=== PATIENT | female | born 1940 | race Caucasian/White ===

== ENCOUNTER 2022-07-19 10:30 | Outpatient (RCR) | payer MEDICARE, BC, SELFPAY | END 2023-03-29 23:59 | disposition home or self-care (01) | PROVIDERS: PCP Student in an Organized Health Care Education/Training Program; Visit Provider Student in an Organized Health Care Education/Training Program | DX: I89.0 Lymphedema, not elsewhere classified (principal); Z51.89 Encounter for other specified aftercare | CPT/HCPCS: 97140 ==

== ENCOUNTER 2022-10-24 11:30 | Outpatient (RCR) | payer MEDICARE, BC, SELFPAY | END 2022-11-17 15:24 | disposition home or self-care (01) | PROVIDERS: PCP Student in an Organized Health Care Education/Training Program; Visit Provider Student in an Organized Health Care Education/Training Program | DX: M81.0 Age-related osteoporosis without current pathological fracture (principal); R53.1 Weakness; R26.9 Unspecified abnormalities of gait and mobility; Z51.89 Encounter for other specified aftercare | CPT/HCPCS: 97110; 97112; 97161; 97530 ==

== ENCOUNTER 2023-09-05 16:15 | Outpatient (RCR) | payer MEDICARE, BC, SELFPAY ==
--- NOTE | 2023-07-27 12:59 | PT.OPEX ---
[place] Outpatient Eval PT [facility] Outpatient Eval Start: 07/27/23 12:20 Freq: Status: Active Protocol: Document 07/27/23 12:20 AIMEE (Rec: 07/27/23 12:56 AIMEE [id number]) E-signed By Trista Guerrero PT Physical Therapy Outpatient Evaluation Insurance Information Recert Due Date 10/24/23 Insurance Name Medicare B Medical Diagnosis RIGHT SHOULDER OA Treating Diagnosis RIGHT SHOULDER PAIN WEAKNESS Referring MD GIANNA RICHARDSON Subjective Subjective PATIENT REPORTS PAIN WITH REACHING AND GROOMING HER HAIR . SHE STATES, IT'S BEEN COMING ON FOR ABOUT 6 MONTHS OR SO AND REALLY NOTICED LATELY WITH DOING MY HAIR. SHE IS REFERRED BY HER PCP DURING HER ANNUAL PHYSICAL EXAMINATION. ADDITIONALLY, SHE REPORTS HAVING AND EPISODE OF VERTIGO-LIKE SYMPTOMS FOR THE PAST ~2 WEEKS THAT HAS KEPT HER FROM MAKING HER INITIAL APPTS FOR THE EVALUATION. SHE REPORTS THAT DIAGNOSTICS OF ALL RETURNED UNREMARKABLE. LASTLY, SHE WILL HAVE HER LEFT HIP EVALUATED FOR PHYSICAL THERAPY NEXT VISIT. Pain Comments 0-10/20 Date of Last Physician Visit 06/15/23 Current Work Status Retired Preferred Name [employer] Precautions Treatment Precautions/Contraindications OSTEOPOROSIS Therapy Limitations/Systems Review Not Limited Objective Other/Pertinent Objective CERVICAL ROM: DECREASED ROM WITH MOD FWD HEAD POSTURING NOTING SIGNIFICANT THORACIC KYPHOSIS WITH MIN SCOLIOSIS SHOULDER AROM Flexion: 120 Abduction: 82 Internal Rotation: T4 External Rotation: 68 @ 0DEGREES ABD NECK/SHOULDER MMT: Shoulder shrug: WFL Shoulder flexion: R 4/5 Shoulder abduction: R 4/5 Shoulder External Rotation: R 4-/5 Shoulder Internal Rotation: R 4+ Elbow flexion: R 4/5 Elbow extension R 4/5 SPECIAL TEST Spurlings Test: (-) Cervical distraction test: NT Shoulder impingement HawkinsElsiey Test: (+) Neer Test: (+) Cherelle Test(subacromial) : (-) Painful arc 60-120 scaption: ( +) Rotator cuff tendonitis Speeds test(biceps): (-) Yergasons test(biceps-arm at side elbow flexed): (-) Empty can(Supra): (+) Lift off test (subscap): (-) JOINT MOBILITY: DECREASED TX: CERVICAL ROTATION R/L 2X10 SEC CERVICAL SIDEBEND R/L 2 X 10 CERVICAL CHIN TO CHEST 2 X 10 SHOULDER SHRUG WITH BKWD ROT X 10 SHOULDER SCAP SQUEEZE X 10 3 SEC HOLD TABLE SLIDES INTO FLEX 10 X 5 SEC Assessment Assessment/Impression PATIENT IS AN [address] 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 SHE SELF TREATS HER LYMPHEDEMA THROUGH COMPRESSION GARMENTS AND LYMPH MASSAGE. ADDITIONALLY, SHE WAS REFERRED FOR HIP WEAKNESS/ BALANCE CHALLENGES THAT WE WILL ADDRESS IN UPCOMING EVALUATION. SHE DEMONSTRATES FUNCTIONAL ROM WITH NO PAIN AT REST/WITHOUT MVMT BUT PAINFUL ARC THAT SHE RATES 3-4/10 WITH REACHING OR GROOMING HER HAIR. SHE HAS FUNCTIONAL STRENGTH AND NO POINT TENDERNESS ABOUT THE SHOULDER COMPLEX. SHE DOES, HOWEVER, DEMONSTRATES MODERATE FWD HEAD POSTURING WITH A SIGNIFICANT THORACIC KYPHOSIS WITH MIN SCOLIOTIC CURVATURE NOTED. SHE DOES NOT C/O NECK PAIN BUT DEMONSTRATES LIMITED MOTION PARTLY D/T ARTHRITIC CHANGES BUT ALSO RECENT VERTIGO EXPERIENCE WHERE SHE IS FEARFUL OF MVMT WELL USING HER WALKING STICK FOR STABILITY. SHE IS APPROPRIATE FOR SKILLED PHYSICAL THERAPY TO ADDRESS HER FUNCTIONAL STRENGTH, ROM, AND SYMPTOM MGMT WITH ADDITIONAL INTERVENTION TO ADDED FOR HER BLE STRENGTH AND BALANCE. PATIENT VERBALIZED UNDERSTANDING TO ALL SKILLED INSTRUCTION AND AGREEABLE TO POC AND FREQ. Plan of Care Rehabilitation Potential Good Physical Therapy Goals IN 6-8 WEEKS: 1. PATIENT WILL IMPROVE ROM AND STRENGTH TO ALLOW FOR RETURN TO PLOF WITH DAILY ACTIVITIES 2. PATIENT WILL BE EDUCATED ON POSTURE AND BODY MECHANICS TO STRESS TO THE SHOULDER REGION, IMPROVE SHOULDER MECHANICS AND DECREASE OVERALL SHOULDER DYSFUNCTION. 3. PATIENT WILL BE INDEPENDENT WITH HER HEP AND TO PROGRESS GOALS, ONGOING MGMT OF SYMPTOMS AND CONTINUED SELF IMPROVEMENT WITH POSTURE, STRENGTH, AND MECHANICS. Coordination/Communication With Referral Source Treatment Plan/Direct Interventions Heat,Ice/Cold/Vasopneumatic, Joint Mobilization,Manual Therapy,Neuromuscular Re-ed, Therapeutic Activities, Therapeutic Exercises Frequency/Duration 1W8-10 Patient Will Be Discharged From Therapy Completion of LTG(s),Skills Plateau,Independent w/HEP Discharge Plan Comments DC TO SELF WHEN GOALS MET OR MAX POTENTIAL ACHIEVED Evaluation Billing Untimed Code Treatment Minutes 15 PT Eval No Charge No Complexity Low Certification Information Initial Certification Date 07/27/23 Ending Certification Date 10/24/23 Provider Signature Shows Agreement With POC & Medical Necessity Physician Signature & Date Requested Please Sign/Date Here Physician Comment/Change : Physician NPI Number #
== END 2023-11-20 10:14 | disposition home or self-care (01) ==
PROVIDERS: PCP Student in an Organized Health Care Education/Training Program; Visit Provider Student in an Organized Health Care Education/Training Program
DX: M41.9 Scoliosis, unspecified (principal); R29.898 Other symptoms and signs involving the musculoskeletal system; M19.011 Primary osteoarthritis, right shoulder; M25.511 Pain in right shoulder; R53.1 Weakness; R26.81 Unsteadiness on feet; M25.552 Pain in left hip; Z51.89 Encounter for other specified aftercare
CPT/HCPCS: 97110; 97161

== ENCOUNTER 2023-09-10 08:42 | Inpatient (IN) | payer MEDICARE, BC, SELFPAY ==
[2023-09-10] VITALS (10 sets, daily range): BP systolic 87–176; BP diastolic 51–74; PULSE 66–73; RESP 16–20; TEMP 36.3–37.4; O2SAT 91–97; BMI 27.5
--- NOTE | 2023-09-10 09:09 | ED.NAVMDI ---
HPI - Nausea/Vomiting/Diarrhea General Chief complaint: Nausea/Vomiting Stated complaint: nausea vomiting Time Seen by Provider: 09/10/23 08:59 History of Present Illness HPI Narrative: Patient is a 83-year-old woman who was in usual state of health 2 days ago when she had the abrupt onset of nausea and vomiting. She appears to be vomiting bile she states that her vomitus is very dark. She has had no diarrhea no fevers no chills no night sweats. She has no significant pain other than the pain from retching. She has had no cough no shortness of breath no rashes no stiff neck. Patient lives alone was brought to the emergency room today for further evaluation and treatment. No other significant symptoms noted. Related Data Home Medications Medication Instructions Recorded Confirmed amlodipine 2.5 mg tablet 2.5 mg PO DAILY 09/10/23 09/10/23 atenolol 50 mg tablet mg PO 09/10/23 bupropion HCl 150 mg 24 hr tablet, 150 mg PO QAM 09/10/23 09/10/23 extended release famotidine 20 mg tablet mg PO 09/10/23 furosemide 20 mg tablet mg PO 09/10/23 hydrochlorothiazide 12.5 mg tablet 12.5 mg PO DAILY 09/10/23 09/10/23 pantoprazole 20 mg tablet,delayed 20 mg PO DAILY 09/10/23 09/10/23 release simvastatin 10 mg tablet mg PO 09/10/23 Allergies Allergy/AdvReac Type Severity Reaction Status Date / Time No Known Drug Allergies Allergy Verified 09/10/23 08:57 Review of Systems Status of ROS: Reports: 10 or more systems reviewed and unremarkable except as noted in History and below [facility] Medical History Colostomy in place ?Z93.3 - Colostomy status (ICD-10) Hyperlipidemia ?E78.5 - Hyperlipidemia, unspecified (ICD-10) Chronic GERD ?K21.9 - Gastro-esophageal reflux disease without esophagitis (ICD-10) Hypertension ?I10 - Essential (primary) hypertension (ICD-10) Social History Smoking Status: Former smoker How often do you have a drink containing alcohol: never How often do you have six or more drinks on one occasion: Never AUDIT-C Alcohol total score: 0 Non-prescribed substance use: denies use Exam Narrative: Exam Narrative: EXAM GENERAL: Patient appears comfortable and well. EYES: No scleral icterus. THYROID: no thyroid nodules or thyromegaly. LYMPH: No supraclavicular or cervical lymphadenopathy. SKIN: Visible skin seen during exam normal or with benign process only. EXT: No dependent lower extremity pedal edema. HEART: Regular rate and rhythm with no murmurs, rubs, or gallops. LUNGS: Clear to auscultation bilaterally with no crackles or wheezes. ABD: Soft, non tender, non distended. Colostomy noted. PSYCH: Good eye contact, speech is not pressured. Const: Vital Signs, click to edit/add: Vital Signs - 24 hr 09/10/23 08:54 09/10/23 09:49 09/10/23 10:41 Temperature 97.3 F L Pulse Rate [Pulse Oximeter] 68 66 72 Respiratory Rate 20 16 Blood Pressure [Ri ght Upper Arm] 168/61 H 142/51 H Pulse Oximetry 97 96 96 Oxygen Delivery Me thod Room Air Room Air Room Air 09/10/23 12:38 Temperature Pulse Rate [Pulse Oximeter] 72 Respiratory Rate 16 Blood Pressure [Ri ght Upper Arm] 129/54 L Pulse Oximetry 96 Oxygen Delivery Me thod Room Air Course Course ED Course: Patient seen and examined. IV placed normal saline 1 L given 4 mg IV Zofran given CBC CMP amylase UA pending. Vital Signs Vital signs: Initial Vital Signs Temperature 97.3 F L 09/10/23 08:54 Temperature Source Temporal Artery Scan 09/10/23 08:54 Pulse Rate 68 09/10/23 08:54 Respiratory Rate 20 09/10/23 08:54 Blood Pressure 168/61 H 09/10/23 08:54 Blood Pressure Mean 96 09/10/23 08:54 Blood Pressure Position Supine 09/10/23 08:54 Pulse Oximetry 97 09/10/23 08:54 Oxygen Delivery Method Room Air 09/10/23 08:54 Vital Signs Temperature 97.3 F L 09/10/23 08:54 Pulse Rate 68 09/10/23 08:54 Respiratory Rate 20 09/10/23 08:54 Blood Pressure 168/61 H 09/10/23 08:54 Pulse Oximetry 97 09/10/23 08:54 Oxygen Delivery Method Room Air 09/10/23 08:54 Temperature 97.3 F L 09/10/23 08:54 Pulse Rate 72 09/10/23 12:38 Respiratory Rate 16 09/10/23 12:38 Blood Pressure 129/54 L 09/10/23 12:38 Pulse Oximetry 96 09/10/23 12:38 Oxygen Delivery Method Room Air 09/10/23 12:38 Medications Administered Medications: Generic Name Dose Route Start Last Admin Trade Name Fregrady PRN Reason Stop Dose Admin Ondansetron HCl 4 mg 09/10/23 09:02 09/10/23 09:15 Ondansetron 2 Mg/Ml Inj IVP 4 mg ONCE PRN Administration Discontinued Medications Generic Name Dose Route Start Last Admin Trade Name Fregrady PRN Reason Stop Dose Admin Sodium Chloride 1,000 mls @ 1,000 mls/hr 09/10/23 09:03 09/10/23 10:59 0.9 % Sodium Chloride 1000 Ml IV 09/10/23 10:02 Infused .Q1H MIGUEL Infusion Potassium Chloride 10 meq in 100 mls @ 100 mls/hr 09/10/23 09:45 09/10/23 12:00 Potassium Chloride IVPB 09/10/23 12:14 Infused Q90M MIGUEL Infusion MDM - Nausea/Vomiting/Diarrhea MDM Narrative Medical decision making narrative: Patient is an 83-year-old woman who presents with nausea and vomiting. We did obtain laboratory studies she does have some evidence of mild dehydration as well as hypokalemia. I did give her a 210 mg IV bumps of potassium and her potassium to level did come up from 2.6-3.2. I also gave her 1 L of normal saline and she is feeling better. She does desaturate when she is sleeping which I do think is a chronic problem as she is 96% while awake on room air. This time she is feeling better and is willing to give a try at home after receiving IV Zofran here I did prescribe p.o. 0 DT Zofran to take at home. She will answer diet activity as tolerated continue current medications. She does have follow-up later this week with her primary doctor where she will discuss her symptoms as well as her hypoxia while sleeping. Differential Diagnosis Differential diagnosis: Likely traveler's diarrhea, food poisoning, gastroenteritis, clostridium difficile infection, drug-induced nausea and vomiting and dehydration Lab Data Labs: Lab Results 09/10/23 09/10/23 09/10/23 Range/Units 09:00 09:10 10:34 WBC 12.65 H (4.50-11.00) K/uL RBC 4.23 (4.00-5.20) m/uL Hgb 12.8 (12.0-16.0) gm/dL Hct 37.7 (33.0-51.0) % MCV 89 (80-100) fL MCH 30 (26-34) pg MCHC 34 (32-36) gm/dL RDW Coeff of Sadia 12.3 (11.5-15.5) % Plt Count 282 (140-440) K/uL Neut % (Auto) 86.2 H (42.0-72.0) % Lymph % (Auto) 5.4 L (20-44) % [place] % (Auto) 7.9 (0.0-11.0) % Eos % (Auto) 0.1 (0.0-7.0) % Baso % (Auto) 0.2 (0.0-3.0) % Neut # (Auto) 10.90 H (1.7-7.0) K/uL Lymph # (Auto) 0.70 L (0.90-2.90) K/uL [place] # (Auto) 1.00 H (0.00-0.90) K/UL Eos # (Auto) 0.00 (0.00-0.50) K/uL Baso # (Auto) 0.00 (0.00-0.30) K/uL Abs Immat Gran (auto) 0.00 (0.00-0.30) K/uL Imm/Tot Granulo (auto) 0.2 % Sodium 133 L (135-149) mmol/L Potassium 2.6 L* (3.6-5.1) mmol/L Chloride 85 L (96-114) mmol/L Carbon Dioxide 31 (20-32) mmol/L Anion Gap 17 H (7-15) mEq/L BUN 37 H (7-30) mg/dL Creatinine 1.5 (0.5-1.5) mg/dL Estimated GFR 35 ml/min Glucose 140 H (60-115) mg/dL Calcium 9.0 (8.4-10.6) mg/dL Total Bilirubin 1.0 (0.1-1.5) mg/dL AST 29 (12-35) U/L ALT 19 (4-35) U/L Alkaline Phosphatase 72 (40-150) U/L Total Protein 8.0 (6.0-8.3) g/dL Albumin 4.4 (3.3-5.0) g/dL Amylase 62 (18-89) U/L Urine Color Yellow (Yellow) Urine Appearance Clear (Clear) Urine pH 5.5 (5.0-8.5) Ur Specific [place] 1.020 (1.000-1.030) Urine Protein Negative (Negative) Urine Glucose (UA) Negative (Negative) Urine Ketones 1+ A (Negative) Urine Blood Trace-intact A (Negative) Urine Nitrite Negative (Negative) Urine Bilirubin 1+ A (Negative) Urine Urobilinogen 0.2 (0.2-1.0) Ur Leukocyte Esterase Negative (Negative) Urine RBC 0-2 (0-2) Urine WBC 0-2 (0-5) Ur Squamous Epith Cells Few (None-Few) Urine Bacteria None (None) SARS-CoV-2 (PCR) Negative SARS-CoV-2 (Negative) Influenza Type A (PCR) Negative PCR FLU A (Negative) Influenza Type B (PCR) Negative PCR FLU B (Negative) RSV (PCR) Negative PCR RSV (Negative) 09/10/23 Range/Units 12:07 WBC (4.50-11.00) K/uL RBC (4.00-5.20) m/uL Hgb (12.0-16.0) gm/dL Hct (33.0-51.0) % MCV (80-100) fL MCH (26-34) pg MCHC (32-36) gm/dL RDW Coeff of Sadia (11.5-15.5) % Plt Count (140-440) K/uL Neut % (Auto) (42.0-72.0) % Lymph % (Auto) (20-44) % [place] % (Auto) (0.0-11.0) % Eos % (Auto) (0.0-7.0) % Baso % (Auto) (0.0-3.0) % Neut # (Auto) (1.7-7.0) K/uL Lymph # (Auto) (0.90-2.90) K/uL [place] # (Auto) (0.00-0.90) K/UL Eos # (Auto) (0.00-0.50) K/uL Baso # (Auto) (0.00-0.30) K/uL Abs Immat Gran (auto) (0.00-0.30) K/uL Imm/Tot Granulo (auto) % Sodium (135-149) mmol/L Potassium 3.2 L (3.6-5.1) mmol/L Chloride (96-114) mmol/L Carbon Dioxide (20-32) mmol/L Anion Gap (7-15) mEq/L BUN (7-30) mg/dL Creatinine (0.5-1.5) mg/dL Estimated GFR ml/min Glucose (60-115) mg/dL Calcium (8.4-10.6) mg/dL Total Bilirubin (0.1-1.5) mg/dL AST (12-35) U/L ALT (4-35) U/L Alkaline Phosphatase (40-150) U/L Total Protein (6.0-8.3) g/dL Albumin (3.3-5.0) g/dL Amylase (18-89) U/L Urine Color (Yellow) Urine Appearance (Clear) Urine pH (5.0-8.5) Ur Specific [place] (1.000-1.030) Urine Protein (Negative) Urine Glucose (UA) (Negative) Urine Ketones (Negative) Urine Blood (Negative) Urine Nitrite (Negative) Urine Bilirubin (Negative) Urine Urobilinogen (0.2-1.0) Ur Leukocyte Esterase (Negative) Urine RBC (0-2) Urine WBC (0-5) Ur Squamous Epith Cells (None-Few) Urine Bacteria (None) SARS-CoV-2 (PCR) (Negative) Influenza Type A (PCR) (Negative) Influenza Type B (PCR) (Negative) RSV (PCR) (Negative) Discharge Plan Discharge Clinical Impression: Gastroenteritis Patient Disposition: Home, Self-Care Condition: Stable Instructions: Acute Nausea and Vomiting (ED) Additional Instructions: Zofran as directed Continue current medications Follow-up with your doctor later this week. Activity Level: No Restrictions Discharge Diet: Regular Prescriptions: No Action simvastatin 10 mg tablet PO amlodipine 2.5 mg tablet 2.5 mg PO DAILY pantoprazole 20 mg tablet,delayed release (DR/EC) 20 mg PO DAILY famotidine 20 mg tablet PO furosemide 20 mg tablet PO atenolol 50 mg tablet PO bupropion HCl 150 mg tablet extended release 24 hr 150 mg PO QAM hydrochlorothiazide 12.5 mg tablet 12.5 mg PO DAILY Follow Up/Referrals: GIANNA RICHARDSON DO [Primary Care Provider] - Stand Alone Forms: [facility] Info Instructions
[2023-09-10] MEDS: 0.9 % SODIUM CHLORIDE 1000 ml 1,000 ML IV (09:15)
[2023-09-10] MEDS: ONDANSETRON 2 MG/ML inj 4 MG IVP ×3 (09:15→20:57)
[2023-09-10 09:29] LABS: Basophils Percent Auto 0.2 % (0.0-3.0); Eosinophils Percent Auto 0.1 % (0.0-7.0); Hematocrit 37.7 % (33.0-51.0); Hemoglobin* 12.8 gm/dL (12.0-16.0); Immature Granulocytes Pct Auto 0.2 %; Lymphocytes Percent Auto 5.4 % (20-44); Mean Corpuscular HGB Conc 34 gm/dL (32-36); Mean Corpuscular Hemoglobin 30 pg (26-34); Mean Corpuscular Volume 89 fL (80-100); Monocytes Percent Auto 7.9 % (0.0-11.0); Neutrophils Percent Auto 86.2 % (42.0-72.0); Platelet Count* 282 K/uL (140-440); RDW Coefficient of Variation % 12.3 % (11.5-15.5); Red Blood Count 4.23 m/uL (4.00-5.20); White Blood Count* 12.65 K/uL (4.50-11.00)
[2023-09-10 09:34] LABS: Albumin* 4.4 g/dL (3.3-5.0); Chloride* 85 mmol/L (96-114)
[2023-09-10 09:35] LABS: Sodium* 133 mmol/L (135-149)
[2023-09-10 09:37] LABS: Alkaline Phosphatase* 72 U/L (40-150); Amylase* 62 U/L (18-89); Anion Gap 17 mEq/L (7-15); Aspartate Amino Transferase* 29 U/L (12-35); Blood Urea Nitrogen* 37 mg/dL (7-30); Carbon Dioxide* 31 mmol/L (20-32); Creatinine* 1.5 mg/dL (0.5-1.5); Estimated Glomerular Filt Rate 35 ml/min; Glucose* 140 mg/dL (60-115)
[2023-09-10 09:38] LABS: Alanine Aminotransferase* 19 U/L (4-35); Slide Review Reflex No
[2023-09-10 09:39] LABS: Potassium* 2.6 mmol/L (3.6-5.1)
[2023-09-10] MEDS: POTASSIUM CHLORIDE 10 MEQ/100 ML PIGGYBACK 100 MEQ IVPB ×6 (09:49→22:47)
[2023-09-10 10:02] LABS: PCR FLU A Negative PCR FLU A (Negative); PCR FLU B Negative PCR FLU B (Negative); PCR RSV Negative PCR RSV (Negative)
[2023-09-10 10:05] LABS: SARS PCR* Negative SARS-CoV-2 (Negative)
[2023-09-10 10:39] LABS: Appearance Urine Clear (Clear); Bilirubin Urine 1+ (Negative); Blood Urine Trace-intact (Negative); Color Urine Yellow (Yellow); Glucose Urine Negative (Negative); Ketones Urine 1+ (Negative); Leukocyte Esterase Urine Negative (Negative); Nitrite Urine Negative (Negative); Protein Urine Negative (Negative); Urobilinogen Urine 0.2 (0.2-1.0); pH Urine 5.5 (5.0-8.5)
[2023-09-10 10:59] LABS: RBC Urine 0-2 (0-2); Squamous Epithelial Cell Urine Few (None-Few); WBC Urine 0-2 (0-5)
--- NOTE | 2023-09-10 11:27 | CRLHL7_ITS ---
For Patients: As a result of the Century Cures Act, medical imaging exams and procedure reports are released immediately into your electronic medical record. You may view this report before your referring provider. If you have questions, please contact your health care provider. INDICATION: [id number]. TECHNIQUE: Chest 2 views. COMPARISON: None. FINDINGS: Cardiovascular and mediastinum: Heart size and vasculature are normal in caliber and appearance. Lungs and pleural spaces: Lungs are clear. No sign of infiltrate or mass. No sign of pleural effusion. No pneumothorax. Bones and soft tissues: No significant findings. IMPRESSION: No acute or significant findings. Dictated by Han Jonas MD @ 09/10/2023 12:22:06 PM (Electronically Signed)
--- NOTE | 2023-09-10 11:29 | ED.NURSE ---
Pt O2 sats noted to drop to ~80% while pt is sleeping in the room. Pt easily rousable to voice, denies SOB. Pt O2 sats recovered quickly to mid 90's% on room air once awake. MD Russell updated, chest x-ray ordered.
[2023-09-10 12:23] LABS: Potassium* 3.2 mmol/L (3.6-5.1)
--- NOTE | 2023-09-10 12:50 | ED.NURSE ---
Pt very nauseated, vomiting small amount of emesis. MD notified.
--- NOTE | 2023-09-10 13:19 | ED.NURSE ---
Pt states she feels very weak, reports nausea/vomiting has not improved. Also reports some new abd pain now. MD Russell updated.
[2023-09-10] MEDS: 0.9 % SODIUM CHLORIDE 1000 ml 1,000 ML 125 ML IV (15:41)
[2023-09-10] MEDS: droperidoL 2.5 MG/ML inj 0.625 MG IV (16:08)
[2023-09-10] MEDS: ENOXAPARIN 30 MG/0.3ML INJ SUBCUT (16:08)
[2023-09-10] MEDS: PANTOPRAZOLE SODIUM 40 MG INJ IVP (16:10)
[2023-09-10] MEDS: PROCHLORPERAZINE 5 MG/ML VIAL IV (17:44)
[2023-09-10 18:32] LABS: Albumin* 4.2 g/dL (3.3-5.0); Chloride* 91 mmol/L (96-114); Sodium* 135 mmol/L (135-149)
[2023-09-10 18:35] LABS: Anion Gap 13 mEq/L (7-15); Carbon Dioxide* 31 mmol/L (20-32); Creatinine* 1.3 mg/dL (0.5-1.5); Est. Creatinine Clearance* 32.54; Estimated Glomerular Filt Rate 41 ml/min
[2023-09-10 18:36] LABS: Blood Urea Nitrogen* 34 mg/dL (7-30); Calcium* 8.2 mg/dL (8.4-10.6); Glucose* 123 mg/dL (60-115); Magnesium* 1.4 mg/dL (1.5-2.6); Phosphorus* 3.5 mg/dL (2.5-4.5)
[2023-09-10 18:41] LABS: Potassium* 2.6 mmol/L (3.6-5.1)
--- NOTE | 2023-09-10 18:47 | PC.NURSE ---
Potassium result of 2.6 this [address] smasher updated Dr. Miranda.
[2023-09-10] MEDS: MAGNESIUM IV 2 GM/50 ML PIGGYBACK IVPB (19:01)
--- NOTE | 2023-09-10 19:19 | P.IMHP_ITS ---
Hospitalist- H&P: HPI History of Present Illness Date Seen: 09/10/23 Chief complaint: nausea vomiting Narrative: Lillie Tong is a 83 year old woman was in her usual state of health until 2 days prior to presentation when she had the sudden, abrupt onset of nausea and vomiting. Had been visiting her children. Returned home. Was doing well for few hours and then had the sudden, abrupt onset of nausea and vomiting. Denies fevers, rigors, diaphoresis. Denies diarrhea. Only discomfort she has is from the retching. Denies chest heaviness, pressure, tightness, or pain. Denies abdominal pain. Denies dysuria, urgency, frequency, hematuria. No recent trauma or injury. Has had little to eat or drink since the onset of these symptoms. Acknowledges decreased frequency of urination. Finally decided to come in for further assessment. Had epigastric discomfort in the early part of August. Was started empirically on pantoprazole and Tums in that epigastric discomfort resolved. Review of Systems Status of ROS: Reports: 10 or more systems reviewed and unremarkable except as noted in History and below Narrative: Does have an ostomy. States had cancer 20 years ago and has had the ostomy since. Does not give additional details. [facility] Medical History Peripheral artery disease ?I73.9 - Peripheral vascular disease, unspecified (ICD-10) History of endometrial cancer ?Z85.42 - Personal history of malignant neoplasm of other parts of uterus (ICD-10) Chronic hyperkalemia ?E87.5 - Hyperkalemia (ICD-10) Thyroid nodule ?E04.1 - Nontoxic single thyroid nodule (ICD-10) Stenosis of left carotid artery ?I65.22 - Occlusion and stenosis of left carotid artery (ICD-10) Primary hyperparathyroidism ?E21.0 - Primary hyperparathyroidism (ICD-10) Osteoporosis ?M81.0 - Age-related osteoporosis without current pathological fracture (ICD- 10) Diverticulosis ?K57.90 - Diverticulosis of intestine, part unspecified, without perforation or abscess without bleeding (ICD-10) Aortic valve sclerosis ?I35.8 - Other nonrheumatic aortic valve disorders (ICD-10) Colostomy in place ?Z93.3 - Colostomy status (ICD-10) Hyperlipidemia ?E78.5 - Hyperlipidemia, unspecified (ICD-10) Chronic GERD ?K21.9 - Gastro-esophageal reflux disease without esophagitis (ICD-10) Hypertension ?I10 - Essential (primary) hypertension (ICD-10) Surgical History 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 ?Z90.710 - Acquired absence of both cervix and uterus (ICD-10) ?Z90.722 - Acquired absence of ovaries, bilateral (ICD-10) ?Z90.79 - Acquired absence of other genital organ(s) (ICD-10) Status post colectomy ?Z90.49 - Acquired absence of other specified parts of digestive tract (ICD- 10) Status post cholecystectomy ?Z90.49 - Acquired absence of other specified parts of digestive tract (ICD- 10) Social History What is your current living situation?: I presently have a place to live Problems where you live: no known problems Problems where you live details: N/A In the past 12 months, utilities in danger of being shut off: no In past 12 months, lack of transportation kept you from medical appts, meetings, work, or getting things needed for daily living: no In the past 12 mos, have been you worried that your food would run out before you had money to buy more?: never true In the past 12 mos, the food you bought just didn't last and you didn't have money to buy more?: never true Highest level of school completed/degree received: Bachelor's degree Smoking Status: Former smoker Second hand tobacco smoke exposure: No How often do you have a drink containing alcohol: never How often do you have six or more drinks on one occasion: Never AUDIT-C Alcohol total score: 0 Non-prescribed substance use: denies use Caffeine: No How often does anyone, including family, friends and others, physically hurt you : never How often does anyone, including family, friends and others, insult or talk down to you: never How often does anyone, including family, friends and others, threaten you with harm: never How often does anyone, including family, friends and others, scream or curse at you: never service: No Meds Home Medications and Allergies Home Medications Medication Instructions Recorded Confirmed Type amlodipine 2.5 mg tablet 2.5 mg PO DAILY 09/10/23 09/10/23 History aspirin 81 mg chewable tablet 81 mg PO DAILY 09/10/23 09/10/23 History (Aspirin Childrens) atenolol 50 mg tablet 50 mg PO BID 09/10/23 09/10/23 History bupropion HCl 150 mg 24 hr tablet, 150 mg PO QAM 09/10/23 09/10/23 History extended release calcium carbonate 500 mg-vitamin 1 tab PO DAILY 09/10/23 09/10/23 History D3 10 mcg (400 unit) tablet (Calcium 500 + D) cholecalciferol (vitamin D3) 25 2,000 unit PO DAILY 09/10/23 09/10/23 History mcg (1,000 unit) tablet furosemide 20 mg tablet 20 mg PO DAILY 09/10/23 09/10/23 History hydrochlorothiazide 12.5 mg tablet 12.5 mg PO DAILY 09/10/23 09/10/23 History lorazepam 0.5 mg tablet 0.5 mg PO BID PRN 09/10/23 09/10/23 History pantoprazole 20 mg tablet,delayed 20 mg PO DAILY 09/10/23 09/10/23 History release simvastatin 10 mg tablet 10 mg PO HS 09/10/23 09/10/23 History Allergies Allergy/AdvReac Type Severity Reaction Status Date / Time No Known Drug Allergies Allergy Verified 09/10/23 08:57 Exam Narrative: Exam Narrative: Examined patient in the hospital room. Appears comfortable no acute distress. Vision and hearing are grossly normal. Alert oriented to self, place, time, situation. Friendly, articulate, cooperative. Dry buccal mucosa. Dentition in good repair. No icterus or conjunctival injection. Lungs are clear to auscultation. Heart tones with regular rhythm. Abdomen with active bowel sounds, soft, nontender. Ostomy in place. Good output. Extremities without edema. Moves all 4 extremities. No focal motor neurologic deficits. Skin is dry and intact. Const: Vital Signs, click to edit/add: Vital Signs - 24 hr 09/10/23 08:54 09/10/23 09:49 09/10/23 10:41 Temperature 97.3 F L Pulse Rate [Left B rachial] Pulse Rate [Pulse Oximeter] 68 66 72 Respiratory Rate 20 16 Blood Pressure [Le ft Arm] Blood Pressure [Ri ght Arm] Blood Pressure [Ri ght Upper Arm] 168/61 H 142/51 H Pulse Oximetry 97 96 96 Oxygen Delivery Me thod Room Air Room Air Room Air 09/10/23 12:38 09/10/23 13:19 09/10/23 14:30 Temperature 97.8 F Pulse Rate [Left B rachial] 73 Pulse Rate [Pulse Oximeter] 72 67 Respiratory Rate 16 20 Blood Pressure [Le ft Arm] 87/63 L Blood Pressure [Ri ght Arm] Blood Pressure [Ri ght Upper Arm] 129/54 L 139/74 Pulse Oximetry 96 92 95 Oxygen Delivery Me thod Room Air Room Air Room Air 09/10/23 15:45 09/10/23 17:11 Temperature 99.4 F Pulse Rate [Left B rachial] 68 Pulse Rate [Pulse Oximeter] Respiratory Rate 18 18 Blood Pressure [Le ft Arm] Blood Pressure [Ri ght Arm] 131/58 L Blood Pressure [Ri ght Upper Arm] Pulse Oximetry 91 91 Oxygen Delivery Mi thod Room Air Room Air Hospitalist - H&P: Result Labs Labs: Short CBC 09/10/23 Range/Units 09:10 WBC 12.65 H (4.50-11.00) K/uL Hgb 12.8 (12.0-16.0) gm/dL Hct 37.7 (33.0-51.0) % Plt Count 282 (140-440) K/uL BMP 09/10/23 09/10/23 09/10/23 09:10 12:07 18:10 Sodium 133 L 135 Potassium 2.6 L* 3.2 L 2.6 L* Chloride 85 L 91 L Carbon Dioxide 31 31 BUN 37 H 34 H Creatinine 1.5 1.3 Glucose 140 H 123 H Calcium 9.0 8.2 L Liver Function 09/10/23 09/10/23 Range/Units 09:10 18:10 Total Bilirubin 1.0 (0.1-1.5) mg/dL AST 29 (12-35) U/L ALT 19 (4-35) U/L Alkaline Phosphatase 72 (40-150) U/L Albumin 4.4 4.2 (3.3-5.0) g/dL Urine 09/10/23 Range/Units 10:34 Urine Color Yellow (Yellow) Urine Appearance Clear (Clear) Urine pH 5.5 (5.0-8.5) Ur Specific Gulliver 1.020 (1.000-1.030) Urine Protein Negative (Negative) Urine Glucose (UA) Negative (Negative) Assessment and Plan Assessment and plan (1) Dehydration: Status: Acute (2) Nausea and vomiting: Problem comment: -antiemetics as needed -IV PPI Status: Acute (3) Gastroenteritis: Status: Acute (4) Hypotension: Problem comment: -IV fluid rehydration Status: Acute (5) Acute kidney injury: Problem comment: -baseline creatinine 0.8, current creatinine 1.5 -related to dehydration and possibly also hypotension Status: Acute (6) Hypokalemia: Problem comment: -potassium supplementation Status: Acute (7) Hypomagnesemia: Problem comment: -magnesium supplementation Status: Acute Plan 1. Reviewed impression with patient and daughter. Answered their questions. 2. Hold antihypertensive medications, including hydrochlorothiazide. 3. Continue with other supportive efforts. 4. Patient and daughter agreeable.
[2023-09-10] MEDS: SODIUM CHLORIDE 0.9 % (FLUSH) 10 ML SYRINGE 5 ML IVF (20:57)
--- NOTE | 2023-09-10 23:25 | PC.NURSE ---
Shift note [id number]: Pt noted to be alert & oriented x 4 and arrived to M/S floor at 1405 today from ED with c/o nausea and vomiting. One time dose of Droperidol administered per order and PRN Compazine administered as pt was still nauseous and vomited 50 mL of bile after receiving one time dose of Droperidol. She was noted to have an additional 25 mL of bile emesis noted at HS. Emesis noted to have foul odor. PRN Zofran given at HS with no further emesis episodes noted. Mill Roll Operator also provided anti-nausea aromatherapy patch. Pt has ostomy in place with band and reports consistency of stool is soft at baseline and has not changed. She has been continent of bladder and has been transferring to bedside commode with SBA. Pt has been afebrile throughout the shift. CL diet ordered though pt could only drink ice water for supper due to N/V. Pt currently receiving NS at 125 mL/hr. Pt has been denying pain when asked and states only discomfort she has noted has been from retching d/t N/V. Pt noted to have hx of GERD. Abdomen noted to be soft and non-tender with bowel sounds active x 4. K+ result of 2.6 noted this evening with Dr. Miranda updated- 40 mEq of total IV potassium given per order. IV in place to L FA patent. Pt did not want to remove pants or socks when assisting her with HS cares. Pt requested fan be provided- fan provided and pt signed form acknowledging charge for fan.
[2023-09-11] VITALS (8 sets, daily range): BP systolic 142–175; BP diastolic 50–75; PULSE 66–74; RESP 18–22; TEMP 36.7–36.9; O2SAT 91–93
[2023-09-11] MEDS: PROCHLORPERAZINE 5 MG/ML VIAL IV ×3 (00:05→20:37)
[2023-09-11] MEDS: 0.9 % SODIUM CHLORIDE 1000 ml 1,000 ML 125 ML IV ×2 (00:05→08:38)
[2023-09-11 07:06] LABS: Hemoglobin* 10.4 gm/dL (12.0-16.0); Mean Corpuscular HGB Conc 33 gm/dL (32-36); Mean Corpuscular Hemoglobin 30 pg (26-34); Mean Corpuscular Volume 92 fL (80-100); Platelet Count* 221 K/uL (140-440); Red Blood Count 3.47 m/uL (4.00-5.20); White Blood Count* 6.74 K/uL (4.50-11.00)
[2023-09-11 07:26] LABS: Slide Review Reflex No
[2023-09-11 07:30] LABS: Albumin* 3.4 g/dL (3.3-5.0); Chloride* 97 mmol/L (96-114); Sodium* 135 mmol/L (135-149)
[2023-09-11 07:33] LABS: Anion Gap 9 mEq/L (7-15); Blood Urea Nitrogen* 29 mg/dL (7-30); Calcium* 7.4 mg/dL (8.4-10.6); Carbon Dioxide* 29 mmol/L (20-32); Creatinine* 1.2 mg/dL (0.5-1.5); Est. Creatinine Clearance* 35.25; Estimated Glomerular Filt Rate 45 ml/min; Glucose* 97 mg/dL (60-115); Phosphorus* 2.5 mg/dL (2.5-4.5)
[2023-09-11 07:45] LABS: Potassium* 2.8 mmol/L (3.6-5.1)
[2023-09-11 08:22] LABS: Magnesium* 2.3 mg/dL (1.5-2.6)
--- NOTE | 2023-09-11 08:26 | PC.NURSE ---
Pt alert and oriented x3. Afebrile. Pt reports nausea and emesis, managed with PRN medications. Pt had 1 emesis around 0000 mls not recorded due to small amount in tissue paper. Pt's colostomy is patent and draining, pt changed dressing, and emptied 1 full bag and emptied another 1/2 a bag around 0530. Pt is up SBA with walker and gait belt to bathroom. Pt slept intermittently throughout night.
[2023-09-11] MEDS: PANTOPRAZOLE SODIUM 40 MG INJ IVP ×2 (08:38→22:30)
[2023-09-11] MEDS: SODIUM CHLORIDE 0.9 % (FLUSH) 10 ML SYRINGE 5 ML IVF ×2 (08:38→20:38)
[2023-09-11] MEDS: buPROPion XL 150 MG TABLET PO (08:38)
--- NOTE | 2023-09-11 13:31 | PM.IMPN1 ---
Progress Note: A&P Assessment and plan (1) Gastroenteritis: Problem details: -with nausea, vomiting, increased stool output in ostomy -antiemetics as needed -IV PPI (history of GERD as well) -clears as tolerated, advancing diet as tolerated -no recent antibiotic use. Monitor stool output, considering pathogen panel, C difficile testing if needed Status: Acute (2) Dehydration: Problem details: -in setting of above -continue with gentle IV hydration until improved oral intake Status: Acute (3) Hypotension: Problem details: -resolved following IV fluid rehydration -monitor, consider restarting antihypertensives tomorrow if remains stable Status: Acute (4) Acute kidney injury: Problem details: -baseline creatinine 0.8, creatinine on admission 1.5 -improved to 1.2 today -related to dehydration and possibly also hypotension Status: Acute (5) Hypokalemia: Problem details: -potassium 2.8 following supplementation, continue with 10 mEq IV bumps, recheck at 2000pm -of note calcium 7.4, corrected calcium 8.2, monitor Status: Acute (6) Hypomagnesemia: Problem details: -improved to 2.3 following supplementation Status: Acute (7) Anemia: Problem details: -hemoglobin 10.4, likely dilutional, continue to monitor Status: Acute Plan Continue to monitor, possible discharge Sunday pending ongoing clinical improvement and improvement in electrolyte derangement Time Spent With Patient Total time spent: Total time spent caring for the patient today was 45 minutes. This includes time spent for the visit reviewing the chart, time spent during the visit, time spent after the visit and documentation and planning in coordination of care. Subjective Date Seen: 09/11/23 Interval history: Patient reports feeling better this morning. Nausea has improved without vomiting this morning. Attempting small bites of clears thus far. Has remained afebrile. Denies Headache or dizziness. Still feels a little weak. Exam Narrative: Exam Narrative: PHYSICAL EXAM General: Sitting on the bed, very pleasant, conversant, NAD HEENT: Normocephalic, atraumatic, sclera white, EOMI, oral mucosa moist Cardiovascular: RRR, S1S2 Pulmonary: CTA bilaterally without rhonchi, rales, expiratory wheezes. No dyspnea Abdominal: Soft, nondistended, NTTP, no guarding. Ostomy bag with small amount of stool currently. Neurological: Alert, answering questions appropriately, cranial nerves intact, no focal findings Extremities: No gross joint deformity or swelling. AROMI. Neurovascularly intact Skin: Warm, dry. Const: Vital Signs, click to edit/add: Vital Signs - 24 hr 09/10/23 14:30 09/10/23 15:45 09/10/23 17:11 Temperature 97.8 F 99.4 F Pulse Rate [Left B rachial] 73 68 Pulse Rate [orthos tatic lying Pulse Oximeter] Pulse Rate [orthos tatic sitting Puls e Oximeter] Pulse Rate [orthos tatic standing Pul se Oximeter] Respiratory Rate 20 18 18 Blood Pressure [Le ft Arm] 87/63 L Blood Pressure [Ri ght Arm] 131/58 L Blood Pressure [or thostatic lying] Blood Pressure [or thostatic sitting Right Arm] Blood Pressure [or thostatic standing Right Arm] Pulse Oximetry 95 91 91 Oxygen Delivery Pr thod Room Air Room Air Room Air 09/10/23 19:30 09/10/23 20:19 09/11/23 00:05 Temperature 98.1 F 98.3 F Pulse Rate [Left B rachial] 71 68 Pulse Rate [orthos tatic lying Pulse Oximeter] Pulse Rate [orthos tatic sitting Puls e Oximeter] Pulse Rate [orthos tatic standing Pul se Oximeter] Respiratory Rate 20 20 Blood Pressure [Le ft Arm] Blood Pressure [Ri ght Arm] 176/69 H 157/68 H 144/50 H Blood Pressure [or thostatic lying] Blood Pressure [or thostatic sitting Right Arm] Blood Pressure [or thostatic standing Right Arm] Pulse Oximetry 94 92 Oxygen Delivery Pr thod Room Air Room Air 09/11/23 00:05 09/11/23 00:05 09/11/23 02:55 Temperature 98.1 F Pulse Rate [Left B rachial] 68 69 Pulse Rate [orthos tatic lying Pulse Oximeter] Pulse Rate [orthos tatic sitting Puls e Oximeter] Pulse Rate [orthos tatic standing Pul se Oximeter] Respiratory Rate 20 20 22 Blood Pressure [Le ft Arm] Blood Pressure [Ri ght Arm] 171/67 H Blood Pressure [or thostatic lying] Blood Pressure [or thostatic sitting Right Arm] Blood Pressure [or thostatic standing Right Arm] Pulse Oximetry 92 92 Oxygen Delivery Pr thod Room Air Room Air 09/11/23 06:00 09/11/23 07:00 09/11/23 07:00 Temperature Pulse Rate [Left B rachial] Pulse Rate [orthos tatic lying Pulse Oximeter] 66 Pulse Rate [orthos tatic sitting Puls e Oximeter] 68 Pulse Rate [orthos tatic standing Pul se Oximeter] 74 Respiratory Rate 18 18 Blood Pressure [Le ft Arm] Blood Pressure [Ri ght Arm] Blood Pressure [or thostatic lying] 155/65 H Blood Pressure [or thostatic sitting Right Arm] 171/67 H Blood Pressure [or thostatic standing Right Arm] 175/74 H Pulse Oximetry 93 Oxygen Delivery Me thod Room Air 09/11/23 07:00 Temperature 98.1 F Pulse Rate [Left B rachial] 66 Pulse Rate [orthos tatic lying Pulse Oximeter] Pulse Rate [orthos tatic sitting Puls e Oximeter] Pulse Rate [orthos tatic standing Pul se Oximeter] Respiratory Rate 18 Blood Pressure [Le ft Arm] Blood Pressure [Ri ght Arm] 155/65 H Blood Pressure [or thostatic lying] Blood Pressure [or thostatic sitting Right Arm] Blood Pressure [or thostatic standing Right Arm] Pulse Oximetry 93 Oxygen Delivery Me thod Room Air Labs Labs: Laboratory Results - last 24 hr 09/10/23 09/11/23 09/11/23 18:10 05:56 07:53 WBC 6.74 RBC 3.47 L Hgb 10.4 L Hct 32.0 L MCV 92 MCH 30 MCHC 33 Plt Count 221 Sodium 135 135 Potassium 2.6 L* 2.8 L* Chloride 91 L 97 Carbon Dioxide 31 29 Anion Gap 13 9 BUN 34 H 29 Creatinine 1.3 1.2 Estimated Creat Clear 32.54 35.25 Estimated GFR 41 45 Glucose 123 H 97 Calcium 8.2 L 7.4 L Phosphorus 3.5 2.5 Magnesium 1.4 L 2.3 Albumin 4.2 3.4 Lab Acknowledgement Test Added Test Added
[2023-09-11] MEDS: POTASSIUM CHLORIDE 10 MEQ/100 ML PIGGYBACK 100 MEQ IVPB ×8 (13:53→23:41)
[2023-09-11] MEDS: ENOXAPARIN 30 MG/0.3ML INJ SUBCUT (16:01)
--- NOTE | 2023-09-11 18:06 | PC.NURSE ---
End of shift [id number]: Pt A&O x4, afebrile and VSS. Pt is SBA w/ walking cane with ambulation. Self-emptying colostomy bag & she reports stool is loose & watery which is not baseline. Tolerated clear liquids with no nausea so she was advanced to full liquid diet for lunch & regular diet for supper. Gave her x1 dose of PRN Compazine beginning of the shift @ 0840 and she didn?t require any more. K+ 2.8 this morning so pt received x6 doses IV potassium 10 mEq with a BMP recheck @ 1999. IV is to be SL once IV potassium is finished. Pt denied having any pain or nausea all day. Pt is clear to be independent in her room once disconnected from IV. She prefers to have BP measured in right arm. Pt is hopeful to discharge home tomorrow 1/3 as long as potassium is WNL. ?
[2023-09-11 21:32] LABS: Potassium* 3.6 mmol/L (3.6-5.1)
--- NOTE | 2023-09-11 22:30 | PM.EN ---
Chart Event Note Date Seen: 09/11/23 Chart Event Note: Still has intermittent nausea. Now has epigastric discomfort. Hemoglobin down to 10.4 09/11/23 from 12.2 09/10/23. Check lipase and LFTs Consider abd U/S and consider EGD
[2023-09-11 23:12] LABS: Albumin* 3.5 g/dL (3.3-5.0)
[2023-09-11 23:15] LABS: Alanine Aminotransferase* 17 U/L (4-35); Alkaline Phosphatase* 68 U/L (40-150); Aspartate Amino Transferase* 35 U/L (12-35); Bilirubin Direct* 0.2 mg/dL (0.0-0.5); Bilirubin Total* 0.5 mg/dL (0.1-1.5); Lipase* 323 U/L (23-300); Total Protein* 6.8 g/dL (6.0-8.3)
[2023-09-11] MEDS: HYDROmorphone 0.5 mg/0.5 ml inj IVP (23:16)
[2023-09-12] VITALS (7 sets, daily range): BP systolic 101–159; BP diastolic 54–95; PULSE 8–90; RESP 16–18; TEMP 36.7–37.2; O2SAT 92–96
--- NOTE | 2023-09-12 06:42 | PC.NURSE ---
Shift note: Pt c/o abdominal pain and nausea after dinner, RN treated per eMAR with relief and pt is walking in the hallway this evening. She is independent in the room, calls appropriately, no other complains overnight.
[2023-09-12 07:22] LABS: Hematocrit 33.2 % (33.0-51.0); Hemoglobin* 10.6 gm/dL (12.0-16.0); Mean Corpuscular HGB Conc 32 gm/dL (32-36); Mean Corpuscular Hemoglobin 30 pg (26-34); Mean Corpuscular Volume 93 fL (80-100); Platelet Count* 233 K/uL (140-440); Red Blood Count 3.56 m/uL (4.00-5.20); White Blood Count* 6.36 K/uL (4.50-11.00)
[2023-09-12 07:24] LABS: Slide Review Reflex No
[2023-09-12 07:41] LABS: Chloride* 100 mmol/L (96-114)
[2023-09-12 07:42] LABS: Albumin* 3.2 g/dL (3.3-5.0); Sodium* 135 mmol/L (135-149)
[2023-09-12 07:43] LABS: Potassium* 3.8 mmol/L (3.6-5.1)
[2023-09-12 07:45] LABS: Alkaline Phosphatase* 61 U/L (40-150); Anion Gap 7 mEq/L (7-15); Aspartate Amino Transferase* 28 U/L (12-35); Bilirubin Direct* 0.2 mg/dL (0.0-0.5); Bilirubin Total* 0.5 mg/dL (0.1-1.5); Blood Urea Nitrogen* 14 mg/dL (7-30); Carbon Dioxide* 28 mmol/L (20-32); Creatinine* 0.8 mg/dL (0.5-1.5); Est. Creatinine Clearance* 42.63; Estimated Glomerular Filt Rate 74 ml/min; Glucose* 92 mg/dL (60-115); Total Protein* 5.8 g/dL (6.0-8.3)
[2023-09-12 07:46] LABS: Alanine Aminotransferase* 15 U/L (4-35); Calcium* 7.3 mg/dL (8.4-10.6); Lipase* 296 U/L (23-300); Phosphorus* 1.2 mg/dL (2.5-4.5)
[2023-09-12] MEDS: PANTOPRAZOLE SODIUM 40 MG INJ IVP (08:19)
[2023-09-12] MEDS: buPROPion XL 150 MG TABLET PO (08:19)
[2023-09-12] MEDS: PROCHLORPERAZINE 5 MG/ML VIAL IV (08:19)
[2023-09-12] MEDS: ASPIRIN 81 MG TAB.CHEW PO (08:19)
[2023-09-12] MEDS: SODIUM CHLORIDE 0.9 % (FLUSH) 10 ML SYRINGE 5 ML IVF ×3 (08:19→23:52)
--- NOTE | 2023-09-12 14:25 | NUTR.NU ---
RDN with MD consult for vomiting > 3 days. Patient admitted for Gastroenteritis with nausea, vomiting, and increased output in colostomy and dehydration. Patient is currently on Clear Liquids, not tolerating Regular diet at this time. Currently this is Day 4 of NPO/clear Liquids. Per IDT, plan is for EGD when available. No weight history to assess. Current weight 137lb 4oz; height 4ft 11in; BMI is overweight at 27.7 kg/m2. With patient currently on clear liquids, no nutrition interventions at this time. RDN will continue to monitor and follow-up prn.
--- NOTE | 2023-09-12 14:32 | PC.NURSE ---
End of shift [id number]: Pt A&O x4 and ambulatory. Low-grade fever this morning T-max 99.0 but recheck @ lunch was 98.6. Pt is independent in her room, denies any dizziness or weakness. Denies any abdominal pain today or nausea. PRN compazine given x1 dose this morning @ 0820. D/t increased pain after regular diet intake last night, pt has diverted back to clear liquids only- tolerating water and hot green tea today. Left FA IV infiltrated so a new 20g was placed in right wrist SL. Family has been in/out visiting throughout the day. Radha on hold for ordered EGD to be done on 09/13/23. ?
--- NOTE | 2023-09-12 16:21 | PM.IMPN1 ---
Progress Note: A&P Assessment and plan (1) Gastroenteritis: Problem details: -with nausea, vomiting, increased stool output in ostomy -antiemetics as needed -IV PPI (history of GERD as well) -clears as tolerated, advancing diet as tolerated - not tolerated, further evaluation with EGD on 09/13 -no recent antibiotic use. Monitor stool output, considering pathogen panel, C difficile testing if needed - 09/12: stools decreasing in quantity 09/12: Differential includes ulcerative disease, H pylori was negative in August patient report. Lipase normal this morning. -EGD scheduled for 09/[address] Russell. NPO after midnight. Enoxaparin held tonight Status: Acute (2) Dehydration: Problem details: -in setting of above -continue with gentle IV hydration until improved oral intake Status: Acute (3) Hypotension: Problem details: -resolved following IV fluid rehydration -monitor, consider restarting antihypertensives tomorrow if remains stable Status: Acute (4) Acute kidney injury: Problem details: -baseline creatinine 0.8, creatinine on admission 1.5 -improved to 0.8 today -related to dehydration and possibly also hypotension Status: Acute (5) Hypokalemia: Problem details: -resolve, improved to 3.8 following supplementation -of note calcium 7., corrected calcium 8.1, monitor -phosphorus also low 1.2, in setting of poor oral intake. Further workup for ulceration Status: Acute (6) Hypomagnesemia: Problem details: -improved to 2.3 following supplementation Status: Acute (7) Anemia: Problem details: -stable, hemoglobin 10.6, likely dilutional, continue to monitor. Patient report of dark vomitus prior to admission, further workup with EGD rule out ulceration Status: Acute Plan EGD planned for 09/13/2023. NPO after midnight. Enoxaparin held Time Spent With Patient Total time spent: Total time spent caring for the patient today was 45 minutes. This includes time spent for the visit reviewing the chart, time spent during the visit, time spent after the visit and documentation and planning in coordination of care. Subjective Date Seen: 09/12/23 Interval history: Patient reports feeling okay this morning. Last night while attempting to advance diet experienced mid epigastric pain along with nausea. Unable to tolerate solids currently. Lipase was obtained which was elevated at 323, this has improved to 296 this morning. Patient tells me she was seen by Dr. Rowan, GI, in August for similar symptoms. He had suggested she may need an EGD. An H pylori done at that time was negative. She tells me that her vomiting prior to admission was dark in color and malodorous. Exam Narrative: Exam Narrative: PHYSICAL EXAM General: Pleasant, conversant, NAD but does not look as well as yesterday morning HEENT: Normocephalic, atraumatic, sclera white, EOMI, oral mucosa moist Cardiovascular: RRR, S1S2 Pulmonary: CTA bilaterally without rhonchi, rales, expiratory wheezes. No dyspnea Abdominal: Soft, nondistended, mild tenderness mid epigastric area. No guarding. Neurological: Alert, answering questions appropriately, cranial nerves intact, no focal findings Extremities: No gross joint deformity or swelling. AROMI. Neurovascularly intact Skin: Warm, dry. Const: Vital Signs, click to edit/add: Vital Signs - 24 hr 09/11/23 19:00 09/11/23 23:00 09/11/23 23:00 Temperature 98.3 F Pulse Rate [Left B rachial] 69 Pulse Rate [Pulse Oximeter] Respiratory Rate 18 18 18 Blood Pressure [Le ft Arm] Blood Pressure [Ri ght Arm] 164/75 H Pulse Oximetry 93 91 Oxygen Delivery [facility] Room Air Room Air 09/11/23 23:00 09/12/23 03:00 09/12/23 07:00 Temperature 98.3 F Pulse Rate [Left B rachial] 72 80 Pulse Rate [Pulse Oximeter] Respiratory Rate 18 18 18 Blood Pressure [Le ft Arm] Blood Pressure [Ri ght Arm] 142/54 H Pulse Oximetry 91 92 Oxygen Delivery [facility] Room Air Room Air 09/12/23 07:00 09/12/23 07:00 09/12/23 11:00 Temperature 99 F 99 F Pulse Rate [Left B rachial] 80 80 Pulse Rate [Pulse Oximeter] Respiratory Rate 18 18 18 Blood Pressure [Le ft Arm] 107/63 107/63 Blood Pressure [Ri ght Arm] 142/54 H Pulse Oximetry 92 92 92 Oxygen Delivery [facility] Room Air Room Air Room Air 09/12/23 11:51 Temperature 98.6 F Pulse Rate [Left B rachial] Pulse Rate [Pulse Oximeter] 82 Respiratory Rate 16 Blood Pressure [Le ft Arm] 101/62 Blood Pressure [Ri ght Arm] Pulse Oximetry 96 Oxygen Delivery Me thod Room Air Labs Labs: Laboratory Results - last 24 hr 09/11/23 09/11/23 09/12/23 21:14 22:25 05:33 WBC 6.36 RBC 3.56 L Hgb 10.6 L Hct 33.2 MCV 93 MCH 30 MCHC 32 Plt Count 233 Sodium 135 Potassium 3.6 3.8 Chloride 100 Carbon Dioxide 28 Anion Gap 7 BUN 14 Creatinine 0.8 Estimated Creat Clear 42.63 Estimated GFR 74 Glucose 92 Calcium 7.3 L Phosphorus 1.2 L Magnesium 2.0 Total Bilirubin 0.5 0.5 Direct Bilirubin 0.2 0.2 AST 35 28 ALT 17 15 Alkaline Phosphatase 68 61 Total Protein 6.8 5.8 L Albumin 3.5 3.2 L Lipase 323 H 296 Lab Acknowledgement Test Added 09/12/23 07:26 WBC RBC Hgb Hct MCV MCH MCHC Plt Count Sodium Potassium Chloride Carbon Dioxide Anion Gap BUN Creatinine Estimated Creat Clear Estimated GFR Glucose Calcium Phosphorus Magnesium Total Bilirubin Direct Bilirubin AST ALT Alkaline Phosphatase Total Protein Albumin Lipase Lab Acknowledgement Test Added
[2023-09-12] MEDS: ONDANSETRON 2 MG/ML inj 4 MG IVP (21:31)
[2023-09-12] MEDS: ACETAMINOPHEN 325 MG TABLET 650 MG PO (22:36)
--- NOTE | 2023-09-12 23:41 | PC.NURSE ---
Shift Note: Pt ambulating throughout her room this afternoon without difficulty and appeared to be enjoying a visit from her daughter. VSS, with BP's slightly hypertensive. Pt tolerating clear liquids until later this evening when she began to c/o increased discomfort and distention as well as nausea. No output from her ostomy and pt has back off of PO intake. She is to be NPO at 0000.
[2023-09-12] MEDS: HYDROmorphone 0.5 mg/0.5 ml inj IVP (23:51)
[2023-09-13 03:00] VITALS: BP 182/81; PULSE 96; RESP 20; TEMP 36.7; O2SAT 93
--- NOTE | 2023-09-13 05:08 | PC.NURSE ---
[id number] Pt pleasant and cooperative, c/o abd pain 7/10 at beginning of shift, prn pain medication administered and pt able to sleep, rated pain 0/10 with reassessment. Denied N/V this shift. Ind in room.
[2023-09-13 06:34] LABS: Hematocrit 31.8 % (33.0-51.0); Hemoglobin* 10.3 gm/dL (12.0-16.0); Mean Corpuscular HGB Conc 32 gm/dL (32-36); Mean Corpuscular Hemoglobin 30 pg (26-34); Mean Corpuscular Volume 92 fL (80-100); Platelet Count* 194 K/uL (140-440); Red Blood Count 3.44 m/uL (4.00-5.20)
[2023-09-13 06:41] LABS: Slide Review Reflex No
[2023-09-13 06:56] LABS: Albumin* 3.3 g/dL (3.3-5.0); Chloride* 98 mmol/L (96-114); Potassium* 3.7 mmol/L (3.6-5.1); Sodium* 132 mmol/L (135-149)
[2023-09-13 06:59] LABS: Anion Gap 7 mEq/L (7-15); Carbon Dioxide* 27 mmol/L (20-32); Creatinine* 0.9 mg/dL (0.5-1.5); Est. Creatinine Clearance* 42.86; Estimated Glomerular Filt Rate 64 ml/min; Glucose* 95 mg/dL (60-115)
[2023-09-13 07:00] VITALS: BP 165/80; PULSE 88; RESP 20; TEMP 36.8; O2SAT 95
[2023-09-13 07:00] LABS: Calcium* 7.4 mg/dL (8.4-10.6); Phosphorus* 1.4 mg/dL (2.5-4.5)
[2023-09-13 07:16] LABS: Blood Urea Nitrogen* 13 mg/dL (7-30)
[2023-09-13] MEDS: 0.9 % SODIUM CHLORIDE 1000 ml 1,000 ML 75 ML IV (07:39)
--- NOTE | 2023-09-13 09:11 | W.ANESCHARGE ---
Anesthesia Charges Start Date/Time Anesthesia Start Date: 09/13/23 Anesthesia Start Time: 08:55 Stop Date/Time Anesthesia Stop Date: 09/13/23 Anesthesia Stop Time: 09:10 Summary Extremes of Age - Over 70 or under 1: [employer]
--- NOTE | 2023-09-13 09:13 | W.ANESCHARGE ---
Anesthesia Charges Start Date/Time Anesthesia Start Date: 09/13/23 Anesthesia Start Time: 08:55 Stop Date/Time Anesthesia Stop Date: 09/13/23 Anesthesia Stop Time: 09:10 Summary Extremes of Age - Over 70 or under 1: MDA
--- NOTE | 2023-09-13 09:16 | CRLHL7_ITS ---
For Patients: As a result of the Century Cures Act, medical imaging exams and procedure reports are released immediately into your electronic medical record. You may view this report before your referring provider. If you have questions, please contact your health care provider. INDICATION: Mid epigastric pain, nausea, vomiting, fullness. Status post EGD. TECHNIQUE: CT chest, abdomen and pelvis acquired with 68 cc Isovue 370 IV contrast. COMPARISON: Chest radiograph from 09/10/2023. FINDINGS: CHEST Lungs and pleura: No suspicious nodules or infiltrates. No effusions, thickening, or pneumothorax. Heart and vasculature: The heart is normal in size. No pericardial effusion. Atherosclerotic aortic and coronary artery calcifications. Ectatic ascending thoracic aorta measuring 4.1 cm. Extensive atherosclerotic calcifications of the aorta and its branches. Lymph node/mediastinum: No mediastinal, hilar, or axillary adenopathy. Chest wall: Normal. Other: Atherosclerotic carotid artery calcifications ABDOMEN AND PELVIS: Liver: Mild hepatic steatosis. Post cholecystectomy. Mild intrahepatic biliary ductal dilation. The common bile duct is normal in caliber. No discrete mass or radiopaque calculus identified. Pancreas: Atrophic pancreas. Spleen: Scattered too small to characterize hypodensities within the spleen. Adrenal glands: Unremarkable. No masses. Kidneys: Mild left hydronephrosis and delayed left nephrogram. GI tract: Small gastric fundal diverticulum. Left lower quadrant ostomy with peristomal hernia containing loops of dilated small bowel. There is narrowing of bowel as it enters and exits the parastomal hernia neck which measures 3.1 cm in width (series 2, image 190). Both upstream and downstream small-bowel are dilated. Downstream, dilated small bowel (including a loop of small bowel with chain suture material) is dilated with transition point in the anterior pelvis at the neck of a complex anterior abdominal wall hernia (series 2, image 210). This complex hernia is noted at the midline and right of midline in the mid and lower abdomen/pelvis and contains loops of small and large bowel.. Vasculature: Extensive atherosclerotic calcifications. Dense atherosclerotic calcifications limit evaluation of mesentery vessels though there appears to be at least severe narrowing if not segmental occlusion of the superior mesentery artery. Lymph nodes: No lymphadenopathy. Omentum/peritoneum/retroperitoneum/abdominal wall: No intraperitoneal free air. Pelvic organs: Decompressed bladder. The uterus is surgically absent. Bones: The bones are diffusely demineralized. Multilevel degenerative disc disease throughout the visualize spine. Chronic appearing inferior endplate compression deformity at L3. IMPRESSION: 1. Small-bowel obstruction with transition point at the neck of a complex ventral abdominal wall hernia. Upstream dilated bowel also extends into and out of a left lower quadrant parastomal hernia. Surgical consultation is recommended. 2. Mild left hydronephrosis and delayed left nephrogram. No definite left ureteral calculus identified to explain this. This finding may be chronic versus related to the bowel obstruction/postoperative changes. 3. Extensive atherosclerosis with dense atherosclerotic calcifications. 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 4. Hepatic steatosis. Findings 1-3 were discussed via telephone with Dr. Harris via telephone on 09/13/2023 at 11:22 a.m.. Please note that all CT scans at this facility use dose modulation, iterative reconstruction, and/or weight-based dosing when appropriate to reduce radiation dose to as low as reasonably achievable. Dictated by Radha Rahman MD @ 09/13/2023 11:25:32 AM (Electronically Signed)
--- NOTE | 2023-09-13 13:05 | P.GSCN_ITS ---
History of Present Illness Consult details Date Seen: 09/13/23 Consult date: 09/13/23 Narrative: The patient is an 83-year-old female who was admitted to the hospital on September 10 with nausea vomiting and epigastric pain. She has been found to have a bowel obstruction. For history is that she developed epigastric pain and nausea in August. She saw Gastroenterology for this. H pylori was checked. This was negative. An EGD was considered. After she then developed more nausea and vomiting. This started abruptly on Saturday 09/08. The pain she states is in her ?solar plexus. She then vomited ?putrid material. She presented to the emergency department. She was found to be hypokalemic and have acute kidney injury. She was admitted to the hospital here in [place] and placed on a PPI, clear liquid diet with plans for possible EGD if she did not improve. During this time she was having stoma output so it has decreased. She states that it has been more liquid than usual for her. She underwent EGD today. She was found to have a stomach full of foul smelling food matter. CT scan was then obtained which showed a small-bowel obstruction with a large hernia and possible transition point along the hernia. Today she has not had any stoma output. Which is the 1st time that this has happened throughout this episode of nausea and vomiting. She states that she is still having epigastric discomfort though she feels much better right now. No nausea. She has never had a bowel obstruction before. Her history is significant for a radical hysterectomy with lymphadenectomy in 2004. She was subsequently treated with radiation. This was for uterine cancer. Because of complications from radiation she then underwent colostomy placement. This was all done at [place]. [facility] Medical History Peripheral artery disease ?I73.9 - Peripheral vascular disease, unspecified (ICD-10) History of endometrial cancer ?Z85.42 - Personal history of malignant neoplasm of other parts of uterus (ICD-10) Chronic hyperkalemia ?E87.5 - Hyperkalemia (ICD-10) Thyroid nodule ?E04.1 - Nontoxic single thyroid nodule (ICD-10) Stenosis of left carotid artery ?I65.22 - Occlusion and stenosis of left carotid artery (ICD-10) Primary hyperparathyroidism ?E21.0 - Primary hyperparathyroidism (ICD-10) Osteoporosis ?M81.0 - Age-related osteoporosis without current pathological fracture (ICD- 10) Diverticulosis ?K57.90 - Diverticulosis of intestine, part unspecified, without perforation or abscess without bleeding (ICD-10) Aortic valve sclerosis ?I35.8 - Other nonrheumatic aortic valve disorders (ICD-10) Colostomy in place ?Z93.3 - Colostomy status (ICD-10) Hyperlipidemia ?E78.5 - Hyperlipidemia, unspecified (ICD-10) Chronic GERD ?K21.9 - Gastro-esophageal reflux disease without esophagitis (ICD-10) Hypertension ?I10 - Essential (primary) hypertension (ICD-10) Surgical History 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 ?Z90.710 - Acquired absence of both cervix and uterus (ICD-10) ?Z90.722 - Acquired absence of ovaries, bilateral (ICD-10) ?Z90.79 - Acquired absence of other genital organ(s) (ICD-10) Status post colectomy ?Z90.49 - Acquired absence of other specified parts of digestive tract (ICD- 10) Status post cholecystectomy ?Z90.49 - Acquired absence of other specified parts of digestive tract (ICD- 10) Social History What is your current living situation?: I presently have a place to live Problems where you live: no known problems Problems where you live details: N/A In the past 12 months, utilities in danger of being shut off: no In past 12 months, lack of transportation kept you from medical appts, meetings, work, or getting things needed for daily living: no In the past 12 mos, have been you worried that your food would run out before you had money to buy more?: never true In the past 12 mos, the food you bought just didn't last and you didn't have money to buy more?: never true Highest level of school completed/degree received: Bachelor's degree Smoking Status: Former smoker Second hand tobacco smoke exposure: No How often do you have a drink containing alcohol: never How often do you have six or more drinks on one occasion: Never AUDIT-C Alcohol total score: 0 Non-prescribed substance use: denies use Caffeine: No How often does anyone, including family, friends and others, physically hurt you : never How often does anyone, including family, friends and others, insult or talk down to you: never How often does anyone, including family, friends and others, threaten you with harm: never How often does anyone, including family, friends and others, scream or curse at you: never service: No Meds Home Medications and Allergies Home Medications Medication Instructions Recorded Confirmed Type amlodipine 2.5 mg tablet 2.5 mg PO DAILY 09/10/23 09/10/23 History aspirin 81 mg chewable tablet 81 mg PO DAILY 09/10/23 09/10/23 History (Aspirin Childrens) atenolol 50 mg tablet 50 mg PO BID 09/10/23 09/10/23 History bupropion HCl 150 mg 24 hr tablet, 150 mg PO QAM 09/10/23 09/10/23 History extended release calcium carbonate 500 mg-vitamin 1 tab PO DAILY 09/10/23 09/10/23 History D3 10 mcg (400 unit) tablet (Calcium 500 + D) cholecalciferol (vitamin D3) 25 2,000 unit PO DAILY 09/10/23 09/10/23 History mcg (1,000 unit) tablet furosemide 20 mg tablet 20 mg PO DAILY 09/10/23 09/10/23 History hydrochlorothiazide 12.5 mg tablet 12.5 mg PO DAILY 09/10/23 09/10/23 History lorazepam 0.5 mg tablet 0.5 mg PO BID PRN 09/10/23 09/10/23 History pantoprazole 20 mg tablet,delayed 20 mg PO DAILY 09/10/23 09/10/23 History release simvastatin 10 mg tablet 10 mg PO HS 09/10/23 09/10/23 History Allergies Allergy/AdvReac Type Severity Reaction Status Date / Time No Known Drug Allergies Allergy Verified 09/13/23 10:35 Exam Narrative: Exam Narrative: General appearance: Alert, cooperative, and in no distress Eyes: PERRLA, eye lids clear, and sclera white HENT Head: Normocephalic Ears: External ears normal Pulmonary: Breathing nonlabored on room air Cardiovascular Heart: Regular rate Extremities: warm and well perfused Gastrointestinal Abdominal: scars consistent with surgical history. Stoma noted in the left abdomen. No stool is noted in the bag. Large abdominal hernia noted encompassing most of lower abdomen. This is soft. Mildly tender to palpation. I am unable to reduce this. Musculoskeletal: Extremities: Upper: Both upper extremities have normal joint range of motion and intact strength. Lower: Both lower extremities have normal joint range of motion and intact strength. Skin: Normal skin color, texture, and turgor. Neurologic: No focal deficits Psychiatric: Alert, oriented, cooperative, normal affect. Const: Vital Signs, click to edit/add: Vital Signs - 24 hr 09/12/23 15:00 09/12/23 15:00 09/12/23 15:00 Temperature 98.5 F Pulse Rate [Pulse Oximeter] 89 8 L Respiratory Rate 16 16 16 Blood Pressure [Ri ght Arm] 159/71 H Pulse Oximetry 96 96 Oxygen Delivery Me thod Room Air Room Air 09/12/23 19:00 09/12/23 23:00 09/12/23 23:00 Temperature 98.7 F 98.1 F Pulse Rate [Pulse Oximeter] 89 90 Respiratory Rate 16 18 18 Blood Pressure [Ri ght Arm] 154/65 H 153/95 H Pulse Oximetry 95 95 95 Oxygen Delivery Me thod Room Air Room Air Room Air 09/13/23 03:00 09/13/23 07:00 09/13/23 07:00 Temperature 98.1 F 98.2 F Pulse Rate [Pulse Oximeter] 96 88 Respiratory Rate 20 20 20 Blood Pressure [Ri ght Arm] 182/81 H 165/80 H Pulse Oximetry 93 95 95 Oxygen Delivery Me thod Room Air Room Air Room Air Results Labs Labs: Abnormal lab results 09/13/23 Range/Units 05:36 RBC 3.44 L (4.00-5.20) m/uL Hgb 10.3 L (12.0-16.0) gm/dL Hct 31.8 L (33.0-51.0) % Sodium 132 L (135-149) mmol/L Calcium 7.4 L (8.4-10.6) mg/dL Phosphorus 1.4 L (2.5-4.5) mg/dL Diabetes panel 09/13/23 Range/Units 05:36 Sodium 132 L (135-149) mmol/L Potassium 3.7 (3.6-5.1) mmol/L Chloride 98 (96-114) mmol/L Carbon Dioxide 27 (20-32) mmol/L BUN 13 (7-30) mg/dL Creatinine 0.9 (0.5-1.5) mg/dL Glucose 95 (60-115) mg/dL Calcium 7.4 L (8.4-10.6) mg/dL Albumin 3.3 (3.3-5.0) g/dL Calcium panel 09/13/23 Range/Units 05:36 Calcium 7.4 L (8.4-10.6) mg/dL Phosphorus 1.4 L (2.5-4.5) mg/dL Albumin 3.3 (3.3-5.0) g/dL Pituitary panel 09/13/23 Range/Units 05:36 Sodium 132 L (135-149) mmol/L Potassium 3.7 (3.6-5.1) mmol/L Chloride 98 (96-114) mmol/L Carbon Dioxide 27 (20-32) mmol/L BUN 13 (7-30) mg/dL Creatinine 0.9 (0.5-1.5) mg/dL Glucose 95 (60-115) mg/dL Calcium 7.4 L (8.4-10.6) mg/dL Adrenal panel 09/13/23 Range/Units 05:36 Sodium 132 L (135-149) mmol/L Potassium 3.7 (3.6-5.1) mmol/L Chloride 98 (96-114) mmol/L Carbon Dioxide 27 (20-32) mmol/L BUN 13 (7-30) mg/dL Creatinine 0.9 (0.5-1.5) mg/dL Glucose 95 (60-115) mg/dL Calcium 7.4 L (8.4-10.6) mg/dL Albumin 3.3 (3.3-5.0) g/dL All other labs normal. Imaging Abdomen CT scan report/results: report reviewed and image reviewed Additional studies: IMPRESSION: 1. Small-bowel obstruction with transition point at the neck of a complex ventral abdominal wall hernia. Upstream dilated bowel also extends into and out of a left lower quadrant parastomal hernia. Surgical consultation is recommended. 2. Mild left hydronephrosis and delayed left nephrogram. No definite left ureteral calculus identified to explain this. This finding may be chronic versus related to the bowel obstruction/postoperative changes. 3. Extensive atherosclerosis with dense atherosclerotic calcifications. 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 4. Hepatic steatosis. Findings 1-3 were discussed via telephone with Dr. Harris via telephone on 09/13/2023 at 11:22 a.m.. Please note that all CT scans at this facility use dose modulation, iterative reconstruction, and/or weight-based dosing when appropriate to reduce radiation dose to as low as reasonably achievable. Dictated by Radha Rahman MD @ 09/13/2023 11:25:32 AM Assessment and Plan Assessment and plan (1) SBO (small bowel obstruction): Problem comment: -as noted on CT. Consistent with nausea, increased pain with solid oral intake. Decreased stool output in stoma. -consulted Dr. Tran, General Surgery, recommending NGT, transfer for further surgical intervention -NPO -NS IVF Status: Acute (2) Abdominal hernia: Problem comment: -noted on CT. Management as above Status: Acute (3) Hypokalemia: Problem comment: -resolved, stable -of note calcium 7., corrected calcium 8.1, monitor -phosphorus also low 1.2, in setting of poor oral intake. Further workup for ulceration Status: Acute (4) Acute kidney injury: Problem comment: -baseline creatinine 0.8, creatinine on admission 1.5 -improved to 0.8 today -related to dehydration and possibly also hypotension Status: Acute (5) Hypotension: Problem comment: -resolved following IV fluid rehydration -monitor, consider restarting antihypertensives tomorrow if remains stable Status: Acute (6) Nausea and vomiting: Problem comment: -antiemetics as needed -IV PPI -clears as tolerated, advancing diet as tolerated Status: Acute (7) Dehydration: Problem comment: -in setting of above -continue with gentle IV hydration until improved oral intake Status: Acute Plan The patient is an 83-year-old female with a large ventral hernia and now with bowel obstruction. This likely has been chronic for her she has had symptoms on and off for at least the last month. I reviewed the images myself and with the radiologist. It does appear as though the transition point may be in the right lower abdomen. There are some surgical clips and bowel thickening in this area, however it is unclear if this is the exact culprit as there other areas of dilated and nondistended bowel. I am concerned based on the timing of this that this will not resolve with conservative management. I am also concerned about performing lysis of adhesions as she has minimal abdominal domain and only a thi n amount of skin over her bowel. I am worried about her abdominal domain. I will not be able to close fascia over the bowel and we have limited resources for biologic materials to assist with this. Additionally, if the skin is closed over the bowel she is at very high risk for dehiscence given her history of radiation. It is possible that she could resolve without surgery, however given the timing of her symptoms I am very concerned that she will not. Therefore I discussed with the patient, her son-in-law and daughter that I recommended transfer to tertiary care facility. Again she may or may not ultimately require surgery, however because this has been going on for a month, I am could concerned that she will continue to have repeated episodes of obstruction. I also recommended NG tube placement given the amount of dilatation of her stomach and small bowel. This may allow the bowel to decompressed and I off to partially reduce the hernia which may help relieve the obstruction acutely, however again I am still concerned that it will recur. The patient is amenable to this and we will place NG tube now. In the meantime we will work on transfer to a tertiary care facility. Currently the patient has no signs and symptoms of bowel ischemia.
--- NOTE | 2023-09-13 13:38 | PM.IMPN1 ---
Progress Note: A&P Assessment and plan (1) Gastroenteritis: Problem details: -with nausea, vomiting, increased stool output in ostomy -antiemetics as needed -IV PPI (history of GERD as well) -clears as tolerated, advancing diet as tolerated - not tolerated, further evaluation with EGD on 09/13 -no recent antibiotic use. Monitor stool output, considering pathogen panel, C difficile testing if needed - 09/12: stools decreasing in quantity 09/12: Differential includes ulcerative disease, H pylori was negative in August patient report. Lipase normal this morning. -EGD scheduled for 09/[address] Russell. NPO after midnight. Enoxaparin held tonight 09/13: Suspected, resolved. Treatment management has turned to SBO, large abdominal hernia. Status: Acute (2) Dehydration: Problem details: -in setting of above -continue with gentle IV hydration until improved oral intake Status: Acute (3) Hypotension: Problem details: -resolved following IV fluid rehydration -monitor, consider restarting antihypertensives tomorrow if remains stable Status: Acute (4) Acute kidney injury: Problem details: -baseline creatinine 0.8, creatinine on admission 1.5 -improved to 0.8 today -related to dehydration and possibly also hypotension Status: Acute (5) Hypokalemia: Problem details: -resolved, stable -of note calcium 7., corrected calcium 8.1, monitor -phosphorus also low 1.2, in setting of poor oral intake. Further workup for ulceration Status: Acute (6) Hypomagnesemia: Problem details: -improved to 2.3 following supplementation Status: Acute (7) Anemia: Problem details: -stable, initially thought to be likely dilutional. Patient report of dark vomitus prior to admission, further workup with EGD rule out ulceration -no ulceration reported on EGD -continue to monitor Status: Acute (8) SBO (small bowel obstruction): Problem details: -as noted on CT. Consistent with nausea, increased pain with solid oral intake. Decreased stool output in stoma. -consulted Dr. Tran, General Surgery, recommending NGT, transfer for further surgical intervention -NPO -NS IVF Status: Acute (9) Abdominal hernia: Problem details: -noted on CT. Management as above Status: Acute Plan EGD planned for 09/13/2023. NPO after midnight. Enoxaparin held Time Spent With Patient Total time spent: Total time spent caring for the patient today was 45 minutes. This includes time spent for the visit reviewing the chart, time spent during the visit, time spent after the visit and documentation and planning in coordination of care. Subjective Date Seen: 09/13/23 Interval history: Patient is seen with daughter at bedside, having completed an EGD and CTA chest abdomen pelvis this morning. Reports feeling pretty good. Tolerating sips of clears last night. Has been NPO since midnight. No nausea or vomiting overnight. Stool output remains low. Discussed findings of EGD with Dr. Russell, concerning for obstruction, malodorous, with appearance of buildup of undigested food. CT obtained showing 1. Small-bowel obstruction with transition point at the neck of a complex ventral abdominal wall hernia. Upstream dilated bowel also extends into and out of a left lower quadrant parastomal hernia. Surgical consultation is recommended. 2. Mild left hydronephrosis and delayed left nephrogram. No definite left ureteral calculus identified to explain this. This finding may be chronic versus related to the bowel obstruction/postoperative changes. 3. Extensive atherosclerosis with dense atherosclerotic calcifications. 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 4. Hepatic steatosis. General surgery consult obtained, patient seen by Dr. Tran. Recommendation for NG tube and transfer for further surgical intervention. Exam Narrative: Exam Narrative: PHYSICAL EXAM General: Pleasant, conversant, NAD HEENT: Normocephalic, atraumatic, sclera white, EOMI, oral mucosa moist Cardiovascular: RRR, S1S2. No pitting edema Pulmonary: CTA bilaterally without rhonchi, rales, expiratory wheezes. No dyspnea Abdominal: Soft, mildly distended, mild tenderness, no guarding Neurological: Alert, answering questions appropriately, cranial nerves intact, no focal findings Extremities: No gross joint deformity or swelling. AROMI. Neurovascularly intact Skin: Warm, dry. Const: Vital Signs, click to edit/add: Vital Signs - 24 hr 09/12/23 15:00 09/12/23 15:00 09/12/23 15:00 Temperature 98.5 F Pulse Rate [Pulse Oximeter] 89 8 L Respiratory Rate 16 16 16 Blood Pressure [Ri ght Arm] 159/71 H Pulse Oximetry 96 96 Oxygen Delivery Me thod Room Air Room Air 09/12/23 19:00 09/12/23 23:00 09/12/23 23:00 Temperature 98.7 F 98.1 F Pulse Rate [Pulse Oximeter] 89 90 Respiratory Rate 16 18 18 Blood Pressure [Ri ght Arm] 154/65 H 153/95 H Pulse Oximetry 95 95 95 Oxygen Delivery Mi thod Room Air Room Air Room Air 09/13/23 03:00 09/13/23 07:00 09/13/23 07:00 Temperature 98.1 F 98.2 F Pulse Rate [Pulse Oximeter] 96 88 Respiratory Rate 20 20 20 Blood Pressure [Ri ght Arm] 182/81 H 165/80 H Pulse Oximetry 93 95 95 Oxygen Delivery Mi thod Room Air Room Air Room Air Labs Labs: Laboratory Results - last 24 hr 09/13/23 05:36 WBC 6.40 RBC 3.44 L Hgb 10.3 L Hct 31.8 L MCV 92 MCH 30 MCHC 32 Plt Count 194 Sodium 132 L Potassium 3.7 Chloride 98 Carbon Dioxide 27 Anion Gap 7 BUN 13 Creatinine 0.9 Estimated Creat Clear 42.86 Estimated GFR 64 Glucose 95 Calcium 7.4 L Phosphorus 1.4 L Albumin 3.3
[2023-09-13] MEDS: PANTOPRAZOLE SODIUM 40 MG INJ IVP (14:27)
[2023-09-13] MEDS: 0.9 % SODIUM CHLORIDE 1000 ml 1,000 ML 125 ML IV ×2 (14:27→21:07)
[2023-09-13] MEDS: SODIUM CHLORIDE 0.9 % (FLUSH) 10 ML SYRINGE 5 ML IVF (14:27)
--- NOTE | 2023-09-13 14:35 | CRLHL7_ITS ---
For Patients: As a result of the Century Cures Act, medical imaging exams and procedure reports are released immediately into your electronic medical record. You may view this report before your referring provider. If you have questions, please contact your health care provider. INDICATION: CHECK NG PLACEMENT TECHNIQUE: Chest 1 views. COMPARISON: CT chest and pelvis on September 13, 2023 FINDINGS/IMPRESSION: The patient is rotated to the right. Lines: Enteric tube with tip projecting over the gastric body and side port projecting near the gastroesophageal junction. Recommend advancing by approximately 3-5 centimeters. Cardiovasculature and mediastinum: Heart size and vasculature are normal in caliber and appearance. Lungs and pleural spaces: No focal airspace consolidation, pleural effusion, or pneumothorax. Trace linear atelectatic changes in the right mid and lower lung zone. Bones and soft tissues: No significant findings Dictated by Pro Mcguire MD @ 09/13/2023 3:23:55 PM (Electronically Signed)
[2023-09-13] MEDS: HYDROmorphone 0.5 mg/0.5 ml inj IVP (14:39)
[2023-09-13 15:00] VITALS: BP 104/64; PULSE 94; RESP 16; RESP 20; TEMP 36.7; O2SAT 96
--- NOTE | 2023-09-13 19:50 | PC.NURSE ---
End of shift [id number] - Pt alert, oriented, ,cooperative and pleasant. Up independently in room, continent of bowel and bladder. Tolerating RA and NPO diet. Pt denied pain, SOB, nausea, dizziness. NG tube inserted in left nare to 50cm during shift, pt tolerated well. Yellow/green drainage collected from tube. Family at bedside. VSS, afebrile.
[2023-09-13 19:59] VITALS: BP 95/62; PULSE 94; RESP 18; TEMP 37.2; O2SAT 94
--- NOTE | 2023-09-13 20:00 | PC.NURSE ---
Addendum - NG tube placement confirmed with bedside x-ray
[2023-09-13] MEDS: LORazepam 0.5 MG TABLET PO (22:05)
[2023-09-13 23:00] VITALS: BP 95/57; PULSE 96; RESP 18; TEMP 37.2; O2SAT 92
[2023-09-14] VITALS (7 sets, daily range): BP systolic 92–119; BP diastolic 59–89; PULSE 94–113; RESP 17–18; TEMP 36.7–37.1; O2SAT 93–97
[2023-09-14] MEDS: 0.9 % SODIUM CHLORIDE 1000 ml 1,000 ML 125 ML IV (04:33)
--- NOTE | 2023-09-14 06:00 | CRLHL7_ITS ---
For Patients: As a result of the Century Cures Act, medical imaging exams and procedure reports are released immediately into your electronic medical record. You may view this report before your referring provider. If you have questions, please contact your health care provider. Indication: Gastrografin challenge Technique: Abdomen one view Comparison: 09/13/2023 IMPRESSION: NG tube in the stomach with the side hole near the GE junction. Contrast extends into bowel loops within the lower abdomen and within the right side of the pelvis. The contrast in the midline represents residual contrast within distended small bowel loops. Contrast within the right side of the abdomen may potentially signify passage of contrast beyond the area of narrowing, however, continued follow-up is recommended. Dictated by Bird Jones MD @ 09/14/2023 8:25:57 AM (Electronically Signed)
[2023-09-14 06:39] LABS: Hematocrit 30.9 % (33.0-51.0); Hemoglobin* 9.9 gm/dL (12.0-16.0); Mean Corpuscular HGB Conc 32 gm/dL (32-36); Mean Corpuscular Hemoglobin 30 pg (26-34); Mean Corpuscular Volume 94 fL (80-100); Platelet Count* 257 K/uL (140-440); Red Blood Count 3.28 m/uL (4.00-5.20); White Blood Count* 6.36 K/uL (4.50-11.00)
[2023-09-14 06:41] LABS: Slide Review Reflex No
[2023-09-14 07:01] LABS: Chloride* 107 mmol/L (96-114); Potassium* 3.7 mmol/L (3.6-5.1); Sodium* 139 mmol/L (135-149)
--- NOTE | 2023-09-14 07:01 | PC.NURSE ---
End of shift note [id number]: Pt has been denying pain and N/V when asked throughout the shift. Pt has been afebrile and was noted to have a moderate loose/soft bowel movement in colostomy bag which was emptied at HS. She later had two episodes of loose stool noted in colostomy bag which were also emptied. Pt able to transfer independently though calls for assistance when getting up to the bathroom in order for staff to remove SCDs and help maneuver IV pole. Blood pressures noted to be soft this shift with last reading of 92/59 though pt denies feeling lightheaded or dizzy when asked and remains on NS at 125 mL/hr. [employer] updated. She remains alert & oriented x 4 and able to make needs known. Pt continent of bladder and able to use bathroom independently once SCDs have been taken off by staff. NG tube remains clamped until KUB can be completed this morning- order also clarified with MD Miranda. Pt and family aware of this plan. Pt did take PRN Ativan at HS as she was noted to be somewhat anxious about future plan. This was effective upon followup.
[2023-09-14 07:03] LABS: Creatinine* 0.8 mg/dL (0.5-1.5); Est. Creatinine Clearance* 42.21; Estimated Glomerular Filt Rate 74 ml/min
[2023-09-14 07:04] LABS: Anion Gap 11 mEq/L (7-15); Blood Urea Nitrogen* 11 mg/dL (7-30); Calcium* 6.9 mg/dL (8.4-10.6); Carbon Dioxide* 21 mmol/L (20-32); Glucose* 71 mg/dL (60-115)
--- NOTE | 2023-09-14 07:35 | P.IMPN_ITS ---
Progress Note: A&P Assessment and plan (1) SBO (small bowel obstruction): Problem details: 09/13: as noted on CT. Consistent with nausea, increased pain with solid oral intake. Decreased stool output in stoma. Consulted Dr. Tran, General Surgery, recommending NGT, transfer for further surgical intervention, NPO, NS IVF. Initiated transfer to [facility] for further management. No beds available currently. Recommending continued SBO management with NGT and Gastrografin challenge. Discussed with Dr. Tran, in agreement. 09/14: SBO resolved following Gastrografin challenge. Recommendations per Dr. Tran as follows: Start slow with advancement of diet. I recommend leaving the NG tube in place at least today and advancing her to clears. If her exam remains the same tomorrow and she continues to have stoma output we can DC the NG tube and advance her diet to regular. Hernia has been reduced. Daughters were shown how to do so as well. This is something that they could potentially try if she is starting to develop symptoms, however if she again develops nausea, vomiting and distention she should return to be seen. Recommend outpatient follow-up at a tertiary care center (she is followed by [place] currently) with a surgeon to discuss hernia repair. I suspect because of h er risk factors that they would not necessarily recommend repair after 1 episode of obstruction, given again the size of the hernia, her age, and surgical and radiation history, however it is reasonable to have the discussion. Status: Acute (2) Abdominal hernia: Problem details: -noted on CT. Management as above 09/14: Reduced today by General surgery. Daughter shown how to do so at home as well. Status: Acute (3) Gastroenteritis: Problem details: -with nausea, vomiting, increased stool output in ostomy -antiemetics as needed -IV PPI (history of GERD as well) -no recent antibiotic use. Monitor stool output, considering pathogen panel, C difficile testing if needed - 09/12: stools decreasing in quantity 09/12: Differential includes ulcerative disease, H pylori was negative in August patient report. Lipase normal this morning. -EGD scheduled for 09/[address] Russell. NPO after midnight. Enoxaparin held tonight 09/13: Suspected, resolved. Treatment management has turned to SBO, large abdo zoey hernia. Status: Acute (4) Dehydration: Problem details: -in setting of above -continue with gentle IV hydration until improved oral intake 09/14: Creatinine, BUN, chloride stable. Calcium trending down, phosphorus 1.4 yesterday. Encourage caloric dense, nutrient dense clears today. Expect impro vement with increased oral intake. Will need to continue to monitor Status: Acute (5) Hypotension: Problem details: -intermittent, recurring since NPO, receiving IVF -home antihypertensive medications on hold Status: Acute (6) Acute kidney injury: Problem details: -baseline creatinine 0.8, stable, creatinine on admission 1.5 -related to dehydration and possibly also hypotension Status: Acute (7) Hypokalemia: Problem details: -resolved, stable Status: Acute (8) Hypomagnesemia: Problem details: -resolved Status: Acute (9) Anemia: Problem details: -stable, initially thought to be likely dilutional. Patient report of dark vomitus prior to admission, further workup with EGD rule out ulceration -no ulceration reported on EGD -continue to monitor Status: Acute (10) Hyperlipidemia: Problem details: -statin on hold Status: Acute Plan 09/14: As above, advancing diet with NG tube in place. Discharge pending tolerance of oral diet without recurrence of pain and nausea, vomiting. Outpatient follow-up with PCP, [facility] Time Spent With Patient Total time spent: Total time spent caring for the patient today was 75 minutes. This includes time spent for the visit reviewing the chart, time spent during the visit, time spent after the visit and documentation and planning in coordination of care. Subjective Date Seen: 09/14/23 Interval history: Patient is seen with 3 daughters at bedside this morning. She reports feeling quite well this morning. Overnight, NGT was clamped. Patient tells me she initially had difficulties falling asleep but was able to rest after taking a small dose of Ativan. She has had no recurrent pain. No recurrent nausea or vomiting. Awaiting results of Gastrografin challenge. Overnight, total output some NGT approximately 1 L. Also documented 975 mL stool into ostomy. Discussed with Dr. Tran. Appears small bowel obstruction has resolved. Suspected small recurrent, intermittent obstructions that resolve on their own. Able to reduce hernia at bedside today and demonstrated to daughter's how to do this as well. Recommendations as below Exam Narrative: Exam Narrative: PHYSICAL EXAM General: Pleasant, conversant, NAD Cardiovascular: RRR, S1S2. No pitting edema Pulmonary: CTA bilaterally without rhonchi, rales, expiratory wheezes. No dyspnea on room air Abdominal: Soft, NTTP this morning. Yellow-green drainage noted in tube, small amount in vessel Neurological: Alert, answering questions appropriately, cranial nerves intact, no focal findings Extremities: No gross joint deformity or swelling. AROMI. Neurovascularly intact Skin: Warm, dry. Const: Vital Signs, click to edit/add: Vital Signs - 24 hr 09/13/23 15:00 09/13/23 15:00 09/13/23 19:59 Temperature 98.0 F 98.9 F Pulse Rate [Pulse Oximeter] 94 94 Respiratory Rate 16 20 18 Blood Pressure [Le ft Arm] 95/62 Blood Pressure [Ri ght Arm] 104/64 Pulse Oximetry 96 96 94 Oxygen Delivery Me thod Room Air Room Air Room Air 09/13/23 23:00 09/13/23 23:00 09/13/23 23:00 Temperature 98.9 F Pulse Rate [Pulse Oximeter] 96 96 Respiratory Rate 18 18 18 Blood Pressure [Le ft Arm] 95/57 L Blood Pressure [Ri ght Arm] Pulse Oximetry 92 92 Oxygen Delivery Me thod Room Air Room Air 09/14/23 03:29 Temperature 98.2 F Pulse Rate [Pulse Oximeter] 97 Respiratory Rate 18 Blood Pressure [Le ft Arm] 92/59 L Blood Pressure [Ri ght Arm] Pulse Oximetry 93 Oxygen Delivery Me thod Room Air Labs Labs: Laboratory Results - last 24 hr 09/14/23 05:38 WBC 6.36 RBC 3.28 L Hgb 9.9 L Hct 30.9 L MCV 94 MCH 30 MCHC 32 Plt Count 257 Sodium 139 Potassium 3.7 Chloride 107 Carbon Dioxide 21 Anion Gap 11 BUN 11 Creatinine 0.8 Estimated Creat Clear 42.21 Estimated GFR 74 Glucose 71 Calcium 6.9 L
[2023-09-14 08:24] LABS: Albumin* 3.1 g/dL (3.3-5.0)
[2023-09-14 08:27] LABS: Alkaline Phosphatase* 67 U/L (40-150); Aspartate Amino Transferase* 28 U/L (12-35); Bilirubin Direct* 0.2 mg/dL (0.0-0.5); Bilirubin Total* 0.4 mg/dL (0.1-1.5)
[2023-09-14 08:28] LABS: Alanine Aminotransferase* 13 U/L (4-35)
[2023-09-14] MEDS: PANTOPRAZOLE SODIUM 40 MG INJ IVP (09:43)
[2023-09-14] MEDS: SODIUM CHLORIDE 0.9 % (FLUSH) 10 ML SYRINGE 5 ML IVF ×2 (09:43→20:48)
--- NOTE | 2023-09-14 11:02 | PM.GSPN ---
Subjective Subjective Date Seen: 09/14/23 Interval history: Yesterday Lillie had an NG placed and had 1 L out. Gastrografin challenge was then performed. She had a large amount of stoma output subsequently. She states that she feels significantly better. Exam Narrative: Exam Narrative: General: No acute distress HEENT: NG in place. Yellow-green drainage noted in the tube. This has been clamped overnight. I placed it to suction for 15 minutes. There was no output. Abdomen: Hernia is now reducible. There are at least 2 defects. Hernia recurs after reduction, however bowel is soft, patient does not have abdominal pain. Const: Vital Signs, click to edit/add: Vital Signs - 24 hr 09/13/23 15:00 09/13/23 15:00 09/13/23 19:59 Temperature 98.0 F 98.9 F Pulse Rate [Pulse Oximeter] 94 94 Respiratory Rate 16 20 18 Blood Pressure [Le ft Arm] 95/62 Blood Pressure [Ri ght Arm] 104/64 Pulse Oximetry 96 96 94 Oxygen Delivery Me thod Room Air Room Air Room Air 09/13/23 23:00 09/13/23 23:00 09/13/23 23:00 Temperature 98.9 F Pulse Rate [Pulse Oximeter] 96 96 Respiratory Rate 18 18 18 Blood Pressure [Le ft Arm] 95/57 L Blood Pressure [Ri ght Arm] Pulse Oximetry 92 92 [facility] 09/14/23 03:29 09/14/23 07:00 09/14/23 07:00 Temperature 98.2 F Pulse Rate [Pulse Oximeter] 97 98 Respiratory Rate 18 18 18 Blood Pressure [Le ft Arm] 92/59 L Blood Pressure [Ri ght Arm] Pulse Oximetry 93 96 [facility] Room Air 09/14/23 07:00 Temperature 98.0 F Pulse Rate [Pulse Oximeter] 98 Respiratory Rate 18 Blood Pressure [Le ft Arm] 102/65 Blood Pressure [Ri ght Arm] Pulse Oximetry 96 [facility] Labs/Imaging Labs Labs: Electrolytes within normal limits. Imaging Imaging: Abdominal x-ray obtained today - shows some dilated loops of small bowel. It does appear as though there is contrast in the cecum. Progress Note: A&P Assessment and plan (1) Abdominal hernia: Problem details: -noted on CT. Management as above Status: Acute (2) SBO (small bowel obstruction): Problem details: -as noted on CT. Consistent with nausea, increased pain with solid oral intake. Decreased stool output in stoma. -consulted Dr. Tran, General Surgery, recommending NGT, transfer for further surgical intervention -NPO -NS IVF Status: Acute Plan Lillie is an 83-year-old female with a likely resolving small-bowel obstruction. I spent time with the patient and her daughters today explaining that it appears as though her bowel obstruction has resolved, however I am still concerned that she may re-obstruct either while in the hospital or even shortly after discharge. For this reason we will start slow with advancement of diet. I recommend leaving the NG tube in place at least today and advancing her to clears. If her exam remains the same tomorrow and she continues to have stoma output we can DC the NG tube and advance her diet to regular. -I reduced her hernia and showed the daughters how to do so as well. This is something that they could potentially try if she is starting to develop symptoms, however if she again develops nausea, vomiting and distention she should return to be seen. -I would also recommend outpatient follow-up at a tertiary care center with a surgeon to discuss hernia repair. I suspect because of her risk factors that they would not necessarily recommend repair after 1 episode of obstruction, given again the size of the hernia, her age, and surgical and radiation history, however it is reasonable to have the discussion. -they asked excellent questions and we will follow up on her exam tomorrow
[2023-09-14] MEDS: ASPIRIN 81 MG TAB.CHEW PO (11:54)
[2023-09-14] MEDS: buPROPion XL 150 MG TABLET PO (11:54)
--- NOTE | 2023-09-14 19:28 | PC.NURSE ---
Shift Note [id number]: Pt tolerating clears without difficulty. NG in place and clamped at this time. Pt moving independently throughout the room and has many family visitors. VS WNL and LS COA.
[2023-09-14] MEDS: LORazepam 0.5 MG TABLET PO (22:27)
[2023-09-15 03:00] VITALS: BP 115/85; PULSE 97; RESP 17; TEMP 36.8; O2SAT 97
--- NOTE | 2023-09-15 06:22 | PC.NURSE ---
Patient pleasant, alert and oriented. Ambulates independently in room. Tolerating clear liquid diet. Denies any nausea, abdominal discomfort or other?pain. PRN Ativan given per patient request at HS. Vital signs stable.?
[2023-09-15 06:51] LABS: Chloride* 105 mmol/L (96-114)
[2023-09-15 06:52] LABS: Potassium* 3.2 mmol/L (3.6-5.1); Sodium* 137 mmol/L (135-149)
[2023-09-15 06:54] LABS: Creatinine* 0.7 mg/dL (0.5-1.5); Est. Creatinine Clearance* 41.87; Estimated Glomerular Filt Rate 86 ml/min
[2023-09-15 06:55] LABS: Anion Gap 7 mEq/L (7-15); Blood Urea Nitrogen* 6 mg/dL (7-30); Calcium* 7.1 mg/dL (8.4-10.6); Carbon Dioxide* 25 mmol/L (20-32); Glucose* 107 mg/dL (60-115)
[2023-09-15 06:58] LABS: Hemoglobin* 10.1 gm/dL (12.0-16.0); Mean Corpuscular HGB Conc 33 gm/dL (32-36); Mean Corpuscular Hemoglobin 30 pg (26-34); Mean Corpuscular Volume 93 fL (80-100); Platelet Count* 263 K/uL (140-440); Red Blood Count 3.33 m/uL (4.00-5.20); White Blood Count* 7.47 K/uL (4.50-11.00)
[2023-09-15 07:00] VITALS: BP 119/82; PULSE 93; PULSE 97; RESP 16; RESP 18; TEMP 37; O2SAT 93
[2023-09-15 07:27] LABS: Slide Review Reflex No
--- NOTE | 2023-09-15 09:10 | P.GSPN_ITS ---
Subjective Subjective Date Seen: 09/15/23 Exam Const: Vital Signs, click to edit/add: Vital Signs - 24 hr 09/14/23 11:00 09/14/23 15:00 09/14/23 15:00 Temperature 98.1 F Pulse Rate [Pulse Oximeter] 113 H 94 Respiratory Rate 18 18 18 Blood Pressure [Le ft Arm] 105/81 Blood Pressure [Ri ght Arm] Pulse Oximetry 93 94 Oxygen Delivery Me thod Room Air Room Air 09/14/23 15:00 09/14/23 19:00 09/14/23 22:23 Temperature 98.4 F 98.8 F 98.2 F Pulse Rate [Pulse Oximeter] 101 H 104 H 101 H Respiratory Rate 18 17 17 Blood Pressure [Le ft Arm] 119/81 104/77 115/89 Blood Pressure [Ri ght Arm] Pulse Oximetry 97 95 96 Oxygen Delivery Me thod Room Air Room Air Room Air 09/14/23 22:57 09/15/23 03:00 Temperature 98.3 F Pulse Rate [Pulse Oximeter] 97 Respiratory Rate 17 17 Blood Pressure [Le ft Arm] Blood Pressure [Ri ght Arm] 115/85 Pulse Oximetry 96 97 Oxygen Delivery Me thod Room Air Room Air Labs/Imaging Labs Labs: White blood cell count remains normal. Potassium is again low. Progress Note: A&P Assessment and plan (1) SBO (small bowel obstruction): Problem details: 09/13: as noted on CT. Consistent with nausea, increased pain with solid oral intake. Decreased stool output in stoma. Consulted Dr. Tran, General Surgery, recommending NGT, transfer for further surgical intervention, NPO, NS IVF. Initiated transfer to [facility] for further management. No beds available currently. Recommending continued SBO management with NGT and Gastrografin challenge. Discussed with Dr. Tran, in agreement. 09/14: SBO resolved following Gastrografin challenge. Recommendations per Dr. Tran as follows: Start slow with advancement of diet. I recommend leaving the NG tube in place at least today and advancing her to clears. If her exam remains the same tomorrow and she continues to have stoma output we can DC the NG tube and advance her diet to regular. Hernia has been reduced. Daughters were shown how to do so as well. This is something that they could potentially try if she is starting to develop symptom s, however if she again develops nausea, vomiting and distention she should return to be seen. Recommend outpatient follow-up at a tertiary care center (she is followed by [facility] currently) with a surgeon to discuss hernia repair. I suspect because of her risk factors that they would not necessarily recommend repair after 1 episode of obstruction, given again the size of the hernia, her age, and surgical and radiation history, however it is reasonable to have the discussion. Status: Acute (2) Abdominal hernia: Problem details: -noted on CT. Management as above 09/14: Reduced today by General surgery. Daughter shown how to do so at home as well. Status: Acute (3) Hypokalemia: Status: Acute Plan Lillie is an 83-year-old female with small-bowel obstruction and large ventral abdominal hernia in the setting of prior colostomy and radiation therapy. -obstruction appears to have resolved as of now and she is tolerating clears without difficulty. She continues to have stoma output. -will plan on slow advancement of diet. She desires to keep the NG tube in until she is better tolerating advancement of her diet. I think that this is reasonable. -recommend NG tube clamped today and advancement of diet to full liquid/soft -replacement of electrolytes per hospitalist.
[2023-09-15] MEDS: SODIUM CHLORIDE 0.9 % (FLUSH) 10 ML SYRINGE 5 ML IVF ×2 (09:37→20:42)
[2023-09-15] MEDS: ASPIRIN 81 MG TAB.CHEW PO (09:37)
[2023-09-15] MEDS: buPROPion XL 150 MG TABLET PO (09:37)
[2023-09-15] MEDS: PANTOPRAZOLE SODIUM 40 MG INJ IVP (09:37)
--- NOTE | 2023-09-15 10:14 | PM.IMPN1 ---
Progress Note: A&P Assessment and plan (1) SBO (small bowel obstruction): Problem details: 09/13: as noted on CT. Consistent with nausea, increased pain with solid oral intake. Decreased stool output in stoma. Consulted Dr. Tran, General Surgery, recommending NGT, transfer for further surgical intervention, NPO, NS IVF. Initiated transfer to [facility] for further management. No beds available currently. Recommending continued SBO management with NGT and Gastrografin challenge. Discussed with Dr. Tran, in agreement. 09/14: SBO resolved following Gastrografin challenge. Recommendations per Dr. Tran as follows: Start slow with advancement of diet. I recommend leaving the NG tube in place at least today and advancing her to clears. If her exam remains the same tomorrow and she continues to have stoma output we can DC the NG tube and advance her diet to regular. Hernia has been reduced. Daughters were shown how to do so as well. This is something that they could potentially try if she is starting to develop symptoms, however if she again develops nausea, vomiting and distention she should return to be seen. Recommend outpatient follow-up at a tertiary care center (she is followed by [place] currently) with a surgeon to discuss hernia repair. I suspect because of her risk factors that they would not necessarily recommend repair after 1 episode of obstruction, given again the size of the hernia, her age, and surgical and radiation history, however it is reasonable to have the discussion. 09/15: Patient has tolerated advancing to clear liquid diet yesterday. She has advancing to full liquids today and may advance to soft if this goes well. Plan is to discontinue NG tube tomorrow if all goes well. Recommendation remains to follow-up at outpatient tertiary care with a surgeon to discuss elective hernia repair. Status: Acute (2) Abdominal hernia: Problem details: -noted on CT. Management as above 09/14: Reduced today by General surgery. Daughter shown how to do so at home as well. 09/15: Dr. Tran told me that she was able to reduce the hernia again today. Status: Acute (3) Hypokalemia: Problem details: - Oral replacement - magnesium within normal limits on 09/12/2023 noted. Status: Acute Plan Lillie is an 83-year-old female with small-bowel obstruction secondary to large ventral abdominal hernia in the setting of prior colostomy and radiation therapy. This resolved 09/14/2023 after Gastrografin challenge and hernia is not reducible. Advancing diet slowly while keeping NG tube in place. Dehydration and APOLLO that were present on admission have resolved. Anemia has remained stable. Continue electrolyte replacement. Subjective Time Seen by Provider: 10:00 Date Seen: 09/15/23 Interval history: Lillie is doing well this morning. She is cautiously improving. She is hungry. She denies abdominal pain. She would like to keep the NG tube in until tomorrow in see how advancing her diet goes. I spoke with Dr. Tran, and she recommends advancing slowly starting with full or soft diet today while she has the NG tube in. It is likely that incarcerated hernia and SBO will recur and if it does during this hospitalization, she will need transfer, likely to [place], as she is not a candidate for surgery here. Exam Narrative: Exam Narrative: General: No acute distress. Awake, alert, oriented x3. No pallor. No jaundice. Oropharynx: Clear. Mucous membranes moist. Cardiovascular: Regular rate and rhythm. Respiratory: Clear to auscultation bilaterally. No wheezes or crackles. Abdomen: Bowel sounds present. Ostomy with bag in place. Soft, nondistended, nontender. Extremities: No pedal edema. Const: Vital Signs, click to edit/add: Vital Signs - 24 hr 09/14/23 11:00 09/14/23 15:00 09/14/23 15:00 Temperature 98.1 F Pulse Rate [Pulse Oximeter] 113 H 94 Respiratory Rate 18 18 18 Blood Pressure [Le ft Arm] 105/81 Blood Pressure [Ri ght Arm] Pulse Oximetry 93 94 Oxygen Delivery Me thod Room Air Room Air 09/14/23 15:00 09/14/23 19:00 09/14/23 22:23 Temperature 98.4 F 98.8 F 98.2 F Pulse Rate [Pulse Oximeter] 101 H 104 H 101 H Respiratory Rate 18 17 17 Blood Pressure [Le ft Arm] 119/81 104/77 115/89 Blood Pressure [Ri ght Arm] Pulse Oximetry 97 95 96 Oxygen Delivery Me thod Room Air Room Air Room Air 09/14/23 22:57 09/15/23 03:00 09/15/23 07:00 Temperature 98.3 F Pulse Rate [Pulse Oximeter] 97 93 Respiratory Rate 17 17 18 Blood Pressure [Le ft Arm] Blood Pressure [Ri ght Arm] 115/85 Pulse Oximetry 96 97 Oxygen Delivery Me thod Room Air Room Air 09/15/23 07:00 09/15/23 07:00 Temperature 98.6 F Pulse Rate [Pulse Oximeter] 97 Respiratory Rate 18 16 Blood Pressure [Le ft Arm] 119/82 Blood Pressure [Ri ght Arm] Pulse Oximetry 93 93 Oxygen Delivery Nh thod Room Air Room Air Labs Labs: Laboratory Results - last 24 hr 09/15/23 05:39 WBC 7.47 RBC 3.33 L Hgb 10.1 L Hct 31.0 L MCV 93 MCH 30 MCHC 33 Plt Count 263 Sodium 137 Potassium 3.2 L Chloride 105 Carbon Dioxide 25 Anion Gap 7 BUN 6 L Creatinine 0.7 Estimated Creat Clear 41.87 Estimated GFR 86 Glucose 107 Calcium 7.1 L
[2023-09-15] MEDS: POTASSIUM BICARB 25 MEQ EFFERVESCENT TAB PO ×2 (10:15→12:10)
[2023-09-15 11:00] VITALS: BP 110/74; PULSE 95; RESP 16; TEMP 37.1; O2SAT 97
[2023-09-15 15:00] VITALS: BP 179/86; PULSE 109; RESP 16; O2SAT 96; O2SAT 97
--- NOTE | 2023-09-15 18:56 | PC.NURSE ---
Shift Note : Pt tolerated full liquids quite well for breakfast and advanced to fulls/soft diet for lunch. She ate 100% of small portions of creamy tomato soup, mashed potatoes/butter, and cottage cheese. Ensure clear for evening snack. Frequent walks around unit and family visiting at bedside. One hypertensive bp reading, pt stated she felt a little anxious because her family was celebrating [place] today and she couldn't be there. She is also anxious about future possible symptoms/complications. Active listening and reassurance were effective and pt VS now WNL. She appears comfortable and is visiting with one of her daughters in her room. BS active and pt has had moderate output from her ostomy. She states it is a little more watery than usual, but consistency is moving toward her baseline.
[2023-09-15 20:15] VITALS: BP 115/70; PULSE 98; RESP 16; TEMP 37.1; O2SAT 96
[2023-09-15 23:00] VITALS: BP 131/71; PULSE 94; RESP 17; TEMP 36.8; O2SAT 96
[2023-09-15] MEDS: LORazepam 0.5 MG TABLET PO (23:09)
[2023-09-16 02:40] VITALS: BP 105/71; PULSE 93; RESP 16; TEMP 37.1; O2SAT 95
[2023-09-16 06:26] LABS: Hematocrit 30.3 % (33.0-51.0); Hemoglobin* 9.8 gm/dL (12.0-16.0); Mean Corpuscular HGB Conc 32 gm/dL (32-36); Mean Corpuscular Hemoglobin 30 pg (26-34); Mean Corpuscular Volume 92 fL (80-100); Platelet Count* 283 K/uL (140-440); Red Blood Count 3.28 m/uL (4.00-5.20); White Blood Count* 6.63 K/uL (4.50-11.00)
[2023-09-16 06:30] LABS: Slide Review Reflex No
[2023-09-16 06:39] LABS: Chloride* 105 mmol/L (96-114)
[2023-09-16 06:40] LABS: Potassium* 3.8 mmol/L (3.6-5.1); Sodium* 135 mmol/L (135-149)
[2023-09-16 06:42] LABS: Creatinine* 0.7 mg/dL (0.5-1.5); Est. Creatinine Clearance* 41.93; Estimated Glomerular Filt Rate 86 ml/min
[2023-09-16 06:43] LABS: Anion Gap 6 mEq/L (7-15); Blood Urea Nitrogen* 5 mg/dL (7-30); Calcium* 7.1 mg/dL (8.4-10.6); Carbon Dioxide* 24 mmol/L (20-32); Glucose* 95 mg/dL (60-115)
[2023-09-16 07:00] VITALS: BP 98/77; PULSE 90; RESP 16; TEMP 36.9; O2SAT 95
--- NOTE | 2023-09-16 07:48 | PC.NURSE ---
Patient pleasant, alert and oriented. Ambulated independently in room. Denied nausea or pain. ?
[2023-09-16] MEDS: SODIUM CHLORIDE 0.9 % (FLUSH) 10 ML SYRINGE 5 ML IVF ×2 (08:46→21:58)
[2023-09-16] MEDS: ASPIRIN 81 MG TAB.CHEW PO (08:46)
[2023-09-16] MEDS: PANTOPRAZOLE SODIUM 40 MG INJ IVP (08:46)
[2023-09-16] MEDS: buPROPion XL 150 MG TABLET PO (08:46)
[2023-09-16 11:00] VITALS: BP 117/79; PULSE 87; RESP 16; TEMP 37.2; O2SAT 96
--- NOTE | 2023-09-16 14:38 | PM.GSPN ---
Subjective Subjective Date Seen: 09/16/23 Interval history: Lillie did well overnight. She continues to feel well without abdominal pain or nausea. She did however not have any stoma output overnight. She does have a large amount of gas and stool in the bag now. She has been on a soft diet. Exam Narrative: Exam Narrative: General: No acute distress Abdomen: Soft, nontender. Hernia remains reducible. There is gas and soft stool in her colostomy bag. Const: Vital Signs, click to edit/add: Vital Signs - 24 hr 09/15/23 15:00 09/15/23 15:00 09/15/23 15:00 Temperature Pulse Rate [Pulse Oximeter] 109 H 109 H Respiratory Rate 16 16 16 Blood Pressure [Le ft Arm] Blood Pressure [Ri ght Arm] 179/86 H Pulse Oximetry 96 97 Oxygen Delivery Me thod Room Air Room Air 09/15/23 20:15 09/15/23 23:00 09/15/23 23:00 Temperature 98.8 F 98.3 F Pulse Rate [Pulse Oximeter] 98 94 Respiratory Rate 16 17 17 Blood Pressure [Le ft Arm] 115/70 Blood Pressure [Ri ght Arm] 131/71 Pulse Oximetry 96 96 96 Oxygen Delivery Me thod Room Air Room Air Room Air 09/16/23 02:40 09/16/23 07:00 09/16/23 07:00 Temperature 98.7 F Pulse Rate [Pulse Oximeter] 93 90 Respiratory Rate 16 16 16 Blood Pressure [Le ft Arm] 105/71 Blood Pressure [Ri ght Arm] Pulse Oximetry 95 95 Oxygen Delivery Me thod Room Air 09/16/23 07:00 09/16/23 11:00 Temperature 98.5 F 98.9 F Pulse Rate [Pulse Oximeter] 90 87 Respiratory Rate 16 16 Blood Pressure [Le ft Arm] 98/77 117/79 Blood Pressure [Ri ght Arm] Pulse Oximetry 95 96 Oxygen Delivery Me thod Room Air Room Air Progress Note: A&P Assessment and plan (1) SBO (small bowel obstruction): Problem details: 09/13: as noted on CT. Consistent with nausea, increased pain with solid oral intake. Decreased stool output in stoma. Consulted Dr. Tran, General Surgery, recommending NGT, transfer for further surgical intervention, NPO, NS IVF. Initiated transfer to [facility] for further management. No beds available currently. Recommending continued SBO management with NGT and Gastrografin challenge. Discussed with Dr. Tran, in agreement. 09/14: SBO resolved following Gastrografin challenge. Recommendations per Dr. Tran as follows: Start slow with advancement of diet. I recommend leaving the NG tube in place at least today and advancing her to clears. If her exam remains the same tomorrow and she continues to have stoma output we can DC the NG tube and advance her diet to regular. Hernia has been reduced. Daughters were shown how to do so as well. This is something that they could potentially try if she is starting to develop symptoms, however if she again develops nausea, vomiting and distention she should return to be seen. Recommend outpatient follow-up at a tertiary care center (she is followed by [place] currently) with a surgeon to discuss hernia repair. I suspect because of her risk factors that they would not necessarily recommend repair after 1 episode of obstruction, given again the size of the hernia, her age, and surgical and radiation history, however it is reasonable to have the discussion. 09/15: Patient has tolerated advancing to clear liquid diet yesterday. She has advancing to full liquids today and may advance to soft if this goes well. Plan is to discontinue NG tube tomorrow if all goes well. Recommendation remains to follow-up at outpatient tertiary care with a surgeon to discuss elective hernia repair. Status: Acute (2) Abdominal hernia: Problem details: -noted on CT. Management as above 09/14: Reduced today by General surgery. Daughter shown how to do so at home as well. 09/15: Dr. Tran told me that she was able to reduce the hernia again today. Status: Acute Plan Lillie is doing well. An G-tube was DC'D today. We will continue her on a soft diet and if she tolerates this and continues to have antegrade bowel function, can consider discharge home tomorrow. She and I talked about next steps after discharge. I am going to try to get the name of hernia surgeon in [place]. We will try to get her in as an outpatient. She understands that if she has worsening symptoms she can try to reduce the hernia, however if this does not alleviate her symptoms then she should return to the ER.
[2023-09-16 15:00] VITALS: BP 89/78; PULSE 90; PULSE 91; RESP 16; TEMP 37.1; O2SAT 97; O2SAT 98
--- NOTE | 2023-09-16 16:06 | PM.IMPN1 ---
Progress Note: A&P Assessment and plan (1) SBO (small bowel obstruction): Problem details: 09/13: as noted on CT. Consistent with nausea, increased pain with solid oral intake. Decreased stool output in stoma. Consulted Dr. Tran, General Surgery, recommending NGT, transfer for further surgical intervention, NPO, NS IVF. Initiated transfer to [facility] for further management. No beds available currently. Recommending continued SBO management with NGT and Gastrografin challenge. Discussed with Dr. Tran, in agreement. 09/14: SBO resolved following Gastrografin challenge. Recommendations per Dr. Tran as follows: Start slow with advancement of diet. I recommend leaving the NG tube in place at least today and advancing her to clears. If her exam remains the same tomorrow and she continues to have stoma output we can DC the NG tube and advance her diet to regular. Hernia has been reduced. Daughters were shown how to do so as well. This is something that they could potentially try if she is starting to develop symptoms, however if she again develops nausea, vomiting and distention she should return to be seen. Recommend outpatient follow-up at a tertiary care center (she is followed by [place] currently) with a surgeon to discuss hernia repair. I suspect because of her risk factors that they would not necessarily recommend repair after 1 episode of obstruction, given again the size of the hernia, her age, and surgical and radiation history, however it is reasonable to have the discussion. 09/15: Patient has tolerated advancing to clear liquid diet yesterday. She has advancing to full liquids today and may advance to soft if this goes well. Plan is to discontinue NG tube tomorrow if all goes well. Recommendation remains to follow-up at outpatient tertiary care with a surgeon to discuss elective hernia repair. 09/16: Planning NGT out today if she tolerates larger portions and has ostomy output. Possible discharge home tomorrow. Status: Acute (2) Abdominal hernia: Problem details: -noted on CT. Management as above 09/14: Reduced today by General surgery. Daughter shown how to do so at home as well. 09/16: Remains reducible. Status: Acute (3) Hypokalemia: Problem details: - 09/16 potassium within normal limits. - magnesium within normal limits on 09/12/2023 noted. Status: Acute Plan Lillie is an 83-year-old female with small-bowel obstruction secondary to large ventral abdominal hernia in the setting of prior colostomy and radiation therapy. This resolved 09/14/2023 after Gastrografin challenge and hernia is not reducible. Advancing diet slowly going well. Probable NG discontinuation today. Dehydration and APOLLO that were present on admission have resolved. Anemia has remained stable. Continue electrolyte replacement as needed. Subjective Time Seen by Provider: 08:43 Date Seen: 09/16/23 Interval history: Lillie feels well today. She notes no ostomy output since she stopped eating at 4:00 p.m. yesterday. She notes she eats small portions of full liquid and soft diet yesterday up until 4:00 p.m. and had good ostomy output, but none yet overnight or today. Despite that she does not feel unwell and is hopeful to get the NG tube out later today. Exam Narrative: Exam Narrative: General: No acute distress. Awake, alert, oriented. No pallor. No jaundice. Oropharynx: Clear. Mucous membranes moist. Cardiovascular: Regular rate and rhythm. Respiratory: Clear to auscultation bilaterally. No wheezes or crackles. Abdomen: Bowel sounds present. Ostomy with bag in place, no gas or stool in bag. Soft, nondistended, nontender. Hernia reducible. Extremities: No pedal edema. Const: Vital Signs, click to edit/add: Vital Signs - 24 hr 09/15/23 20:15 09/15/23 23:00 09/15/23 23:00 Temperature 98.8 F 98.3 F Pulse Rate [Pulse Oximeter] 98 94 Respiratory Rate 16 17 17 Blood Pressure [Le ft Arm] 115/70 Blood Pressure [Ri ght Arm] 131/71 Pulse Oximetry 96 96 96 Oxygen Delivery Me thod Room Air Room Air Room Air 09/16/23 02:40 09/16/23 07:00 09/16/23 07:00 Temperature 98.7 F Pulse Rate [Pulse Oximeter] 93 90 Respiratory Rate 16 16 16 Blood Pressure [Le ft Arm] 105/71 Blood Pressure [Ri ght Arm] Pulse Oximetry 95 95 Oxygen Delivery Me thod Room Air 09/16/23 07:00 09/16/23 11:00 09/16/23 15:00 Temperature 98.5 F 98.9 F Pulse Rate [Pulse Oximeter] 90 87 91 Respiratory Rate 16 16 16 Blood Pressure [Le ft Arm] 98/77 117/79 Blood Pressure [Ri ght Arm] Pulse Oximetry 95 96 Oxygen Delivery Me thod Room Air Room Air 09/16/23 15:00 Temperature Pulse Rate [Pulse Oximeter] Respiratory Rate 16 Blood Pressure [Le ft Arm] Blood Pressure [Ri ght Arm] Pulse Oximetry 97 Oxygen Delivery Me thod Room Air Labs Labs: Laboratory Results - last 24 hr 09/16/23 05:27 WBC 6.63 RBC 3.28 L Hgb 9.8 L Hct 30.3 L MCV 92 MCH 30 MCHC 32 Plt Count 283 Sodium 135 Potassium 3.8 Chloride 105 Carbon Dioxide 24 Anion Gap 6 L BUN 5 L Creatinine 0.7 Estimated Creat Clear 41.93 Estimated GFR 86 Glucose 95 Calcium 7.1 L
[2023-09-16 19:00] VITALS: BP 87/63; PULSE 100; RESP 18; TEMP 37.2; O2SAT 96
--- NOTE | 2023-09-16 19:35 | PC.NURSE ---
Shift Note: Shift unremarkable.
[2023-09-16] MEDS: LORazepam 0.5 MG TABLET PO (21:58)
[2023-09-16 22:01] VITALS: BP 103/73; PULSE 86; RESP 18; TEMP 37; O2SAT 96
[2023-09-17 02:45] VITALS: BP 92/67; PULSE 93; RESP 16; TEMP 36.6; O2SAT 94
--- NOTE | 2023-09-17 05:38 | PC.NURSE ---
Patient pleasant, alert and oriented. Independent with ambulation, toileting and colostomy cares. Colostomy output of 150ml. Soft blood pressures of 87/63, 103/73 and 92/67. Denied any lightheadedness or dizziness at rest or when standing/walking. Educated on being cautious when standing/ambulating. Denied nausea or pain. ?
[2023-09-17 06:18] LABS: Hematocrit 30.3 % (33.0-51.0); Hemoglobin* 9.8 gm/dL (12.0-16.0); Mean Corpuscular HGB Conc 32 gm/dL (32-36); Mean Corpuscular Hemoglobin 30 pg (26-34); Mean Corpuscular Volume 93 fL (80-100); Platelet Count* 297 K/uL (140-440); Red Blood Count 3.27 m/uL (4.00-5.20); White Blood Count* 5.69 K/uL (4.50-11.00)
[2023-09-17 06:22] LABS: Chloride* 106 mmol/L (96-114)
[2023-09-17 06:23] LABS: Potassium* 4.6 mmol/L (3.6-5.1); Sodium* 136 mmol/L (135-149)
[2023-09-17 06:26] LABS: Anion Gap 6 mEq/L (7-15); Blood Urea Nitrogen* 8 mg/dL (7-30); Calcium* 7.5 mg/dL (8.4-10.6); Carbon Dioxide* 24 mmol/L (20-32); Creatinine* 0.7 mg/dL (0.5-1.5); Est. Creatinine Clearance* 41.93; Estimated Glomerular Filt Rate 86 ml/min; Glucose* 102 mg/dL (60-115)
[2023-09-17 06:27] LABS: Slide Review Reflex No
[2023-09-17 07:45] VITALS: BP 103/70; PULSE 90; RESP 16; RESP 18; TEMP 37.1; O2SAT 94; O2SAT 96
[2023-09-17] MEDS: PANTOPRAZOLE SODIUM 40 MG INJ IVP (08:39)
[2023-09-17] MEDS: ASPIRIN 81 MG TAB.CHEW PO (08:39)
[2023-09-17] MEDS: buPROPion XL 150 MG TABLET PO (08:39)
[2023-09-17] MEDS: SODIUM CHLORIDE 0.9 % (FLUSH) 10 ML SYRINGE 5 ML IVF (08:39)
--- NOTE | 2023-09-17 09:56 | P.DS_ITS ---
DS: Providers Provider Time Seen by Provider: 07:46 Date Seen: 09/17/23 Date of admission: 09/12/23 09:25 Primary care physician: GIANNA RICHARDSON DO Admitting Clinician: Lio Miranda MD Consults: 09/10/23 15:09 Consult to Nutrition [CONS] Routine Comment: Reason for consult:: Vomiting > 3 days Consult to Physical Therapy [CONS] Routine Comment: Reason(s) for PT Consult:: Evaluate and Treat Any Restrictions?:: No Restrictions Consult to Environmental Services Aide [CONS] Routine Comment: Reason for Consult:: Discharge Planning Needs 09/10/23 15:11 Consult to Occupational Therapy [CONS] Routine Comment: Reason(s) for OT Consult:: Evaluate and Treat Any Restrictions?:: No Restrictions 09/13/23 12:05 Consult to Physician [CONS] Routine Comment: Consulting Provider: Nicole Tran Has provider been notified: Yes Attending Physician on discharge: Constance Maldonado MD DS: Diagnosis Discharge Diagnosis (1) SBO (small bowel obstruction): Status: Acute Problem details: 09/13: as noted on CT. Consistent with nausea, increased pain with solid oral intake. Decreased stool output in stoma. Consulted Dr. Tran, General Surgery, recommending NGT, transfer for further surgical intervention, NPO, NS IVF. Initiated transfer to [facility] for further management. No beds available currently. Recommending continued SBO management with NGT and Gastrografin challenge. Discussed with Dr. Tran, in agreement. 09/14: SBO resolved following Gastrografin challenge. Recommendations per Dr. Tran as follows: Start slow with advancement of diet. I recommend leaving the NG tube in place at least today and advancing her to clears. If her exam remains the same tomorrow and she continues to have stoma output we can DC the NG tube and advance her diet to regular. Hernia has been reduced. Daughters were shown how to do so as well. This is something that they could potentially try if she is starting to develop symptoms, however if she again develops nausea, vomiting and distention she should return to be seen. Recommend outpatient follow-up at a tertiary care center (she is followed by [facility] currently) with a surgeon to discuss hernia repair. I suspect because of her risk factors that they would not necessarily recommend repair after 1 episode of obstruction, given again the size of the hernia, her age, and surgical and radiation history, however it is reasonable to have the discussion. 09/15: Patient has tolerated advancing to clear liquid diet yesterday. She has advancing to full liquids today and may advance to soft if this goes well. Plan is to discontinue NG tube tomorrow if all goes well. Recommendation remains to follow-up at outpatient tertiary care with a surgeon to discuss elective hernia repair. 09/16: Planning NGT out today if she tolerates larger portions and has ostomy output. Possible discharge home tomorrow. 09/17: NGT is out and she is tolerating a general diet. Hernia remains reducible and she is without pain. +soft stool and gas in ostomy bag. F/u with [facility] outpatient to discuss elective hernia repair. (2) Abdominal hernia: Status: Acute Problem details: -noted on CT. Management as above 09/14: Reduced today by General surgery. Daughter shown how to do so at home as well. 09/17: Remains reducible. (3) Hyperlipidemia: Status: Chronic Problem details: - resuming statin at discharge (4) Anemia: Status: Acute Problem details: -stable, initially thought to be likely dilutional. Patient report of dark vomitus prior to admission, further workup with EGD rule out ulceration -no ulceration reported on EGD -09/17 Hgb stable at 9.8 (5) Hypomagnesemia: Status: Acute Problem details: -resolved (6) Gastroenteritis: Status: Resolved Problem details: -with nausea, vomiting, increased stool output in ostomy -antiemetics as needed -IV PPI (history of GERD as well) -no recent antibiotic use. Monitor stool output, considering pathogen panel, C difficile testing if needed - 09/12: stools decreasing in quantity 09/12: Differential includes ulcerative disease, H pylori was negative in August patient report. Lipase normal this morning. -EGD scheduled for 09/[address] Russell. NPO after midnight. Enoxaparin held tonight 09/13: Suspected, resolved. Treatment management has turned to SBO, large abdominal hernia. (7) Dehydration: Status: Resolved Problem details: -in setting of above -continue with gentle IV hydration until improved oral intake 09/14: Creatinine, BUN, chloride stable. Calcium trending down, phosphorus 1.4 yesterday. Encourage caloric dense, nutrient dense clears today. Expect improvement with increased oral intake. Will need to continue to monitor (8) Hypotension: Status: Acute Problem details: -intermittent, recurring since NPO, receiving IVF -home antihypertensive medications on hold - BPs continue to be low normal. She is asymptomatic and feels very well. Has eaten very little salt while in the hospital. Continue to hold all antihypertensives and have patient f/u with PCP this week. (9) Acute kidney injury: Status: Acute Problem details: -baseline creatinine 0.8, stable, creatinine on admission 1.5 -related to dehydration and possibly also hypotension - 09/17: Cr stable at 0.7 (10) Hypokalemia: Status: Resolved Problem details: - 09/16 potassium within normal limits. - magnesium within normal limits on 09/12/2023 noted. 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 (12) Hepatic steatosis: Status: Acute Problem details: Seen on CT 09/13/23 DS: Summary Hospital Course Hospital Course: From H&P 09/10/23: Lillie Tong is a 83 year old woman was in her usual state of health until 2 days prior to presentation when she had the sudden, abrupt onset of nausea and vomiting. Had been visiting her children. Returned home. Was doing well for few hours and then had the sudden, abrupt onset of nausea and vomiting. Denies fevers, rigors, diaphoresis. Denies diarrhea. Only discomfort she has is from the retching. Denies chest heaviness, pressure, tightness, or pain. Denies abdominal pain. Denies dysuria, urgency, frequency, hematuria. No recent trauma or injury. Has had little to eat or drink since the onset of these symptoms. Acknowledges decreased frequency of urination. Finally decided to come in for further assessment. Had epigastric discomfort in the early part of August. Was started empirically on pantoprazole and Tums in that epigastric discomfort resolved. Initially started to improve after admission, but developed symptoms again after advancing diet. EGD and CTA done 09/13/23. SBO identified for which general surgery was consulted, NGT placed. Hernia unable to be reduced at bedside. Patient then had Gastrografin challenge with resolution of SBO and subsequent ability to reduce hernia. Since then she has slowly advanced her diet. She has continued to do well and is discharged home in stable and improved condition. Time Spent with Patient Time attestation: Total time spent providing and/or coordinating discharge services: Exam Narrative: Exam Narrative: General: No acute distress. Awake, alert, oriented. NGT is out. Oropharynx: Clear. Mucous membranes moist. Cardiovascular: Regular rate and rhythm. Respiratory: Clear to auscultation bilaterally. No wheezes or crackles. Abdomen: Bowel sounds present. Ostomy with bag in place, soft brown stool and gas in bag. Soft, nondistended, nontender. Hernia reducible. Extremities: No pedal edema. Const: Vital Signs, click to edit/add: Vital Signs - 24 hr 09/16/23 11:00 09/16/23 15:00 09/16/23 15:00 Temperature 98.9 F Pulse Rate [Pulse Oximeter] 87 91 Respiratory Rate 16 16 16 Blood Pressure [Le ft Arm] 117/79 Pulse Oximetry 96 97 Oxygen Delivery Me thod Room Air Room Air 09/16/23 15:00 09/16/23 19:00 09/16/23 22:01 Temperature 98.8 F 98.9 F Pulse Rate [Pulse Oximeter] 90 100 Respiratory Rate 16 18 18 Blood Pressure [Le ft Arm] 89/78 L 87/63 L Pulse Oximetry 98 96 96 Oxygen Delivery Me thod Room Air Room Air Room Air 09/16/23 22:01 09/17/23 02:45 09/17/23 07:45 Temperature 98.6 F 97.9 F Pulse Rate [Pulse Oximeter] 86 93 Respiratory Rate 18 16 16 Blood Pressure [Le ft Arm] 103/73 92/67 Pulse Oximetry 96 94 94 Oxygen Delivery Ok thod Room Air Room Air Room Air 09/17/23 07:45 Temperature 98.7 F Pulse Rate [Pulse Oximeter] 90 Respiratory Rate 18 Blood Pressure [Le ft Arm] 103/70 Pulse Oximetry 96 Oxygen Delivery Ok thod Room Air DS: Data Data Completed and Pending Completed studies during hospitalization: Ordering Physician: Jason Russell M.D. Date of Service: 09/10/23 Procedure(s): XR chest 2V Accession Number(s): [id number] cc: Jason Russell M.D.; SHAQRA,ADEI D.O.~ For Patients: As a result of the Cures Act, medical imaging exams and procedure reports are released immediately into your electronic medical record. You may view this report before your referring provider. If you have questions, please contact your health care provider. INDICATION: [id number]. TECHNIQUE: Chest 2 views. COMPARISON: None. FINDINGS: Cardiovascular and mediastinum: Heart size and vasculature are normal in caliber and appearance. Lungs and pleural spaces: Lungs are clear. No sign of infiltrate or mass. No sign of pleural effusion. No pneumothorax. Bones and soft tissues: No significant findings. IMPRESSION: No acute or significant findings. Dictated by Han Jonas MD @ 09/10/2023 12:22:06 PM (Electronically Signed) Ordering Physician: Naima BRASWELL Date of Service: 09/13/23 Procedure(s): CT chest abdomen pelv w con Accession Number(s): [id number] cc: Naima BRASWELL; GIANNA RICHARDSON D.O.~ For Patients: As a result of the Cures Act, medical imaging exams and procedure reports are released immediately into your electronic medical record. You may view this report before your referring provider. If you have questions, please contact your health care provider. INDICATION: Mid epigastric pain, nausea, vomiting, fullness. Status post EGD. TECHNIQUE: CT chest, abdomen and pelvis acquired with 68 cc Isovue 370 IV contrast. COMPARISON: Chest radiograph from 09/10/2023. FINDINGS: CHEST Lungs and pleura: No suspicious nodules or infiltrates. No effusions, thickening, or pneumothorax. Heart and vasculature: The heart is normal in size. No pericardial effusion. Atherosclerotic aortic and coronary artery calcifications. Ectatic ascending thoracic aorta measuring 4.1 cm. Extensive atherosclerotic calcifications of the aorta and its branches. Lymph node/mediastinum: No mediastinal, hilar, or axillary adenopathy. Chest wall: Normal. Other: Atherosclerotic carotid artery calcifications ABDOMEN AND PELVIS: Liver: Mild hepatic steatosis. Post cholecystectomy. Mild intrahepatic biliary ductal dilation. The common bile duct is normal in caliber. No discrete mass or radiopaque calculus identified. Pancreas: Atrophic pancreas. Spleen: Scattered too small to characterize hypodensities within the spleen. Adrenal glands: Unremarkable. No masses. Kidneys: Mild left hydronephrosis and delayed left nephrogram. GI tract: Small gastric fundal diverticulum. Left lower quadrant ostomy with peristomal hernia containing loops of dilated small bowel. There is narrowing of bowel as it enters and exits the parastomal hernia neck which measures 3.1 cm in width (series 2, image 190). Both upstream and downstream small-bowel are dilated. Downstream, dilated small bowel (including a loop of small bowel with chain suture material) is dilated with transition point in the anterior pelvis at the neck of a complex anterior abdominal wall hernia (series 2, image 210). This complex hernia is noted at the midline and right of midline in the mid and lower abdomen/pelvis and contains loops of small and large bowel.. Vasculature: Extensive atherosclerotic calcifications. Dense atherosclerotic calcifications limit evaluation of mesentery vessels though there appears to be at least severe narrowing if not segmental occlusion of the superior mesentery artery. Lymph nodes: No lymphadenopathy. Omentum/peritoneum/retroperitoneum/abdominal wall: No intraperitoneal free air. Pelvic organs: Decompressed bladder. The uterus is surgically absent. Bones: The bones are diffusely demineralized. Multilevel degenerative disc disease throughout the visualize spine. Chronic appearing inferior endplate compression deformity at L3. IMPRESSION: 1. Small-bowel obstruction with transition point at the neck of a complex ventral abdominal wall hernia. Upstream dilated bowel also extends into and out of a left lower quadrant parastomal hernia. Surgical consultation is recommended. 2. Mild left hydronephrosis and delayed left nephrogram. No definite left ureteral calculus identified to explain this. This finding may be chronic versus related to the bowel obstruction/postoperative changes. 3. Extensive atherosclerosis with dense atherosclerotic calcifications. 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 4. Hepatic steatosis. Findings 1-3 were discussed via telephone with Dr. Harris via telephone on 09/13/2023 at 11:22 a.m.. Please note that all CT scans at this facility use dose modulation, iterative reconstruction, and/or weight-based dosing when appropriate to reduce radiation dose to as low as reasonably achievable. Dictated by Radha Rahman MD @ 09/13/2023 11:25:32 AM (Electronically Signed) Ordering Physician: Nicole Tran M.D. Date of Service: 09/13/23 Procedure(s): XR chest 1V portable Accession Number(s): [id number] cc: Nicole Tran M.D.; GIANNA RICHARDSON D.O.~ For Patients: As a result of the Cures Act, medical imaging exams and procedure reports are released immediately into your electronic medical record. You may view this report before your referring provider. If you have questions, please contact your health care provider. INDICATION: CHECK NG PLACEMENT TECHNIQUE: Chest 1 views. COMPARISON: CT chest and pelvis on September 13, 2023 FINDINGS/IMPRESSION: The patient is rotated to the right. Lines: Enteric tube with tip projecting over the gastric body and side port projecting near the gastroesophageal junction. Recommend advancing by approximately 3-5 centimeters. Cardiovasculature and mediastinum: Heart size and vasculature are normal in caliber and appearance. Lungs and pleural spaces: No focal airspace consolidation, pleural effusion, or pneumothorax. Trace linear atelectatic changes in the right mid and lower lung zone. Bones and soft tissues: No significant findings Dictated by Pro Mcguire MD @ 09/13/2023 3:23:55 PM (Electronically Signed) Ordering Physician: Naima BRASWELL Date of Service: 09/14/23 Procedure(s): XR abdomen 1V Accession Number(s): [id number] cc: Naima BRASWELL; GIANNA RICHARDSON D.O.~ For Patients: As a result of the Cures Act, medical imaging exams and procedure reports are released immediately into your electronic medical record. You may view this report before your referring provider. If you have questions, please contact your health care provider. Indication: Gastrografin challenge Technique: Abdomen one view Comparison: 09/13/2023 IMPRESSION: NG tube in the stomach with the side hole near the GE junction. Contrast extends into bowel loops within the lower abdomen and within the right side of the pelvis. The contrast in the midline represents residual contrast within distended small bowel loops. Contrast within the right side of the abdomen may potentially signify passage of contrast beyond the area of narrowing, however, continued follow-up is recommended. Dictated by Bird Jones MD @ 09/14/2023 8:25:57 AM (Electronically Signed) Labs on day of discharge: Labs from last 24 hours 09/17/23 05:30 WBC 5.69 RBC 3.27 L Hgb 9.8 L Hct 30.3 L MCV 93 MCH 30 MCHC 32 Plt Count 297 Sodium 136 Potassium 4.6 Chloride 106 Carbon Dioxide 24 Anion Gap 6 L BUN 8 Creatinine 0.7 Estimated Creat Clear 41.93 Estimated GFR 86 Glucose 102 Calcium 7.5 L Discharge Plan Discharge Disposition: Home, Self-Care Date of Admission: 09/12/23 09:25 Attending Provider on Discharge: Naima Harris Consulting Providers: Nicole Tran Primary Care Provider: GIANNA RICHARDSON Condition: Stable Anticipated Discharge Date/Time: 09/17/23 09:52 Discharge Medications: Continued simvastatin 10 mg tablet 10 mg PO HS pantoprazole 20 mg tablet,delayed release (DR/EC) 20 mg PO DAILY bupropion HCl 150 mg tablet extended release 24 hr 150 mg PO QAM lorazepam 0.5 mg tablet 0.5 mg PO BID PRN aspirin [Aspirin Childrens] 81 mg tablet,chewable 81 mg PO DAILY cholecalciferol (vitamin D3) 25 mcg (1,000 unit) tablet 2,000 unit PO DAILY calcium carbonate-vitamin D3 [Calcium 500 + D] 500 mg-10 mcg (400 unit) tablet 1 tab PO DAILY Held amlodipine 2.5 mg tablet 2.5 mg PO DAILY Hold Instructions: Resume on 09/24/23. Hold until seen by PCP furosemide 20 mg tablet 20 mg PO DAILY Hold Instructions: Resume on 09/24/23. Hold until seen by PCP atenolol 50 mg tablet 50 mg PO BID Hold Instructions: Resume on 09/24/23. Hold until seen by PCP Patient Comments: PT SAYS NOW BID hydrochlorothiazide 12.5 mg tablet 12.5 mg PO DAILY Hold Instructions: Resume on 09/24/23. Hold until seen by PCP Discharge Orders: Discharge Order (Routine); Ordered 09/17/23 Ordered By: Constance Maldonado Patient Education: Bowel Obstruction (GEN) Additional Instructions: Outpatient follow-up with [facility] Surgery - abdominal hernia, recent SBO, h/o endometrial cancer, radiation, ostomy Activity Level: No Restrictions Discharge Diet: Regular Follow Up Appointments: GIANNA RICHARDSON DO [Primary Care Provider] - 09/21/23 11:25 am ([facility] for follow-up and BP check.) Forms: Cell[employer] Info Instructions Discharge Comments: Recommended surgeons who do large abdominal hernia repairs at [facility] are: Drs. Sheri Ayala, Quinn Sorto or Bird Mendiola.
--- NOTE | 2023-09-17 10:40 | P.GSPN_ITS ---
Subjective Subjective Date Seen: 09/17/23 Interval history: Lillie did well overnight. Her NG tube has been out since yesterday and she has tolerated a soft diet. She has no pain. Her abdomen is soft and she has been putting out stoma output Exam Narrative: Exam Narrative: general: No acute distress abdomen: Soft. Nontender. Hernia is still reducible and soft. Const: Vital Signs, click to edit/add: Vital Signs - 24 hr 09/16/23 11:00 09/16/23 15:00 09/16/23 15:00 Temperature 98.9 F Pulse Rate [Pulse Oximeter] 87 91 Respiratory Rate 16 16 16 Blood Pressure [Le ft Arm] 117/79 Pulse Oximetry 96 97 Oxygen Delivery Me thod Room Air Room Air 09/16/23 15:00 09/16/23 19:00 09/16/23 22:01 Temperature 98.8 F 98.9 F Pulse Rate [Pulse Oximeter] 90 100 Respiratory Rate 16 18 18 Blood Pressure [Le ft Arm] 89/78 L 87/63 L Pulse Oximetry 98 96 96 Oxygen Delivery Me thod Room Air Room Air Room Air 09/16/23 22:01 09/17/23 02:45 09/17/23 07:45 Temperature 98.6 F 97.9 F Pulse Rate [Pulse Oximeter] 86 93 Respiratory Rate 18 16 16 Blood Pressure [Le ft Arm] 103/73 92/67 Pulse Oximetry 96 94 94 Oxygen Delivery Me thod Room Air Room Air Room Air 09/17/23 07:45 Temperature 98.7 F Pulse Rate [Pulse Oximeter] 90 Respiratory Rate 18 Blood Pressure [Le ft Arm] 103/70 Pulse Oximetry 96 Oxygen Delivery Me thod Room Air Progress Note: A&P Assessment and plan (1) SBO (small bowel obstruction): Problem details: 09/13: as noted on CT. Consistent with nausea, increased pain with solid oral intake. Decreased stool output in stoma. Consulted Dr. Tran, General Surgery, recommending NGT, transfer for further surgical intervention, NPO, NS IVF. Initiated transfer to [facility] for further management. No beds available currently. Recommending continued SBO management with NGT and Gastrografin challenge. Discussed with Dr. Tran, in agreement. 09/14: SBO resolved following Gastrografin challenge. Recommendations per Dr. Marc as follows: Start slow with advancement of diet. I recommend leaving the NG tube in place at least today and advancing her to clears. If her exam remains the same tomorrow and she continues to have stoma output we can DC the NG tube and advance her diet to regular. Hernia has been reduced. Daughters were shown how to do so as well. This is something that they could potentially try if she is starting to develop symptoms, however if she again develops nausea, vomiting and distention she should return to be seen. Recommend outpatient follow-up at a tertiary care center (she is followed by [facility] currently) with a surgeon to discuss hernia repair. I suspect because of her risk factors that they would not necessarily recommend repair after 1 episode of obstruction, given again the size of the hernia, her age, and surgical and radiation history, however it is reasonable to have the discussion. 09/15: Patient has tolerated advancing to clear liquid diet yesterday. She has advancing to full liquids today and may advance to soft if this goes well. Plan is to discontinue NG tube tomorrow if all goes well. Recommendation remains to follow-up at outpatient tertiary care with a surgeon to discuss elective hernia repair. 09/16: Planning NGT out today if she tolerates larger portions and has ostomy outp ut. Possible discharge home tomorrow. 09/17: NGT is out and she is tolerating a general diet. Hernia remains reducible and she is without pain. +soft stool and gas in ostomy bag. F/u with [facility] outpatient to discuss elective hernia repair. Status: Acute (2) Abdominal hernia: Problem details: -noted on CT. Management as above 09/14: Reduced today by General surgery. Daughter shown how to do so at home as well. 09/17: Remains reducible. Status: Acute Plan The patient is an 83-year-old female who has a now resolved small bowel obstruction from a large ventral hernia. She and I had discussed at length that she should be referred to a surgeon at a tertiary center to discuss abdominal wall reconstruction. They may or may not wish to do so in an elective setting, however, I think it is worth a discussion. She understands that she is higher risk because of her history of radiation and the size of the defect. She now knows what to watch out for and how to reduce the hernia, however she understands that she still may need to present to the emergency department if her symptoms worsen. I have provided her with the name of several surgeons who do abdominal wall reconstruction at [facility] in [place]. We will also make sure they have her images. She is agreeable with this plan and will follow-up as needed.
--- NOTE | 2023-09-17 11:17 | PC.NURSE ---
Pt independent in room. Denies pain, nausea. Tolerates regular diet. Bowels active. IV DC cath tip intact. DC instructions given to pt and daughter verbally and written. DC @1100
== END 2023-09-17 11:00 | disposition home or self-care (01) | DRG 393 ==
LOC: ED 13:37 → MEDSURG 14:10
PROVIDERS: Physician Assistant; Admitting Provider Family Medicine; Emergency Provider Internal Medicine; PCP Student in an Organized Health Care Education/Training Program; Visit Provider Internal Medicine
DX: K43.6 Other and unspecified ventral hernia with obstruction, without gangrene (principal); K55.019 Acute (reversible) ischemia of small intestine, extent unspecified; N17.9 Acute kidney failure, unspecified; K43.3 Parastomal hernia with obstruction, without gangrene; E87.6 Hypokalemia; E86.0 Dehydration; Z93.3 Colostomy status; K52.9 Noninfective gastroenteritis and colitis, unspecified; I95.89 Other hypotension; K21.9 Gastro-esophageal reflux disease without esophagitis; D64.9 Anemia, unspecified; E83.42 Hypomagnesemia; K57.90 Diverticulosis of intestine, part unspecified, without perforation or abscess without bleeding; I10 Essential (primary) hypertension; K76.0 Fatty (change of) liver, not elsewhere classified; Z85.42 Personal history of malignant neoplasm of other parts of uterus; E78.5 Hyperlipidemia, unspecified
CPT/HCPCS: 00731; 36415; 43239; 71045; 71046; 71260; 74018; 74177; 80048; 80053; 80069; 80076; 81003; 81015; 82150; 83690; 83735; 84132; 85025; 85027; 87631; 88305; 97116; 97161; 97165; 97530; 99100; 99283; 99284; A9270; C9113; G0378; J0780; J1170; J1650; J1790; J2405; J2704; J3475; J3480; J7030; Q9967

== ENCOUNTER 2024-01-28 17:10 | Inpatient (IN) | payer MEDICARE, BC, SELFPAY ==
[2024-01-28 17:20] VITALS: BP 147/83; PULSE 73; RESP 20; TEMP 36.1; O2SAT 95
--- NOTE | 2024-01-28 20:34 | ED.GENADULT ---
HPI - General Adult General Date Seen: 01/28/24 Chief complaint: Nausea/Vomiting Stated complaint: Bowel blockage Time Seen by Provider: 01/28/24 20:34 History of Present Illness HPI narrative: This is an 83-year-old female with a complex past medical history including previous bowel resection and colostomy. She has had previous superior mesenteric artery stenosis, hepatic steatosis, hyperlipidemia, ventral abdominal hernia, previous small-bowel obstruction. She was hospitalized here in [place] from September 10-2023 for bowel obstruction. A she had a CT scan diagnosis and bowel obstruction. CT abd pelvis 09/13/23 IMPRESSION: 1. Small-bowel obstruction with transition point at the neck of a complex ventral abdominal wall hernia. Upstream dilated bowel also extends into and out of a left lower quadrant parastomal hernia. Surgical consultation is recommended. 2. Mild left hydronephrosis and delayed left nephrogram. No definite left ureteral calculus identified to explain this. This finding may be chronic versus related to the bowel obstruction/postoperative changes. 3. Extensive atherosclerosis with dense atherosclerotic calcifications. 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 4. Hepatic steatosis. Recommended plan of care was to transfer to [facility] for medical management and surgical consultation. However no beds were available at [facility] so she was admitted here in [place] for medical management. He on 09/14 her small-bowel obstruction resolved after a Gastrografin challenge. She was referred for outpatient follow-up with surgery at [facility] to consider repair of her ventral hernia given her previous surgical complexities. Related Data Home Medications Medication Instructions Recorded Confirmed amlodipine 2.5 mg tablet 2.5 mg PO DAILY 09/10/23 09/10/23 aspirin 81 mg chewable tablet 81 mg PO DAILY 09/10/23 09/10/23 (Aspirin Childrens) atenolol 50 mg tablet 50 mg PO BID 09/10/23 09/10/23 bupropion HCl 150 mg 24 hr tablet, 150 mg PO QAM 09/10/23 09/10/23 extended release calcium carbonate 500 mg-vitamin 1 tab PO DAILY 09/10/23 09/10/23 D3 10 mcg (400 unit) tablet (Calcium 500 + D) cholecalciferol (vitamin D3) 25 2,000 unit PO DAILY 09/10/23 09/10/23 mcg (1,000 unit) tablet furosemide 20 mg tablet 20 mg PO DAILY 09/10/23 09/10/23 hydrochlorothiazide 12.5 mg tablet 12.5 mg PO DAILY 09/10/23 09/10/23 lorazepam 0.5 mg tablet 0.5 mg PO BID PRN 09/10/23 09/10/23 pantoprazole 20 mg tablet,delayed 20 mg PO DAILY 09/10/23 09/10/23 release simvastatin 10 mg tablet 10 mg PO HS 09/10/23 09/10/23 Allergies Allergy/AdvReac Type Severity Reaction Status Date / Time No Known Drug Allergies Allergy Verified 01/28/24 17:22 [facility] Medical History (Updated 09/25/23 @ 00:00 by Background Daemon) Anemia ?D64.9 - Anemia, unspecified (ICD-10) Nausea and vomiting ?R11.2 - Nausea with vomiting, unspecified (ICD-10) Dehydration ?E86.0 - Dehydration (ICD-10) Hepatic steatosis ?K76.0 - Fatty (change of) liver, not elsewhere classified (ICD-10) Superior mesenteric artery stenosis ?K55.1 - Chronic vascular disorders of intestine (ICD-10) Peripheral artery disease ?I73.9 - Peripheral vascular disease, unspecified (ICD-10) History of endometrial cancer ?Z85.42 - Personal history of malignant neoplasm of other parts of uterus (ICD-10) Chronic hyperkalemia ?E87.5 - Hyperkalemia (ICD-10) Thyroid nodule ?E04.1 - Nontoxic single thyroid nodule (ICD-10) Stenosis of left carotid artery ?I65.22 - Occlusion and stenosis of left carotid artery (ICD-10) Primary hyperparathyroidism ?E21.0 - Primary hyperparathyroidism (ICD-10) Osteoporosis ?M81.0 - Age-related osteoporosis without current pathological fracture (ICD-10) Diverticulosis ?K57.90 - Diverticulosis of intestine, part unspecified, without perforation or abscess without bleeding (ICD-10) Aortic valve sclerosis ?I35.8 - Other nonrheumatic aortic valve disorders (ICD-10) Colostomy in place ?Z93.3 - Colostomy status (ICD-10) Hyperlipidemia ?E78.5 - Hyperlipidemia, unspecified (ICD-10) Chronic GERD ?K21.9 - Gastro-esophageal reflux disease without esophagitis (ICD-10) Hypertension ?I10 - Essential (primary) hypertension (ICD-10) Surgical History 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 ?Z90.710 - Acquired absence of both cervix and uterus (ICD-10) ?Z90.722 - Acquired absence of ovaries, bilateral (ICD-10) ?Z90.79 - Acquired absence of other genital organ(s) (ICD-10) Status post colectomy ?Z90.49 - Acquired absence of other specified parts of digestive tract (ICD-10) Status post cholecystectomy ?Z90.49 - Acquired absence of other specified parts of digestive tract (ICD-10) Social History What is your current living situation?: I presently have a place to live Problems where you live: no known problems Problems where you live details: N/A In the past 12 months, utilities in danger of being shut off: no In past 12 months, lack of transportation kept you from medical appts, meetings, work, or getting things needed for daily living: no In the past 12 mos, have been you worried that your food would run out before you had money to buy more?: never true In the past 12 mos, the food you bought just didn't last and you didn't have money to buy more?: never true Highest level of school completed/degree received: Bachelor's degree Smoking Status: Former smoker Do you use any of these nicotine containing products: None Second hand tobacco smoke exposure: No How often do you have a drink containing alcohol: never How often do you have six or more drinks on one occasion: Never AUDIT-C Alcohol total score: 0 Non-prescribed substance use: denies use Caffeine: No How often does anyone, including family, friends and others, physically hurt you: never How often does anyone, including family, friends and others, insult or talk down to you: never How often does anyone, including family, friends and others, threaten you with harm: never How often does anyone, including family, friends and others, scream or curse at you: never service: No Exam Narrative: Exam Narrative: Constitutional: Appears well-developed and well-nourished. Alert. Conversant. Non toxic. HENT: Head: Atraumatic. Nose: Nose normal. Mouth/Throat: Oral mucosa is clear but dry. no trismus. Pharynx normal. Tonsils symmetric. No tonsillar enlargement, erythema, or exudate. Eyes: Conjunctivae normal. EOM normal. Pupils equal, round, and reactive to light. No scleral icterus. Neck: Normal range of motion. Neck supple. No tracheal deviation present. Cardiovascular: Normal rate, regular rhythm. No gallop. No friction rub. No murmur heard. Symmetric radial artery pulses Pulmonary/Chest: Effort normal. No stridor. No respiratory distress. No wheezes. No rales. No rhonchi . No tenderness. Abdominal: Soft. Bowel sounds somewhat hyperactive. Mild distension. There is a soft mass in the central and right abdomen consistent with a ventral hernia. Ostomy in the left mid abdomen. There is only a small amount of air and a small amount of whitish brown stool in the ostomy bag. When I palpate the hernia mass it feels soft and seems to easily reduce into the abdominal cavity. She has mild tenderness in her upper central. No rebound. No guarding. Musculoskeletal: RUE: Normal range of motion. No tenderness. No deformity LUE: Normal range of motion. No tenderness. No deformity RLE: Normal range of motion. No edema. No tenderness. No deformity LLE: Normal range of motion. No edema. No tenderness. No deformity Neurological: Alert and oriented to person, place, and time. Normal strength. CN II-VII intact. No sensory deficit. GCS eye subscore is 4. GCS verbal subscore is 5. GCS motor subscore is 6. Normal coordination Skin: Skin is warm and dry. No rash noted. No pallor. Normal capillary refill. Psychiatric: Normal mood. Normal affect. Const: Vital Signs, click to edit/add: Vital Signs - 24 hr 01/28/24 17:20 01/29/24 00:28 Temperature 97 F L 98.3 F Pulse Rate [Right Pulse Oximeter] 73 80 Respiratory Rate 20 16 Blood Pressure [Ri ght Upper Arm] 147/83 H 180/78 H Pulse Oximetry 95 97 Oxygen Delivery Me thod Room Air Room Air Course Vital Signs Vital signs: Initial Vital Signs Temperature 97 F L 01/28/24 17:20 Temperature Source Temporal Artery Scan 01/28/24 17:20 Pulse Rate 73 01/28/24 17:20 Pulse Rhythm Regular 01/28/24 17:20 Pulse Strength 3+ Normal 01/28/24 17:20 Respiratory Rate 20 01/28/24 17:20 Blood Pressure 147/83 H 01/28/24 17:20 Blood Pressure Mean 104 01/28/24 17:20 Blood Pressure Position Sitting 01/28/24 17:20 Pulse Oximetry 95 01/28/24 17:20 Oxygen Delivery Method Room Air 01/28/24 17:20 Vital Signs Temperature 97 F L 01/28/24 17:20 Pulse Rate 73 01/28/24 17:20 Respiratory Rate 20 01/28/24 17:20 Blood Pressure 147/83 H 01/28/24 17:20 Pulse Oximetry 95 01/28/24 17:20 Oxygen Delivery Method Room Air 01/28/24 17:20 Temperature 98.3 F 01/29/24 00:28 Pulse Rate 80 01/29/24 00:28 Respiratory Rate 16 01/29/24 00:28 Blood Pressure 180/78 H 01/29/24 00:28 Pulse Oximetry 97 01/29/24 00:28 Oxygen Delivery Method Room Air 01/29/24 00:28 Medications Administered Medications: Discontinued Medications Generic Name Dose Route Start Last Admin Trade Name Freq PRN Reason Stop Dose Admin Lactated Ringer's 1,000 ml 01/28/24 20:41 01/28/24 21:02 Lactated Ringers 1000 Ml IV 01/28/24 20:42 1,000 ml ONCE ONE Administration Metoprolol Tartrate 2.5 mg 01/29/24 00:22 01/29/24 00:23 Metoprolol Tartrate 1 Mg/Ml Inj IVP 01/29/24 00:23 2.5 mg ONCE ONE Administration Ondansetron HCl 4 mg 01/28/24 20:41 01/28/24 21:02 Ondansetron 2 Mg/Ml Inj IVP 01/28/24 20:42 4 mg ONCE ONE Administration Medical Decision Making MDM Narrative Medical decision making narrative: Presented to the Emergency Department with mild upper abdominal pain associated with repetitive episodes of vomiting and nausea since yesterday.. The differential diagnosis of abdominal pain includes: Appendicitis, Bowel Obstruction, Ulcer, Ischemia, Cholecystitis, Diverticulitis, Pancreatitis, UTI, kidney stone, Enteritis/Colitis, amongst many other etiologies. Laboratory testing does not reveal a cause for the patient's pain. White count and lactic are reassuring. Concern here is for probable recurrent small-bowel obstruction. CT scan abdomen pelvis with IV contrast confirms small bowel obstruction with transition point in the loop of bowel contained within the ventral hernia. Fortunately the patient's symptoms are not as severe today as when she had her obstruction in September. Given the obstruction associated with hernia, typically surgical intervention would be indicated. However given the patient's very complex previous surgical abdominal history, surgery would be very risky for her. She had fortunately resolved this obstruction with conservative management while in the hospital here in [place] in September. Since then she has had an outpatient consultation with the surgery team at [facility] who also advised against any surgical intervention due to the large size of the ventral hernia and the complexity and risk of repair. Discussed with our surgeon, Dr. Curry. She would recommend that if possible we transfer the patient to [facility] for admission (so that if she does need surgery, she would already be at [facility]). Unfortunately, there are currently no beds in the [facility] health system and they can accept the patient in transfer tonight. Therefore, we will hospitalized for supportive care here in [place]. I ordered NG tube to be placed. She is accepted by the hospitalist service for medical management and surgery will consult in the morning. Lab Data Labs: Lab Results 01/28/24 Range/Units 21:14 WBC 11.31 H (4.50-11.00) K/uL RBC 3.81 L (4.00-5.20) m/uL Hgb 11.5 L (12.0-16.0) gm/dL Hct 35.1 (33.0-51.0) % MCV 92 (80-100) fL MCH 30 (26-34) pg MCHC 33 (32-36) gm/dL RDW Coeff of Sadia 13.9 (11.5-15.5) % Plt Count 273 (140-440) K/uL Neut % (Auto) 78.1 H (42.0-72.0) % Lymph % (Auto) 10.3 L (20-44) % [place] % (Auto) 10.5 (0.0-11.0) % Eos % (Auto) 0.4 (0.0-7.0) % Baso % (Auto) 0.5 (0.0-3.0) % Neut # (Auto) 8.80 H (1.7-7.0) K/uL Lymph # (Auto) 1.20 (0.90-2.90) K/uL [place] # (Auto) 1.20 H (0.00-0.90) K/UL Eos # (Auto) 0.00 (0.00-0.50) K/uL Baso # (Auto) 0.10 (0.00-0.30) K/uL Abs Immat Gran (auto) 0.00 (0.00-0.30) K/uL Imm/Tot Granulo (auto) 0.2 % Sodium 139 (135-149) mmol/L Potassium 3.0 L (3.6-5.1) mmol/L Chloride 109 (96-114) mmol/L Carbon Dioxide 17 L (20-32) mmol/L Anion Gap 13 (7-15) mEq/L BUN 10 (7-30) mg/dL Creatinine 0.8 (0.5-1.5) mg/dL Estimated GFR 74 ml/min Glucose 105 (60-115) mg/dL Lactate 1.2 (0.5-1.9) mmol/L Calcium 9.3 (8.4-10.6) mg/dL Total Bilirubin 0.8 (0.1-1.5) mg/dL AST 36 H (12-35) U/L ALT 21 (4-35) U/L Alkaline Phosphatase 88 (40-150) U/L Total Protein 7.5 (6.0-8.3) g/dL Albumin 4.2 (3.3-5.0) g/dL Lipase 56 (23-300) U/L Imaging Data CT scan - abdomen: Attestation: I have reviewed the pertinent imaging results. Radiologist's impression: IMPRESSION: Small bowel obstruction is likely secondary to a ventral hernia. This is similar in appearance compared to the prior exam from 4 months ago. No new abnormalities.
--- NOTE | 2024-01-28 20:41 | CT_ITS ---
Patient: EVA VELASQUEZ Facility:?[facility] Patient ID:?[id number] Site Patient ID:?[id number]. Site :?[id number] Study:?CT-Abdomen/Pelvis W/IV-01/28/2024 10:06:32 PM Ordering Physician:KIT Final Report: INDICATION: Abdominal pain and vomiting. TECHNIQUE: CT abdomen and pelvis acquired without and with 64 cc Isovue 370 IV contrast. COMPARISON: September 13, 2023. FINDINGS: Small bowel obstruction is present and likely secondary to a ventral hernia. This is similar in appearance compared to the prior exam. The liver is normal in size, shape and attenuation. Post cholecystectomy. The spleen, adrenal glands and pancreas are within normal limits. The kidneys are unremarkable. Pelvic organs are unremarkable. No lymphadenopathy evident. No free air or significant free fluid. The lung bases are clear. IMPRESSION: Small bowel obstruction is likely secondary to a ventral hernia. This is similar in appearance compared to the prior exam from 4 months ago. No new abnormalities. Please note that all CT scans at this facility use dose modulation, iterative reconstruction, and/or weight-based dosing when appropriate to reduce radiation dose to as low as reasonably achievable. Dictated by Clark Lao MD @ 01/28/2024 11:28:19 PM Signed by:?Clark Lao MD @01/28/2024 11:28:19 PM (Electronic Signature)
[2024-01-28] MEDS: ONDANSETRON 2 MG/ML inj 4 MG IVP (21:02)
[2024-01-28] MEDS: LACTATED RINGERS 1000 ML IV (21:02)
--- OUTSIDE RECORDS SUMMARY | 2024-01-28 21:13 | XMS_ITS | Encounter Summary ---
Author Name Unknown Organization [facility] Address [address] [place] [id number] Care Team Providers Care Stock Car Driver Name Role Phone Elsewhere, Pcp Primary Care Provider Unavailabl e Reason for Referral * Outpatient (Routine) - Authorized Specialty Diagnoses / Procedures Referred By Contac t Referred To Contact Vascular Surgery Jace Coy M.D. [address] [place] [address] [facility] Referral ID Status Reason Start Date Expiration Date V isits Requested Visits Authorized [id number] Authorized 10/24/2023 04/24/2025 1 1 Scheduling Instructions Priority 3 MING MACHINE OPERATOR * Outpatient (Routine) - Authorized Specialty Diagnoses / Procedures Referred By Contac t Referred To Contact Diagnoses Stenosis Carotid Artery Left Procedures US Carotid Bilateral Jace Coy M.D. [address] [place] [address] [facility] Referral ID Status Reason Start Date Expiration Date V isits Requested Visits Authorized [id number] Authorized 10/24/2023 10/23/2024 1 1 MING MACHINE OPERATOR Reason for Visit * Outpatient (Routine) - Closed Specialty Diagnoses / Procedures Referred By Wood t Referred To Contact Vascular Surgery Jace Coy M.D. [address] [place] [address] [facility] Referral ID Status Reason Start Date Expiration Date Visits Re quested Visits Authorized [id number] Closed 11/30/2022 11/29/2025 1 1 Encounter Details Date Type Department Care Team (Late st Contact Info) Description 10/24/2023 11:20 AM TRIMMING MACHINE OPERATOR Office Visit Division of Vascular and Endovascular Surgery in [place], [place] [address] [place] [address] Jace Coy M.D. [address] [place] [phone] Stenosis Carotid Artery Left (Primary Dx) Social History Tobacco Use Types Packs/Day Years Used Date Smoking Tobacco: Former Cigarettes 0 09/10/1958 - 1969 Smokeless Tobacco: Never Alcohol Use Standard Drinks/Week Comments Yes 0 (1 standard drink = 0.6 oz pur e alcohol) Social Connection and Isolat ion Panel [NHANES] Answer Date Recorded In a typical week, how many times do you talk on the phone with family, friends, or neighbors? More than three times a week 09/19/2019 How often do you get togethe r with friends or relatives? Three times a week 09/19/2019 How often do you attend chur or oriental orthodox services? More than 4 times per year 09/19/2019 Do you belong to any clubs o r organizations such as sikhism groups, unions, fraternal or athletic groups, or school groups? Yes 09/19/2019 How often do you attend meet ings of the clubs or organizations you belong to? More than 4 times per year 09/19/2019 Are you , , di vorced, , never , or living with a partner? 09/19/2019 AUDIT-C Answer Date Recorded Q1: How often do you have a drink containing alc ohol? Never 09/19/2019 Average Number of Drinks Not on file 020 Q3: How often do you have si x or more drinks on one occasion? Never 09/19/2019 Overall Financial Resource Strain (CARDIA) Answe r Date Recorded How hard is it for you to pa y for the very basics like food, housing, medical care, and heating? Not very hard 09/19/2019 PHQ-2 Answer Date Recorded PHQ-2 Score 0 02/11/2019 Exercise Vital Sign Answer Date Recorde d On average, how many days pe r week do you engage in moderate to strenuous exercise (like a brisk walk)? 1 day 09/19/2019 On average, how many minutes do you engage in exercise at this level? 20 min 09/19/2019 Hunger Vital Sign Answer Date Recorded Within the past 12 months, y ou worried that your food would run out before you got the money to buy more. Never true 09/19/19 20 Within the past 12 months, t he food you bought just didn't last and you didn't have money to get more. Never true 09/19/2019 PRAPARE - Transportation Answer Date Re corded In the past 12 months, has l ack of transportation kept you from medical appointments or from getting medications? No 09/10 In the past 12 months, has l ack of transportation kept you from meetings, work, or from getting things needed for daily living? No 09/19/2019 Nutrition Answer Date Recorded Nutrition: EVOO Fat Source Unknown 09/19 Nutrition: Servings of Fruits/Vegetables per Day Not on file 09/19/2022 Dental Answer Date Recorded Dental: Regular Dentist Unknown 09/19/19 23 Education Answer Date Recorded What is the highest level of school you have completed or the highest degree you have received? Bachelor's degree (e.g., BA, AB, BS) 09/19/2019 Sex and Gender Information Value Date Recorded Sex Assigned at Female 01/02/2019 9:41 AM CDT Gender Identity Female 01/02/2019 9:41 AM CDT Sexual Orientation Straight 01/02/2019 9: 41 AM CDT documented as of this encounter Progress Notes * Jace Coy M.D. - 10/24/2023 11:20 AM CST Ms. Tong returns. Were following her for an asymptomatic left carotid artery stenosis. She remains asymptomatic. She continues to live a very rewarding and active life. She is in good spirits. She does not have any complaints. She is on aspirin. She has not on a statin. She will discuss this wi th her primary care physician. Physical examination is unremarkable. She has 4+ pulse in bilateral radial pulses, 3+ pulse in bothcarotid arteries. Duplex ultrasound is stable. Her peak systolic velocity in the left carotid is 256 cm per 2nd, witha ratio of 4.0; there is report of a possible subclavian artery stenosis, however, she has a strongpulse in the left radial artery. Would not recommend any intervention. Recommend follow-up in 1-2 years with a new duplex ultrasound, earlier if there are any symptoms. She will discuss with her primary care physician the possibility of starting her on a statin given her cerebrovascular disease. Patient is very appreciative of thecare received during this consultation, understands and agrees with the plan, all questions answered. MING MACHINE OPERATOR documented in this encounter Plan of Treatment Scheduled Orders Name Type Priority Associated Diagnoses Orde r Schedule US Carotid Bilateral Imaging RAD - Routine (most inpatients and all outpatients) Stenosis Carotid Artery Left Expected: 02/21/2025, Expires: 02/21/2026 Scheduled Referrals Name Type Priority Associated Diagnoses Orde r Schedule Vascular Surgery office visit (clinic) Outpatient Referral Routine Expected: 02/21/2025, Expires: 02/21/2026 documented as of this encounter Visit Diagnoses Diagnosis Stenosis Carotid Artery Left- Primary documented in this encounter Additional Health Concerns Assessment Noted Time PHQ-9 Depression Total Score: 0 05/02/20 16 8:00 AM CDT documented as of this encounter Care Teams Stock Car Driver Relationship Specialty Start Date End Date Elsewhere, Pcp PCP - General Internal Medicine 11/16/21 documented as of this encounter
--- OUTSIDE RECORDS SUMMARY | 2024-01-28 21:13 | XMS_ITS | Encounter Summary ---
Author Name Unknown Organization [facility] Address [address] [place] [address] Care Team Providers Care Freelance Web Designer Name Role Phone Elsewhere, Pcp Primary Care Provider Unavailabl e Reason for Visit * Appointment Request (Routine) - Closed Specialty Diagnoses / Procedures Referred By Contac t Referred To Contact Colon and Rectal Surgery Referral ID Status Reason Start Date Expiration Date Visits Re quested Visits Authorized [id number] Closed 11/05/2023 11/04/2024 1 1 Encounter Details Date Type Department Care Team (Latest Contact Info) Description 11/05/2023 2:15 PM GENERAL FREIGHT AGENT Clinical Support Division of Colon and Rectal Surgery in [place], [place] 200 [place] [address] Sushma Skinner R.N., C.W.O.C.N. 200 [place] [address] Aftercare Colostomy (HCC) (Primary Dx) Social History Tobacco Use Types [...] How often do you attend chur or jew services? More than 4 times per year 09/19/2019 Do you belong to any clubs o r organizations such as hoahaoism groups, unions, fraternal or athletic groups, or [...] as of this encounter Progress Notes * Sushma Skinner R.N., C.W.O.C.N. - 11/05/2023 2:15 PM CST SUBJECTIVE CHIEF COMPLAINT/REASON FOR VISIT Assessment of peristomal skin and pouching system management. HISTORY OF PRESENT ILLNESS Lillie Tong is a 83 y.o. female who was self-referred for evaluation of pouching system management. Patient states the pouching system is usually changed every 4 days. Reports having issues with leakage. Patient notes she was changing every 4 days, but has had to change every 1 to 2 days for the past week due to leakage. OBJECTIVE Physical Exam Colostomy LLQ (Active) Site Assessment Red;Budded Slightly budded Stoma Size 1 Skin Assessment Intact;Other (Comment) Very small nodules along stoma edge from 6 to 12 o'clock. Abdomen pulls in from 6 to 12 o'clock when patient goes from laying to sitting. Peristomal Skin Care Water Pouching System (Stomal Appliance) Status Changed Changed by Wound welt edge rounder Pouching System Removed Ogden #44393 precut convex wafer/#32801 from 6 to 12 o'clock/#0335 moldable barrier/Nu-Hope Support belt #6313-F Seal undermining from 6 ot 12 o'clock about 2 to 3 cm after a day and a half of wear time. Pouching System Applied Ogden #81516 precut convex wafer/CP #03318 convex protective seal/Christiana #08288 drainable pouch/Nu-Hope Support Belt 6313-F Will trial adding additional soft convexity circumferentially. The stoma tips toward 9 o'clock, so adding the convex ring all of the way around helped to center the os. Used the convex protective seal to make the pouching system change more simple. Ongoing management Patient/caregiver Output Description Stool;Thin ASSESSMENT / PLAN Questions answered. Patient will trial this system and see if it works well. She will call for an appointment if she continues to have leakage. Patient uses the [facility] for supplies. The patient was given updated ordering information. Their prescription is current. Encouraged to call or return (per Return Appointment Protocol [id number]) for ostomy related questions or concerns. Patient verbalized understanding. RAL FREIGHT AGENT documented in this encounter Plan of Treatment Not on file documented as of this encounter Visit Diagnoses Diagnosis Aftercare Colostomy (HCC)- Primary documented in this encounter Additional Health Concerns Assessment Noted Time PHQ-9 Depression Total Score: 0 05/02/20 16 8:00 AM CDT documented as of this encounter Care Teams Freelance Web Designer Relationship Specialty Start Date End Date Elsewhere, Pcp PCP - General Internal Medicine 11/16/21 documented as of this encounter
--- OUTSIDE RECORDS SUMMARY | 2024-01-28 21:13 | XMS_ITS ---
Author Name Unknown Organization [facility] Address [address] [place] [address] Care Team Providers Care Rn Heart Name Role Phone Unavailable Unavailable Unavailable Surgery Details Not on file Complications Check Surgery Details section. Procedure Estimated Blood Loss Check Surgery Details section. Procedure Findings Check Surgery Details section. Procedure Specimens Taken Check Surgery Details section.
--- OUTSIDE RECORDS SUMMARY | 2024-01-28 21:13 | XMS_ITS | Encounter Summary ---
Author Name Unknown Organization [facility] Address [address] [place] [address] Care Team Providers Care Injection Molding Engineer Name Role Phone Elsewhere, Pcp Primary Care Provider Unavailabl e Reason for Referral * Outpatient (Routine) - Closed Specialty Diagnoses / Procedures Referred By Wood arnold Referred To Contact Diagnoses Colostomy Status (HCC) Procedures Stomal Therapy Chi Jefferson APRN C.N.P., M.S. [address] [place] [phone] [facility] Referral ID Status Reason Start Date Expiration Date Visits Re quested Visits Authorized [id number] Closed 12/17/2023 12/16/2024 1 1 Reason for Visit * Outpatient (Routine) - Closed Specialty Diagnoses / Procedures Referred By Contclaudia arnold Referred To Contact Diagnoses Colostomy Status (HCC) Procedures Stomal Therapy Chi Jefferson APRN, C.N.P., M.S. [address] [place] [phone] [facility] Referral ID Status Reason Start Date Expiration Date Visits Re quested Visits Authorized [id number] Closed 12/14/2023 12/13/2024 1 1 Encounter Details Date Type Department Care Team (Latest Contact Info) Description 12/17/2023 3:00 PM CDT Clinical Support Division of Colon and Rectal Surgery in [place], [place] [address] [place] [address] Chi Jefferson, LUAN, C.N.P., M.S. 200 [place] [phone] Lora Rodriguez R.N., C.W.O.C.N. 200 [place] [phone] Colostomy Status (HCC) Social History Tobacco Use Types Packs/Day Years Used Date Smoking Tobacco: Former Cigarettes 0 09/10/1958 - 1969 Passive Smoke Exposure: Past Smokeless Tobacco: Never Alcohol Use Standard Drinks/Week [...] 09/19/2019 How often do you attend chur ch or jain services? More than 4 times per year 09/19/2019 Do you belong to any clubs o r organizations such as pentecostal groups, unions, fraternal or athletic groups, or [...] as of this encounter Progress Notes * Lora Rodriguez R.N., C.W.O.C.N. - 12/17/2023 3:00 PM CDT SUBJECTIVE CHIEF COMPLAINT/REASON FOR VISIT Assessment of pouch system HISTORY OF PRESENT ILLNESS Ms. Tong is a 83 y.o. female referred by Chi Jefferson APRN, C.N.P., M.S. for assessment of pouch system. She reported she has had pouch leakages since an episode of transient obstructive episode in September 2023. She sometimes as multiple leakages per day. For example, she had an episode of 3 leakages per day a week ago. In contrast, she other times has no pouch leakages after 4 day wear time. She thought that leakages occur when stools become more liquid. The obstructive episode resolved with massaging around the stoma. Her parastomal bulge also resolves with massaging around the stoma. She denied abdominal pain, nausea, or vomiting. She has not been able to go out due to anxiety onleakage. She reported the pouch placed 3 days ago leaked after 1 day wear time. She then resumed Sparta 95290, Coloplast 15488, Christiana 23574, and NuHope 6313-F due to Sparta 90351, not Sparta 18835, sent home with Christiana unmatched pouch [address]3827. 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 Lim on October 17, 2005 for diverticular abscess, fistula OBJECTIVE Physical Exam Colostomy LLQ (Active) Site Assessment Red;Budded Stoma Size 1 --When sitting up. Skin Assessment Hernia --Bulge around the stoma, especially laterally, especially in sitting up. --Retraction medially, especially in sitting up. Peristomal Skin Care Water;Stoma powder --Stoma powder applied per patient's request. Pouching System (Stomal Appliance) Status Changed Changed by Wound water pump installer;Patient;Observed Pouching System Removed Sparta 32292, Coloplast 61236, Sparta 86292, NuHope 6313-F --0.5-1 cmundermining at 6-12 o'clock after 2 day wear time. Pouching System Applied Sparta wafer 06625, Coloplast convex seal 30728, Sparta pouch 91877, NuHope 6322-A --Wafer with larger opening tried to accommodate potential enlargement of stoma with hernia. --Hernia support belt fitted for abdominal girth of 96 cm. Ongoing management Patient/caregiver;Wound/Ostomy Clinic Output Description Brown;Thick;Stool ASSESSMENT / PLAN Ms. Tong, 83 y.o., has an existing colostomy. Patient will return to the ostomy clinic in 2 days. One set of Sparta 18813 and Coloplast 25200, as well as another set of Sparta 06421 and Coloplast 30419, given. Patient agreed to use Christiana 39113 if leakage within 24 hours. She can try another Christiana 23913 if leakage after 2-day wear time. Return appointment scheduled per Return Appointment Protocol [id number]. All questions were answered. documented in this encounter Plan of Treatment Not on file documented as of this encounter Procedures Procedure Name Priority Date/Time Associated Diagnosis Comments CRS STOMAL THERAPY Routine 12/17/2023 2:24 PM CDT Colostomy Status (HCC) documented in this encounter Visit Diagnoses Diagnosis Colostomy Status (HCC) documented in this encounter Additional Health Concerns Assessment Noted Time PHQ-9 Depression Total Score: 0 05/02/20 16 8:00 AM CDT documented as of this encounter Care Teams Injection Molding Engineer Relationship Specialty Start Date End Date Elsewhere, Pcp PCP - General Internal Medicine 11/16/21 documented as of this encounter
--- OUTSIDE RECORDS SUMMARY | 2024-01-28 21:13 | XMS_ITS | Encounter Summary ---
Author Name Unknown Organization [facility] Address [address] [place] [address] Care Team Providers Care Embedded Systems Developer Name Role Phone Elsewhere, Pcp Primary Care Provider Unavailabl e Encounter Details Date Type Department Care Team (Late st Contact Info) Description 11/15/2023 Orders Only Division of Trauma Critical Care and General Surgery in [place], [place] [address] [place] [phone] Funmilayo Childs, R.NPurvi [address] [place] [phone] Hernia Ventral (Primary Dx); Colostomy Status (HCC) Social History Tobacco Use [...] often do you attend chur ch or restoration services? More than 4 times per year 09/19/2019 Do you belong to any clubs o r organizations such as sabianist groups, unions, fraternal or athletic groups, or [...] AM CDT documented as of this encounter Plan of Treatment Not on file documented as of this encounter Results * Interpretation of Outside CT Abdomen and or Pelvis (11/15/2023 9:47 AM TORCH BURNER) Anatomical Region Laterality Modality Abdomen, Pelvis, Abdominal R ST LOS, Abdominal ARZ LOS, Abdominal FLA LOS, Other N/A Computed Tomography Impressions 11/19/2023 7:29 AM CDT 1. Small bowel obstruction with transition point in a narrowed part of a complex ventral hernia/diastasis. There is proximal small bowel and gastric dilation. 2. Mild left hydronephrosis without discernable etiology. Narrative 11/19/2023 7:29 AM CDT EXAM: ??INTERPRETATION OF OUTSIDE CT ABDOMEN AND OR PELVIS Outside CT abdomen and pelvis with IV contrast on 09/13/2023. COMPARISON: CT 03/24/2009 FINDINGS: ?? Dilated fluid filled loops of proximal small bowel and stomach. There is a transition point at the lower abdominal wall hernia (series 2, image 210). ??Multiple loops of bowel within the hernia sac are decompressed distal to this site. ??There is marked diastasis of the anterior abdominal wall with a majority of the bowel having herniated anteriorly . Left abdominal wall colostomy. The sigmoid colon is in the right abdomen and transverses across midline within the large abdominal wall diastasis to the colostomy site. No colonic obstruction. Cholecystectomy. Mild prominence of the common bile duct. Tiny gastric diverticulum. Normal adrenal glands and spleen. Bladder is normal. Mild left hydronephrosis. Hysterectomy with BSO. Multi level degenerative changes of the imaged thoracolumbar spine. Prominent calcified atherosclerotic changes of the aorta and iliac vessels. Lung bases are clear. Procedure Note Ninfa Dean M.D. - 11/19/2023 EXAM: INTERPRETATION OF OUTSIDE CT ABDOMEN AND OR PELVIS Outside CT abdomen and pelvis with IV contrast on 09/13/2023. COMPARISON: CT 03/24/2009 FINDINGS: Dilated fluid filled loops of proximal small bowel and stomach. There is atransition point at the lower abdominal wall hernia (series 2, image 210).Multiple loops of bowel within the hernia sac are decompressed distal tothis site. There is marked diastasis of the anterior abdominal wall with a majority of the bowelhaving herniated anteriorly . Left abdominal wall colostomy. The sigmoid colon is in the right abdomenand transverses across midline within the large abdominal wall diastasisto the colostomy site. No colonic obstruction. Cholecystectomy. Mild prominence of the common bile duct. Tiny gastric diverticulum. Normal adrenal glands and spleen. Bladder is normal. Mild left hydronephrosis. Hysterectomy with BSO. Multi level degenerative changes of the imaged thoracolumbar spine. Prominent calcified atherosclerotic changes of the aorta and iliacvessels. Lung bases are clear. IMPRESSION: 1. Small bowel obstruction with transition point in a narrowed part of acomplex ventral hernia/diastasis. There is proximal small bowel andgastric dilation. 2. Mild left hydronephrosis without discernable etiology. Tanna HARGROVE CT PROCEDURES documented in this encounter Visit Diagnoses Diagnosis Hernia Ventral- Primary Colostomy Status (HCC) Colostomy Status (HCC) Hernia Ventral documented in this encounter Additional Health Concerns Assessment Noted Time PHQ-9 Depression Total Score: 0 05/02/20 16 8:00 AM CDT documented as of this encounter Care Teams Embedded Systems Developer Relationship Specialty Start Date End Date Elsewhere, Pcp PCP - General Internal Medicine 11/16/21 documented as of this encounter
--- OUTSIDE RECORDS SUMMARY | 2024-01-28 21:13 | XMS_ITS | Encounter Summary ---
Author Name Unknown Organization [facility] Address [address] [place] [address] Care Team Providers Care Warp Spooler Name Role Phone Elsewhere, Pcp Primary Care Provider Unavailabl e Reason for Referral * Outpatient (Routine) - Closed Specialty Diagnoses / Procedures Referred By Contac t Referred To Contact Diagnoses Stenosis Carotid Artery Left Procedures US Carotid Bilateral Jace Coy M.D. 200 [place] [address] [facility] Referral ID Status Reason Start Date Expiration Date Visits Re quested Visits Authorized [id number] Closed 11/30/2022 11/30/2023 1 1 CHECKER Reason for Visit * Outpatient (Routine) - Closed Specialty Diagnoses / Procedures Referred By Contac t Referred To Contact Diagnoses Stenosis Carotid Artery Left Procedures US Carotid Bilateral Jace Coy M.D. [address] [place] [phone] [facility] Referral ID Status Reason Start Date Expiration Date Visits Re quested Visits Authorized [id number] Closed 11/30/2022 11/30/2023 1 1 Encounter Details Date Type Department Care Team (Latest Contact Info) Description 10/24/2023 8:20 AM SOIL CHECKER - 10/24/2023 11:59 PM SOIL CHECKER Hospital Encounter Department of Radiology, [facility], in [place], [place] [address] [place] [address] Jace Coy M.D. [address] [place] [address] Stenosis Carotid Artery Left Discharge Disposition: Home or Self Care Social History Tobacco Use Types Packs/Day Years [...] often do you attend chur ch or gnosticism services? More than 4 times per year 09/19/2019 Do you belong to any clubs o r organizations such as yazidi groups, unions, fraternal or athletic groups, or [...] money to buy more. Never true 09/19/19 Within the past 12 months, t he [...] Date Recorded Dental: Regular Dentist Unknown 09/19/19 Education Answer Date Recorded What is the highest level of school you have completed or the highest degree you have received? Bachelor's degree (e.g., BA, AB, BS) 09/19/2019 Sex and Gender Information Value Date Recorded Sex Assigned at Female 01/02/2019 9:41 AM CDT Gender Identity Female 01/02/2019 9:41 AM CDT Sexual Orientation Straight 01/02/2019 9: 41 AM CDT documented as of this encounter Medications at Time of Discharge Medication Sig Dispensed Refills Start Date End Date amLODIPine (NORVASC) 5 mg tablet TAKE 1 TABLET EVERY DAY 90 tablet 3 08/18/2021 aspirin 81 mg chewable tablet Chew 1 tablet daily. 12/28/2016 atenoloL (TENORMIN) 50 mg tablet TAKE 1 TABLET TWICE DAILY 60 tablet 07/10/2022 DME Ostomy suppliesIndications :Colostomy Status (HCC) DME Order 1 Unspecified 11 07/02/2023 LORazepam (ATIVAN) 0.5 mg tablet Take 1 tablet (0.5 mg total) by mouth 2 (two) times a day as needed for anxiety. 90 tablet 12/19/2019 01/30/2024 pantoprazole (PROTONIX) 20 mg EC tablet Take 1 tablet by mouth daily. 08/23/2023 sertraline (ZOLOFT) 50 mg tablet Take 50 mg by mouth every morning. 10/09/2023 buPROPion XL (WELLBUTRIN XL) 150 mg 24 hr tablet TAKE 1 TABLET EVERY MORNING 90 tablet 3 11/16/2021 12/13/2023 calcium carbonate-vitamin D3 600 mg calcium- 200 unit capsule Calcium 600+D 600 mg-200 intl units oral tablet 06/29/2010 12/13/2023 cholecalciferol (VITAMIN D3) 50 mcg (2,000 Unit) tablet Take 2,000 Units by mouth every other day. 01/02/2019 12/13/2023 furosemide (LASIX) 20 mg tablet TAKE 1 TABLET EVERY DAY 30 tablet 07/10/2022 12/13/2023 multivitamin with iron-mineral tablet multivitamin with minerals Multiple Vitamins with Zinc oral capsule 06/29/2010 12/13/2023 simvastatin (ZOCOR) 10 mg tablet TAKE 1 TABLET AT BEDTIME 30 tablet 07/10/2022 12/13/2023 documented as of this encounter Plan of Treatment Not on file documented as of this encounter Procedures Procedure Name Priority Date/Time Associated Diagnosis Comments US CAROTID BILATERAL RAD - Routine (most inpatients and all outpatients) 10/24/2023 9:52 AM SOIL CHECKER Stenosis Carotid Artery Left documented in this encounter Results * US Carotid Bilateral (10/24/2023 9:52 AM SOIL CHECKER) Anatomical Region Laterality Modality Head and Neck, Ultrasound RS T LOS, Ultrasound ARZ LOS, Neuroradiology FLA LOS, Procedural, Vascular Interventional NWWI LOS Bilateral Ultrasound Impressions 10/24/2023 10:27 AM SOIL CHECKER 1. Stable 70-99% left ICA stenosis. 2. Moderate left ECA stenosis. 3. Abnormal Doppler waveform within the left vertebral artery with retrograde blood flow during systole, suggestive of a hemodynamically significant left subclavian artery stenosis. 4. 50-69% right ICA stenosis. Narrative 10/24/2023 10:27 AM SOIL CHECKER EXAM: US CAROTID BILATERAL Exam performed with color and spectral Doppler analysis. COMPARISON: Ultrasound dated 11/30/2022. FINDINGS: RIGHT: Moderate calcified atheromatous plaque at the right carotid bifurcation. Doppler evaluation demonstrates that the peak systolic velocity within the proximal right ICA measures 143 cm/s (previously 85 cm/s), consistent with a 50-69% right ICA stenosis. No significant right CCA or ECA stenosis. Antegrade flow within the right vertebral artery with borderline elevated velocities proximally (131 cm/s; previously 123 cm/s). LEFT: Large amount of calcified atheromatous plaque at the left carotid bifurcation, which partially obscures sonographic visualization in this region. Doppler evaluation demonstrates that the peak systolic velocity within the proximal left ICA is elevated to 256 cm/s (previously 267 cm/s), consistent with a stable 70-99% left ICA stenosis. The velocities within the left ICA normalize distal to the stenosis. Moderate left ECA stenosis. No significant left CCA stenosis. Again seen is an abnormal Doppler waveform within the left vertebral artery with retrograde blood flow during systole, suggestive of a hemodynamically significant left subclavian artery stenosis. VELOCITIES (cm/sec) Right CCA *psv: ??59 cm/s Right ICA psv: 143 cm/s Right ICA edv: 25 cm/s Right ECA psv: 102 cm/s Right ICA/CCA: 2.4 Left CCA *psv: 64 cm/s Left ICA psv: 256 cm/s Left ICA edv: ??33 cm/s Left ECA psv: ??210 cm/s Left ICA/CCA: 4.0 *mid/distal (non-diseased) Measurement of a carotid stenosis, if present, is based on velocity parameters that compare the residual internal carotid luminal diameter with that of the normal distal ICA in accordance with [place] Symptomatic Carotid Endarterectomy Trial (NASCET). Procedure Note Lily Clemens M.D. - 10/24/2023 EXAM: US CAROTID BILATERAL Exam performed with color and spectral Doppler analysis. COMPARISON: Ultrasound dated 11/30/2022. FINDINGS: RIGHT: Moderate calcified atheromatous plaque at the right carotidbifurcation. Doppler evaluation demonstrates that the peak systolicvelocity within the proximal right ICA measures 143 cm/s (previously 85cm/s), consistent with a 50-69% right ICA stenosis. No significant right CCA or ECA stenosis. Antegrade flow withinthe right vertebral artery with borderline elevated velocities proximally(131 cm/s; previously 123 cm/s). LEFT: Large amount of calcified atheromatous plaque at the left carotidbifurcation, which partially obscures sonographic visualization in thisregion. Doppler evaluation demonstrates that the peak systolic velocitywithin the proximal left ICA is elevated to 256 cm/s (previously 267 cm/s), consistent with a uvyosu31-38% left ICA stenosis. The velocities within the left ICA normalizedistal to the stenosis. Moderate left ECA stenosis. No significant leftCCA stenosis. Again seen is an abnormal Doppler waveform within the left vertebral artery with retrograde bloodflow during systole, suggestive of a hemodynamically significant leftsubclavian artery stenosis. VELOCITIES (cm/sec) Right CCA *psv: 59 cm/s Right ICA psv: 143 cm/s Right ICA edv: 25 cm/s Right ECA psv: 102 cm/s Right ICA/CCA: 2.4 Left CCA *psv: 64 cm/s Left ICA psv: 256 cm/s Left ICA edv: 33 cm/s Left ECA psv: 210 cm/s Left ICA/CCA: 4.0 *mid/distal (non-diseased) Measurement of a carotid stenosis, if present, is based on velocityparameters that compare the residual internal carotid luminal diameterwith that of the normal distal ICA in accordance with North AmericanSymptomatic Carotid Endarterectomy Trial (NASCET). IMPRESSION: 1. Stable 70-99% left ICA stenosis. 2. Moderate left ECA stenosis. 3. Abnormal Doppler waveform within the left vertebral artery withretrograde blood flow during systole, suggestive of a hemodynamicallysignificant left subclavian artery stenosis. 4. 50-69% right ICA stenosis. Jace HARGROVE US PROCEDURES documented in this encounter Visit Diagnoses Diagnosis Stenosis Carotid Artery Left documented in this encounter Additional Health Concerns Assessment Noted Time PHQ-9 Depression Total Score: 0 05/02/20 16 8:00 AM CDT documented as of this encounter Care Teams Warp Spooler Relationship Specialty Start Date End Date Elsewhere, Pcp PCP - General Internal Medicine 11/16/21 documented as of this encounter
--- OUTSIDE RECORDS SUMMARY | 2024-01-28 21:13 | XMS_ITS | Clinical Summary ---
Author Name Unknown Organization [facility] Address [place], [place] [address] Care Team Providers Care Resin Coater Name Role Phone Bobbi Alexander Primary Care Provider [phone] Allergies No known active allergies Medications Medication Sig Dispensed Refills Start Date End Date Status multivitamin with iron-mineral (UNICAP-M) tablet multivitamin with minerals Multiple Vitamins with Zinc oral capsule 06/29/2010 Active Calcium-Cholecalcife rol, D3, 600 mg calcium- 200 unit cap Calcium 600+D 600 mg-200 intl units oral tablet 06/29/2010 Active aspirin chewable 81 mg chewable tablet Take 1 Tab by mouth once daily. 12/28/2016 Active cholecalciferol (VITAMIN D3) 1,000 unit tablet Take 2,000 Units by mouth once daily. 01/02/2019 Active durable medical equipment (DME)Indications:Lym phadenopathy Thigh level compression stockings at 20-30 mm Hg. 2 Each 10/27/2021 Active simvastatin (ZOCOR) 10 mg tabletIndications:Hy perlipidemia, unspecified hyperlipidemia type TAKE 1 TABLET (10 MG) BY MOUTH AT BEDTIME. 90 Tablet 3 06/25/2023 Active famotidine (PEPCID) 20 mg tabletIndications:Ga stritis, presence of bleeding unspecified, unspecified chronicity, unspecified gastritis type Take 1 Tablet (20 mg) by mouth two times daily. 180 Tablet 06/25/2023 Active pantoprazole (PROTONIX) 20 mg tabletIndications:Ch ronic GERD Take 1 Tablet (20 mg) by mouth once daily. 90 Tablet 3 08/23/2023 Active sertraline (ZOLOFT) 50 mg tabletIndications:An xiety Take 1 Tablet (50 mg) by mouth every morning. 90 Tablet 1 10/09/2023 Active atenoloL (TENORMIN) 50 mg tabletIndications:HT N (hypertension) Take 1 Tablet (50 mg) by mouth two times daily. 180 Tablet 3 10/09/2023 Active LORazepam (ATIVAN) 0.5 mg tabIndications:Anxie ty Take 1 Tablet (0.5 mg) by mouth every 6 hours if needed for Anxiety 30 Tablet 3 11/19/2023 Active amLODIPine (NORVASC) 2.5 mg tabletIndications:Es sential hypertension Take 1 Tablet (2.5 mg) by mouth once daily. 90 Tablet 3 12/25/2023 Active furosemide (LASIX) 20 mg tabletIndications:Ly mphedema Take 1 Tablet (20 mg) by mouth every morning. 12/25/2023 Active Hospital, Clinic, or Other Facility Administered Medication Ordered Dose Route Frequency Start Date End Date Status denosumab (PROLIA) injection 60 mgIndications:Osteop orosis, unspecified osteoporosis type, unspecified pathological fracture presence 60 mg SubQ Q 6 MONTHS (24 WEEKS) 01/25/2024 12/25/2024 Active Active Problems Problem Noted Date Diagnosed Date Pulmonary hypertension 12/25/2023 Depression, recurrent 10/22/2023 PAD (peripheral artery disease) 06/15/2023 History of endometrial cancer 10/27/2021 Overview: S/p Hysterectomy, lymphadenectomy and radiation in 2004. Chronic hyperkalemia 12/13/2019 Aortic valve sclerosis 12/23/2018 Lymphedema 10/31/2018 Primary hyperparathyroidism 11/09/2016 Thyroid nodule 05/04/2014 Essential hypertension 06/29/2010 Overview: Hypertension Osteoporosis 06/29/2010 Last Assessment & Plan: Receiving Prolia through the [facility]. Last dose was 08/12/2021. Hyperlipidemia 08/27/2008 Stenosis of left carotid artery 08/03/2008 Last Assessment & Plan: Asymptomatic. Followed by the [facility] vascular clinic. Colostomy status 11/19/2006 Diverticulosis of colon 01/31/2006 Resolved Problems Problem Noted Date Diagnosed Date Resolved Date Sacroiliitis 10/27/2021 10/22/2023 Encounters Date Type Department Care Team Description 01/25/2024 11:00 AM CDT Ancillary Procedure [facility] [address] [place] [address] Arrived 01/25/2024 Travel 01/23/2024 Telephone [facility] [address] [place] [address] Bobbi Alexander DO 01/15/2024 11:00 AM CDT Orders Only [facility] [address] [place] [id number] Lab, [facility] 01/15/2024 Travel 12/25/2023 11:00 AM CDT Office Visit [facility] [address] [place] [id number] Bobbi Alexander DO Blood Pressure; Edema (Wrapping legs daily - prop them up - doing exercises - no pain - change since start amlodipine ) 12/25/2023 Travel 11/19/2023 Refill [facility] [address] [place] [id number] Bobbi Alexander DO Refill Request (Lorazepam) from Last 3 Months Immunizations Name Administration Dates Next Due COVID-19 vaccine ([employer] 30mcg/0.3mL) 12YO+ LEIGH-SUCROSE PF, MDV 02/08/2022 Hepatitis A (Adult) 04/09/2009,10/07/2008 Hepatitis A, Unspecified 04/09/2009 Inactivated Polio Vaccine 10/07/2008 Influenza A (H1N1), Inactivated 09/07/2009 Influenza A (H1N1), Inactiva isabel (Age >=3 Years) 09/07/2009 Influenza Virus, Unspecified 10/13/2016, 06/15/2015,08/20/2014,2012,06/12/2012,06/12/2012,07/05/2011,1 ,06/29/2010,06/15/2009, 009,08/05/2008,07/18/2007,07/10/2006 Influenza, High-dose Inactivated 019,07/09/2018,08/14/2017,2016,06/15/2015 Influenza, High-dose Quadriv alent Inactivated 07/23/2020 Influenza, IIV3 (Age 6-35 mos) 08/05/2008 Influenza, IIV3 (Age >=3 years) 06/12/20 12,06/29/2010,06/15/2009,2006,07/10/2006 Influenza, Inactivated AIIV4 (Age 65+ Years) Preserv Free 06/15/2023,07/08/2022,06/24/2021 Influenza, Inactivated IIV3 (Age 65+ Years) Preserv Free 08/28/2019,07/09/2018,08/14/2017,2016,06/15/2015 Pneumococcal Poly,23-Valent (Pneumovax) 08/05/2008 Pneumococcal conj 13-Valent (Prevnar 13) 05/04/2015 TD, UNSPECIFIED 08/05/2008 Td, Preservative Free (age > = 7 Years) 08/05/2008 Tdap 05/04/2014 Typhoid (injectable) 10/07/2008 Zoster (Shingrix-RZV, recombinant) 04/11/2023, Zoster (Zostavax-ZVL, live) 01/07/2013 Social History Tobacco Use Types Packs/Day Years Used Date Smoking Tobacco: Never Smokeless Tobacco: Never Tobacco Cessation:Counseling Given: Yes Comments:no expsure Alcohol Use Standard Drinks/Week Comments No 0 (1 standard drink = 0.6 oz pur e alcohol) PHQ-2 Answer Date Recorded PHQ-2 TOTAL SCORE 0 06/15/2023 Social Connections Answer Date Recorded Frequency of Communication with Friends and Fami ly 0 06/15/2023 Financial Resource Strain Answer Date R ecorded Difficulty of Paying Living Expenses 3 06/15/2023 Difficulty of Paying Living Expenses Not on file 06/15/2023 Food Insecurity Answer Date Recorded Worried About Running Out of Food in the Last Ye ar 1 06/15/2023 Transportation Needs Answer Date Record ed Lack of Transportation (Medical) 1 06/15/2023 Housing Stability Answer Date Recorded Unable to Pay for Housing in the Last Year 1 06/15/2023 Sex and Gender Information Value Date Recorded Sex Assigned at Not on file Gender Identity Not on file Sexual Orientation Not on file Obstetrics History Last Filed Vital Signs Vital Sign Reading Time Taken Comments Blood Pressure 172/77 12/25/2023 11:21 AM CDT Pulse 70 12/25/2023 11:16 AM CDT Temperature 36.6 ??C (97.8 ??F) 10/13/2021 1:36 PM CS T Respiratory Rate - - Oxygen Saturation 98% 12/25/2023 11:16 AM CDT Inhaled Oxygen Concentration - - Weight 64.4 kg (142 lb) 08/24/2023 1:06 PM COLORIST FORMULATOR Height 149.9 cm (4' 11.02) 06/15/2023 3:14 PM C DT Body Mass Index 28.66 06/15/2023 3:14 PM CDT Plan of Treatment Upcoming Encounters Date Type Department Care Team (Late st Contact Info) Description 02/01/2024 3:00 PM CDT Office Visit [facility] [address] [place] [address] Kim Vallejo MD [address] [facility] [address] [place] [address] Health Maintenance Due Date Last Done Comments Tetanus booster 05/04/2024 05/04/2014, 07/12, 08/05/2008 Influenza for age 65+ 05/11/2024 06/15/2023 , 07/08/2022, 06/24/2021, Additional history exists BMI (ht and wt on same day) for age 18+ 06/15/2024 06/15/2023, 12/19/2021, 10/27/2021 Depression screening for age 12+ 06/15/2024 06/15/2023, 06/15/2023, 10/27/2021, Additional history exists Medicare Wellness for age 65+ 06/15/2024 06/15/2023, 10/27/2021 Tdap Completed 05/04/2014 Pneumococcal series for age 65+ Completed 5, 08/05/2008 DEXA/DXA scan for age 65+ Completed 2021, 04/05/2020 [facility] Zoster (shingles) series for age 50+ Completed 04/11/2023, 12/06/2022, 01/07/2013 COVID-19 vaccine series Completed 07/04/20 23, 06/27/2022, 02/08/2022, Additional history exists Procedures Procedure Name Priority Date/Time Associated Diagnosis Comments ECHO TTE COMPLETE WO CONTRAST Routine 01/25/2024 11:52 AM CDT Pulmonary hypertension (HC) BASIC METABOLIC PANEL Routine 01/15/2024 11:25 AM CDT Essential hypertension XR DXA BONE DENSITY 2 SITES AXIAL AND 1 SITE PERIPHERAL Routine 08/07/2022 1:07 PM COLORIST FORMULATOR Osteoporosis, unspecified osteoporosis type, unspecified pathological fracture presence Primary hyperparathyroidism (HC) from Last 3 Months or Most Recently Relevant to Health Maintenance Results * ECHO TTE COMPLETE WO CONTRAST (01/25/2024 11:52 AM CDT) AORTIC VALVE MEAN PG 17 mmHg EJECTION FRACTION 61 % PEAK TR VELOCITY 3.1 m/s LVEDD 3.9 cm EJECTION FRACTION 60 - 65% Anatomical Region Laterality Modality Ultrasound 01/25/2024 11:2 5 AM CDT Narrative 01/25/2024 1:30 PM CDT ECHOCARDIOGRAM LILLIE TONG ? Accession#: ?? [id number] : ?1940 83 years Study Date: ?? 01/25/2024 11:25:03 AM Gender: F ?BP: ? 172/77 mmHg Height: 122.00 cm ?BSA: ?1.73 m? ? ? Weight: 111.00 kg ?Tech: ? MSR ? Referring MD: YOKO CRUZ Site: ? [facility] Reading Location: Mobile OP Patient Location: Outpatient. Procedure: 2D, Color Doppler and Spectral Doppler. Indication for study: Pulmonary hypertension Cardiac Rhythm: Regular.Study quality: Fair. Final Impressions: 1. Normal LV size, mildly increased wall thickness, normal global systolic function with an estimated EF of 60 - 65%. 2. Right ventricular cavity size is normal, global systolic RV function is normal. 3. The aortic valve is trileaflet and sclerotic, mild to moderate stenosis and mild regurgitation. The aortic valve peak velocity is 2.6 m/s, the peak gradient is 27 mmHg, and the mean gradient is 17 mmHg. The aortic valve area is 1.08 cm? ? ? with a dimensionless index of 0.34. The stroke volume index is 39.3 ml/m? ? ?. 4. The mitral valve is sclerotic, trace mitral regurgitation. 5. Moderately enlarged left atrium. 6. The ascending aorta is dilated with a maximal diameter of 4.0 cm. 7. Moderately increased estimated pulmonary pressures by tricuspid regurgitation velocity and right atrial pressure (37 mmHg plus RAP). Chamber Sizes and Function Normal left ventricular size, mildly increased wall thickness, normal global systolic function with an estimated EF of 60 - 65%. Left atrial size is moderately enlarged. Right ventricular cavity size is normal, global systolic RV function is normal. The right atrium is normal. The pulmonary artery is not well visualized. The sinus of Valsalva is normal sized. The ascending aorta is dilated. Valves, RV Pressures and Diastolic Function The aortic valve is trileaflet and sclerotic, mild to moderate stenosis and mild regurgitation. The mitral valve is sclerotic, trace mitral regurgitation. Mitral annular calcification is present. Indeterminate pattern of LV diastolic filling. The tricuspid valve is normal in structure. Tricuspid regurgitation is trace regurgitation. The tricuspid regurgitant velocity is 3.1 m/s, the estimated right ventricular systolic pressure is 37 mmHg plus right atrial pressure. There is moderately increased estimated pulmonary pressure by tricuspid regurgitation velocity and right atrial pressure. The pulmonic valve is not well visualized. Unable to determine pulmonary regurgitation. Masses, Effusion, Shunts There is no pericardial effusion. The inferior vena cava is dilated, respiratory size variation less than 50%. No left to right shunting was detected by limited color flow Doppler interrogation of the interatrial septum. MEASUREMENTS AND CALCULATIONS 2-D Measurements and LV Function: LVID (d) 3.8 cm LV FS% (2D) ?? 43 % LVID (s) 2.2 cm LVOT diameter 2.0 cm IVS (d) ??1.4 cm HR ?78 bpm LVPW (d) 1.1 cm LA Vol index ??45 ml/m2 Ao Sinus 3.3 cm RV Max 4C (d) 3.9 cm Asc Ao ?? 4.0 cm Diastology: Mitral ?Tissue Doppler E Peak 0.6 m/s ??e', Septum ? 0.04 m/s A Peak 1.2 m/s ??e', Lateral ?0.14 m/s E/A ?0.5 ?E/e' Average ?? 7.02 DT ? 108 msec Aortic Valve: Vmax ? 2.6 m/s ??LAURY (V) ?? 1.19 cm? AI P 1/2 591 msec VTI ?0.63 m ?? LAURY (I) ?? 1.08 cm? ? ? LVOT V max 1.0 m/s ??Max PG ?27 mmHg LVOT VTI ?? 0.21 m ?? Mean PG ?? 17 mmHg SV ? 68 ml ?Dim Index 0.34 SV index ?? 39 ml/m? ? ? CO ?5.3 l/min ?CI ?3.1 l/min/m? ? ? Mitral Valve: MVA ?7.0 cm? ? ? MV P 1/2 31 msec Tricuspid Valve and estimated PA pressures: TR Vmax 3.1 m/s TAPSE 2.8 cm TR maxG 37 mmHg . This study was interpreted by an [facility] accredited facility. ??Final ?? Procedure Note Bird Durant MD - 01/25/2024 ECHOCARDIOGRAM LILLIE TONG : 1940 83 years Study Date: 01/25/2024 11:25:03 AM Gender: F BP: 172/77 mmHg Height: 122.00 cm BSA: 1.73 m? ? ? Weight: 111.00 kg Tech: MSR Referring MD: YOKO CRUZ Site: [facility] Reading Location: [place] [facility] Patient Location: Outpatient. Procedure: 2D, Color Doppler and Spectral Doppler. Indication for study: Pulmonary hypertension Cardiac Rhythm: Regular.Study quality: Fair. Final Impressions: 1. Normal LV size, mildly increased wall thickness, normal globalsystolic function with an estimated EF of 60 - 65%. 2. Right ventricular cavity size is normal, global systolic RV functionis normal. 3. The aortic valve is trileaflet and sclerotic, mild to moderatestenosis and mild regurgitation. The aortic valve peak velocity is 2.6m/s, the peak gradient is 27 mmHg, and the mean gradient is 17 mmHg. Theaortic valve area is 1.08 cm? ? ? with a dimensionless index of 0.34. Thestroke volume index is 39.3 ml/m? ? ?. 4. The mitral valve is sclerotic, trace mitral regurgitation. 5. Moderately enlarged left atrium. 6. The ascending aorta is dilated with a maximal diameter of 4.0 cm. 7. Moderately increased estimated pulmonary pressures by tricuspidregurgitation velocity and right atrial pressure (37 mmHg plus RAP). Chamber Sizes and Function Normal left ventricular size, mildly increased wall thickness, normalglobal systolic function with an estimated EF of 60 - 65%. Left atrialsize is moderately enlarged. Right ventricular cavity size is normal,global systolic RV function is normal. The right atrium is normal. Thepulmonary artery is not well visualized. The sinus of Valsalva is normalsized. The ascending aorta is dilated. Valves, RV Pressures and Diastolic Function The aortic valve is trileaflet and sclerotic, mild to moderate stenosisand mild regurgitation. The mitral valve is sclerotic, trace mitralregurgitation. Mitral annular calcification is present. Indeterminatepattern of LV diastolic filling. The tricuspid valve is normal instructure. Tricuspid regurgitation is trace regurgitation. The tricuspidregurgitant velocity is 3.1 m/s, the estimated right ventricular systolicpressure is 37 mmHg plus right atrial pressure. There is moderatelyincreased estimated pulmonary pressure by tricuspid regurgitation velocityand right atrial pressure. The pulmonic valve is not well visualized.Unable to determine pulmonary regurgitation. Masses, Effusion, Shunts There is no pericardial effusion. The inferior vena cava is dilated,respiratory size variation less than 50%. No left to right shunting wasdetected by limited color flow Doppler interrogation of the interatrialseptum. MEASUREMENTS AND CALCULATIONS 2-D Measurements and LV Function: LVID (d) 3.8 cm LV FS% (2D) 43 % LVID (s) 2.2 cm LVOT diameter 2.0 cm IVS (d) 1.4 cm HR 78 bpm LVPW (d) 1.1 cm LA Vol index 45 ml/m2 Ao Sinus 3.3 cm RV Max 4C (d) 3.9 cm Asc Ao 4.0 cm Diastology: Mitral Tissue Doppler E Peak 0.6 m/s e', Septum 0.04 m/s A Peak 1.2 m/s e', Lateral 0.14 m/s E/A 0.5 E/e' Average 7.02 DT 108 msec Aortic Valve: Vmax 2.6 m/s LAURY (V) 1.19 cm? ? ? AI P /2 591 msec VTI 0.63 m LAURY (I) 1.08 cm? ? ? LVOT V max 1.0 m/s Max PG 27 mmHg LVOT VTI 0.21 m Mean PG 17 mmHg SV 68 ml Dim Index 0.34 SV index 39 ml/m? ? ? CO 5.3 l/min CI 3.1 l/min/m? ? ? Mitral Valve: MVA 7.0 cm? ? ? MV P 1/2 31 msec Tricuspid Valve and estimated PA pressures: TR Vmax 3.1 m/s TAPSE 2.8 cm TR maxG 37 mmHg . This study was interpreted by an [facility] accredited facility. Final Yoko Cruz MD ECHO ORD * (ABNORMAL) BASIC METABOLIC PANEL (01/15/2024 11:25 AM CDT) SODIUM 141 136 - 145 mmol/L 01/15/2024 7:41 PM CDT [facility] POTASSIUM 4.6 3.5 - 5.1 mmol/L 01/15/2024 7:41 PM T [facility] CHLORIDE 110(H) 98 - 107 mmol/L 01/15/2024 7:41 PM T [facility] CO2,TOTAL 20(L) 22 - 29 mmol/L 01/15/2024 7:41 PM T [facility] ANION GAP 11 5 - 18 01/15/2024 7:41 PM T [facility] GLUCOSE 106(H) 70 - 99 mg/dL 01/15/2024 7:41 PM T [facility] CALCIUM 9.1 8.8 - 10.2 mg/dL 01/15/2024 7:41 PM T [facility] BUN 11 8 - 23 mg/dL 01/15/2024 7:41 PM T [facility] CREATININE 0.87 0.50 - 0.90 mg/dL 01/15/2024 7:41 PM T [facility] BUN/CREAT RATIO 13 10 - 20 7:41 PM T [facility] eGFR 67(L) >90 mL/min/1.7 3m2 01/15/2024 7:41 PM T [facility] Comment:As of 2021, eG FR is calculated by the CKD-EPI creatinine equation without race adjustment. ??eGFR can be influenced by muscle mass, exercise, and diet. ??The reported eGFR is an estimation only and is only applicable if the renal function is stable. Blood BLOOD SPECIMEN / Unknown Venipuncture / Unknown 01/15/2024 11:25 AM CDT 01/15/2024 11:26 AM CDT Bobbi Alexander DO CHEMISTRY [facility] [address] [place] [address], * (ABNORMAL) XR DXA BONE DENSITY 2 SITES AXIAL AND 1 SITE PERIPHERAL (08/07/2022 1:07 PM COLORIST FORMULATOR) Anatomical Region Laterality Modality LUMBAR SPINE Other Impressions 08/09/2022 4:10 PM COLORIST FORMULATOR Osteoporosis. RECOMMENDATIONS: The National Osteoporosis Foundation recommends pharmacologic treatment for patients with T-scores of -2.5 or less, patients with prior history of fragility fractures, or patients with 10-year probability of greater than 3% at hips or greater than 20% of suffering major osteoporotic fractures. Recommend continued optimization of calcium and vitamin D intake through dietary means and/or supplementation and regular exercise. Consider pharmacologic therapy for osteoporosis. Follow-up bone density reading in 2 years if therapy initiated to assess therapeutic efficacy. Brittney Daniel PA-C [facility] 08/09/2022 Narrative 08/09/2022 4:10 PM COLORIST FORMULATOR For Patients: Results are automatically released to your [facility] account once available, in compliance with federal regulations. This means that you may see your results before your provider has had a chance to review them. Please allow 2-3 business days for your provider to comment on the results. XR DXA Bone Mineral Density (BMD) EXAM LOCATION: [address] [address] PATIENT NAME: Lillie Tong DATE OF : 1940 EXAM DATE: 08/07/2022 REQUESTING PROVIDER: Bobbi Alexander, GENDER AT : female HEIGHT: 4' 11.02 (12/19/2021) WEIGHT: ??180 lb 3.2 oz (07/21/2022) MENOPAUSAL STATUS: Postmenopausal RACE/ETHNICITY: White RISK FACTORS: Hyperparathyroidism and White Race CURRENT MEDICATION FOR BONE LOSS: Denosumab (Prolia) INDICATION: Follow-up of existing osteoporosis COMPARISON DATE(S): None DXA scans are compared to prior studies for a patient only when the two (or more) studies were performed on the same scanner. It is not possible to compare data generated on one scanner to data from another because there are not standards in DXA equipment. This applies even if the two scanners are made by the same career center director. PROCEDURE: Dual-energy x-ray absorptiometry performed with routine technique. Reporting is completed in the form of a T-score. The T-score represents the standard deviation from peak bone mass based on young healthy adult. A Z-score is used for diagnosis in premenopausal women, and for men under the age of 50. FINDINGS: RESULT LUMBAR SPINE L1 - L3 ??BMD: 1.010 g/cm2 T-Score: - 1.4 Z-Score: - 0.1 Change from prior: ??None RESULTS FEMUR Left femoral neck BMD: 0.893 g/cm2 T-Score: - 1.0 Z-Score: + 0.8 Change from prior: ??None Right femoral neck BMD: 0.846 g/cm2 T-Score: - 1.4 Z-Score: + 0.5 Change from prior: ??None Left hip BMD: 0.842 g/cm2 T-Score: - 1.3 Z-Score: + 0.4 Change from prior: ??None Right hip BMD: 0.776 g/cm2 T-Score: - 1.8 Z-Score: - 0.2 Change from prior: ??None RESULT FOREARM Left Forearm distal radius BMD: 0.663 g/cm2 T-Score: - 2.5 Z-Score: + 0.3 Change from prior: ??None WHO criteria: Normal: T-score at or above -1 SD Osteopenia: T-score between -1.1 and -2.4 SD Osteoporosis: T-score at or below -2.5 SD Adei Shaqra DO DEXA from Last 3 Months or Most Recently Relevant to Health Maintenance Care Teams Resin Coater Relationship Specialty Start Date End Date Bobbi Alexander DO [address] [place] [address] PCP - General Family Practice 08/25/21
--- OUTSIDE RECORDS SUMMARY | 2024-01-28 21:13 | XMS_ITS | Encounter Summary ---
Author Name Unknown Organization [facility] Address [address] [place] [address] Care Team Providers Care Industrial Technology Education Teacher Name Role Phone Elsewhere, Pcp Primary Care Provider Unavailabl e Reason for Visit * Reason Comments Consult Hernia * Appointment Request (Routine) - Closed Specialty Diagnoses / Procedures Referred By Contact Referred To Contact Metabolic and Abdominal Wall Reconstructive Surgery Diagnoses Hernia Ventral Colostomy Status (HCC) Bobbi Alexander D.O. [address] [place] [phone] Referral ID Status Reason Start Date Expiration Date Visits Re quested Visits Authorized [id number] Closed 09/24/2023 09/23/2024 1 1 Encounter Details Date Type Department Care Team (Latest Contact Info) Description 11/19/2023 10:00 AM CDT Comprehensive Visit Division of Trauma Critical Care and General Surgery in [place], [place] [address] [place] [address] Tanna Watt M.D. [address] [place] [address] Hernia Ventral (Primary Dx); Obstruction Intestinal (HCC) Social History Tobacco Use Types Packs/Day [...] often do you attend chur ch or restorationism services? More than 4 times per year 09/19/2019 Do you belong to any clubs o r organizations such as alevism groups, unions, fraternal or athletic groups, or [...] AM CDT documented as of this encounter Last Filed Vital Signs Vital Sign Reading Time Taken Comments Blood Pressure - - Pulse - - Temperature - - Respiratory Rate - - Oxygen Saturation - - Inhaled Oxygen Concentration - - Weight 64 kg (141 lb 1.5 oz) 11/19/2023 9:25 AM CDT Height 150.4 cm (4' 11.21) 11/19/2023 9:25 AM C DT Body Mass Index 28.29 11/19/2023 9:25 AM CDT documented in this encounter Consult Notes * Tanna Watt M.D. - 11/19/2023 10:00 AM CDT REASON FOR CONSULT Lillie Tong is a 83 y.o. female who presents for evaluation of ventral hernia, referred by Bobbi Alexander D.O.. HISTORY OF PRESENT ILLNESS I had the opportunity to meet with and examine Lillie Tong on 11/19/23. Lillie Tongis a 83 y.o. female patient who presents with a complex ventral hernia. The patient experienced a small bowel obstruction related to her complex ventral hernia in early September 2023 that was successfully managed nonoperatively at another institution. The patient was advised to seek additional evaluation regarding her ventral hernia and small bowel obstruction. Since then, she has had no further issues. She continues to intermittently massage her abdomen whenever she feels something unusual or uncomfortable. The patient has a medical history significant for previous endometrial cancer for which she underwent vaginal hysterectomy, bilateral salpingo-oophorectomy, bilateral pelvic and periaortic lymphadenectomy and radiation in 2003. This was complicated by wound breakdown, and she required multiple abdominal debridements and panniculectomy in 2003. Then in 2004, she underwent exploratory laparotomy and adhesiolysis, small bowel resection with anastomosis for small bowel obstruction in 2004. 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 In 2007, she underwent open cholecystectomy. Patient takes no anticoagulants or immunosuppressants. She takes baby aspirin. HbA1c normal when last checked in 2016. BMI 28. Never-smoker. She takes multiple short walks on a daily basis. She continues to live independently and spent the weekend cooking and attending a local high school concert. OBJECTIVE VITAL SIGNS Ht 150.4 cm Wt 64 kg BMI 28.29 kg/m?? PHYSICAL EXAM GENERAL: In no acute distress. NEUROLOGIC: Awake, alert and oriented. Appropriately conversive. PULMONARY: Breathing comfortably on room air. No increased work of breathing. ABDOMINAL: Soft, without peritonitis. Left abdominal colostomy with stool in appliance. Scarred lower abdomen that is diffusely soft, without domain. Bowel is palpable and soft, gurgling gently with massaging. EXTREMITIES: Warm, well-perfused. ASSESSMENT #1 Complex abdominal wall hernia with loss of domain #2 Small bowel obstruction, previously managed nonoperatively The patient presents with a single episode of small bowel obstruction earlier this year that was managed successfully with bowel rest. I reviewed Ms. Tong's CT scans from September 2023 as well as one from 2008. I explained to her that her hernia was even present in 2008 and it was similar size and appearance. It is reassuring that in the several years since then, she has only had one episode of bowel obstruction that resolved uneventfully. Given the wide-mouth appearance of her hernia and how soft and pliable her bowel is, I think there is reasonable chance that if the patient has another bowel obstruction that it would resolve with decompression again. She also feels that she has a better understanding of her abdominal wall now, and is more vigilant with massaging her abdomen or trying to reduce any herniation with manual palpation. Given the above considerations, as well as the patient's age, frailty, anatomical complexity with a>13 cm distance between her small rectus abdominis muscles and colostomy--I think that surgical intervention for the purposes of adhesiolysis or hernia repair would present more risk than benefit.This would pose significant risk and also cause significant risk of worsened debility. Even if she were to require an abdominal exploration for any reason, likely her abdomen would be managed with bridging vicryl mesh, rather than a full hernia repair or abdominal wall reconstruction. Therefore, I would not feel comfortable offering elective surgical intervention for Ms. Tong. She confirmed her understanding and I provided her with my contact information for her to reach out if she has any further questions. documented in this encounter Plan of Treatment Not on file documented as of this encounter Visit Diagnoses Diagnosis Hernia Ventral- Primary Obstruction Intestinal (HCC) documented in this encounter Additional Health Concerns Assessment Noted Time PHQ-9 Depression Total Score: 0 05/02/20 16 8:00 AM CDT documented as of this encounter Care Teams Industrial Technology Education Teacher Relationship Specialty Start Date End Date Elsewhere, Pcp PCP - General Internal Medicine 11/16/21 documented as of this encounter
--- OUTSIDE RECORDS SUMMARY | 2024-01-28 21:13 | XMS_ITS | Encounter Summary ---
Author Name Unknown Organization [facility] Address [address] [place] [address] Care Team Providers Care Band Instrument Repairer Name Role Phone Elsewhere, Pcp Primary Care Provider Unavailabl e Reason for Visit * Reason Onset Date Comments Pre-visit Intake 12/13/2023 Encounter Details Date Type Department Care Team (Latest Contact Info) Description 12/13/2023 1:30 PM CDT Clinical Communication Virtual Review in [address] [phone] Pre-visit Intake Social History Tobacco Use Types Packs/Day Years [...] often do you attend chur ch or anglican services? More than 4 times per year 09/19/2019 Do you belong to any clubs o r organizations such as latter-day groups, unions, fraternal or athletic groups, or [...] documented as of this encounter Visit Diagnoses Not on filedocumented in this encounter Additional Health Concerns Assessment Noted Time PHQ-9 Depression Total Score: 0 05/02/20 16 8:00 AM CDT documented as of this encounter Care Teams Band Instrument Repairer Relationship Specialty Start Date End Date Elsewhere, Pcp PCP - General Internal Medicine 11/16/21 documented as of this encounter
--- OUTSIDE RECORDS SUMMARY | 2024-01-28 21:13 | XMS_ITS | Encounter Summary ---
Author Name Unknown Organization [facility] Address [address] [place] [address] Care Team Providers Care Gas Reverser Name Role Phone Elsewhere, Pcp Primary Care Provider Unavailabl e Encounter Details Date Type Department Care Team (Latest Contact Info) Description 09/13/2023 Intake [facility] Social History Tobacco Use Types Packs/Day Years [...] any clubs o r organizations such as uatsdin groups, unions, fraternal or athletic groups, or [...] Sign Reading Time Taken Comments Blood Pressure 165/80 09/13/2023 1:18 PM PRINTING BINDERY ASSISTANT Pulse 80 09/13/2023 1:18 PM PRINTING BINDERY ASSISTANT Temperature 36.8 ??C (98.2 ??F) 09/13/2023 1:18 PM CS T Respiratory Rate 20 09/13/2023 1:18 PM PRINTING BINDERY ASSISTANT Oxygen Saturation 95% 09/13/2023 1:18 PM PRINTING BINDERY ASSISTANT Inhaled Oxygen Concentration - - Weight - - Height - - Body Mass Index - - documented in this encounter Plan of Treatment Not on file documented as of this encounter Visit Diagnoses Not on filedocumented in this encounter Additional Health Concerns Assessment Noted Time PHQ-9 Depression Total Score: 0 05/02/20 16 8:00 AM CDT documented as of this encounter Care Teams Gas Reverser Relationship Specialty Start Date End Date Elsewhere, Pcp PCP - General Internal Medicine 11/16/21 documented as of this encounter
--- OUTSIDE RECORDS SUMMARY | 2024-01-28 21:13 | XMS_ITS | Referral Summary ---
Author Name Unknown Organization [facility] Address [address] [place] [address] Care Team Providers Care Slipcover Cutter Name Role Phone Elsewhere, Pcp Primary Care Provider Unavailabl e Source Comments Patient records contain information from all sites at [facility]. For routine questions regarding patient records, call [phone] during business hours, M-F 8:00 AM - 5:00 PM Central Time. Record requests for emergency care only can be directed to [phone] at any time.[facility] Encounters Date Type Department Care Team Description 12/19/2023 2:00 PM CDT Clinical Support Division of Colon and Rectal Surgery in [place], [place] [address] [place] [phone] Chi Jefferson APRN, C.N.P., M.S. Tierra Blackman RSea., ASUNCIONN Colostomy Status (HCC) (Primary Dx) 12/17/2023 3:00 PM CDT Clinical Support Division of Colon and Rectal Surgery in [place], [place] [address] [place] [phone] Chi Jefferson APRN, C.N.P., M.S. Lora Rodriguez R.N., C.W.O.C.N. Colostomy Status (HCC) 12/14/2023 8:30 AM CDT Clinical Support Division of Colon and Rectal Surgery in [place], [place] [address] [place] [phone] Tierra Blackman R.N., COCN Colostomy Status (HCC) (Primary Dx) 12/13/2023 1:30 PM CDT Clinical Communication Virtual Review in [address] [phone] Pre-visit Intake 11/19/2023 10:00 AM CDT Comprehensive Visit Division of Trauma Critical Care and General Surgery in [address] [phone] Tanna Watt M.D. Hernia Ventral (Primary Dx); Obstruction Intestinal (HCC) 11/15/2023 9:45 AM MACHINE ROOM OPERATOR Ancillary Procedure Department of Radiology in [address] [phone] Tanna Watt M.D. Colostomy Status (HCC); Hernia Ventral 11/15/2023 Orders Only Division of Trauma Critical Care and General Surgery in [address] [address] Funmilayo Childs R.N. Hernia Ventral (Primary Dx); Colostomy Status (HCC) 11/15/2023 10:30 AM MACHINE ROOM OPERATOR Clinical Support Division of Colon and Rectal Surgery in [address] [address] Nena Haro R.N. COCJannette Colostomy Status (HCC) (Primary Dx) 11/05/2023 2:15 PM MACHINE ROOM OPERATOR Clinical Support Division of Colon and Rectal Surgery in [address] [phone] Sushma Skinner R.N., C.W.O.C.N. Aftercare Colostomy (HCC) (Primary Dx) from Last 3 Months Allergies Active Allergy Reactions Criticality Noted Date Comments Ciprofloxacin Other (see comments) 06/29/2010 other Medications Medication Sig Dispensed Refills Start Date End Date Status aspirin 81 mg chewable tablet Chew 1 tablet daily. 12/28/2016 Active LORazepam (ATIVAN) 0.5 mg tablet Take 1 tablet (0.5 mg total) by mouth 2 (two) times a day as needed for anxiety. 90 tablet 12/19/2019 01/30/2024 Active Additional Information Patient taking differently:0.5 mg oralAs needed, anxiety, Reported on 11/19/2023 amLODIPine (NORVASC) 5 mg tablet TAKE 1 TABLET EVERY DAY 90 tablet 3 08/18/2021 Active Additional Information Patient taking differently: 5 mg oral 2 times daily, Reported on 12/13/2023 atenoloL (TENORMIN) 50 mg tablet TAKE 1 TABLET TWICE DAILY 60 tablet 07/10/2022 Active Additional Information Patient taking differently: 50 mg oral 2 times daily, Reported on 12/13/2023 DME Ostomy suppliesIndicati ons:Colostomy Status (HCC) DME Order 1 Unspecified 11 07/02/2023 Active pantoprazole (PROTONIX) 20 mg EC tablet Take 1 tablet by mouth daily. 08/23/2023 Active sertraline (ZOLOFT) 50 mg tablet Take 50 mg by mouth every morning. 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 Diverticulosis Colon 01/31/2006 Resolved Problems Problem Noted Date Diagnosed Date Resolved Date Complication Colostomy 03/29/201712/23 Occlusion Carotid Artery Left 05/18/2015 10/31/2018 Parathyroid Disorder 05/04/2014 019 Overview: Disorder Parathyroid Retraction Stoma Colostomy 06/21/2012 0 12/23/2018 Aftercare Colostomy 06/29/2010 10/31/19 19 Overview: Colostomy Malignant Neoplasm Of Endometrium 12/22/2003 12/23/2018 Immunizations Name Administration Dates Next Due H1N1 All Forms 09/07/2009 H1N1 Inj 09/07/2009 HZV (ZOSTAVAX) 01/07/2013 HepA Adult 10/07/2008 HepA, Unspecified 04/09/2009 IPV 10/07/2008 Influenza (IM) Preservative Free 08/05/2008,07/12 Influenza high dose QV(65 ye ars or older) (PF) 07/23/2020 Influenza, Seasonal, Injectable 06/12/20 12,06/29/2010,06/15/2009,2006,07/10/2006 Influenza, Unspecified 10/13/2016,2014,08/20/2014,2012,06/12/2012,07/05/2011,06/29/2010,1 PCV13 05/04/2015 PPSV23 08/05/2008 Td Preservative Free (TENIVA C, DECAVAC) 08/05/2008 Td, (Adult) Unspecified 08/05/2008 Tdap 05/04/2014 TyVi (inj) 10/07/2008,10/07/2008 influenza high dose (65 year s or older) (PF) 08/28/2019,07/09/2018,08/14/2017,2016,06/15/2015 Social History Tobacco Use Types Packs/Day Years [...] often do you attend chur ch or anabaptism services? More than 4 times per year 09/19/2019 Do you belong to any clubs o r organizations such as confucianism groups, unions, fraternal or athletic groups, or [...] Orientation Straight 01/02/2019 9: 41 AM CDT Last Filed Vital Signs Vital Sign Reading Time Taken Comments Blood Pressure 165/80 09/13/2023 1:18 PM MACHINE ROOM OPERATOR Pulse 80 09/13/2023 1:18 PM MACHINE ROOM OPERATOR Temperature 36.8 ??C (98.2 ??F) 09/13/2023 1:18 PM CS T Respiratory Rate 20 09/13/2023 1:18 PM MACHINE ROOM OPERATOR Oxygen Saturation 95% 09/13/2023 1:18 PM MACHINE ROOM OPERATOR Inhaled Oxygen Concentration - - Weight 64 kg (141 lb 1.5 oz) 11/19/2023 9:25 AM CDT Height 150.4 cm (4' 11.21) 11/19/2023 9:25 AM C DT Body Mass Index 28.29 11/19/2023 9:25 AM CDT Plan of Treatment Not on file Medical Devices Implanted Type Area News Commentator Device Identifier Shelf Expiration Date Model / Serial / Lot Seprafilm 3x 5 (Procedure Pack) - [id number] Implanted:Qty: 1 on 10/18/2004 Mesh or Patch [employer] Description:Device Manufactu rer - [employer].. Device Status Text - [id number]. Seprafilm 3x 5 (Procedure Pack) - [place] [id number] Implanted:Qty: 1 on 02/08/2005 Mesh or Patch [employer] Description:Device Manufactu rer - [employer].. Device Status Text - [id number]. Seprafilm 3x 5 (Procedure Pack) - [place] [id number] Implanted:Qty: 1 on 10/17/2005 Mesh or Patch [employer] Description:Device Manufactu rer - [employer].. Device Status Text - [id number]. Procedures Procedure Name Priority Date/Time Associated Diagnosis Comments CRS STOMAL THERAPY Routine 12/19/2023 1: 36 PM CDT Colostomy Status (HCC) CRS STOMAL THERAPY Routine 12/17/2023 2: 24 PM CDT Colostomy Status (HCC) INTERPRETATION OF OUTSIDE CT ABDOMEN AND OR PELVIS RAD - Routine (most inpatients and all outpatients) 11/15/2023 9:47 AM MACHINE ROOM OPERATOR Colostomy Status (HCC) Hernia Ventral from Last 3 Months Results * Interpretation of Outside CT Abdomen and or Pelvis (11/15/2023 9:47 AM MACHINE ROOM OPERATOR) Anatomical Region Laterality Modality Abdomen, Pelvis, Abdominal [...] Mild left hydronephrosis without discernable etiology. Tanna Watt M.D. IMG CT PROCEDURES from Last 3 Months Advance Directives For more information, please contact: [phone] Documents on File Type Date Recorded Patient Recovery Room Rn Expl anation Advance Directives 05/28/2019 4:56 PM POA for Healthcare Advance Directives 07/07/2008 12:00 AM Charo berry document. See document viewer. Healthcare Agents on File Name Relationship Healthcare Agent Relationship Communication Brendan : Ran Health Care Agent Christine Gilbert Daughter First Alt ernate Health Care Agent Kamryn Donald Daughter Second Alternate Health Care Agent Janessa Oneil Daughter Second Alternate Health Care Agent Care Teams Slipcover Cutter Relationship Specialty Start Date End Date Elsewhere, Pcp PCP - General Internal Medicine 11/16/21
--- OUTSIDE RECORDS SUMMARY | 2024-01-28 21:13 | XMS_ITS | Encounter Summary ---
Author Name Unknown Organization [facility] Address [address] [place] [address] Care Team Providers Care Commodity Analyst Name Role Phone Elsewhere, Pcp Primary Care Provider Unavailabl e Reason for Visit * Outpatient (Routine) - Closed Specialty Diagnoses / Procedures Referred By Wood t Referred To Contact Diagnoses Colostomy Status (HCC) Procedures Stomal Therapy Chi Jefferson APRN, C.N.P., M.S. [address] [place] [phone] [facility] Referral ID Status Reason Start Date Expiration Date Visits Re quested Visits Authorized [id number] Closed 12/17/2023 12/16/2024 1 1 Encounter Details Date Type Department Care Team (Latest Contact Info) Description 12/19/2023 2:00 PM CDT Clinical Support Division of Colon and Rectal Surgery in [place], [place] [address] [place] [phone] Chi Jefferson APRN, C.N.P., M.S. [address] [place] [phone] Tierra Blackman R.N., COCN [address] [place] [phone] Colostomy Status (HCC) (Primary Dx) Social History Tobacco Use [...] often do you attend chur ch or jainism services? More than 4 times per year 09/19/2019 Do you belong to any clubs o r organizations such as yazdanism groups, unions, fraternal or athletic groups, or [...] as of this encounter Progress Notes * Tierra Blackman R.N., COCN - 12/19/2023 2:47 PM CDT SUBJECTIVE CHIEF COMPLAINT/REASON FOR VISIT Assessment of peristomal skin and pouching system management. HISTORY OF PRESENT ILLNESS Lillie Tong is a 83 y.o. female was referred by Chi Jefferson APRN, C.N.P., M.S. for evaluation of pouching system management. Patient states the pouching system is usually changed every 2 days. Denies problems with pouching system leakage or skin irritation. The patient states the pouching system placed last visit is still in place. She did start to notice the odor of stool yesterday but thinks it could be form the vent on the pouch. OBJECTIVE Physical Exam 12/19/23 1400 Colostomy LLQ Placement Date: 02/08/05 Surgeon: Dr. Lim Colostomy Type: End Location: LLQ (Retiring) Stoma Size: 1 Site Assessment Red;Budded Stoma Size 1 Skin Assessment Hernia;Other (Comment) (Hypergranulated ridge from 6-11 o'clock, bulge of peristomal tissue laterally when sitting up, retraction of medial peristoma ltissue when sitting up) Peristomal Skin Care Water;Stoma powder (.Applied two sticks of Silver Nitrate per Peristomal Skin Protocol [id number]. Patient denies discomfort with application.) Pouching System (Stomal Appliance) Status Changed (1.5 cm undermining from 8-11 o'clock after 2 days of wear time) Changed by Wound chicken vaccinator;Patient (WOC RN had patient place as she has stated that she has issues with placing and may be covering the stoma sometimes with her previous system ([id number])) Pouching System Removed [employer] #[id number], [employer] #[id number], [employer]a #[id number], [employer] Support Belt [id number] Pouching System Applied [employer] #[id number], [employer] #[id number], [employer] #[id number], [employer] belt #[id number] (patient would like to continue with this system as it is easiest for her to apply, she is ok with changing the system every 2 days if needed) Ongoing management Patient/caregiver Output Description Soft;Pasty ASSESSMENT / PLAN The patient was given supplies to last until she orders. Questions answered. The patient was given updated ordering information. Their prescription is current. Encouraged to call or return (per Return Appointment Protocol [id number]) for ostomy related questions or concerns. Patient verbalized understanding. documented in this encounter Plan of Treatment Not on file documented as of this encounter Procedures Procedure Name Priority Date/Time Associated Diagnosis Comments CRS STOMAL THERAPY Routine 12/19/2023 1:36 PM CDT Colostomy Status (HCC) documented in this encounter Visit Diagnoses Diagnosis Colostomy Status (HCC)- Primary documented in this encounter Additional Health Concerns Assessment Noted Time PHQ-9 Depression Total Score: 0 05/02/20 16 8:00 AM CDT documented as of this encounter Care Teams Commodity Analyst Relationship Specialty Start Date End Date Elsewhere, Pcp PCP - General Internal Medicine 11/16/21 documented as of this encounter
--- OUTSIDE RECORDS SUMMARY | 2024-01-28 21:13 | XMS_ITS | Encounter Summary ---
Author Name Unknown Organization [facility] Address [address] [place] [address] Care Team Providers Care Fermenter Operator Name Role Phone Elsewhere, Pcp Primary Care Provider Unavailabl e Reason for Visit * Appointment Request (Routine) - Closed Specialty Diagnoses / Procedures Referred By Contclaudia t Referred To Contact Colon and Rectal Surgery Referral ID Status Reason Start Date Expiration Date Visits Re quested Visits Authorized [id number] Closed 11/14/2023 11/13/2024 1 1 Encounter Details Date Type Department Care Team (Latest Contact Info) Description 11/15/2023 10:30 AM INSURANCE ACCOUNT SPECIALIST Clinical Support Division of Colon and Rectal Surgery in [place], [place] [address] [place] [address] Nena Haro R.N., ELI [address] [place] [address] Colostomy Status (HCC) (Primary Dx) Social History [...] often do you attend chur ch or scientologist services? More than 4 times per year 09/19/2019 Do you belong to any clubs o r organizations such as religion groups, unions, fraternal or athletic groups, or [...] as of this encounter Progress Notes * Nena Haro R.N., COCN - 11/15/2023 10:30 AM CST SUBJECTIVE CHIEF COMPLAINT/REASON FOR VISIT Assessment of peristomal skin and pouching system management. HISTORY OF PRESENT ILLNESS Lillie Tong is a 83 y.o. female was referred by self for evaluation of pouching system management. Patient states the pouching system is usually changed every 3 days. Reports having issues with leakage. Patient reports current system has both worked for multiple days without issue, but has also leaked within a day. She reports having thinner stools and having more gas now compared to her usual bowel habits. Through discussion, it was decided the cause of the leaks was increased gas in the pouch, causing the system to blow off. The filtered pouch is not effective at this time due to thinner stools. Upon examination of filter, it appears stool has collected and is causing odor. Patient will switch to a non filtered pouch and will empty gas from pouch manually. Encouraged patient to reach out the physician if gas becomes unmanageable to inquire about the use of gas- reducing medications. OBJECTIVE Physical Exam Colostomy LLQ (Active) Site Assessment Red;Budded Stoma Size 1 Skin Assessment Intact;Other (Comment) Very small nodules along stoma edge from 6 to 12 o'clock that bleed easily. Abdomen pulls in from 6 to 12 o'clock when patient goes from laying to sitting. Peristomal Skin Care Water;Other (Comment);Stoma powder;Liquid skin barrier Applied two sticks of Silver Nitrate per Peristomal Skin Protocol [id number]. Patient denies discomfort with application. Nodules on stoma edge treated. Pouching System (Stomal Appliance) Status Changed Changed by Wound support staff;Patient;Observed Pouching System Removed [employer]a #[id number] precut convex wafer/CP #[id number] convex protective seal/Christiana #[id number] drainable pouch/Hu-Hope Support Belt 6313-F Sliver of undermining circumferentially after two days Pouching System Applied Christiana #[id number] precut convex wafer/CP #[id number] convex protective seal/[place] #[id number] drainable pouch/Hu-Hope Support Belt 6313-F Will continue with same system, encouraging patient to ensure pouch does not become overly filled with gas, as this is the suspected cause of leakage. Treatment of bleeding nodules to improve the seal as well. Ongoing management Patient/caregiver ASSESSMENT / PLAN Questions answered. The patient was given updated ordering information. Their prescription is current. Encouraged to call or return (per Return Appointment Protocol [id number]) for ostomy related questions or concerns. Patient verbalized understanding. RANCE ACCOUNT SPECIALIST documented in this encounter Plan of Treatment Not on file documented as of this encounter Visit Diagnoses Diagnosis Colostomy Status (HCC)- Primary documented in this encounter Additional Health Concerns Assessment Noted Time PHQ-9 Depression Total Score: 0 05/02/20 16 8:00 AM CDT documented as of this encounter Care Teams Fermenter Operator Relationship Specialty Start Date End Date Elsewhere, Pcp PCP - General Internal Medicine 11/16/21 documented as of this encounter
--- OUTSIDE RECORDS SUMMARY | 2024-01-28 21:13 | XMS_ITS | Encounter Summary ---
Author Name Unknown Organization [facility] Address [address] [place] [address] Care Team Providers Care Network Security Officer Name Role Phone Elsewhere, Pcp Primary Care Provider Unavailabl e Reason for Referral * Outpatient (Routine) - Closed Specialty Diagnoses / Procedures Referred By Wood arnold Referred To Contact Diagnoses Colostomy Status (HCC) Procedures Stomal Therapy Chi Jefferson APRN, C.N.P., M.S. [address] [place] [phone] [facility] Referral ID Status Reason Start Date Expiration Date Visits Re quested Visits Authorized [id number] Closed 12/14/2023 12/13/2024 1 1 Reason for Visit * Appointment Request (Routine) - Closed Specialty Diagnoses / Procedures Referred By Wood arnold Referred To Contact Colon and Rectal Surgery Diagnoses Aftercare Colostomy (HCC) Referral ID Status Reason Start Date Expiration Date Visits Re quested Visits Authorized [id number] Closed 12/13/2023 12/12/2024 1 1 Encounter Details Date Type Department Care Team (Latest Contact Info) Description 12/14/2023 8:30 AM CDT Clinical Support Division of Colon and Rectal Surgery in [place], [place] [address] [place] [address] [place] [phone] Tierra Blackman R.N., COCN [address] [place] [phone] Colostomy Status (HCC) (Primary Dx) Social History [...] often do you attend chur ch or jew services? More than 4 times per year 09/19/2019 Do you belong to any clubs o r organizations such as nondenominational groups, unions, fraternal or athletic groups, or [...] of this encounter Progress Notes * Tierra Blackman, RPurviN., COCN - 12/14/2023 9:38 AM CDT SUBJECTIVE CHIEF COMPLAINT/REASON FOR VISIT Assessment of peristomal skin and pouching system management. HISTORY OF PRESENT ILLNESS Lillie Tong is a 83 y.o. female was referred by No ref. provider found for evaluation of pouching system management. Patient states the pouching system is usually changed every 1 or 3 days. Reports having issues with leakage and skin irritation. The patient reports ongoing issues with inconsistent wear times and leakage. Some days she will leak 3 times and other times she will get 3-4 days of wear time. It typically leaks from the 5-12 o'clock region. She has not changed how she puts iton and has a clear view of the stoma when applying. She is semi-reclined during application. She endorses continued issues with bleeding bumps around the stoma. She has thin output and empties the pouch 3-4 times a day. She states gas is no longer an issue for her as she has learned to avoid thingsthat cause gas. OBJECTIVE Physical Exam 12/14/23 0900 Colostomy LLQ Placement Date: 02/08/05 Surgeon: Dr. Lim Colostomy Type: End Location: LLQ (Retiring) Stoma Size: 1 Site Assessment Red;Budded (low profile) Stoma Size 7/8 Skin Assessment Hernia;Other (Comment) (hyperplastic nodules from 6-11 o'clock, peristomal tissue retracts from 6-12 o'clock when patient is sitting upright and standing, loose crease of skin falls over superior portion of peristomal tissue when standing, uneven contour from hernia, semi firm) Peristomal Skin Care Water;Stoma powder;Liquid skin barrier (Applied two sticks of Silver Nitrate per Peristomal Skin Protocol [id number]. Patient denies discomfort with application.) Pouching System (Stomal Appliance) Status Changed (1.5 cm undermining from 7-11 o'clock after 3 days of wear time) Changed by Wound talent acquisition relationship manager Pouching System Removed Holt #[id number], CP #54946 protective seal, [place] #49938, Nu-Form Support Belt 6313-F Pouching System Applied [place] #24603, CP #67612 convex protective seal, [place] #31926, Nu-Form Support Belt #6312-F (changed to a more flexible sysem with soft convexity to accommodate uneven contour of abdomen, support belt re-fit as the previous was too large when she stands-couldn't be tightened any further) Ongoing management Wound/Ostomy Clinic;Patient/caregiver Output Description Thin;Brown ASSESSMENT / PLAN Once a pouching system is identified the patient would benefit from a 5 inch wide hernia support belt as the 4 inch one she currently uses is not quite wide enough. She was sent home with supplies pre-cut. She will return for a seal check next week. Questions answered. The patient will need an updated supply list once a a pouching system is identified Return appointment scheduled per Return Appointment Protocol [id number]. documented in this encounter Plan of Treatment Not on file documented as of this encounter Visit Diagnoses Diagnosis Colostomy Status (HCC)- Primary documented in this encounter Additional Health Concerns Assessment Noted Time PHQ-9 Depression Total Score: 0 05/02/20 16 8:00 AM CDT documented as of this encounter Care Teams Network Security Officer Relationship Specialty Start Date End Date Elsewhere, Pcp PCP - General Internal Medicine 11/16/21 documented as of this encounter
--- OUTSIDE RECORDS SUMMARY | 2024-01-28 21:13 | XMS_ITS ---
Author Name Unknown Organization 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 Past Plans Radiation Treatments * No radiation treatments are documented [facility] this [facility]. Treatments may have been administered in another system. 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
--- OUTSIDE RECORDS SUMMARY | 2024-01-28 21:13 | XMS_ITS | Encounter Summary ---
Author Name Unknown Organization [facility] Address [address] [place] [address] Care Team Providers Care Gas Meter Checker Name Role Phone Elsewhere, Pcp Primary Care Provider Unavailabl e Encounter Details Date Type Department Care Team (Latest Contact Info) Description 11/15/2023 9:45 AM DIRECTOR INFORMATICS Ancillary Procedure Department of Radiology in [place], [place] [address] [place] [address] Tanna Watt M.D. [address] [place] [address] Colostomy Status (HCC); Hernia Ventral Social History Tobacco Use Types Packs/Day Years [...] Procedure Name Priority Date/Time Associated Diagnosis Comments INTERPRETATION OF OUTSIDE CT ABDOMEN AND OR PELVIS RAD - Routine (most inpatients and all outpatients) 11/15/2023 9:47 AM DIRECTOR INFORMATICS Colostomy Status (HCC) Hernia Ventral documented in this encounter Results * Interpretation of Outside CT Abdomen and or Pelvis (11/15/2023 9:47 AM DIRECTOR INFORMATICS) Anatomical Region Laterality Modality Abdomen, Pelvis, Abdominal [...] hydronephrosis without discernable etiology. Tanna Watt M.D. IMEster CT PROCEDURES documented in this encounter Visit Diagnoses Diagnosis Colostomy Status (HCC) Hernia Ventral documented in this encounter Additional Health Concerns Assessment Noted Time PHQ-9 Depression Total Score: 0 05/02/20 16 8:00 AM CDT documented as of this encounter Care Teams Gas Meter Checker Relationship Specialty Start Date End Date Elsewhere, Pcp PCP - General Internal Medicine 11/16/21 documented as of this encounter
--- OUTSIDE RECORDS SUMMARY | 2024-01-28 21:13 | XMS_ITS | Clinical Summary ---
Author Name Unknown Organization [facility] Address [address] [place] [address] Care Team Providers Care Cut Off Machine Helper Name Role Phone Elsewhere, Pcp Primary Care Provider Unavailabl e Source Comments Patient records contain information from all sites at [facility]. For routine questions regarding patient records, call [phone] during business hours, M-F 8:00 AM - 5:00 PM Central Time. 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 Tierra Blackman R.N., ELI Colostomy Status (HCC) (Primary Dx) 12/17/2023 3:00 PM CDT Clinical Support Division of Colon and Rectal Surgery in [place], [place] [address] [place] [phone] Chi Jefferson APRN, C.N.P., M.S. Lora Rodriguez R.N., C.W.O.C.N. Colostomy Status (HCC) 12/14/2023 8:30 AM CDT Clinical Support Division of Colon and Rectal Surgery in [address] [phone] Tierra Blackman R.N., COCN Colostomy Status (HCC) (Primary Dx) 12/13/2023 1:30 PM CDT Clinical Communication Virtual Review in [address] [phone] Pre-visit Intake 11/19/2023 10:00 AM CDT Comprehensive Visit Division of Trauma Critical Care and General Surgery in [address] [address] Tanna Watt M.D. Hernia Ventral (Primary Dx); Obstruction Intestinal (HCC) 11/15/2023 10:30 AM MENTAL HEALTH ASSISTANT Clinical Support Division of Colon and Rectal Surgery in [address] [address] Nena Haro R.N., COCN Colostomy Status (HCC) (Primary Dx) 11/15/2023 9:45 AM MENTAL HEALTH ASSISTANT Ancillary Procedure Department of Radiology in [address] [phone] Tanna Watt M.D. Colostomy Status (HCC); Hernia Ventral 11/15/2023 Orders Only Division of Trauma Critical Care and General Surgery in [address] [address] Funmilayo Childs R.N. Hernia Ventral (Primary Dx); Colostomy Status (HCC) 11/05/2023 2:15 PM MENTAL HEALTH ASSISTANT Clinical Support Division of Colon and Rectal Surgery in [address] [phone] Sushma Skinner R.N., C.W.O.C.N. Aftercare Colostomy (HCC) (Primary Dx) from Last 3 Months Immunizations Name Administration Dates Next Due H1N1 [...] (65 year s or older) (PF) 08/28/2019,07/09/2018,08/14/2017,2016,06/15/2015 Family History Medical History Relation Name Comments Cancer of oropharynx Brother Coronary artery disease Brother Leukemia Brother Coronary artery disease Father diana sauer Relation Name Status Comments Brother Father diana sauer Social History Tobacco Use Types Packs/Day Years [...] often do you attend chur ch or mandaeism services? More than 4 times per year [...] Comments Blood Pressure 165/80 09/13/2023 1:18 PM MENTAL HEALTH ASSISTANT Pulse 80 09/13/2023 1:18 PM MENTAL HEALTH ASSISTANT Temperature 36.8 ??C (98.2 ??F) 09/13/2023 1:18 PM CS T Respiratory Rate 20 09/13/2023 1:18 PM MENTAL HEALTH ASSISTANT Oxygen Saturation 95% 09/13/2023 1:18 PM MENTAL HEALTH ASSISTANT Inhaled Oxygen Concentration - - Weight 64 kg (141 lb 1.5 oz) 11/19/2023 9:25 AM CDT Height 150.4 cm (4' 11.21) 11/19/2023 9:25 AM C DT Body Mass Index 28.29 11/19/2023 9:25 AM CDT Plan of Treatment Health Maintenance Due Date Last Done Comments Depression Screening (Annual PHQ-2) 09/10/2023 Fall Risk Screen (Annual) 09/10/2023 COVID-19 Vaccine (2022-2 4 season) 2023 07/04/2023, 06/27/2022, 02/08/2022, Additional history exists Office Visit for Blood Press ure Check / Re-check 12/13/2023 09/13/2023 DTaP,Tdap,and Td Vaccines (2 - Td or Tdap) 05/04/2024 05/04/2014, 08/05/2008, 08/05/2008 Hepatitis A Vaccines Completed 04/09/2009, 10/07/19 09 Pneumococcal vaccine (65+ years) Completed 05/04/20 15, 08/05/2008 Zoster Vaccines Completed 04/11/2023, 11/09, 01/07/2013 Influenza Vaccine Completed 06/15/2023, , 06/24/2021, Additional history exists Medical Devices Implanted Type Area Executive Director Global Brand Marketing Device Identifier Shelf Expiration Date Model / Serial / Lot Seprafilm 3x 5 (Procedure Pack) - [place] [id number] Implanted:Qty: 1 on 10/18/2004 Mesh or Patch Simio Description:Device Manufactu rer - eye[employer]ight [employer].. Device Status Text - [id number]. Seprafilm 3x 5 (Procedure Pack) - [place] [id number] Implanted:Qty: 1 on 02/08/2005 Mesh or Patch Gen[employer] Description:Device Manufactu rer - Genzyme Jacques.. Device Status Text - [id number]. Seprafilm 3x 5 (Procedure Pack) - [place] [id number] Implanted:Qty: 1 on 10/17/2005 Mesh or Patch [employer] Description:Device Manufactu rer - [employer] Jacques.. Device Status Text - [id number]. Procedures Procedure Name Priority Date/Time Associated Diagnosis Comments CRS STOMAL THERAPY Routine 12/19/2023 1: 36 PM CDT Colostomy Status (HCC) CRS STOMAL THERAPY Routine 12/17/2023 2: 24 PM CDT Colostomy Status (HCC) INTERPRETATION OF OUTSIDE CT ABDOMEN AND OR PELVIS RAD - Routine (most inpatients and all outpatients) 11/15/2023 9:47 AM MENTAL HEALTH ASSISTANT Colostomy Status (HCC) Hernia Ventral from Last 3 Months Results * Interpretation of Outside CT Abdomen and or Pelvis (11/15/2023 9:47 AM MENTAL HEALTH ASSISTANT) Anatomical Region Laterality Modality Abdomen, Pelvis, Abdominal [...] Advance Directives For more information, please contact: [phone] Documents on File Type Date Recorded Patient Sport Intern Expl anation Advance Directives 05/28/2019 4:56 PM POA for Healthcare Advance Directives 07/07/2008 12:00 AM Charo berry document. See document viewer. Healthcare Agents on File Name Relationship Healthcare Agent Relationship Communication Brendan : Ran Health Care Agent Christine Gilbert Daughter First Alt ernate Health Care Agent Kamryn Donald Daughter Second Alternate Health Care Agent Janessa Thad Daughter Second Alternate Health Care Agent Care Teams Cut Off Machine Helper Relationship Specialty Start Date End Date Elsewhere, Pcp PCP - General Internal Medicine 11/16/21
[2024-01-28 21:17] LABS: Basophils Percent Auto 0.5 % (0.0-3.0); Eosinophils Percent Auto 0.4 % (0.0-7.0); Hematocrit 35.1 % (33.0-51.0); Hemoglobin* 11.5 gm/dL (12.0-16.0); Immature Granulocytes Pct Auto 0.2 %; Lactate* 1.2 mmol/L (0.5-1.9); Lymphocytes Percent Auto 10.3 % (20-44); Mean Corpuscular HGB Conc 33 gm/dL (32-36); Mean Corpuscular Hemoglobin 30 pg (26-34); Mean Corpuscular Volume 92 fL (80-100); Monocytes Percent Auto 10.5 % (0.0-11.0); Neutrophils Percent Auto 78.1 % (42.0-72.0); Platelet Count* 273 K/uL (140-440); RDW Coefficient of Variation % 13.9 % (11.5-15.5); Red Blood Count 3.81 m/uL (4.00-5.20); White Blood Count* 11.31 K/uL (4.50-11.00)
[2024-01-28 21:33] LABS: Albumin* 4.2 g/dL (3.3-5.0)
[2024-01-28 21:34] LABS: Chloride* 109 mmol/L (96-114); Sodium* 139 mmol/L (135-149)
[2024-01-28 21:36] LABS: Alkaline Phosphatase* 88 U/L (40-150); Anion Gap 13 mEq/L (7-15); Aspartate Amino Transferase* 36 U/L (12-35); Bilirubin Total* 0.8 mg/dL (0.1-1.5); Blood Urea Nitrogen* 10 mg/dL (7-30); Carbon Dioxide* 17 mmol/L (20-32); Creatinine* 0.8 mg/dL (0.5-1.5); Estimated Glomerular Filt Rate 74 ml/min; Glucose* 105 mg/dL (60-115); Total Protein* 7.5 g/dL (6.0-8.3)
[2024-01-28 21:37] LABS: Alanine Aminotransferase* 21 U/L (4-35); Calcium* 9.3 mg/dL (8.4-10.6); Lipase* 56 U/L (23-300)
[2024-01-28 21:45] LABS: Slide Review Reflex No
[2024-01-29] VITALS (7 sets, daily range): BP systolic 138–187; BP diastolic 61–85; PULSE 69–80; RESP 16–18; TEMP 36.2–36.8; O2SAT 92–97; BMI 28.6
[2024-01-29] MEDS: METOPROLOL TARTRATE 1 MG/ML inj 2.5 MG IVP ×2 (00:23→12:03)
--- NOTE | 2024-01-29 00:33 | PC.NURSE ---
Pt given IV metoprolol for blood pressure as she is not able to take her PO med. Report given to service desk specialist
--- NOTE | 2024-01-29 02:36 | W.PM.THH&P_ITS ---
Telehealth- H&P: HPI History of Present Illness Date Seen: 01/29/24 Chief complaint: Small Bowel Obstruction Narrative: Lillie Tong is seen as an Interactive Telehealth visit. Lillie Tong is a 83 year old female who presented to the emergency room with nausea, vomiting and abdominal discomfort. Ravi has a significant past medical history of endometrial cancer eventually having a partial colectomy and subsequent large ventral hernia with an incisional hernia. Lillie has had multiple bouts of small bowel obstruction and continues to have difficulty with obstruction due to the multiple adhesions and also the large ventral/incisional hernia. She does have a colostomy bag and states that she started having some abdominal discomfort about 2 days ago. She did have significant pain along with nausea and vomiting yesterday. She presented to the emergency room with these symptoms and a CT scan showed the hernia with bowel within the hernia. Initial plan was to possibly transfer to [facility], but due to the unavailability of beds, surgery was consulted here and it was decided that an NG would be placed and conservative measures could be trialed at [facility]. At the time I am seeing Lillie, she states she is feeling much more comfortable with the NG in place. She states that the pain that she had earlier has totally subsided and she is no longer having any nausea. She states that she has continued to have good output via her ostomy bag. She does admit to missing her lymphedema clinic today due to her small bowel obstruction. She denies any recent dark or tarry output in her ostomy bag. She denies any recent fever or chills. She offers no other acute complaints or problems at the time I am seeing her. Review of Systems Status of ROS: Reports: 10 or more systems reviewed and unremarkable except as noted in History and below [facility] Medical History Anemia ?D64.9 - Anemia, unspecified (ICD-10) Nausea and vomiting ?R11.2 - Nausea with vomiting, unspecified (ICD-10) Dehydration ?E86.0 - Dehydration (ICD-10) Hepatic steatosis ?K76.0 - Fatty (change of) liver, not elsewhere classified (ICD-10) Superior mesenteric artery stenosis ?K55.1 - Chronic vascular disorders of intestine (ICD-10) Peripheral artery disease ?I73.9 - Peripheral vascular disease, unspecified (ICD-10) History of endometrial cancer ?Z85.42 - Personal history of malignant neoplasm of other parts of uterus (ICD-10) Chronic hyperkalemia ?E87.5 - Hyperkalemia (ICD-10) Thyroid nodule ?E04.1 - Nontoxic single thyroid nodule (ICD-10) Stenosis of left carotid artery ?I65.22 - Occlusion and stenosis of left carotid artery (ICD-10) Primary hyperparathyroidism ?E21.0 - Primary hyperparathyroidism (ICD-10) Osteoporosis ?M81.0 - Age-related osteoporosis without current pathological fracture (ICD- 10) Diverticulosis ?K57.90 - Diverticulosis of intestine, part unspecified, without perforation or abscess without bleeding (ICD-10) Aortic valve sclerosis ?I35.8 - Other nonrheumatic aortic valve disorders (ICD-10) Colostomy in place ?Z93.3 - Colostomy status (ICD-10) Hyperlipidemia ?E78.5 - Hyperlipidemia, unspecified (ICD-10) Chronic GERD ?K21.9 - Gastro-esophageal reflux disease without esophagitis (ICD-10) Hypertension ?I10 - Essential (primary) hypertension (ICD-10) Surgical History 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 ?Z90.710 - Acquired absence of both cervix and uterus (ICD-10) ?Z90.722 - Acquired absence of ovaries, bilateral (ICD-10) ?Z90.79 - Acquired absence of other genital organ(s) (ICD-10) Status post colectomy ?Z90.49 - Acquired absence of other specified parts of digestive tract (ICD- 10) Status post cholecystectomy ?Z90.49 - Acquired absence of other specified parts of digestive tract (ICD- 10) Social History What is your current living situation?: I presently have a place to live Problems where you live: no known problems Problems where you live details: N/A In the past 12 months, utilities in danger of being shut off: no In past 12 months, lack of transportation kept you from medical appts, meetings, work, or getting things needed for daily living: no In the past 12 mos, have been you worried that your food would run out before you had money to buy more?: never true In the past 12 mos, the food you bought just didn't last and you didn't have money to buy more?: never true Highest level of school completed/degree received: Bachelor's degree Smoking Status: Former smoker Do you use any of these nicotine containing products: None Second hand tobacco smoke exposure: No How often do you have a drink containing alcohol: never How often do you have six or more drinks on one occasion: Never AUDIT-C Alcohol total score: 0 Non-prescribed substance use: denies use Caffeine: No How often does anyone, including family, friends and others, physically hurt you : never How often does anyone, including family, friends and others, insult or talk down to you: never How often does anyone, including family, friends and others, threaten you with harm: never How often does anyone, including family, friends and others, scream or curse at you: never service: No Meds Home Medications and Allergies Home Medications Medication Instructions Recorded Confirmed Type amlodipine 2.5 mg tablet 2.5 mg PO DAILY 09/10/23 09/10/23 History aspirin 81 mg chewable tablet 81 mg PO DAILY 09/10/23 09/10/23 History (Aspirin Childrens) atenolol 50 mg tablet 50 mg PO BID 09/10/23 09/10/23 History bupropion HCl 150 mg 24 hr tablet, 150 mg PO QAM 09/10/23 09/10/23 History extended release calcium carbonate 500 mg-vitamin 1 tab PO DAILY 09/10/23 09/10/23 History D3 10 mcg (400 unit) tablet (Calcium 500 + D) cholecalciferol (vitamin D3) 25 2,000 unit PO DAILY 09/10/23 09/10/23 History mcg (1,000 unit) tablet furosemide 20 mg tablet 20 mg PO DAILY 09/10/23 09/10/23 History hydrochlorothiazide 12.5 mg tablet 12.5 mg PO DAILY 09/10/23 09/10/23 History lorazepam 0.5 mg tablet 0.5 mg PO BID PRN 09/10/23 09/10/23 History pantoprazole 20 mg tablet,delayed 20 mg PO DAILY 09/10/23 09/10/23 History release simvastatin 10 mg tablet 10 mg PO HS 09/10/23 09/10/23 History Allergies Allergy/AdvReac Type Severity Reaction Status Date / Time No Known Drug Allergies Allergy Verified 01/28/24 17:22 Exam Narrative Exam Narrative: Physical Exam GENERAL: vital signs reviewed, well developed and nourished, in no distress HEENT: pupils are equal round and reactive to light, extraocular movements are grossly within normal limits and oral mucosa is moist. NECK: Supple without lymphadenopathy or thyromegaly according to nursing staff examination observation HEART: Regular rate and rhythm with a 3/6 musical murmur heard best over the aortic area consistent with possible aortic stenosis. LUNGS: Clear to auscultation bilaterally with good air movement throughout ABDOMEN: Observation from nurse assisted exam, abdomen appears soft and nontender. She does have an ostomy bag which does have stool present. A large hernia is noted. Bowel sounds continue to be positive. EXTREMITIES: Strength and sensation is observed to be grossly Decreased but symmetric in the the upper and lower extremities. No focal strength deficit is observed. +3 pitting edema is noted in her right lower extremity which is chronic and +2 pitting edema in her left lower extremity which is also chronic. SKIN: Observed warm and dry with color normal NEURO: Alert, awake and oriented ?3. Answers all questions appropriately. No focal neuro deficits are noted. PSYCH: Affect normal Const Vital Signs, click to edit/add: Vital Signs - 24 hr 01/28/24 17:20 01/29/24 00:28 Temperature 97 F L 98.3 F Pulse Rate [Right Pulse Oximeter] 73 80 Respiratory Rate 20 16 Blood Pressure [Right Upper Arm] 147/83 H 180/78 H Pulse Oximetry 95 97 Oxygen Delivery Method Room Air Room Air Documenting provider has reviewed patient's vital signs: yes Hospitalist - H&P: Result Labs Labs: Short CBC 01/28/24 Range/Units 21:14 WBC 11.31 H (4.50-11.00) K/uL Hgb 11.5 L (12.0-16.0) gm/dL Hct 35.1 (33.0-51.0) % Plt Count 273 (140-440) K/uL BMP 01/28/24 21:14 Sodium 139 Potassium 3.0 L Chloride 109 Carbon Dioxide 17 L BUN 10 Creatinine 0.8 Glucose 105 Calcium 9.3 Liver Function 05/20/24 Range/Units 21:14 Total Bilirubin 0.8 (0.1-1.5) mg/dL AST 36 H (12-35) U/L ALT 21 (4-35) U/L Alkaline Phosphatase 88 (40-150) U/L Albumin 4.2 (3.3-5.0) g/dL Imaging CT scan - abdomen: Radiologist's impression: ER physician reported the CT scan did show a small bowel obstruction within th e hernia with no sign of acute strangulation or incarceration per the ER physician Assessment and Plan Assessment and plan (1) SBO (small bowel obstruction): Problem comment: 09/13: as noted on CT. Consistent with nausea, increased pain with solid oral intake. Decreased stool output in stoma. Consulted Dr. Tran, General Surgery, recommending NGT, transfer for further surgical intervention, NPO, NS IVF. Initiated transfer to [facility] for further management. No beds available currently. Recommending continued SBO management with NGT and Gastrografin challenge. Discussed with Dr. Tran, in agreement. 09/14: SBO resolved following Gastrografin challenge. Recommendations per Dr. Tran as follows: Start slow with advancement of diet. I recommend leaving the NG tube in place at least today and advancing her to clears. If her exam remains the same tomorrow and she continues to have stoma output we can DC the NG tube and advance her diet to regular. Hernia has been reduced. Daughters were shown how to do so as well. This is something that they could potentially try if she is starting to develop symptoms, however if she again develops nausea, vomiting and distention she should return to be seen. Recommend outpatient follow-up at a tertiary care center (she is followed by [facility] currently) with a surgeon to discuss hernia repair. I suspect because of her risk factors that they would not necessarily recommend repair after 1 episode of obstruction, given again the size of the hernia, her age, and surgical and radiation history, however it is reasonable to have the discussion. 09/15: Patient has tolerated advancing to clear liquid diet yesterday. She has advancing to full liquids today and may advance to soft if this goes well. Plan is to discontinue NG tube tomorrow if all goes well. Recommendation remains to follow-up at outpatient tertiary care with a surgeon to discuss elective hernia repair. 09/16: Planning NGT out today if she tolerates larger portions and has ostomy output. Possible discharge home tomorrow. 09/17: NGT is out and she is tolerating a general diet. Hernia remains reducible and she is without pain. +soft stool and gas in ostomy bag. F/u with [facility] outpatient to discuss elective hernia repair. Status: Acute (2) Abdominal hernia: Problem comment: -noted on CT. Management as above 09/14: Reduced today by General surgery. Daughter shown how to do so at home as well. 09/17: Remains reducible. Status: Acute Plan Assessment: 1. Nausea and vomiting with abdominal discomfort and CT scan evidence of acute small bowel obstruction 2. Previous partial colectomy with large ventral/incisional hernia with adhesions likely contributing to #1 above 3. Hepatic steatosis 4. Hyperlipidemia 5. mild volume depletion/dehydration from #1 above 6. Superior mesenteric artery stenosis 7. History of aortic valve sclerosis with aortic murmur 9. GERD 10. Hypertension Plan: At this time Lillei will be admitted to the medical service. We will start with conservative therapy with an NG tube to low intermittent wall suction. Will consult surgery for the a.m. for further evaluation and treatment options. Hopefully she will continue to improve her symptoms along with her bowel function with the NG decompression. She does not have any pain currently and denies any further nausea. I do not believe she has any signs or symptoms of acute Incarceration or strangulation. I have asked Lillie to let us know if she should have any return of her abdominal pain, nausea or other signs or symptoms of worsening bowel function. I have explained this plan to Lillie and she is agreeable to proceed. Will continue to follow closely from medical standpoint. I have discussed CODE STATUS with Lillie and she does wish to be a full code. Telehealth: Statement Statement Telehealth Visit: Today's History and Physical is provided via interactive telehealth by Ronni Harmon MD.? Patient is located at [facility].? Provider is located at [facility] [facility].? Nursing staff assisted with the patient's exam. The visit being done today meets criteria for a telehealth visit and the patient or patient?s parent/guardian is aware the visit is a telehealth visit. Camera Start Time: 02:09 Camera End Time: 02:29
--- NOTE | 2024-01-29 02:56 | XR_ITS ---
Patient: EVA VELASQUEZ Facility:?[facility] Patient ID:?[id number] Site Patient ID:?[id number]. Site :?[id number] Study:?XRay-Abdomen NG TUBE PLACEMENT-01/29/2024 4:11:23 AM Ordering Physician:MILES Final Report: Indication: NG tube placement Technique: Abdomen 2 views, 2 attempts. Comparison: No same day CT abdomen and pelvis. Findings: First attempt shows the enteric tube coiled within the distal esophagus. Second attempt shows the enteric tube and side hole projecting over the mid gastric body with the gastric lumen again severely distended. Contrast within the renal collecting system and bladder with indentation of the bladder dome. Degenerate changes of the spine with S-shaped curvature. Impression: Second attempt shows the enteric tube and side hole projecting over the mid gastric body with the gastric lumen again severely distended. Dictated by Daryn Garcia MD @ 01/29/2024 4:15:41 AM Signed by:?Daryn Garcia MD @01/29/2024 4:15:41 AM (Electronic Signature)
[2024-01-29] MEDS: POTASSIUM CHLORIDE 10 MEQ/100 ML PIGGYBACK 100 MEQ IVPB ×2 (03:19→04:47)
[2024-01-29] MEDS: 0.9 % SODIUM CHLORIDE 1000 ml 1,000 ML 100 ML IV ×3 (03:19→21:30)
--- NOTE | 2024-01-29 07:42 | PC.NURSE ---
19: pleasant and cooperative. indep, needs assistance with NG tube. 700mL yellow NG output. 100mL brown ostomy output. pt states she is feeling better this AM. pts RLE was wrapped in 7 HAN bandages upon arrival to the floor, pt has chronic lymphedema.
[2024-01-29] MEDS: PANTOPRAZOLE SODIUM 40 MG INJ IVP (09:08)
[2024-01-29] MEDS: SODIUM CHLORIDE 0.9 % (FLUSH) 10 ML SYRINGE 5 ML IVF ×2 (09:08→12:05)
[2024-01-29 09:32] LABS: Basophils Absolute Auto 0.04 K/uL (0.00-0.30); Basophils Percent Auto 0.5 % (0.0-3.0); Eosinophils Absolute Auto 0.12 K/uL (0.00-0.50); Eosinophils Percent Auto 1.4 % (0.0-7.0); Hematocrit 31.8 % (33.0-51.0); Hemoglobin* 10.2 gm/dL (12.0-16.0); Immature Granulocytes Abs Auto 0.01 K/uL (0.00-0.30); Immature Granulocytes Pct Auto 0.1 %; Lymphocytes Percent Auto 10.9 % (20-44); Mean Corpuscular HGB Conc 32 gm/dL (32-36); Mean Corpuscular Hemoglobin 30 pg (26-34); Mean Corpuscular Volume 93 fL (80-100); Monocytes Percent Auto 9.8 % (0.0-11.0); Neutrophils Percent Auto 77.3 % (42.0-72.0); Platelet Count* 220 K/uL (140-440); RDW Coefficient of Variation % 13.9 % (11.5-15.5); Red Blood Count 3.43 m/uL (4.00-5.20); White Blood Count* 8.54 K/uL (4.50-11.00)
[2024-01-29 09:36] LABS: Slide Review Reflex No
[2024-01-29 09:47] LABS: Chloride* 109 mmol/L (96-114); Sodium* 139 mmol/L (135-149)
[2024-01-29 09:48] LABS: Potassium* 3.5 mmol/L (3.6-5.1)
[2024-01-29 09:50] LABS: Anion Gap 7 mEq/L (7-15); Carbon Dioxide* 23 mmol/L (20-32); Creatinine* 0.7 mg/dL (0.5-1.5); Est. Creatinine Clearance* 43.92; Estimated Glomerular Filt Rate 86 ml/min
[2024-01-29 09:51] LABS: Blood Urea Nitrogen* 11 mg/dL (7-30); Calcium* 8.4 mg/dL (8.4-10.6); Glucose* 96 mg/dL (60-115); Magnesium* 1.5 mg/dL (1.5-2.6)
--- NOTE | 2024-01-29 10:16 | P.IMPN_ITS ---
Progress Note: A&P Assessment and plan (1) SBO (small bowel obstruction): Problem details: Recurrent SBO CT shows Small bowel obstruction is likely secondary to a ventral hernia. This is similar in appearance compared to the prior exam from 4 months ago. No new abnormalities. NGT in place. Output 2L thus far overnight. Ostomy with improved output as well. Discussed with Dr. Laboy, General Surgery. Continue NGT, possibly clamping/removing 01/29 if continues to clinically improve. Recommending starting scheduled Reglan when starting clear diet. Nonsurgical management given anatomy Holding home famotidine and pantoprazole. IV pantoprazole for now Status: Acute (2) Abdominal hernia: Problem details: Ventral, chronic, nonsurgical. Followed by [facility]. Monitor Patient knows how to massage this when needed Status: Acute (3) Hypertension: Problem details: Holding amlodipine, aspirin, atenolol while NGT in place IV metoprolol b.i.d. p.r.n. Status: Acute (4) Hyperlipidemia: Problem details: Holding statin while NGT in place Status: Chronic (5) Peripheral edema: Problem details: Compression wraps, elevation Holding home furosemide while NGT in place, could consider IV Lasix if needed Status: Acute Plan Discussed above with son-in-law, Dr. Stefan Gilbert Time Spent With Patient Total time spent: Total time spent caring for the patient today was 45 minutes. This includes time spent for the visit reviewing the chart, time spent during the visit, time spent after the visit and documentation and planning in coordination of care. Subjective Date Seen: 01/29/24 Interval history: Patient reports feeling so much better this morning after NGT was placed. Pressure and pain of abdomen is improving. No nausea. Currently NPO. Has been massaging abdomen as well. Denies headache or dizziness. Denies chest pain or shortness of breath. Exam Narrative: Exam Narrative: PHYSICAL EXAM General: Pleasant, conversant, NAD HEENT: Normocephalic, atraumatic, sclera white, EOMI, oral mucosa moist Cardiovascular: RRR, S1S2 Pulmonary: CTA bilaterally without rhonchi, rales, expiratory wheezes. No dyspnea Abdominal: Soft, nondistended, NTTP, ostomy and NGT with output noted Neurological: Alert, answering questions appropriately, cranial nerves intact, no focal findings Extremities: RLE without compression wrap, +1 pitting edema, LLE with compression wrap in place, no edema. Neurovascularly intact Skin: Warm, dry. Const: Vital Signs, click to edit/add: Vital Signs - 24 hr 01/28/24 17:20 01/29/24 00:28 01/29/24 00:30 Temperature 97 F L 98.3 F 98.3 F Pulse Rate [Pulse Oximeter] 72 Pulse Rate [Right Pulse Oximeter] 73 80 Respiratory Rate 20 16 16 Blood Pressure [Ri ght Arm] 187/75 H Blood Pressure [Ri ght Upper Arm] 147/83 H 180/78 H Pulse Oximetry 95 97 94 Oxygen Delivery Me thod Room Air Room Air Room Air 01/29/24 00:30 01/29/24 07:42 Temperature 98.1 F Pulse Rate [Pulse Oximeter] 71 Pulse Rate [Right Pulse Oximeter] Respiratory Rate 16 16 Blood Pressure [Ri ght Arm] 138/85 Blood Pressure [Ri ght Upper Arm] Pulse Oximetry 94 93 Oxygen Delivery Me thod Room Air Room Air Labs Labs: Laboratory Results - last 24 hr 01/28/24 01/29/24 21:14 09:26 WBC 11.31 H 8.54 RBC 3.81 L 3.43 L Hgb 11.5 L 10.2 L Hct 35.1 31.8 L MCV 92 93 MCH 30 30 MCHC 33 32 RDW Coeff of Sadia 13.9 13.9 Plt Count 273 220 Neut % (Auto) 78.1 H 77.3 H Lymph % (Auto) 10.3 L 10.9 L [place] % (Auto) 10.5 9.8 Eos % (Auto) 0.4 1.4 Baso % (Auto) 0.5 0.5 Neut # (Auto) 8.80 H 6.60 Lymph # (Auto) 1.20 0.90 [place] # (Auto) 1.20 H 0.80 Eos # (Auto) 0.00 0.12 Baso # (Auto) 0.10 0.04 Abs Immat Gran (auto) 0.00 0.01 Imm/Tot Granulo (auto) 0.2 0.1 Sodium 139 139 Potassium 3.0 L 3.5 L Chloride 109 109 Carbon Dioxide 17 L 23 Anion Gap 13 7 BUN 10 11 Creatinine 0.8 0.7 Estimated Creat Clear 43.92 Estimated GFR 74 86 Glucose 105 96 Lactate 1.2 Calcium 9.3 8.4 Magnesium 1.5 Total Bilirubin 0.8 AST 36 H ALT 21 Alkaline Phosphatase 88 Total Protein 7.5 Albumin 4.2 Lipase 56
--- NOTE | 2024-01-29 11:02 | P.GSCN_ITS ---
History of Present Illness Consult details Date Seen: 01/29/24 Consult date: 01/29/24 Narrative: 83-year-old female was admitted to the hospital with small-bowel obstruction and was and I was asked by Dr. Flanagan to see her in consultation. Patient states that on Sunday she was having a tummy ache. She points to epigastrium. She has a history of small-bowel obstructions and intermittently has abdominal pain that resolves with conservative treatment. Sometimes patient needs to massage her abdomen to get her pain to improve. Since Sunday she has been experiencing mild abdominal pain and after she started vomiting, her family encouraged her to come to the emergency room. Patient vomited several times at home and then presented to the emergency room. Patient has a permanent end colostomy after hysterectomy and colectomy for endometrial cancer. She did not have much gas in her ostomy appliance and did not have a lot of fresh stool. Patient repeated that to not eating much. I personally reviewed her emergency room record. She was found to have elevated WBC of 11.3. Her potassium was 3.0. An abdominal CT was obtained that showed a largely dilated stomach with some dilated loops of bowel and other small bowel loops decompressed. Patient has a large ventral hernia present. There is no evidence of free air. Patient was recently hospitalized at the [facility] over the winter with similar problems. She was recommended to see surgery at [facility] to discuss ventral hernia repair. Patient was evaluated and hernia surgery was not recommended. Since her last dose pill is a ghosh here she had a couple other milder episodes. Since patient was admitted and NG tube was placed, patient had 2 L of foul- smelling yellow fluid suctioned out from her stomach. She denies pain today. She had emptied her ostomy appliance with liquid stool. Review of Systems Narrative: General: no fevers HENT: no problems swallowing CV: no shortness of breath Resp: no cough GI: No nausea, vomiting, abdominal pain : no dysuria, no increased urinary frequency, no hematuria Skin: no new rashes Musculoskeletal: no back pain Neuro: no muscle weakness Psyche: no depression, no anxiety [facility] Medical History Peripheral edema ?R60.0 - Localized edema (ICD-10) Anemia ?D64.9 - Anemia, unspecified (ICD-10) Nausea and vomiting ?R11.2 - Nausea with vomiting, unspecified (ICD-10) Dehydration ?E86.0 - Dehydration (ICD-10) Hepatic steatosis ?K76.0 - Fatty (change of) liver, not elsewhere classified (ICD-10) Superior mesenteric artery stenosis ?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 - Chronic vascular disorders of intestine (ICD-10) Peripheral artery disease ?I73.9 - Peripheral vascular disease, unspecified (ICD-10) History of endometrial cancer ?Z85.42 - Personal history of malignant neoplasm of other parts of uterus (ICD-10) Chronic hyperkalemia ?E87.5 - Hyperkalemia (ICD-10) Thyroid nodule ?E04.1 - Nontoxic single thyroid nodule (ICD-10) Stenosis of left carotid artery ?I65.22 - Occlusion and stenosis of left carotid artery (ICD-10) Primary hyperparathyroidism ?E21.0 - Primary hyperparathyroidism (ICD-10) Osteoporosis ?M81.0 - Age-related osteoporosis without current pathological fracture (ICD- 10) Diverticulosis ?K57.90 - Diverticulosis of intestine, part unspecified, without perforation or abscess without bleeding (ICD-10) Aortic valve sclerosis ?I35.8 - Other nonrheumatic aortic valve disorders (ICD-10) Colostomy in place ?Z93.3 - Colostomy status (ICD-10) Hyperlipidemia ?E78.5 - Hyperlipidemia, unspecified (ICD-10) Chronic GERD ?K21.9 - Gastro-esophageal reflux disease without esophagitis (ICD-10) Hypertension ?I10 - Essential (primary) hypertension (ICD-10) Surgical History 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 ?Z90.710 - Acquired absence of both cervix and uterus (ICD-10) ?Z90.722 - Acquired absence of ovaries, bilateral (ICD-10) ?Z90.79 - Acquired absence of other genital organ(s) (ICD-10) Status post colectomy ?Z90.49 - Acquired absence of other specified parts of digestive tract (ICD- 10) Status post cholecystectomy ?Z90.49 - Acquired absence of other specified parts of digestive tract (ICD- 10) Social History What is your current living situation?: I presently have a place to live Problems where you live: no known problems Problems where you live details: N/A In the past 12 months, utilities in danger of being shut off: no In past 12 months, lack of transportation kept you from medical appts, meetings, work, or getting things needed for daily living: no In the past 12 mos, have been you worried that your food would run out before you had money to buy more?: never true In the past 12 mos, the food you bought just didn't last and you didn't have money to buy more?: never true Highest level of school completed/degree received: Bachelor's degree Smoking Status: Former smoker Do you use any of these nicotine containing products: None Second hand tobacco smoke exposure: No How often do you have a drink containing alcohol: never How often do you have six or more drinks on one occasion: Never AUDIT-C Alcohol total score: 0 Non-prescribed substance use: denies use Caffeine: No How often does anyone, including family, friends and others, physically hurt you : never How often does anyone, including family, friends and others, insult or talk down to you: never How often does anyone, including family, friends and others, threaten you with harm: never How often does anyone, including family, friends and others, scream or curse at you: never service: No Meds Home Medications and Allergies Home Medications Medication Instructions Recorded Confirmed Type amlodipine 2.5 mg tablet 2.5 mg PO DAILY 09/10/23 01/29/24 History aspirin 81 mg chewable tablet 81 mg PO DAILY 09/10/23 01/29/24 History (Aspirin Childrens) atenolol 50 mg tablet 50 mg PO BID 09/10/23 01/29/24 History calcium carbonate 500 mg-vitamin 1 tab PO DAILY 09/10/23 01/29/24 History D3 10 mcg (400 unit) tablet (Calcium 500 + D) cholecalciferol (vitamin D3) 25 2,000 unit PO DAILY 09/10/23 01/29/24 History mcg (1,000 unit) tablet furosemide 20 mg tablet 20 mg PO DAILY 09/10/23 01/29/24 History lorazepam 0.5 mg tablet 0.5 mg PO Q6H PRN 09/10/23 01/29/24 History pantoprazole 20 mg tablet,delayed 20 mg PO DAILY 09/10/23 01/29/24 History release simvastatin 10 mg tablet 10 mg PO HS 09/10/23 01/29/24 History famotidine 20 mg tablet 20 mg PO BID 01/29/24 01/29/24 History sertraline 50 mg tablet 50 mg PO QAM 01/29/24 01/29/24 History Allergies Allergy/AdvReac Type Severity Reaction Status Date / Time No Known Drug Allergies Allergy Verified 01/28/24 17:22 Exam Narrative: Exam Narrative: General appearance: Alert, cooperative, and in no distress Pulmonary: Chest symmetric, lungs clear bilaterally Cardiovascular Heart: Regular rate and rhythm, S1, S2, Crescendo decrescendo murmur is heard Gastrointestinal Abdominal: soft, not distended, The left-sided colostomy with ostomy ciara liance over the colostomy. There is yellow pasty stool in the bag and patient emptied the stool today. Intra-abdominal organs are palpable in the midline but I am unable to define the fascial edges of her hernia. The abdominal bulge just medial to the colostomy is not reducible. Skin: Normal skin color, texture, and turgor. No rashes or lesions. Psychiatric: Alert, cooperative, normal affect. Const: Vital Signs, click to edit/add: Vital Signs - 24 hr 01/28/24 17:20 01/29/24 00:28 01/29/24 00:30 Temperature 97 F L 98.3 F 98.3 F Pulse Rate [Pulse Oximeter] 72 Pulse Rate [Right Pulse Oximeter] 73 80 Respiratory Rate 20 16 16 Blood Pressure [Ri ght Arm] 187/75 H Blood Pressure [Ri ght Upper Arm] 147/83 H 180/78 H Pulse Oximetry 95 97 94 Oxygen Delivery Me thod Room Air Room Air Room Air 01/29/24 00:30 01/29/24 07:42 Temperature 98.1 F Pulse Rate [Pulse Oximeter] 71 Pulse Rate [Right Pulse Oximeter] Respiratory Rate 16 16 Blood Pressure [Ri ght Arm] 138/85 Blood Pressure [Ri ght Upper Arm] Pulse Oximetry 94 93 Oxygen Delivery Me thod Room Air Room Air Results Labs Labs: Abnormal lab results 01/28/24 01/29/24 Range/Units 21:14 09:26 WBC 11.31 H (4.50-11.00) K/uL RBC 3.81 L 3.43 L (4.00-5.20) m/uL Hgb 11.5 L 10.2 L (12.0-16.0) gm/dL Hct 31.8 L (33.0-51.0) % Neut % (Auto) 78.1 H 77.3 H (42.0-72.0) % Lymph % (Auto) 10.3 L 10.9 L (20-44) % Neut # (Auto) 8.80 H (1.7-7.0) K/uL [place] # (Auto) 1.20 H (0.00-0.90) K/UL Potassium 3.0 L 3.5 L (3.6-5.1) mmol/L Carbon Dioxide 17 L (20-32) mmol/L AST 36 H (12-35) U/L Diabetes panel 01/28/24 01/29/24 Range/Units 21:14 09:26 Sodium 139 139 (135-149) mmol/L Potassium 3.0 L 3.5 L (3.6-5.1) mmol/L Chloride 109 109 (96-114) mmol/L Carbon Dioxide 17 L 23 (20-32) mmol/L BUN 10 11 (7-30) mg/dL Creatinine 0.8 0.7 (0.5-1.5) mg/dL Glucose 105 96 (60-115) mg/dL Calcium 9.3 8.4 (8.4-10.6) mg/dL AST 36 H (12-35) U/L ALT 21 (4-35) U/L Alkaline Phosphatase 88 (40-150) U/L Total Protein 7.5 (6.0-8.3) g/dL Albumin 4.2 (3.3-5.0) g/dL Calcium panel 01/28/24 01/29/24 Range/Units 21:14 09:26 Calcium 9.3 8.4 (8.4-10.6) mg/dL Albumin 4.2 (3.3-5.0) g/dL Pituitary panel 01/28/24 01/29/24 Range/Units 21:14 09:26 Sodium 139 139 (135-149) mmol/L Potassium 3.0 L 3.5 L (3.6-5.1) mmol/L Chloride 109 109 (96-114) mmol/L Carbon Dioxide 17 L 23 (20-32) mmol/L BUN 10 11 (7-30) mg/dL Creatinine 0.8 0.7 (0.5-1.5) mg/dL Glucose 105 96 (60-115) mg/dL Calcium 9.3 8.4 (8.4-10.6) mg/dL Adrenal panel 01/28/24 01/29/24 Range/Units 21:14 09:26 Sodium 139 139 (135-149) mmol/L Potassium 3.0 L 3.5 L (3.6-5.1) mmol/L Chloride 109 109 (96-114) mmol/L Carbon Dioxide 17 L 23 (20-32) mmol/L BUN 10 11 (7-30) mg/dL Creatinine 0.8 0.7 (0.5-1.5) mg/dL Glucose 105 96 (60-115) mg/dL Calcium 9.3 8.4 (8.4-10.6) mg/dL Total Bilirubin 0.8 (0.1-1.5) mg/dL AST 36 H (12-35) U/L ALT 21 (4-35) U/L Alkaline Phosphatase 88 (40-150) U/L Total Protein 7.5 (6.0-8.3) g/dL Albumin 4.2 (3.3-5.0) g/dL All other labs normal. Progress Note:A&P Assessment and plan (1) SBO (small bowel obstruction): Status: Acute Plan 83-year-old female presents with recurrent small-bowel obstruction most likely due to a large non reducible ventral hernia. I discussed with the patient her CT findings. Patient's abdominal CT shows a large ventral hernia with loss of abdominal domain. I can see that ventral hernia repair in this patient would be extremely difficult. patient also had a largely dilated stomach. In the winter when she was hospitalized her EGD showed retained food despite of being NPO. I wonder if she patient has gastroparesis or delayed gastric emptying that contributes to her vomiting. I would recommend to continue NG tube for at least 1 more day. Patient is improving and denies abdominal pain currently. If she continues to do well, we can advance her to clear liquid diet. I would consider treating her with Reglan when the diet is started to see if that improves her symptoms.
--- NOTE | 2024-01-29 14:06 | PC.NURSE ---
Pt alert and oriented. Pt up with SBA and walking stick. Pt had no complaints of pain or N/V. Pt?s NG at 54; Pt had a good amount of output throughout the shift (800). Pt?s daughter at bedside. Pt up to the chair and went for a walk in hallway.? ?
--- NOTE | 2024-01-29 14:32 | PC.NURSE ---
Per PT when Pt has her NG clamped to go to the bathroom she should walk the hallway with nursing staff.
[2024-01-29] MEDS: METOPROLOL TARTRATE 1 MG/ML inj 5 MG IVP (17:43)
--- NOTE | 2024-01-29 23:26 | PC.NURSE ---
End of Shift: Patient pleasant and cooperative. Afebrile. Denies pain. NG to LIS with yellow drainage. Denies nausea. Small amount of stool in ostomy. Up to bathroom and chair with SBA and walking stick. Walked in hallway x2 this shift. BP elevated, updated MD.
[2024-01-30] VITALS (8 sets, daily range): BP systolic 160–210; BP diastolic 62–81; PULSE 73–82; RESP 16–18; TEMP 36.4–37.3; O2SAT 92–95
[2024-01-30] MEDS: METOPROLOL TARTRATE 1 MG/ML inj 5 MG IVP ×3 (03:30→22:42)
[2024-01-30 06:25] LABS: Hematocrit 30.2 % (33.0-51.0); Hemoglobin* 9.6 gm/dL (12.0-16.0); Mean Corpuscular HGB Conc 32 gm/dL (32-36); Mean Corpuscular Hemoglobin 30 pg (26-34); Mean Corpuscular Volume 95 fL (80-100); Platelet Count* 190 K/uL (140-440); Red Blood Count 3.18 m/uL (4.00-5.20); White Blood Count* 7.45 K/uL (4.50-11.00)
[2024-01-30 06:31] LABS: Chloride* 111 mmol/L (96-114)
[2024-01-30 06:32] LABS: Potassium* 3.2 mmol/L (3.6-5.1); Sodium* 140 mmol/L (135-149)
[2024-01-30 06:33] LABS: Slide Review Reflex No
[2024-01-30 06:34] LABS: Creatinine* 0.7 mg/dL (0.5-1.5); Est. Creatinine Clearance* 43.25; Estimated Glomerular Filt Rate 86 ml/min
[2024-01-30 06:35] LABS: Anion Gap 7 mEq/L (7-15); Blood Urea Nitrogen* 13 mg/dL (7-30); Carbon Dioxide* 22 mmol/L (20-32); Glucose* 72 mg/dL (60-115)
--- NOTE | 2024-01-30 07:01 | PC.NURSE ---
Pt is alert and oriented x3. Afebrile. Pt denies pain, chest pain, SOB, N/V. Pt?s NG tube is at ?54? cm in right nare and is patent and draining. Pt had 110?ml output from NG overnight. Pt?s Ostomy bag is CDI, patent and draining, with small amount of output overnight. Pt is tolerating a NPO diet.?
[2024-01-30] MEDS: 0.9 % SODIUM CHLORIDE 1000 ml 1,000 ML 100 ML IV ×2 (07:23→22:43)
[2024-01-30] MEDS: SODIUM CHLORIDE 0.9 % (FLUSH) 10 ML SYRINGE 5 ML IVF ×2 (08:42→22:43)
[2024-01-30] MEDS: PANTOPRAZOLE SODIUM 40 MG INJ IVP (08:42)
--- NOTE | 2024-01-30 10:49 | PM.GSPN ---
Subjective Subjective Date Seen: 01/30/24 Interval history: patient is doing well. She denies abdominal pain. She had some stool in her ostomy appliance. She denies nausea vomiting. Her WBC remains normal. patient ambulated several times. NG tube had over 1200 mL yesterday, Significantly less output since midnight. Exam Narrative: Exam Narrative: Abdomen is soft, not distended, not tender to palpation, the small bowel loops are palpable through the skin due to patient's thin habitus, ostomy bag with no liquid stool currently in the bag. Const: Vital Signs, click to edit/add: Vital Signs - 24 hr 01/29/24 11:49 01/29/24 15:00 01/29/24 15:00 Temperature 97.9 F 97.2 F L Pulse Rate [Pulse Oximeter] 70 70 70 Respiratory Rate 16 18 18 Blood Pressure [Ri ght Arm] 157/78 H 172/76 H Pulse Oximetry 94 93 Oxygen Delivery Me thod Room Air Room Air 01/29/24 19:00 01/29/24 23:45 01/30/24 03:25 Temperature 97.5 F L 98.0 F 97.5 F L Pulse Rate [Pulse Oximeter] 69 70 73 Respiratory Rate 16 16 16 Blood Pressure [Ri ght Arm] 161/61 H 154/79 H 165/62 H Pulse Oximetry 94 92 92 Oxygen Delivery Me thod Room Air Room Air Room Air 01/30/24 08:00 01/30/24 08:00 01/30/24 09:30 Temperature 99.1 F Pulse Rate [Pulse Oximeter] 74 74 76 Respiratory Rate 16 16 16 Blood Pressure [Ri ght Arm] 201/81 H 177/63 H Pulse Oximetry 94 95 Oxygen Delivery Me thod Room Air Room Air Progress Note:A&P Assessment and plan (1) SBO (small bowel obstruction): Status: Acute Plan 83-year-old female admitted to the hospital with small-bowel obstruction currently treated with conservative therapy. patient is stable and has no abdominal pain. Her WBC remains normal. It would be reasonable to clamp her NG tube and advance her to sips of clears. I discussed with the patient that she should advance slow. We can also do a trial of Scheduled Raglan for suspected gastroparesis.
--- NOTE | 2024-01-30 11:23 | PM.IMPN1 ---
Progress Note: A&P Assessment and plan (1) SBO (small bowel obstruction): Problem details: - Recurrent SBO; admission CT reveals obstruction likely 2/2 ventral hernia, unchanged - NG placed 01/28, output decreasing - start clamping for po medications (restarting home meds), clear diet 01/29, add Reglan AC - appreciate input from General Surgery Status: Acute (2) Hypokalemia: Problem details: - replace and follow Status: Acute Plan - per above (starting clears, clamp NG for medications, slowly advance diet) - Lovenox for ppx Subjective Date Seen: 01/30/24 Interval history: Lillie is feeling better today. Her NG input is decreasing and she's having more output from her ostomy. Abdomen is softer and less uncomfortable, and she's hoping to start clears today. No other concerns for hospitalist team. Exam Narrative: Exam Narrative: GEN: Alert and oriented, nontoxic HEENT: Normal external ears, EOMIs bilaterally, no scleral icterus CV: RRR, soft systolic murmur heard best at LSB, no concerning features R: LCTA bilaterally without concerning wheezing Ab: hypoactive bowel sounds throughout, tolerates light palpation, no concerning findings around ostomy Ext: LLE with no edema, + distal pulses, RLE is wrapped for chronic lymphedema Skin: No concerning skin lesions or rashes on exposed skin Neuro: No focal deficits, no resting tremor Psych: Appropriate Const: Vital Signs, click to edit/add: Vital Signs - 24 hr 01/29/24 11:49 01/29/24 15:00 01/29/24 15:00 Temperature 97.9 F 97.2 F L Pulse Rate [Pulse Oximeter] 70 70 70 Respiratory Rate 16 18 18 Blood Pressure [Ri ght Arm] 157/78 H 172/76 H Pulse Oximetry 94 93 Oxygen Delivery Me thod Room Air Room Air 01/29/24 19:00 01/29/24 23:45 01/30/24 03:25 Temperature 97.5 F L 98.0 F 97.5 F L Pulse Rate [Pulse Oximeter] 69 70 73 Respiratory Rate 16 16 16 Blood Pressure [Ri ght Arm] 161/61 H 154/79 H 165/62 H Pulse Oximetry 94 92 92 Oxygen Delivery Me thod Room Air Room Air Room Air 01/30/24 08:00 01/30/24 08:00 01/30/24 09:30 Temperature 99.1 F Pulse Rate [Pulse Oximeter] 74 74 76 Respiratory Rate 16 16 16 Blood Pressure [[facility] Arm] 201/81 H 177/63 H Pulse Oximetry 94 95 Oxygen Delivery Me thod Room Air Room Air 01/30/24 11:15 Temperature 98.5 F Pulse Rate [Pulse Oximeter] 74 Respiratory Rate 16 Blood Pressure [[facility] Arm] 184/67 H Pulse Oximetry 94 Oxygen Delivery Mi thod Room Air Labs Labs: Laboratory Results - last 24 hr 01/30/24 05:44 WBC 7.45 RBC 3.18 L Hgb 9.6 L Hct 30.2 L MCV 95 MCH 30 MCHC 32 Plt Count 190 Sodium 140 Potassium 3.2 L Chloride 111 Carbon Dioxide 22 Anion Gap 7 BUN 13 Creatinine 0.7 Estimated Creat Clear 43.25 Estimated GFR 86 Glucose 72 Calcium 8.0 L
[2024-01-30] MEDS: POTASSIUM CHLORIDE 10 MEQ, LIDOCAINE 1 % 1 ML in 0.9 % SODIUM CHLORIDE 100 ml 100 ML 106 MEQ IVPB ×3 (11:46→14:41)
[2024-01-30] MEDS: METOCLOPRAMIDE 10 MG TABLET PO ×2 (11:46→17:13)
--- NOTE | 2024-01-30 15:00 | PC.NURSE ---
end of shift. Pt is alert x3. she is very pleasant Pt denies pain,NG is to LIS she had 200 out 600-800. NG tube 54 cm in right nare and is patent and draining. . Pt?s has a Ostomy bag patent she takes care of it her self. shge was advanced to a regular diet. we can clamp NG after po meds. gave iv metoprolol for BP. she is up with SBA. she is very kind and Very pleasant.
--- NOTE | 2024-01-30 18:24 | PC.NURSE ---
[End of Shift Nursing Note]: Patient A&Ox3 this shift. Patient pleasant and cooperative with cares. Patient independently changed own ostomy bag today (routine change) and manages ostomy independently. Patient tolerating clear liquid diet. NG to low intermittent suction (clamped 45 minutes after medications). Patient's blood pressure slightly elevated (160s/60s), but improved compared to previous readings. Patient asymptomatic. All other vital signs within normal limits; pt maintaining O2 saturations on room air. Patient ambulates independently without assistance. Will continue to implement ongoing plan of care.
[2024-01-30] MEDS: atenoloL 50 MG TABLET PO (19:52)
[2024-01-30] MEDS: SIMVASTATIN 10 MG TABLET PO (19:52)
[2024-01-30] MEDS: ENOXAPARIN 30 MG/0.3ML INJ SUBCUT (19:52)
[2024-01-30] MEDS: FAMOTIDINE 20 MG TABLET PO (20:55)
[2024-01-31] VITALS (8 sets, daily range): BP systolic 185–203; BP diastolic 77–85; PULSE 68–78; RESP 16–18; TEMP 36.7–36.9; O2SAT 90–98
[2024-01-31 06:35] LABS: Basophils Absolute Auto 0.04 K/uL (0.00-0.30); Basophils Percent Auto 0.6 % (0.0-3.0); Hemoglobin* 9.3 gm/dL (12.0-16.0); Immature Granulocytes Abs Auto 0.01 K/uL (0.00-0.30); Immature Granulocytes Pct Auto 0.2 %; Lymphocytes Percent Auto 13.1 % (20-44); Mean Corpuscular HGB Conc 32 gm/dL (32-36); Mean Corpuscular Hemoglobin 30 pg (26-34); Mean Corpuscular Volume 94 fL (80-100); Monocytes Percent Auto 10.9 % (0.0-11.0); Neutrophils Percent Auto 72.2 % (42.0-72.0); Platelet Count* 187 K/uL (140-440); RDW Coefficient of Variation % 13.9 % (11.5-15.5); White Blood Count* 6.63 K/uL (4.50-11.00)
[2024-01-31] MEDS: METOCLOPRAMIDE 10 MG TABLET PO ×3 (06:38→17:10)
[2024-01-31 06:48] LABS: Chloride* 111 mmol/L (96-114); Sodium* 138 mmol/L (135-149)
[2024-01-31] MEDS: METOPROLOL TARTRATE 1 MG/ML inj 5 MG IVP (06:48)
[2024-01-31] MEDS: SODIUM CHLORIDE 0.9 % (FLUSH) 10 ML SYRINGE 5 ML IVF ×2 (06:48→20:30)
[2024-01-31 06:49] LABS: Potassium* 3.1 mmol/L (3.6-5.1)
[2024-01-31 06:51] LABS: Anion Gap 4 mEq/L (7-15); Blood Urea Nitrogen* 8 mg/dL (7-30); Carbon Dioxide* 23 mmol/L (20-32); Creatinine* 0.6 mg/dL (0.5-1.5); Est. Creatinine Clearance* 43.87; Estimated Glomerular Filt Rate 90 ml/min
[2024-01-31 06:52] LABS: Calcium* 7.7 mg/dL (8.4-10.6); Glucose* 88 mg/dL (60-115); Magnesium* 1.8 mg/dL (1.5-2.6)
[2024-01-31 07:09] LABS: Slide Review Reflex No
--- NOTE | 2024-01-31 07:33 | PC.NURSE ---
Pt is alert and oriented x3. Afebrile Pt denies pain, chest pain, SOB, N/V. Pt had high bp updated MD Curry, orders given to give 2100 Atenolol early, pt continued to have high bp, updated MD Curry, PRN order given of Metoprolol IVP with some relief.?Pt?s NG tube is at ?54? cm in right nare and is patent and draining. Pt had 80 ml output from NG overnight. Pt?s Ostomy bag is CDI, with moderate?amount of output overnight. Pt is tolerating a clear liquid diet.?
[2024-01-31] MEDS: AMLODIPINE 5 MG TABLET 2.5 MG PO (08:38)
[2024-01-31] MEDS: SERTRALINE 50 MG TABLET PO (08:39)
[2024-01-31] MEDS: FAMOTIDINE 20 MG TABLET PO ×2 (08:39→20:29)
[2024-01-31] MEDS: OMEPRAZOLE 20 MG CAPSULE DR PO (08:39)
[2024-01-31] MEDS: atenoloL 50 MG TABLET PO ×2 (08:39→20:29)
--- NOTE | 2024-01-31 13:19 | PM.IMPN1 ---
Progress Note: A&P Assessment and plan (1) SBO (small bowel obstruction): Problem details: - Recurrent SBO; admission CT reveals obstruction likely 2/2 ventral hernia, unchanged - NG placed 01/28, output decreasing - start clamping for po medications (restarting home meds), clear liquid diet 01/29, add Lee Ann AC - appreciate input from General Surgery Status: Acute (2) Hypokalemia: Problem details: - replace and follow Status: Acute (3) Hypertension: Problem details: - home amlodipine and atenolol restarted 01/30 - elevated BP, asymptomatic, expect improvement with administration of home medications Status: Acute Plan - continued clamping NG and slowly advancing diet - potential d/c of NG on 01/31 Subjective Date Seen: 01/31/24 Interval history: Lillie continues to feel better each day. NG has been clamped, she is tolerating liquids and pills. No nausea. + output in ostomy. BP has been elevated, we restarted home po medications yesterday. She has no headache, chest pain, or other concerns. Exam Narrative: Exam Narrative: GEN: Alert and oriented, nontoxic HEENT: EOMIs bilaterally, no scleral icterus CV: RRR, No concerning murmurs R: LCTA bilaterally without concerning wheezing, air movement adequate Ab: soft, nontender, nondistended, + stool/air in ostomy Ext: wwp, no concerning edema Skin: No concerning skin lesions or rashes on exposed skin Neuro: Nonfocal Psych: Appropriate Const: Vital Signs, click to edit/add: Vital Signs - 24 hr 01/30/24 15:00 01/30/24 15:00 01/30/24 19:44 Temperature 98.1 F 98.9 F Pulse Rate [Pulse Oximeter] 73 73 82 Respiratory Rate 18 18 16 Blood Pressure [Ri ght Arm] 160/67 H 198/76 H Pulse Oximetry 95 94 Oxygen Delivery Me thod Room Air Room Air 01/30/24 22:00 01/30/24 22:24 01/31/24 02:07 Temperature 98.3 F 98.1 F Pulse Rate [Pulse Oximeter] 77 77 68 Respiratory Rate 16 16 18 Blood Pressure [Ri ght Arm] 210/80 H 185/83 H Pulse Oximetry 93 93 Oxygen Delivery Me thod Room Air Room Air 01/31/24 06:40 01/31/24 08:17 01/31/24 08:19 Temperature 98.3 F Pulse Rate [Pulse Oximeter] 76 68 68 Respiratory Rate 18 18 18 Blood Pressure [Ri ght Arm] 203/85 H 186/77 H Pulse Oximetry 98 92 Oxygen Delivery Me thod Room Air Room Air 01/31/24 11:42 Temperature 98.5 F Pulse Rate [Pulse Oximeter] 69 Respiratory Rate 18 Blood Pressure [Ri t Arm] 195/85 H Pulse Oximetry 93 Oxygen Delivery Me thod Room Air Labs Labs: Laboratory Results - last 24 hr 01/31/24 06:20 WBC 6.63 RBC 3.10 L Hgb 9.3 L Hct 29.0 L MCV 94 MCH 30 MCHC 32 RDW Coeff of Sadia 13.9 Plt Count 187 Neut % (Auto) 72.2 H Lymph % (Auto) 13.1 L [place] % (Auto) 10.9 Eos % (Auto) 3.0 Baso % (Auto) 0.6 Neut # (Auto) 4.80 Lymph # (Auto) 0.90 [place] # (Auto) 0.70 Eos # (Auto) 0.20 Baso # (Auto) 0.04 Abs Immat Gran (auto) 0.01 Imm/Tot Granulo (auto) 0.2 Sodium 138 Potassium 3.1 L Chloride 111 Carbon Dioxide 23 Anion Gap 4 L BUN 8 Creatinine 0.6 Estimated Creat Clear 43.87 Estimated GFR 90 Glucose 88 Calcium 7.7 L Magnesium 1.8
--- NOTE | 2024-01-31 14:53 | PC.NURSE ---
End of shift. Pt is alert x3. she is still VERY very pleasant Pt denies pain, NG has been clamped and no out put. NG tube 54 cm in right nare. . Pt?s has a Ostomy bag patent she takes care of it her self. she is eating, drinking and voiding with no problems. no abd pain. stopped IV BP meds. she is up with SBA.
[2024-01-31] MEDS: ENOXAPARIN 30 MG/0.3ML INJ SUBCUT (20:29)
[2024-01-31] MEDS: SIMVASTATIN 10 MG TABLET PO (20:29)
--- NOTE | 2024-01-31 22:08 | PC.NURSE ---
End of Shift: Patient pleasant and cooperative, A&O. VSS, afebrile. She has an NG tube in place, clamped, and at 54 in the right nare. Tolerating clear liquid diet. Patient is independent in room with her walking stick. She has an ostomy which she does her own cares. Patient was walking in the [place] this shift, tolerating well.
[2024-02-01] VITALS (8 sets, daily range): BP systolic 165–222; BP diastolic 68–92; PULSE 61–68; RESP 12–20; TEMP 36.7–37.2; O2SAT 92–96
[2024-02-01] MEDS: METOCLOPRAMIDE 10 MG TABLET PO ×3 (06:00→17:14)
[2024-02-01 06:23] LABS: Basophils Absolute Auto 0.04 K/uL (0.00-0.30); Basophils Percent Auto 0.6 % (0.0-3.0); Eosinophils Percent Auto 4.4 % (0.0-7.0); Hematocrit 31.4 % (33.0-51.0); Immature Granulocytes Abs Auto 0.01 K/uL (0.00-0.30); Immature Granulocytes Pct Auto 0.1 %; Lymphocytes Percent Auto 15.5 % (20-44); Mean Corpuscular HGB Conc 32 gm/dL (32-36); Mean Corpuscular Hemoglobin 29 pg (26-34); Mean Corpuscular Volume 92 fL (80-100); Monocytes Percent Auto 10.4 % (0.0-11.0); Neutrophils Absolute Auto 4.66 K/uL (1.7-7.0); Platelet Count* 215 K/uL (140-440); RDW Coefficient of Variation % 13.6 % (11.5-15.5); Red Blood Count 3.41 m/uL (4.00-5.20); White Blood Count* 6.76 K/uL (4.50-11.00)
[2024-02-01 06:24] LABS: Slide Review Reflex No
[2024-02-01 06:35] LABS: Chloride* 107 mmol/L (96-114); Potassium* 3.1 mmol/L (3.6-5.1); Sodium* 136 mmol/L (135-149)
[2024-02-01 06:37] LABS: Creatinine* 0.6 mg/dL (0.5-1.5); Est. Creatinine Clearance* 43.79; Estimated Glomerular Filt Rate 90 ml/min
[2024-02-01 06:38] LABS: Anion Gap 2 mEq/L (7-15); Blood Urea Nitrogen* 4 mg/dL (7-30); Calcium* 8.2 mg/dL (8.4-10.6); Carbon Dioxide* 27 mmol/L (20-32); Glucose* 104 mg/dL (60-115); Magnesium* 1.8 mg/dL (1.5-2.6)
--- NOTE | 2024-02-01 06:58 | PC.NURSE ---
Pt is alert and oriented x3. Afebrile Pt denies pain, chest pain, SOB, N/V. Pt had high bp updated ALBERTO Mcnamara, no new orders continuing plan of care.?Pt?s NG tube moved to ?51?cm from ?54? cm in right nare updated MD Watts, orders given to hold off pushing it back in due to possibility of taking out NG tube and update on coming RN. NG has been clamped since 0700 01/31/24, pt is tolerating. Pt?s ostomy bag is CDI. Pt is tolerating a clear liquid diet. Pt is up ind in room and slept intermittently throughout night.
[2024-02-01] MEDS: AMLODIPINE 5 MG TABLET 2.5 MG PO ×2 (09:00→11:57)
[2024-02-01] MEDS: FAMOTIDINE 20 MG TABLET PO ×2 (09:01→21:16)
[2024-02-01] MEDS: atenoloL 50 MG TABLET PO ×2 (09:01→21:16)
[2024-02-01] MEDS: SERTRALINE 50 MG TABLET PO (09:01)
[2024-02-01] MEDS: OMEPRAZOLE 20 MG CAPSULE DR PO (09:01)
[2024-02-01] MEDS: SODIUM CHLORIDE 0.9 % (FLUSH) 10 ML SYRINGE 5 ML IVF ×2 (09:58→21:18)
--- NOTE | 2024-02-01 10:18 | PM.GSPN ---
Subjective Subjective Date Seen: 02/01/24 Interval history: Lillie is doing great. She denies abdominal pain, she had a lot of gas in her ostomy bag. NG tube was clamped for over 24 hours and was removed today. She tolerated clears yesterday. She is ambulating. Exam Narrative: Exam Narrative: Abdomen is soft, not distended, not tender to palpation, ostomy appliance was small amount of stool in the bag. Const: Vital Signs, click to edit/add: Vital Signs - 24 hr 01/31/24 11:42 01/31/24 15:00 01/31/24 15:00 Temperature 98.5 F 98.1 F Pulse Rate [Pulse Oximeter] 69 71 71 Respiratory Rate 18 18 18 Blood Pressure [Ri ght Arm] 195/85 H 191/85 H Pulse Oximetry 93 94 Oxygen Delivery Me thod Room Air Room Air 01/31/24 19:00 01/31/24 23:26 02/01/24 02:24 Temperature 98.2 F 98.3 F 99.0 F Pulse Rate [Pulse Oximeter] 71 78 61 Respiratory Rate 18 16 16 Blood Pressure [Ri ght Arm] 186/83 H 195/83 H 211/82 H Pulse Oximetry 93 90 92 Oxygen Delivery Me thod Room Air Room Air Room Air 02/01/24 03:46 02/01/24 07:00 Temperature 98.5 F Pulse Rate [Pulse Oximeter] 61 66 Respiratory Rate 16 18 Blood Pressure [Ri ght Arm] 205/80 H 210/88 H Pulse Oximetry 93 93 Oxygen Delivery Me thod Progress Note:A&P Assessment and plan (1) SBO (small bowel obstruction): Status: Acute Assessment and Plan: 83-year-old female admitted with small-bowel obstruction that has now resolved with conservative treatment. I discussed with the patient that she can advance her diet slowly as tolerated. No follow-up in surgery clinic as necessary.
--- NOTE | 2024-02-01 11:09 | P.IMPN_ITS ---
Progress Note: A&P Assessment and plan (1) SBO (small bowel obstruction): Problem details: - Recurrent SBO; admission CT reveals obstruction likely 2/2 ventral hernia, unchanged - NG placed 01/28, output decreasing, tolerating clear liquids well NG tube was clamped, will discontinue NG tube this morning. - appreciate input from General Surgery - she remains on t.i.d. scheduled Reglan - advanced diet to fulls. - I have reviewed her medications, stopped IV medications and restarted her u sual oral medications. Status: Acute (2) Hypokalemia: Problem details: - magnesium level is within normal limits, continue to replace potassium, now will replace orally, and follow Status: Acute (3) Hypertension: Problem details: - home amlodipine and atenolol restarted 01/30 - restarting home furosemide to begin 02/01 - elevated BP, asymptomatic, expect improvement with administration of home medications, give extra dose of amlodipine today. Status: Acute (4) Anemia: Problem details: - stable Status: Chronic Subjective Time Seen by Provider: 09:28 Date Seen: 02/01/24 Interval history: Lillie is doing well. She was up, out of bed, making her bed when I walked in. She expressed concern about her elevated BP, noting that it is often this high the f irst few days in the hospital, then it settles down. She denies DEWITT, CP, SOB. LE edema is unchanged from usual. She is wearing compression wraps on her LEs. She denies nausea or vomiting and is tolerating a clear liquid diet. She had lots of stool and gas in her colostomy bag yesterday. As per her usual, she has not had much overnight. Exam Narrative: Exam Narrative: General: No acute distress. Awake, alert, oriented x3. No pallor. No jaundice. Oropharynx: Clear. Mucous membranes moist. NG tube in place. Cardiovascular: Regular rate and rhythm. No murmurs, gallops, or rubs. Respiratory: Clear to auscultation bilaterally. No wheezes or crackles. Abdomen: Colostomy has a small amount of soft brown stool in the bag. She says she last emptied this at 11:00 p.m. last night. Bowel sounds present. Soft, nondistended, nontender. Extremities: 4+ edema of the right lower extremity, 2+ pitting edema of the left lower extremity. Const: Vital Signs, click to edit/add: Vital Signs - 24 hr 01/31/24 11:42 01/31/24 15:00 01/31/24 15:00 Temperature 98.5 F 98.1 F Pulse Rate [Pulse Oximeter] 69 71 71 Respiratory Rate 18 18 18 Blood Pressure [Ri ght Arm] 195/85 H 191/85 H Pulse Oximetry 93 94 Oxygen Delivery Me thod Room Air Room Air 01/31/24 19:00 01/31/24 23:26 02/01/24 02:24 Temperature 98.2 F 98.3 F 99.0 F Pulse Rate [Pulse Oximeter] 71 78 61 Respiratory Rate 18 16 16 Blood Pressure [Ri ght Arm] 186/83 H 195/83 H 211/82 H Pulse Oximetry 93 90 92 Oxygen Delivery Me thod Room Air Room Air Room Air 02/01/24 03:46 02/01/24 07:00 Temperature 98.5 F Pulse Rate [Pulse Oximeter] 61 66 Respiratory Rate 16 18 Blood Pressure [Ri ght Arm] 205/80 H 210/88 H Pulse Oximetry 93 93 Oxygen Delivery Me thod Labs Labs: Laboratory Results - last 24 hr 02/01/24 06:08 WBC 6.76 RBC 3.41 L Hgb 10.0 L Hct 31.4 L MCV 92 MCH 29 MCHC 32 RDW Coeff of Sadia 13.6 Plt Count 215 Neut % (Auto) 69.0 Lymph % (Auto) 15.5 L [place] % (Auto) 10.4 Eos % (Auto) 4.4 Baso % (Auto) 0.6 Neut # (Auto) 4.66 Lymph # (Auto) 1.00 [place] # (Auto) 0.70 Eos # (Auto) 0.30 Baso # (Auto) 0.04 Abs Immat Gran (auto) 0.01 Imm/Tot Granulo (auto) 0.1 Sodium 136 Potassium 3.1 L Chloride 107 Carbon Dioxide 27 Anion Gap 2 L BUN 4 L Creatinine 0.6 Estimated Creat Clear 43.79 Estimated GFR 90 Glucose 104 Calcium 8.2 L Magnesium 1.8
[2024-02-01] MEDS: POTASSIUM BICARB 25 MEQ EFFERVESCENT TAB PO ×3 (11:58→18:40)
--- NOTE | 2024-02-01 18:57 | PC.NURSE ---
Patient stable, alert and oriented. Dx of HTN with blood pressures in 200's/90's. Transitioned to a full liquid diet and is tolerating it well. Ambulates with walking stick, SBA. Left arm restriction for blood pressures. Colostomy bag is intact and is passing normal stools. Family visiting off and on throughout shift.
[2024-02-01] MEDS: ENOXAPARIN 30 MG/0.3ML INJ SUBCUT (21:16)
[2024-02-01] MEDS: SIMVASTATIN 10 MG TABLET PO (21:17)
[2024-02-02 01:27] LABS: Chloride* 103 mmol/L (96-114); Sodium* 136 mmol/L (135-149)
[2024-02-02 01:28] LABS: Potassium* 3.7 mmol/L (3.6-5.1)
[2024-02-02 01:30] LABS: Anion Gap 4 mEq/L (7-15); Carbon Dioxide* 29 mmol/L (20-32); Creatinine* 0.6 mg/dL (0.5-1.5); Est. Creatinine Clearance* 43.79; Estimated Glomerular Filt Rate 90 ml/min
[2024-02-02 01:31] LABS: Blood Urea Nitrogen* 4 mg/dL (7-30); Calcium* 8.1 mg/dL (8.4-10.6); Glucose* 104 mg/dL (60-115)
[2024-02-02 03:00] VITALS: BP 178/74; PULSE 57; RESP 18; TEMP 36.8; O2SAT 95
--- NOTE | 2024-02-02 05:56 | PC.NURSE ---
End of shift [id number]: Pleasant and cooperative with cares. Denies any pain, nausea or vomiting this shift. Continues to tolerate full liquid diet. Bowel sounds active x 4 quadrants. Alert and oriented x 4. Independent with ambulation.
[2024-02-02] MEDS: METOCLOPRAMIDE 10 MG TABLET PO ×2 (06:14→11:41)
[2024-02-02 07:00] VITALS: BP 173/73; PULSE 64; RESP 14; RESP 18; TEMP 36.8; O2SAT 95
[2024-02-02 07:42] LABS: Hematocrit 29.7 % (33.0-51.0); Hemoglobin* 9.5 gm/dL (12.0-16.0); Mean Corpuscular HGB Conc 32 gm/dL (32-36); Mean Corpuscular Hemoglobin 30 pg (26-34); Mean Corpuscular Volume 93 fL (80-100); Platelet Count* 197 K/uL (140-440); Red Blood Count 3.19 m/uL (4.00-5.20); Slide Review Reflex No; White Blood Count* 4.65 K/uL (4.50-11.00)
[2024-02-02] MEDS: ASPIRIN 81 MG TAB.CHEW PO (09:14)
[2024-02-02] MEDS: SERTRALINE 50 MG TABLET PO (09:15)
[2024-02-02] MEDS: AMLODIPINE 5 MG TABLET 2.5 MG PO (09:15)
[2024-02-02] MEDS: FUROSEMIDE 20 MG TABLET PO (09:16)
[2024-02-02] MEDS: FAMOTIDINE 20 MG TABLET PO (09:16)
[2024-02-02] MEDS: atenoloL 50 MG TABLET PO (09:16)
[2024-02-02] MEDS: OMEPRAZOLE 20 MG CAPSULE DR PO (09:17)
[2024-02-02] MEDS: SODIUM CHLORIDE 0.9 % (FLUSH) 10 ML SYRINGE 5 ML IVF (09:24)
[2024-02-02 11:00] VITALS: BP 164/76; PULSE 61; RESP 24; TEMP 37.2; O2SAT 95
--- NOTE | 2024-02-02 14:55 | P.DS_ITS ---
DS: Providers Provider Time Seen by Provider: 14:15 Date Seen: 02/02/24 Date of admission: 01/29/24 09:21 Primary care physician: GIANNA RICHARDSON DO Admitting Clinician: Filipe Flanagan MD Consults: 01/29/24 02:56 Consult to Physician [CONS] Routine Comment: Consulting Provider: General Surgery, [facility] Has provider been notified: Yes 01/29/24 09:56 Consult to Physical Therapy [CONS] Routine Comment: Reason(s) for PT Consult:: Evaluate and Treat Any Restrictions?:: No Restrictions Attending Physician on discharge: Constance Maldonado MD Date of Discharge: 02/02/24 DS: Diagnosis Discharge Diagnosis (1) SBO (small bowel obstruction): Status: Acute Problem details: - Recurrent SBO; admission CT reveals obstruction likely 2/2 ventral hernia, unchanged - NG placed 01/28, output decreasing, tolerating clear liquids well NG tube was clamped, NG discontinued 01/31. - tolerating regular diet and her usual oral meds (2) Anemia: Status: Chronic Problem details: - stable (3) Hypokalemia: Status: Resolved Problem details: - magnesium level is within normal limits, potassium was replaced via IV and PO. (4) Peripheral edema: Status: Chronic Problem details: Compression wraps, elevation Takes furosemide prn at home for LE edema (5) Hypertension: Status: Chronic Problem details: - home amlodipine and atenolol restarted 01/30, extra 2.5 mg po amlodipine give 01/31. 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 (7) Hyperlipidemia: Status: Chronic (8) Abdominal hernia: Status: Chronic Problem details: Ventral, chronic, nonsurgical. Followed by [place]. Monitor Patient knows how to massage this when needed DS: Summary Hospital Course Hospital Course: This is an 83-year-old female with history of ventral hernia, endometrial cancer, and partial colectomy with colostomy who presented you the emergency room with nausea, vomiting, and abdominal discomfort. CT scan in the emergency department showed a small-bowel obstruction likely secondary to ventral hernia. An NG-tube was placed to low intermittent suction and she had 2 L out of the NG tube overnight. Her ostomy had improved output as well. The case was discussed with Dr. Laboy from General surgery. NG tube is clamped on 01/29 and a clear liquid diet was started. Scheduled Reglan was also added at that time. She did well and was able to advance her diet to regular over the next few days. NG tube came out 01/31. She is tolerating a regular diet and is discharged home in improved and stable condition. Please see diagnoses above for further details. Time Spent with Patient Time attestation: Total time spent providing and/or coordinating discharge services: Exam Narrative: Exam Narrative: General: No acute distress. Dressed in street clothes, moving about the room. Awake, alert, oriented. No pallor. No jaundice. Cardiovascular: Regular rate and rhythm. No murmurs, gallops, or rubs. Respiratory: Clear to auscultation bilaterally. No wheezes or crackles. Abdomen: Colostomy has air and soft brown stool in the bag. Bowel sounds present. Soft, nondistended, nontender. Extremities: 3+ edema of the right lower extremity, 2+ pitting edema of the left lower extremity. Const: Vital Signs, click to edit/add: Vital Signs - 24 hr 02/01/24 15:00 02/01/24 15:00 02/01/24 15:00 Temperature 98.0 F Pulse Rate [Pulse Oximeter] 64 68 Respiratory Rate 12 18 Blood Pressure [Ri ght Arm] 180/87 H Pulse Oximetry 96 Oxygen Delivery Me thod Room Air 02/01/24 19:50 02/01/24 22:07 02/01/24 23:00 Temperature 98.5 F 98.4 F Pulse Rate [Pulse Oximeter] 63 61 61 Respiratory Rate 20 20 20 Blood Pressure [Ri ght Arm] 165/69 H 174/68 H Pulse Oximetry 95 92 Oxygen Delivery Me thod Room Air Room Air 02/02/24 03:00 02/02/24 07:00 02/02/24 07:00 Temperature 98.3 F 98.3 F Pulse Rate [Pulse Oximeter] 57 L 64 64 Respiratory Rate 18 18 14 Blood Pressure [Ri ght Arm] 178/74 H 173/73 H Pulse Oximetry 95 95 Oxygen Delivery Me thod Room Air Room Air 02/02/24 11:00 Temperature 98.9 F Pulse Rate [Pulse Oximeter] 61 Respiratory Rate 24 Blood Pressure [Ri ght Arm] 164/76 H Pulse Oximetry 95 Oxygen Delivery Me thod DS: Data Data Completed and Pending Completed studies during hospitalization: Study: CT-Abdomen/Pelvis W/IV-01/28/2024 10:06:32 PM Ordering Physician: MAYA Final Report: INDICATION: Abdominal pain and vomiting. TECHNIQUE: CT abdomen and pelvis acquired without and with 64 cc Isovue 370 IV contrast. COMPARISON: September 13, 2023. FINDINGS: Small bowel obstruction is present and likely secondary to a ventral hernia. This is similar in appearance compared to the prior exam. The liver is normal in size, shape and attenuation. Post cholecystectomy. The spleen, adrenal glands and pancreas are within normal limits. The kidneys are unremarkable. Pelvic organs are unremarkable. No lymphadenopathy evident. No free air or significant free fluid. The lung bases are clear. IMPRESSION: Small bowel obstruction is likely secondary to a ventral hernia. This is similar in appearance compared to the prior exam from 4 months ago. No new abnormalities. Please note that all CT scans at this facility use dose modulation, iterative reconstruction, and/or weight-based dosing when appropriate to reduce radiation dose to as low as reasonably achievable. Dictated by Clark Lao MD @ 01/28/2024 11:28:19 PM Signed by: Clark Lao MD @01/28/2024 11:28:19 PM (Electronic Signature) Study: XRay-Abdomen NG TUBE PLACEMENT-01/29/2024 4:11:23 AM Ordering Physician: SAPNA Final Report: Indication: NG tube placement Technique: Abdomen 2 views, 2 attempts. Comparison: No same day CT abdomen and pelvis. Findings: First attempt shows the enteric tube coiled within the distal esophagus. Second attempt shows the enteric tube and side hole projecting over the mid gastric body with the gastric lumen again severely distended. Contrast within the renal collecting system and bladder with indentation of the bladder dome. Degenerate changes of the spine with S-shaped curvature. Impression: Second attempt shows the enteric tube and side hole projecting over the mid gastric body with the gastric lumen again severely distended. Dictated by Daryn Garcia MD @ 01/29/2024 4:15:41 AM Signed by: Daryn Garcia MD @01/29/2024 4:15:41 AM (Electronic Signature) Labs on day of discharge: Labs from last 24 hours 05/25/24 05/25/24 05:18 01:00 WBC 4.65 RBC 3.19 L Hgb 9.5 L Hct 29.7 L MCV 93 MCH 30 MCHC 32 Plt Count 197 Sodium 136 Potassium 3.7 Chloride 103 Carbon Dioxide 29 Anion Gap 4 L BUN 4 L Creatinine 0.6 Estimated Creat Clear 43.79 Estimated GFR 90 Glucose 104 Calcium 8.1 L Discharge Plan Discharge Disposition: Home, Self-Care Date of Admission: 01/29/24 09:21 Attending Provider on Discharge: Constance Maldonado Consulting Providers: Tami Walker; Louie Laboy; Nicole Tran Primary Care Provider: GIANNA RICHARDSON Condition: Improved Anticipated Discharge Date/Time: 02/02/24 14:59 Discharge Medications: Continued simvastatin 10 mg tablet 10 mg PO HS amlodipine 2.5 mg tablet 2.5 mg PO DAILY Hold Instructions: Resume on 09/24/23. Hold until seen by PCP pantoprazole 20 mg tablet,delayed release (DR/EC) 20 mg PO DAILY atenolol 50 mg tablet 50 mg PO BID Hold Instructions: Resume on 09/24/23. Hold until seen by PCP Patient Comments: PT SAYS NOW BID lorazepam 0.5 mg tablet 0.5 mg PO Q6H PRN aspirin [Aspirin Childrens] 81 mg tablet,chewable 81 mg PO DAILY cholecalciferol (vitamin D3) 25 mcg (1,000 unit) tablet 2,000 unit PO DAILY calcium carbonate-vitamin D3 [Calcium 500 + D] 500 mg-10 mcg (400 unit) tablet 1 tab PO DAILY famotidine 20 mg tablet 20 mg PO BID sertraline 50 mg tablet 50 mg PO QAM furosemide 20 mg tablet 20 mg PO DAILY Qty: 30 0RF Discharge Orders: Discharge Order (Routine); Ordered 02/02/24 Ordered By: Constance Maldonado Patient Education: Bowel Obstruction (DC) Activity Level: No Restrictions Discharge Diet: Regular Follow Up Appointments: GIANNA RICHARDSON DO [Primary Care Provider] - Forms: [facility] Info Instructions
--- NOTE | 2024-02-02 16:02 | PC.NURSE ---
Discharge: Patient VSS. Alert and oriented. Ambulates independently with a walking stick. Patient tolerated a regular diet well. Discharged at 1540 via wheelchair to home. Discharge instructions given per RN and signed by patient.
== END 2024-02-02 15:40 | disposition home or self-care (01) | DRG 394 ==
LOC: ED 01-29 00:35 → MEDSURG 01-29 00:38
PROVIDERS: Family Medicine; Admitting Provider Physician Assistant; Emergency Provider Emergency Medicine; PCP Student in an Organized Health Care Education/Training Program; Visit Provider Emergency Medicine
DX: K43.6 Other and unspecified ventral hernia with obstruction, without gangrene (principal); K55.1 Chronic vascular disorders of intestine; R60.0 Localized edema; E87.6 Hypokalemia; D64.9 Anemia, unspecified; K76.0 Fatty (change of) liver, not elsewhere classified; I73.9 Peripheral vascular disease, unspecified; Z85.42 Personal history of malignant neoplasm of other parts of uterus; Z93.3 Colostomy status; K21.9 Gastro-esophageal reflux disease without esophagitis; I10 Essential (primary) hypertension; E78.5 Hyperlipidemia, unspecified
CPT/HCPCS: 36415; 74018; 74177; 80048; 80053; 83605; 83690; 83735; 85025; 85027; 97116; 97161; 99284; 99285; A9270; C9113; G0378; J1650; J2405; J3475; J3480; J7030; J7120; Q9967

== ENCOUNTER 2024-05-05 13:30 | Outpatient (RCR) | payer MEDICARE, BC, SELFPAY | END 2024-09-02 23:59 | disposition home or self-care (01) | PROVIDERS: PCP Student in an Organized Health Care Education/Training Program; Visit Provider Student in an Organized Health Care Education/Training Program | DX: I89.0 Lymphedema, not elsewhere classified (principal); Z51.89 Encounter for other specified aftercare | CPT/HCPCS: 97140; 97165; 97535 ==

== ENCOUNTER 2024-05-10 11:17 | Inpatient (IN) | payer MEDICARE, BC, SELFPAY ==
[2024-05-10] VITALS (7 sets, daily range): BP systolic 135–151; BP diastolic 60–78; PULSE 71–78; RESP 16–18; TEMP 36.8–37.1; O2SAT 94–97; BMI 27.3; BMI 24.5
--- NOTE | 2024-05-10 11:40 | ED_ITS ---
HPI - General Adult General Chief complaint: Abdominal Pain Stated complaint: painful abdomin and can't fluids / food Time Seen by Provider: 05/10/24 11:25 History of Present Illness HPI narrative: c/o of indigestion off and on x one month. feels bloated . no vomiting or diarrhea. 84-year-old woman presenting to the emergency department with concern of abdominal bloating and discomfort there has been going on at least a month probably longer as she recalls. Was recommended for an antacid she says, tablet of some sort [id number] but does not seem to be making a difference. Otherwise with a history of small-bowel obstruction and status post some degree of colectomy with residual colostomy. No change in output here. Notes that with essentially any ingestion, solid or liquid, has increasing pain and bloating. Not really burning. She describes discomfort in her ?solar plexus?. Last night was just much worse and longer lasting than usual. Is not feeling nauseated. No fever. Is managing a little bit of water intake this morning. Notes that the bloating she has tends to relieve a little bit historically with large belch. A couple of weeks ago did bring some soup directly back up into her throat. At this point is worried that the escalating symptoms starting last night heart indication of worsening and does not want to get as bad as got last time. Later revealing history of radiation in the setting of uterine cancer. Related Data Home Medications ?Medication ?Instructions ?Recorded ?Confirmed amlodipine 2.5 mg tablet 2.5 mg PO DAILY 09/10/23 01/29/24 aspirin 81 mg chewable tablet 81 mg PO DAILY 09/10/23 01/29/24 (Aspirin Childrens) atenolol 50 mg tablet 50 mg PO BID 09/10/23 01/29/24 calcium carbonate 500 mg-vitamin 1 tab PO DAILY 09/10/23 01/29/24 D3 10 mcg (400 unit) tablet (Calcium 500 + D) cholecalciferol (vitamin D3) 25 2,000 unit PO DAILY 09/10/23 01/29/24 mcg (1,000 unit) tablet lorazepam 0.5 mg tablet 0.5 mg PO Q6H PRN 09/10/23 01/29/24 pantoprazole 20 mg tablet,delayed 20 mg PO DAILY 09/10/23 01/29/24 release simvastatin 10 mg tablet 10 mg PO HS 09/10/23 01/29/24 famotidine 20 mg tablet 20 mg PO BID 01/29/24 01/29/24 sertraline 50 mg tablet 50 mg PO QAM 01/29/24 01/29/24 Previous Rx's ?Medication ?Instructions ?Recorded furosemide 20 mg tablet 20 mg PO DAILY edema #30 tabs 02/02/24 Allergies Allergy/AdvReac Type Severity Reaction Status Date / Time No Known Drug Allergies Allergy Verified 01/28/24 17:22 Review of Systems Status of ROS: Reports: 6 or more systems reviewed and unremarkable except as noted in History and below [facility] Medical History (Updated 05/10/24 @ 17:58 by Bird Leonardo MD) Anemia ?D64.9 - Anemia, unspecified (ICD-10) Peripheral edema ?R60.0 - Localized edema (ICD-10) Nausea and vomiting ?R11.2 - Nausea with vomiting, unspecified (ICD-10) Dehydration ?E86.0 - Dehydration (ICD-10) Hepatic steatosis ?K76.0 - Fatty (change of) liver, not elsewhere classified (ICD-10) Superior mesenteric artery stenosis ?K55.1 - Chronic vascular disorders of intestine (ICD-10) Peripheral artery disease ?I73.9 - Peripheral vascular disease, unspecified (ICD-10) History of endometrial cancer ?Z85.42 - Personal history of malignant neoplasm of other parts of uterus (ICD-10) Chronic hyperkalemia ?E87.5 - Hyperkalemia (ICD-10) Thyroid nodule ?E04.1 - Nontoxic single thyroid nodule (ICD-10) Stenosis of left carotid artery ?I65.22 - Occlusion and stenosis of left carotid artery (ICD-10) Primary hyperparathyroidism ?E21.0 - Primary hyperparathyroidism (ICD-10) Osteoporosis ?M81.0 - Age-related osteoporosis without current pathological fracture (ICD- 10) Diverticulosis ?K57.90 - Diverticulosis of intestine, part unspecified, without perforation or abscess without bleeding (ICD-10) Aortic valve sclerosis ?I35.8 - Other nonrheumatic aortic valve disorders (ICD-10) Colostomy in place ?Z93.3 - Colostomy status (ICD-10) Hyperlipidemia ?E78.5 - Hyperlipidemia, unspecified (ICD-10) Chronic GERD ?K21.9 - Gastro-esophageal reflux disease without esophagitis (ICD-10) Hypertension ?I10 - Essential (primary) hypertension (ICD-10) Surgical History 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 ?Z90.710 - Acquired absence of both cervix and uterus (ICD-10) ?Z90.722 - Acquired absence of ovaries, bilateral (ICD-10) ?Z90.79 - Acquired absence of other genital organ(s) (ICD-10) Status post colectomy ?Z90.49 - Acquired absence of other specified parts of digestive tract (ICD- 10) Status post cholecystectomy ?Z90.49 - Acquired absence of other specified parts of digestive tract (ICD- 10) Social History What is your current living situation?: I presently have a place to live Problems where you live: no known problems Problems where you live details: N/A In the past 12 months, utilities in danger of being shut off: no In past 12 months, lack of transportation kept you from medical appts, meetings, work, or getting things needed for daily living: no In the past 12 mos, have been you worried that your food would run out before you had money to buy more?: never true In the past 12 mos, the food you bought just didn't last and you didn't have money to buy more?: never true Highest level of school completed/degree received: Bachelor's degree Smoking Status: Former smoker Do you use any of these nicotine containing products: None Second hand tobacco smoke exposure: No How often do you have a drink containing alcohol: never How often do you have six or more drinks on one occasion: Never AUDIT-C Alcohol total score: 0 Non-prescribed substance use: denies use Caffeine: No How often does anyone, including family, friends and others, physically hurt you : never How often does anyone, including family, friends and others, insult or talk down to you: never How often does anyone, including family, friends and others, threaten you with harm: never How often does anyone, including family, friends and others, scream or curse at you: never service: No Exam Narrative: Exam Narrative: Very pleasant. Calm. NAD. Moving all extremities without difficulty. Thin. Cranial nerves 2-12 intact. She is responding quickly easily questions. Breathing easily lungs appear to be clear. Heart with regular rate and rhythm. There is a 2/6 holosystolic murmur loudest at the right sternal border. Abdomen with present bowel sounds. Noninflamed colostomy with small output. Abdomen is protuberant soft and nontender. Extremities are well perfused without edema. Compression stockings in place. Right greater than left lower extremity edema. Const: Vital Signs, click to edit/add: Vital Signs - 24 hr 05/10/24 11:20 05/10/24 17:39 Temperature 98.2 F 98.6 F Pulse Rate [Right Pulse Oximeter] 78 71 Respiratory Rate 18 17 Blood Pressure [Ri ght Upper Arm] 151/78 H 141/61 H Pulse Oximetry 96 95 Oxygen Delivery Me thod Room Air Room Air Documenting provider has reviewed patient's vital signs: yes Course Vital Signs Vital signs: Initial Vital Signs Temperature 98.2 F 05/10/24 11:20 Temperature Source Temporal Artery Scan 05/10/24 11:20 Pulse Rate 78 05/10/24 11:20 Pulse Rhythm Regular 05/10/24 11:20 Respiratory Rate 18 05/10/24 11:20 Blood Pressure 151/78 H 05/10/24 11:20 Blood Pressure Mean 102 05/10/24 11:20 Blood Pressure Position Sitting 05/10/24 11:20 Pulse Oximetry 96 05/10/24 11:20 Oxygen Delivery Method Room Air 05/10/24 11:20 Vital Signs Temperature 98.2 F 05/10/24 11:20 Pulse Rate 78 05/10/24 11:20 Respiratory Rate 18 05/10/24 11:20 Blood Pressure 151/78 H 05/10/24 11:20 Pulse Oximetry 96 05/10/24 11:20 Oxygen Delivery Method Room Air 05/10/24 11:20 Temperature 98.6 F 05/10/24 17:39 Pulse Rate 71 05/10/24 17:39 Respiratory Rate 17 05/10/24 17:39 Blood Pressure 141/61 H 05/10/24 17:39 Pulse Oximetry 95 05/10/24 17:39 Oxygen Delivery Method Room Air 05/10/24 17:39 Medications Administered Medications: Discontinued Medications Generic Name Dose Route Start Last Admin Trade Name Hiltonq PRN Reason Stop Dose Admin Sodium Chloride 1,000 mls @ 1,000 mls/hr 05/10/24 14:11 05/10/24 16:49 0.9 % Sodium Chloride 1000 Ml IV 05/10/24 15:10 Infused .Q1H ONE Infusion Ondansetron HCl 4 mg 05/10/24 12:45 05/10/24 13:13 Ondansetron 2 Mg/Ml Inj IVP 05/10/24 12:46 4 mg ONCE ONE Administration Ondansetron HCl 4 mg 05/10/24 16:54 05/10/24 17:02 Ondansetron 2 Mg/Ml Inj IVP 05/10/24 16:55 4 mg ONCE ONE Administration Medical Decision Making MDM Narrative Medical decision making narrative: Reviewing records shows last imaging from January of 2024 when was hospitalized with small-bowel obstruction and ventral hernia. Reports no imaging since that time. There is also underlying history of superior mesenteric artery stenosis. Vascular compromise could be contributing to some of her symptoms. May have some degree of structural ileus; I would suspect partial small-bowel obstruction. Does not seem to clearly be related to acid/reflux. She does report that she tested negative for H pylori. I suppose there could be abdominal mass contributing, though nothing was noted like this in January of 2024 imaging. Abdominal flat plate might be beneficial distal look at air-fluid levels but I think either way will want to clarify this further and so CT imaging is requested with oral contrast. Might need EGD and/or gastric follow through. This has never been done before. Will check labs. Her mouth does sound rather dry today. Has managed only a small amount of water intake. Will give some IV hydration as well. CT imaging reviewed by me shows markedly dilated stomach and loops of small bowel consistent with small-bowel obstruction. Acute on chronic. Did discuss this case with our surgeon here. While bowel rest could be accomplished here and would benefit likely benefit from NG tube, definitive treatment would not be possible at this facility. Am calling to [facility] to discuss possibility of admit there. Radiology over-read as below TECHNIQUE: CT abdomen and pelvis acquired with 66 cc Isovue 370 IV contrast. Water oral prep. COMPARISON: CT chest abdomen pelvis 09/13/2023 FINDINGS: Lower chest: Trivessel coronary artery calcification. Aortic annular and aortic valvular calcification. Liver: Unremarkable. Gallbladder and bile ducts: Gallbladder is absent. Mild prominence of the common bile duct measuring 7 millimeters in herpetic bile ducts, likely reservoir effect. Pancreas: Unremarkable. No mass or inflammation. Spleen: Multiple hypodense lesions throughout the spleen, which may represent small hemangiomas, similar to prior. Adrenal glands: Unremarkable. No nodules. Kidneys: Unremarkable. No suspicious masses, stones, or hydronephrosis. GI tract: Partial small bowel resection with anastomosis in the mid abdomen. Similar prominence of small bowel loops and distended stomach compared to prior. Large ventral hernia containing small and large bowel loops, with possible transition point within the ventral hernia (2/106). Bowel is difficult to trace. Vasculature: Abdominal aorta is normal in caliber. Moderate to severe atherosclerosis of the aorta and branch vessels. 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 Lymph nodes: No lymphadenopathy. Peritoneum/Abdominal Wall: Large ventral hernia as above. Calcifications along the pelvic guzman, which may be related to prior surgery. Mild anasarca. Pelvis: Uterus is absent. Bones: Moderate degenerative disease of the spine. Grade 1 retrolisthesis of L1 on L2. Grade 1 anterolisthesis of L4 on L5. IMPRESSION: Redemonstration of chronic small-bowel obstruction and with likely transition point within the ventral hernia, similar to prior. No evidence of pneumatosis or bowel hypoenhancement. Moderate to severe atherosclerosis of the aorta and branch vessels with severe stenosis of the SMA with multifocal areas of short-segment occlusion with distal reconstitution, similar to prior. Discussed with General surgery at [facility] would be willing to accept, pending bed availability, if after NG tube and supportive cares, bowel rest at this facility is not improving or clearly worsening. Have discussed with patient and family and they are understand that no surgical intervention is expected at this facility. Furthermore patient prefers to be admitted to this facility. NG tube has been requested. Discussed with our hospitalist for admission. Medical Records Medical records reviewed: Yes I reviewed the patient's medical records Lab Data Lab results reviewed: Yes I reviewed the patient's lab results Labs: Lab Results 05/10/24 Range/Units 13:10 WBC 10.80 (4.50-11.00) K/uL RBC 3.75 L (4.00-5.20) m/uL Hgb 11.0 L (12.0-16.0) gm/dL Hct 34.8 (33.0-51.0) % MCV 93 (80-100) fL MCH 29 (26-34) pg MCHC 32 (32-36) gm/dL RDW Coeff of Sadia 13.3 (11.5-15.5) % Plt Count 255 (140-440) K/uL Neut % (Auto) 80.7 H (42.0-72.0) % Lymph % (Auto) 8.0 L (20-44) % Pratt % (Auto) 9.9 (0.0-11.0) % Eos % (Auto) 0.6 (0.0-7.0) % Baso % (Auto) 0.6 (0.0-3.0) % Neut # (Auto) 8.70 H (1.7-7.0) K/uL Lymph # (Auto) 0.90 (0.90-2.90) K/uL Pratt # (Auto) 1.10 H (0.00-0.90) K/UL Eos # (Auto) 0.07 (0.00-0.50) K/uL Baso # (Auto) 0.06 (0.00-0.30) K/uL Abs Immat Gran (auto) 0.02 (0.00-0.30) K/uL Imm/Tot Granulo (auto) 0.2 % Sodium 136 (135-149) mmol/L Potassium 4.1 (3.6-5.1) mmol/L Chloride 105 (96-114) mmol/L Carbon Dioxide 21 (20-32) mmol/L Anion Gap 10 (7-15) mEq/L BUN 16 (7-30) mg/dL Creatinine 1.1 (0.5-1.5) mg/dL Estimated Creat Clear 37.46 Estimated GFR 50 ml/min Glucose 96 (60-115) mg/dL Calcium 9.1 (8.4-10.6) mg/dL Magnesium 1.5 (1.5-2.6) mg/dL Total Bilirubin 0.4 (0.1-1.5) mg/dL Direct Bilirubin 0.3 (0.0-0.5) mg/dL AST 28 (12-35) U/L ALT 18 (4-35) U/L Alkaline Phosphatase 78 (40-150) U/L C-Reactive Protein 1.6 H (0.5-1.0) mg/dL Total Protein 7.6 (6.0-8.3) g/dL Albumin 4.3 (3.3-5.0) g/dL Discharge Plan Discharge Clinical Impression: SBO (small bowel obstruction) Patient Disposition: Admitted As Observation Condition: Stable
--- OUTSIDE RECORDS SUMMARY | 2024-05-10 12:18 | XMS_ITS | Clinical Summary ---
Author Organization [facility] Address [place], [place] [address] Care Team Providers Care Faucets Assembler Name Role Phone Bobbi Alexander Primary Care Provider [phone] Allergies No known active allergies Medications Medication Sig Dispensed Refills Start Date End Date Status multivitamin with iron-mineral (UNICAP-M) tablet multivitamin with minerals Multiple Vitamins with Zinc oral capsule 0 Active Calcium-Cholecalc iferol, D3, 600 mg calcium- 200 unit cap Calcium 600+D 600 mg-200 intl units oral tablet 0 Active aspirin chewable 81 mg chewable tablet Take 1 Tab by mouth once daily. 7 Active cholecalciferol (VITAMIN D3) 1,000 unit tablet Take 2,000 Units by mouth once daily. 9 Active durable medical equipment (DME)Indications: Lymphadenopathy Thigh level compression stockings at 20-30 mm Hg. 2 Each 2 Active pantoprazole (PROTONIX) 20 mg tabletIndications :Chronic GERD Take 1 Tablet (20 mg) by mouth once daily. 90 Tablet 3 3 Active atenoloL (TENORMIN) 50 mg tabletIndications :HTN (hypertension) Take 1 Tablet (50 mg) by mouth two times daily. 180 Tablet 3 4 Active amLODIPine (NORVASC) 2.5 mg tabletIndications :Essential hypertension Take 1 Tablet (2.5 mg) by mouth once daily. 90 Tablet 3 4 Active furosemide (LASIX) 20 mg tabletIndications :Lymphedema Take 1 Tablet (20 mg) by mouth every morning. 4 Active sertraline (ZOLOFT) 50 mg tabletIndications :Anxiety Take 1 Tablet (50 mg) by mouth once daily in the morning. 90 Tablet 1 4 Active valsartan (DIOVAN) 40 mg tabletIndications :Essential hypertension Take 0.5 Tablets (20 mg) by mouth once daily. 90 Tablet 3 4 Active LORazepam (ATIVAN) 0.5 mg tabIndications:An xiety Take 1 Tablet (0.5 mg) by mouth every 6 hours if needed for Anxiety 30 Tablet 4 Active LORazepam (ATIVAN) 0.5 mg tabIndications:An xiety Take 1 Tablet (0.5 mg) by mouth every 6 hours if needed for Anxiety 30 Tablet 3 4 04/15/20 24 Discontinued Hospital, Clinic, or Other Facility Administered Medication [...] Overview: S/p Hysterectomy, lymphadenectomy and radiation in 2003. Chronic hyperkalemia 12/13/2019 Aortic valve sclerosis 12/23/2018 Lymphedema 10/31/2018 Primary hyperparathyroidism 11/09/2016 Thyroid nodule 05/04/2014 Essential hypertension 06/29/2010 Overview: Hypertension Osteoporosis 06/29/2010 Last Assessment & Plan: Receiving Prolia through the [facility]. Last dose was 08/12/2021. Hyperlipidemia 08/27/2008 Stenosis of left carotid artery 08/03/2008 Last Assessment & Plan: Asymptomatic. Followed by the [facility] vascular clinic. Colostomy status 11/19/2006 Diverticulosis of colon 01/31/2006 Resolved Problems Problem Noted Date Diagnosed Date Resolved Date Sacroiliitis 10/27/2021 10/22/2023 Encounters Date Type Department Care Team Description 05/10/2024 Nurse Triage [facility] [address] [facility] [place] [address] Bobbi Alexander DO Abdominal Pain 04/28/2024 10:15 AM CDT Orders Only [facility] [address] [facility] [place] [address] Lab, [place] [facility] 04/28/2024 Travel 04/14/2024 Refill [facility] [address] [facility] [place] [address] Bobbi Alexander DO Refill Request (Lorazepam) 04/01/2024 11:30 AM CDT Office Visit [facility] [address] [place] [address] Jose Angel Chang MD Follow Up (Hypertension /Echo 01/25/24 ) 04/01/2024 Travel 03/26/2024 10:15 AM CDT Orders Only [facility] [address] [facility] [place] [address] Lab, [place] [facility] 03/26/2024 Travel 03/23/2024 Travel 02/09/2024 Refill [facility] [address] [facility] [place] [address] Bobbi Alexander DO Refill Request (Sertraline) from Last 3 Months Immunizations Name Administration Dates Next Due COVID-19 vaccine ([employer] 30mcg/0.3mL) 12YO+ LEIGH-SUCROSE DEXTER PETE 02/08/2022 Hepatitis A (Adult) 04/09/2009,10/07/2008 Hepatitis A, Unspecified 04/09/2009 Inactivated Polio Vaccine 10/07/2008 Influenza A (H1N1), Inactivated 09/07/2009 Influenza A (H1N1), Inactiva isabel (Age >=3 Years) 09/07/2009 Influenza Virus, Unspecified 10/13/2016, 06/15/2015,08/20/2014,06/20,06/12/2012,06/12/2012,07/05/2011 ,06/29/2010,06/29/2010,06/15/2009,02/2009,08/05/2008,07/18/2007, 6 Influenza, High-dose Inactivated 019,07/09/2018,08/14/2017,10/13,06/15/2015 Influenza, High-dose Quadriv alent Inactivated 07/23/2020 Influenza, IIV3 (Age 6-35 mos) 08/05/2008 Influenza, IIV3 (Age >=3 years) 06/12/20 12,06/29/2010,06/15/2009,07/18,07/10/2006 Influenza, Inactivated AIIV4 (Age 65+ Years) Preserv Free 06/15/2023,07/08/2022,06/24/2021 Influenza, Inactivated IIV3 (Age 65+ Years) Preserv Free 08/28/2019,07/09/2018,08/14/2017,10/13,06/15/2015 Pneumococcal Poly,23-Valent (Pneumovax) 08/05/2008 Pneumococcal conj 13-Valent (Prevnar 13) 05/04/2015 RSV, Recombinant ADJ Reconst ituted (Arexvy 120MCG/0.5mL) 07/04/2023 TD, UNSPECIFIED 08/05/2008 Td, Preservative Free (age >= 7 Years) 8 Tdap 05/04/2014 Typhoid (injectable) 10/07/2008 Zoster (Shingrix-RZV, [...] Sign Reading Time Taken Comments Blood Pressure 161/68 04/01/2024 11:38 AM CDT Pulse 69 04/01/2024 11:38 AM CDT Temperature 36.6 ??C (97.8 ??F) 10/13/2021 1:36 PM CS T Respiratory Rate - - Oxygen Saturation 98% 04/01/2024 11:38 AM CDT Inhaled Oxygen Concentration - - Weight 61.7 kg (136 lb) 04/01/2024 11:38 AM CDT Height 149.9 cm (4' 11.02) 06/15/2023 3:14 PM C DT Body Mass Index 27.45 06/15/2023 3:14 PM CDT Plan of Treatment Health Maintenance Due Date Last Done Comments COVID-19 vaccine series ( season) 2023 07/04/2023, 06/27/2022, 02/08/2022, Additional history exists Tetanus booster 05/04/2024 05/04/2014, 07/12, 08/05/2008 Influenza [...] 65+ Completed 2021, 04/05/2020 (Completed outside of [facility]) Zoster (shingles) series for age 50+ Completed 04/11/2023, 12/06/2022, 01/07/2013 Procedures Procedure Name Priority Date/Time Associated Diagnosis Comments BASIC METABOLIC PANEL Routine 04/28/2024 10:21 AM CDT Essential hypertension BASIC METABOLIC PANEL Routine 03/26/2024 10:17 AM CDT Essential hypertension XR DXA BONE DENSITY 2 SITES AXIAL AND 1 SITE PERIPHERAL Routine 08/07/2022 1:07 PM [employer]PER Osteoporosis, unspecified osteoporosis type, unspecified pathological fracture presence Primary hyperparathyroidism (HC) from Last 3 Months or Most Recently Relevant to Health Maintenance Results * (ABNORMAL) BASIC METABOLIC PANEL (04/28/2024 10:21 AM CDT) Only the most recent of2 resultswithin the time period is included. SODIUM 138 136 - 145 mmol/L 04/28/2024 4:30 PM CDT [facility] POTASSIUM 4.3 3.5 - 5.1 mmol/L 04/28/2024 4:30 PM CDT [facility] CHLORIDE 109(H) 98 - 107 mmol/L 04/28/2024 4:30 PM CDT [facility] CO2,TOTAL 19(L) 22 - 29 mmol/L 04/28/2024 4:30 PM CDT [facility] ANION GAP 10 5 - 18 04/28/2024 4:30 PM CDT [facility] GLUCOSE 104(H) 70 - 99 mg/dL 04/28/2024 4:30 PM CDT [facility] CALCIUM 8.3(L) 8.8 - 10.2 mg/dL 04/28/2024 4:30 PM CDT [facility] BUN 13 8 - 23 mg/dL 04/28/2024 4:30 PM T [facility] CREATININE 0.94(H) 0.50 - 0.90 mg/dL 04/28/2024 4:30 PM CDT [facility] BUN/CREAT RATIO 14 10 - 20 4 4:30 PM CDT [facility] eGFR 60(L) >90 mL/min/1.7 3m2 04/28/2024 4:30 PM CDT [facility] Comment:As of 2021, eG FR is calculated by the CKD-EPI creatinine equation without race adjustment. ??eGFR can be influenced by muscle mass, exercise, and diet. ??The reported eGFR is an estimation only and is only applicable if the renal function is stable. Blood BLOOD SPECIMEN / Unknown Venipuncture / Unknown 04/28/2024 10:21 AM CDT 04/28/2024 10:25 AM CDT Bobbi Alexander DO CHEMISTRY [facility] [address] [place] [id number], * (ABNORMAL) XR DXA BONE DENSITY 2 SITES AXIAL AND 1 SITE PERIPHERAL (08/07/2022 1:07 PM [employer] WRAPPER) Anatomical Region Laterality Modality LUMBAR SPINE Other Impressions 08/09/2022 4:10 PM [employer] BAND WRAPPER Osteoporosis. RECOMMENDATIONS: The National Osteoporosis Foundation recommends [...] to assess therapeutic efficacy. Brittney Daniel PA-C [facility] 08/09/2022 Narrative 08/09/2022 4:10 PM [employer] BAND WRAPPER For Patients: Results are automatically released to your [employer] ([employer]) account once available, in compliance with federal regulations. This means that you may see your results before your provider has had a chance to review them. Please allow 2-3 business days for your provider to comment on the results. XR DXA Bone Mineral Density (BMD) EXAM LOCATION: [facility] [address] [facility] [address] PATIENT NAME: Lillie Tong DATE OF : 1940 EXAM DATE: 08/07/2022 REQUESTING PROVIDER: Bobbi Alexander DO GENDER AT : female HEIGHT: 4' 11.02 [...] two scanners are made by the same operations support representative. PROCEDURE: Dual-energy x-ray absorptiometry performed with routine [...] Osteoporosis: T-score at or below -2.5 SD Bobbi Alexander DO DEXA from Last 3 Months or Most Recently Relevant to Health Maintenance Care Teams Faucets Assembler Relationship Specialty Start Date End Date Bobbi Alexander DO [address] [place] [address] PCP - General Family Practice 08/25/21
--- OUTSIDE RECORDS SUMMARY | 2024-05-10 12:18 | XMS_ITS | Clinical Summary ---
Author Organization [facility] Address [address] [place] [id number] Care Team Providers Care Stage Electrician Helper Name Role Phone Elsewhere, Pcp Primary Care Provider Unavailabl e Source Comments Patient records contain information from all sites at [facility]. For routine questions regarding patient records, call [phone] during business hours, M-F 8:00 AM - 5:00 PM Central Time. Record requests for emergency care only can be directed to [phone] at any time.[facility] Allergies Active Allergy Reactions Criticality Noted Date Comments Ciprofloxacin Other (see comments) 06/29/2010 other Medications Medication Sig Dispensed Refills Start Date End Date Status aspirin 81 mg chewable tablet Chew 1 tablet daily. 12/28/2016 Active LORazepam (ATIVAN) 0.5 mg tablet Take 1 tablet (0.5 mg total) by mouth 2 (two) times a day as needed for anxiety. 90 tablet 12/19/2019 Active Additional Information Patient taking differently:0.5 mg [...] times daily, Reported on 12/13/2023 DME Ostomy suppliesIndicatio ns:Colostomy Status (HCC) DME Order 1 Unspecified 11 07/02/2023 Active pantoprazole (PROTONIX) 20 mg EC tablet Take 1 tablet by mouth daily. 08/23/2023 Active sertraline (ZOLOFT) 50 mg tablet Take 50 mg by mouth every morning. 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 More than 4 times per year 09/19/2019 Do you belong to any clubs o r organizations such as scientology groups, unions, fraternal or athletic groups, or [...] Comments Blood Pressure 165/80 09/13/2023 1:18 PM BOARDER STEAM Pulse 80 09/13/2023 1:18 PM BOARDER STEAM Temperature 36.8 ??C (98.2 ??F) 09/13/2023 1:18 PM CS T Respiratory Rate 20 09/13/2023 1:18 PM BOARDER STEAM Oxygen Saturation 95% 09/13/2023 1:18 PM BOARDER STEAM Inhaled Oxygen Concentration - - Weight 64 [...] Td or Tdap) 05/04/2024 05/04/2014, 08/05/2008, 08/05/2008 Influenza Vaccine (#1) 2024 , 07/08/2022, 06/24/2021, Additional history exists Creatinine Level (Kidney Fun ction Test) 04/28/2025 04/28/2024, 03/26/2024, 01/15/2024, Additional history exists Potassium Level 04/28/2025 04/28/2024, 03/10, 01/15/2024, Additional history exists Sodium Level 04/28/2025 04/28/2024, 03/10, 01/15/2024, Additional history exists Hepatitis A Vaccines Completed 04/09/2009, 10/07/19 09 Pneumococcal vaccine (65+ years) Completed 05/04/20 15, 08/05/2008 Zoster Vaccines Completed 04/11/2023, 11/09, 01/07/2013 Medical Devices Implanted Type Area Labor Representative Device Identifier Shelf Expiration Date Model / Serial / Lot Seprafilm 3x 5 (Procedure Pack) - [id number] [id number] Implanted:Qty: 1 on 10/18/2004 Mesh or Patch [employer]ID technologies Description:Device Manufactu rer - [employer] Jacques.. Device Status Text - [id number]. Seprafilm 3x 5 (Procedure Pack) - [place] [id number] Implanted:Qty: 1 on 02/08/2005 Mesh or Patch [employer] Description:Device Manufactu rer - [employer] Jacques.. Device Status Text - [id number]. Seprafilm 3x 5 (Procedure Pack) - [place] [id number] Implanted:Qty: 1 on 10/17/2005 Mesh or Patch [employer] Description:Device Manufactu rer - [employer] Jacques.. Device Status Text - [id number]. Procedures Procedure Name Priority Date/Time Associated Diagnosis Comments CREATININE WITH EGFR, S/P Routine 07/11/2021 9:32 AM CDT Osteoporosis Hyperparathyroidism Primary (HCC) Nodule Thyroid BASIC METABOLIC PANEL, S/P Routine 12/13/2019 from Last 3 Months or Most Recently Relevant to Health Maintenance Advance Directives For more information, please contact: [phone] Documents on File Type Date Recorded Patient General Claims Agent Expl anation Advance Directives 05/28/2019 4:56 PM POA for Healthcare Advance Directives 07/07/2008 12:00 AM Charo berry document. See document viewer. Healthcare Agents on File Name Relationship Healthcare Agent Relationship Communication Brendan : Ran Health Care Agent Christine Gilbert Daughter [facility] Kamryn Donald Daughter Second Alternate Health Care Agent Janessa Oneil Daughter Second Alternate Health Care Agent Care Teams Stage Electrician Helper Relationship Specialty Start Date End Date Elsewhere, Pcp PCP - General Internal Medicine 11/16/21
--- OUTSIDE RECORDS SUMMARY | 2024-05-10 12:18 | XMS_ITS | Referral Summary ---
Author Organization [facility] Address [address] [place] [address] Care Team Providers Care Marine Fireman Name Role Phone Elsewhere, Pcp Primary Care Provider Unavailabl e Source Comments Patient records contain information from all sites at [facility]. For routine questions regarding patient records, call [phone] during business hours, M-F 8:00 AM - 5:00 PM Central Time. Record requests for emergency care only can be directed to [phone] at any time.[facility] Allergies Active Allergy Reactions Criticality Noted [...] often do you attend chur ch or buddhism services? More than 4 times per year 09/19/2019 Do you belong to any clubs o r organizations such as mormonism groups, unions, fraternal or athletic groups, or [...] Comments Blood Pressure 165/80 09/13/2023 1:18 PM VAMP WETTER Pulse 80 09/13/2023 1:18 PM VAMP WETTER Temperature 36.8 ??C (98.2 ??F) 09/13/2023 1:18 PM CS T Respiratory Rate 20 09/13/2023 1:18 PM VAMP WETTER Oxygen Saturation 95% 09/13/2023 1:18 PM VAMP WETTER Inhaled Oxygen Concentration - - Weight 64 kg (141 lb 1.5 oz) 11/19/2023 9:25 AM CDT Height 150.4 cm (4' 11.21) 11/19/2023 9:25 AM C DT Body Mass Index 28.29 11/19/2023 9:25 AM CDT Plan of Treatment Not on file Medical Devices Implanted Type Area Actor Understudy Device Identifier Shelf Expiration Date Model / Serial / Lot Seprafilm 3x 5 (Procedure Pack) - [place] [id number] Implanted:Qty: 1 on 10/18/2004 Mesh or Patch [employer] Description:Device Manufactu rer - [employer] Jacques.. Device Status Text - [id number]. Seprafilm 3x 5 (Procedure Pack) - [place] [id number] Implanted:Qty: 1 on 02/08/2005 Mesh or Patch [employer] Description:Device Manufactu rer - [employer] Jacques.. Device Status Text - [id number]. Seprafilm 3x 5 (Procedure Pack) - [place] [id number] Implanted:Qty: 1 on 10/17/2005 Mesh or Patch [employer] Description:Device Manufactu rer - [employer] Jacques.. Device Status Text - [id number]. Procedures Procedure Name Priority Date/Time Associated Diagnosis Comments CREATININE WITH EGFR, S/P Routine 07/11/2021 9:32 AM CDT Osteoporosis Hyperparathyroidism Primary (HCC) Nodule Thyroid BASIC METABOLIC PANEL, S/P Routine 12/13/2019 from Last 3 Months or Most Recently Relevant to Health Maintenance Advance Directives For more information, please contact: [phone] Documents on File Type Date Recorded Patient Semi Automatic Sewing Machine Operator Expl anation Advance Directives 05/28/2019 4:56 PM POA for Healthcare Advance Directives 07/07/2008 12:00 AM Charo berry document. See document viewer. Healthcare Agents on File Name Relationship Healthcare Agent Relationship Communication Brendan : Ran Health Care Agent Christine Gilbert Daughter [facility] Kamryn Donald Daughter Second Alternate Health Care Agent Janessa Oneil Daughter Second Alternate Health Care Agent Care Teams Marine Fireman Relationship Specialty Start Date End Date Elsewhere, Pcp PCP - General Internal Medicine 11/16/21
--- OUTSIDE RECORDS SUMMARY | 2024-05-10 12:18 | XMS_ITS ---
Author Organization [facility] Address [address] [place] [id number] Care Team Providers Care Bar Gauger And Lubricator Tender Name Role Phone Unavailable Unavailable Unavailable Surgery Details Not on file Complications Check Surgery Details section. Procedure Estimated Blood Loss Check Surgery Details section. Procedure Findings Check Surgery Details section. Procedure Specimens Taken Check Surgery Details section.
--- OUTSIDE RECORDS SUMMARY | 2024-05-10 12:18 | XMS_ITS ---
Author Organization [facility] Address [address] [place] [id number] Care Team Providers Care Dispatcher Service Name Role Phone Elsewhere, Pcp Primary Care [...] treatments are documented for this patient in [facility]. Treatments may have been administered in another system. Resolved Problems Problem Noted Date Diagnosed Date Resolved Date Complication Colostomy 03/29/201712/23 Occlusion Carotid Artery Left 05/18/2015 10/31/2018 Parathyroid Disorder 05/04/2014 019 Overview (01/30/2017): Disorder Parathyroid Retraction Stoma Colostomy 06/21/2012 0 12/23/2018 Aftercare Colostomy 06/29/2010 10/31/19 19 Overview (01/30/2017): Colostomy Malignant Neoplasm Of Endometrium 12/22/2003 12/23/2018
--- OUTSIDE RECORDS SUMMARY | 2024-05-10 12:18 | XMS_ITS | Encounter Summary ---
Author Organization [facility] Address [address] [place] [id number] Care Team Providers Care Shrimp Pond Laborer Name Role Phone Elsewhere, Pcp Primary Care [...] often do you attend chur ch or cheondoism services? More than 4 times per year 09/19/2019 Do you belong to any clubs o r organizations such as mandaen groups, unions, fraternal or athletic groups, or [...] Comments Blood Pressure 165/80 09/13/2023 1:18 PM TRUCK SHOP MECHANIC Pulse 80 09/13/2023 1:18 PM TRUCK SHOP MECHANIC Temperature 36.8 ??C (98.2 ??F) 09/13/2023 1:18 PM CS T Respiratory Rate 20 09/13/2023 1:18 PM TRUCK SHOP MECHANIC Oxygen Saturation 95% 09/13/2023 1:18 PM TRUCK SHOP MECHANIC Inhaled Oxygen Concentration - - Weight - - Height - - Body Mass Index - - documented in this encounter Plan of Treatment Not on file documented as of this encounter Visit Diagnoses Not on filedocumented in this encounter Additional Health Concerns Assessment Noted Time PHQ-9 Depression Total Score: 0 05/02/20 16 8:00 AM CDT documented as of this encounter Care Teams Shrimp Pond Laborer Relationship Specialty Start Date End Date Elsewhere, Pcp PCP - General Internal Medicine 11/16/21 documented as of this encounter
--- NOTE | 2024-05-10 12:42 | CRLHL7_ITS ---
For Patients: As a result of the 21st Century Cures Act, medical imaging exams and procedure reports are released immediately into your electronic medical record. You may view this report before your referring provider. If you have questions, please contact your health care provider. INDICATION: Abdominal discomfort, bloating, structural ileus. TECHNIQUE: CT abdomen and pelvis acquired with 66 cc Isovue 370 IV contrast. Water oral prep. COMPARISON: CT chest abdomen pelvis 09/13/2023 FINDINGS: Lower chest: Trivessel coronary artery calcification. Aortic annular and aortic valvular calcification. Liver: Unremarkable. Gallbladder and bile ducts: Gallbladder is absent. Mild prominence of the common bile duct measuring 7 millimeters in herpetic bile ducts, likely reservoir effect. Pancreas: Unremarkable. No mass or inflammation. Spleen: Multiple hypodense lesions throughout the spleen, which may represent small hemangiomas, similar to prior. Adrenal glands: Unremarkable. No nodules. Kidneys: Unremarkable. No suspicious masses, stones, or hydronephrosis. GI tract: Partial small bowel resection with anastomosis in the mid abdomen. Similar prominence of small bowel loops and distended stomach compared to prior. Large ventral hernia containing small and large bowel loops, with possible transition point within the ventral hernia (2/106). Bowel is difficult to trace. Vasculature: Abdominal aorta is normal in caliber. Moderate to severe atherosclerosis of the aorta and branch vessels. 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 Lymph nodes: No lymphadenopathy. Peritoneum/Abdominal Wall: Large ventral hernia as above. Calcifications along the pelvic guzman, which may be related to prior surgery. Mild anasarca. Pelvis: Uterus is absent. Bones: Moderate degenerative disease of the spine. Grade 1 retrolisthesis of L1 on L2. Grade 1 anterolisthesis of L4 on L5. IMPRESSION: Redemonstration of chronic small-bowel obstruction and with likely transition point within the ventral hernia, similar to prior. No evidence of pneumatosis or bowel hypoenhancement. Moderate to severe atherosclerosis of the aorta and branch vessels with severe stenosis of the SMA with multifocal areas of short-segment occlusion with distal reconstitution, similar to prior. Please note that all CT scans at this facility use dose modulation, iterative reconstruction, and/or weight-based dosing when appropriate to reduce radiation dose to as low as reasonably achievable. Dictated by Kirsten Fox MD @ 05/10/2024 4:40:36 PM (Electronically Signed)
[2024-05-10] MEDS: ONDANSETRON 2 MG/ML inj 4 MG IVP ×2 (13:13→17:02)
[2024-05-10 13:17] LABS: Basophils Absolute Auto 0.06 K/uL (0.00-0.30); Basophils Percent Auto 0.6 % (0.0-3.0); Eosinophils Absolute Auto 0.07 K/uL (0.00-0.50); Eosinophils Percent Auto 0.6 % (0.0-7.0); Hematocrit 34.8 % (33.0-51.0); Immature Granulocytes Abs Auto 0.02 K/uL (0.00-0.30); Immature Granulocytes Pct Auto 0.2 %; Mean Corpuscular HGB Conc 32 gm/dL (32-36); Mean Corpuscular Hemoglobin 29 pg (26-34); Mean Corpuscular Volume 93 fL (80-100); Monocytes Percent Auto 9.9 % (0.0-11.0); Neutrophils Percent Auto 80.7 % (42.0-72.0); Platelet Count* 255 K/uL (140-440); RDW Coefficient of Variation % 13.3 % (11.5-15.5); Red Blood Count 3.75 m/uL (4.00-5.20)
[2024-05-10 13:18] LABS: Slide Review Reflex No
[2024-05-10 13:32] LABS: Albumin* 4.3 g/dL (3.3-5.0); Chloride* 105 mmol/L (96-114)
[2024-05-10 13:33] LABS: Potassium* 4.1 mmol/L (3.6-5.1); Sodium* 136 mmol/L (135-149)
[2024-05-10 13:35] LABS: Alkaline Phosphatase* 78 U/L (40-150); Anion Gap 10 mEq/L (7-15); Aspartate Amino Transferase* 28 U/L (12-35); Bilirubin Direct* 0.3 mg/dL (0.0-0.5); Bilirubin Total* 0.4 mg/dL (0.1-1.5); Blood Urea Nitrogen* 16 mg/dL (7-30); Carbon Dioxide* 21 mmol/L (20-32); Creatinine* 1.1 mg/dL (0.5-1.5); Est. Creatinine Clearance* 37.46; Estimated Glomerular Filt Rate 50 ml/min; Total Protein* 7.6 g/dL (6.0-8.3)
[2024-05-10 13:36] LABS: Alanine Aminotransferase* 18 U/L (4-35); Calcium* 9.1 mg/dL (8.4-10.6); Glucose* 96 mg/dL (60-115); Magnesium* 1.5 mg/dL (1.5-2.6)
[2024-05-10 13:38] LABS: C Reactive Protein* 1.6 mg/dL (0.5-1.0)
[2024-05-10] MEDS: 0.9 % SODIUM CHLORIDE 1000 ml 1,000 ML IV (14:35)
--- NOTE | 2024-05-10 18:15 | CRLHL7_ITS ---
For Patients: As a result of the Century Cures Act, medical imaging exams and procedure reports are released immediately into your electronic medical record. You may view this report before your referring provider. If you have questions, please contact your health care provider. Indication: : Post NG tube TECHNIQUE: Single-view chest. FINDINGS: Enteric tube in the stomach. Additional overlying tubing projecting over the right chest into the left abdomen. Lungs appear clear. No effusion or pneumothorax. Dictated by Tayler Byrne MD @ 05/10/2024 7:51:55 PM (Electronically Signed)
[2024-05-10] MEDS: LACTATED RINGERS 1000 ML 1,000 ML IV (20:26)
[2024-05-10] MEDS: PANTOPRAZOLE SODIUM 40 MG INJ IVP (20:28)
[2024-05-10] MEDS: METOPROLOL TARTRATE 1 MG/ML inj 5 MG IVP (20:28)
[2024-05-10] MEDS: SODIUM CHLORIDE 0.9 % (FLUSH) 10 ML SYRINGE 5 ML IVF (20:29)
--- NOTE | 2024-05-10 21:19 | P.IMHP_ITS ---
Hospitalist- H&P: HPI History of Present Illness Date Seen: 05/10/24 Chief complaint: painful abdomin and can't fluids / food Narrative: Llilie Tong is a 84 year old female with history of large complex ventral hernia presents with her 3rd small-bowel obstruction this year. Previous episodes in September and January manage medically with resolution. In November she had consultation with a surgeon at [facility] with summary below. They advised against elective surgery for complex ventral hernia repair.. This episode started about a month ago. After few days it resolved and was better for about a week and then in the past week or so it has gotten much worse. He has had very little oral intake in the last few days. When she does try to drink some liquids it causes increased epigastric pressure and pain. She has had some output from her colostomy until last couple days. She has not had any vomiting. She does have some reflux symptoms. [facility] consult 11/19/2023: The patient has a medical history significant for previous endometrial cancer for which she underwent vaginal hysterectomy, bilateral salpingo-oophorectomy, bilateral pelvic and periaortic lymphadenectomy and radiation in 2003. This was complicated by wound breakdown, and she required multiple abdominal debridements and panniculectomy in 2003. Then in 2004, she underwent exploratory laparotomy and adhesiolysis, small bowel resection with anastomosis for small bowel obstruction in 2004. 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 In 2007, she underwent open cholecystectomy. I reviewed Ms. Tong's CT scans from September 2023 as well as one from 2008. I explained to her that her hernia was even present in 2008 and it was similar size and appearance. It is reassuring that in the several years since then, she has only had one episode of bowel obstruction that resolved uneventfully. Given the wide-mouth appearance of her hernia and how soft and pliable her bowel is, I think there is reasonable chance that if the patient has another bowel obstruction that it would resolve with decompression again. She also feels that she has a better understanding of her abdominal wall now, and is more vigilant with massaging her abdomen or trying to reduce any herniation with manual palpation. Given the above considerations, as well as the patient's age, frailty, anatomical complexity with a >13 cm distance between her small rectus abdominis muscles and colostomy--I think that surgical intervention for the purposes of adhesiolysis or hernia repair would present more risk than benefit. This would pose significant risk and also cause significant risk of worsened debility. Even if she were to require an abdominal exploration for any reason, likely her abdom en would be managed with bridging vicryl mesh, rather than a full hernia repair or abdominal wall reconstruction. Therefore, I would not feel comfortable offering elective surgical intervention for Ms. Tong. She confirmed her understanding and I provided her with my contact information for her to reach out if she has any further questions. Review of Systems Narrative: Other than abdominal symptoms she reports feeling well [facility] Medical History (Updated 05/10/24 @ 21:54 by Ulises Watts MD) Malnutrition ?E46 - Unspecified protein-calorie malnutrition (ICD-10) Stage 3 chronic kidney disease ?N18.30 - Chronic kidney disease, stage 3 unspecified (ICD-10) Anemia ?D64.9 - Anemia, unspecified (ICD-10) Peripheral edema ?R60.0 - Localized edema (ICD-10) Nausea and vomiting ?R11.2 - Nausea with vomiting, unspecified (ICD-10) Dehydration ?E86.0 - Dehydration (ICD-10) Hepatic steatosis ?K76.0 - Fatty (change of) liver, not elsewhere classified (ICD-10) Superior mesenteric artery stenosis ?K55.1 - Chronic vascular disorders of intestine (ICD-10) Peripheral artery disease ?I73.9 - Peripheral vascular disease, unspecified (ICD-10) History of endometrial cancer ?Z85.42 - Personal history of malignant neoplasm of other parts of uterus (ICD-10) Chronic hyperkalemia ?E87.5 - Hyperkalemia (ICD-10) Thyroid nodule ?E04.1 - Nontoxic single thyroid nodule (ICD-10) Stenosis of left carotid artery ?I65.22 - Occlusion and stenosis of left carotid artery (ICD-10) Primary hyperparathyroidism ?E21.0 - Primary hyperparathyroidism (ICD-10) Osteoporosis ?M81.0 - Age-related osteoporosis without current pathological fracture (ICD- 10) Diverticulosis ?K57.90 - Diverticulosis of intestine, part unspecified, without perforation or abscess without bleeding (ICD-10) Aortic valve sclerosis ?I35.8 - Other nonrheumatic aortic valve disorders (ICD-10) Colostomy in place ?Z93.3 - Colostomy status (ICD-10) Hyperlipidemia ?E78.5 - Hyperlipidemia, unspecified (ICD-10) Chronic GERD ?K21.9 - Gastro-esophageal reflux disease without esophagitis (ICD-10) Hypertension ?I10 - Essential (primary) hypertension (ICD-10) Surgical History 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 ?Z90.710 - Acquired absence of both cervix and uterus (ICD-10) ?Z90.722 - Acquired absence of ovaries, bilateral (ICD-10) ?Z90.79 - Acquired absence of other genital organ(s) (ICD-10) Status post colectomy ?Z90.49 - Acquired absence of other specified parts of digestive tract (ICD- 10) Status post cholecystectomy ?Z90.49 - Acquired absence of other specified parts of digestive tract (ICD- 10) Social History (Updated 05/10/24 @ 21:35 by Ulises Watts MD) Narrative: She lives alone in her home in [place]. She functions independently. She drives. She walks with a cane. She does not smoke. She does not drink alcohol. Full code for witnessed arrest. 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 What is your current living situation?: I presently have a place to live Problems where you live: no known problems Problems where you live details: N/A In the past 12 months, utilities in danger of being shut off: no In past 12 months, lack of transportation kept you from medical appts, meetings, work, or getting things needed for daily living: no In the past 12 mos, have been you worried that your food would run out before you had money to buy more?: never true In the past 12 mos, the food you bought just didn't last and you didn't have money to buy more?: never true Highest level of school completed/degree received: Bachelor's degree Smoking Status: Former smoker Do you use any of these nicotine containing products: None Second hand tobacco smoke exposure: No How often do you have a drink containing alcohol: never How often do you have six or more drinks on one occasion: Never AUDIT-C Alcohol total score: 0 Non-prescribed substance use: denies use Caffeine: Yes (Coffee) How often does anyone, including family, friends and others, physically hurt you : never How often does anyone, including family, friends and others, insult or talk down to you: never How often does anyone, including family, friends and others, threaten you with harm: never How often does anyone, including family, friends and others, scream or curse at you: never service: No Meds Home Medications and Allergies Home Medications ?Medication ?Instructions ?Recorded ?Confirmed ?Type amlodipine 2.5 mg tablet 2.5 mg PO DAILY 09/10/23 01/29/24 History aspirin 81 mg chewable tablet 81 mg PO DAILY 09/10/23 01/29/24 History (Aspirin Childrens) atenolol 50 mg tablet 50 mg PO BID 09/10/23 01/29/24 History calcium carbonate 500 mg-vitamin 1 tab PO DAILY 09/10/23 01/29/24 History D3 10 mcg (400 unit) tablet (Calcium 500 + D) cholecalciferol (vitamin D3) 25 2,000 unit PO DAILY 09/10/23 01/29/24 History mcg (1,000 unit) tablet lorazepam 0.5 mg tablet 0.5 mg PO Q6H PRN 09/10/23 01/29/24 History pantoprazole 20 mg tablet,delayed 20 mg PO DAILY 09/10/23 01/29/24 History release simvastatin 10 mg tablet 10 mg PO HS 09/10/23 01/29/24 History famotidine 20 mg tablet 20 mg PO BID 01/29/24 01/29/24 History sertraline 50 mg tablet 50 mg PO QAM 01/29/24 01/29/24 History Allergies Allergy/AdvReac Type Severity Reaction Status Date / Time No Known Drug Allergies Allergy Verified 01/28/24 17:22 Exam Narrative: Exam Narrative: She is alert and appears in no distress. She gives her own history with good detail. Eyes normal. Oropharynx with dry mucous membranes. Neck is supple without mass or adenopathy. Respirations are clear to auscultation. Breathing unlabored. Cardiovascular: S1, S2, 2/6 systolic murmur. No gallop or rub. Abdomen: Bowel sounds present. She has a elastic abdominal binder holding her colostomy appliance. Minimal light brown stool in the colostomy. Abdominal hernia with palpable soft nontender bowel palpated subcutaneously. Extremities with 1 to 2+ edema on the right and 1+ edema on the left. Compression stockings in place. Distally she has good capillary refill and good motion in all 4 extremities Const: Vital Signs, click to edit/add: Vital Signs - 24 hr 05/10/24 11:20 05/10/24 17:39 05/10/24 19:57 Temperature 98.2 F 98.6 F 98.7 F Pulse Rate [Right Pulse Oximeter] 78 71 73 Respiratory Rate 18 17 18 Blood Pressure [Ri ght Arm] 135/66 Blood Pressure [Ri ght Upper Arm] 151/78 H 141/61 H Pulse Oximetry 96 95 97 Oxygen Delivery Me thod Room Air Room Air Room Air Documenting provider has reviewed patient's vital signs: yes Hospitalist - H&P: Result Labs Labs: Short CBC 05/10/24 Range/Units 13:10 WBC 10.80 (4.50-11.00) K/uL Hgb 11.0 L (12.0-16.0) gm/dL Hct 34.8 (33.0-51.0) % Plt Count 255 (140-440) K/uL BMP 05/10/24 13:10 Sodium 136 Potassium 4.1 Chloride 105 Carbon Dioxide 21 BUN 16 Creatinine 1.1 Glucose 96 Calcium 9.1 Liver Function 05/10/24 Range/Units 13:10 Total Bilirubin 0.4 (0.1-1.5) mg/dL Direct Bilirubin 0.3 (0.0-0.5) mg/dL AST 28 (12-35) U/L ALT 18 (4-35) U/L Alkaline Phosphatase 78 (40-150) U/L Albumin 4.3 (3.3-5.0) g/dL Imaging CT scan - abdomen: Radiologist's impression: INDICATION: Abdominal discomfort, bloating, structural ileus. TECHNIQUE: CT abdomen and pelvis acquired with 66 cc Isovue 370 IV contrast. Water oral prep. COMPARISON: CT chest abdomen pelvis 09/13/2023 FINDINGS: Lower chest: Trivessel coronary artery calcification. Aortic annular and aortic valvular calcification. Liver: Unremarkable. Gallbladder and bile ducts: Gallbladder is absent. Mild prominence of the common bile duct measuring 7 millimeters in herpetic bile ducts, likely reservoir effect. Pancreas: Unremarkable. No mass or inflammation. Spleen: Multiple hypodense lesions throughout the spleen, which may represent small hemangiomas, similar to prior. Adrenal glands: Unremarkable. No nodules. Kidneys: Unremarkable. No suspicious masses, stones, or hydronephrosis. GI tract: Partial small bowel resection with anastomosis in the mid abdomen. Similar prominence of small bowel loops and distended stomach compared to prior. Large ventral hernia containing small and large bowel loops, with possible transition point within the ventral hernia (2/106). Bowel is difficult to trace. Vasculature: Abdominal aorta is normal in caliber. Moderate to severe atherosclerosis of the aorta and branch vessels. 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 Lymph nodes: No lymphadenopathy. Peritoneum/Abdominal Wall: Large ventral hernia as above. Calcifications along the pelvic guzman, which may be related to prior surgery. Mild anasarca. Pelvis: Uterus is absent. Bones: Moderate degenerative disease of the spine. Grade 1 retrolisthesis of L1 on L2. Grade 1 anterolisthesis of L4 on L5. IMPRESSION: Redemonstration of chronic small-bowel obstruction and with likely transition point within the ventral hernia, similar to prior. No evidence of pneumatosis or bowel hypoenhancement. Moderate to severe atherosclerosis of the aorta and branch vessels with severe stenosis of the SMA with multifocal areas of short-segment occlusion with distal reconstitution, similar to prior. Chest x-ray: Radiologist's impression: Indication: : Post NG tube TECHNIQUE: Single-view chest. FINDINGS: Enteric tube in the stomach. Additional overlying tubing projecting over the right chest into the left abdomen. Lungs appear clear. No effusion or pneumothorax. Assessment and Plan Assessment and plan (1) SBO (small bowel obstruction): Problem comment: 3rd episode since September. Due to large complex ventral hernia. Plan conservative management with NG suctioning and IV fluids. Status: Acute (2) Peripheral edema: Problem comment: Compression wraps, elevation Takes furosemide prn at home for LE edema Status: Chronic (3) Abdominal hernia: Problem comment: Ventral, chronic, nonsurgical. Followed by [facility]. Monitor Patient knows how to massage this when needed Status: Chronic (4) Superior mesenteric artery stenosis: Problem comment: Seen on CT (not CTA) 09/13/23 - Continue Aspirin and statin. Status: Chronic (5) Stage 3 chronic kidney disease: Problem comment: Baseline creatinine 0.6. Today 1.1. Likely due to dehydration. Monitor Status: Acute (6) Malnutrition: Problem comment: She has lost 9 kg from January 2024 until this admission May 10 2024. Suspected cause of this is ongoing but intermittent bowel obstruction symptoms Status: Acute Plan Patient admitted the hospital for management of small bowel obstruction and multiple medical problems. Conservative management with NG suctioning and IV fluids. Close monitoring and management of malnutrition, cardiovascular status and renal disease. Total Time Spent Total Time Spent: Total time spent today is 90 minutes in evaluation and management
[2024-05-10] MEDS: 5 % DEXTROSE IN LAC RINGER'S 1,000 ML 75 ML IV (23:11)
[2024-05-11] MEDS: METOPROLOL TARTRATE 1 MG/ML inj 5 MG IVP ×4 (02:11→20:41)
[2024-05-11 02:15] VITALS: BP 155/59; PULSE 68; RESP 16; TEMP 36.9; O2SAT 95
--- NOTE | 2024-05-11 06:22 | PC.NURSE ---
End of shift note: Pt alert & oriented x 4 and able to make needs known. VSS and pt has been afebrile. New IV placed to R forearm due to previous IV to R AC infiltrating last evening. No B/Ps or venipuncture to LUE d/t restricted extremity. Pt transfers/ambulates with SBA. NG tube in place to LIS per order. IV fluids administered per orders. Pt has chronic ostomy in place to abdomen with soft/loose stool noted and wears abdominal binder. She has been continent of bladder. No N/V or c/o pain noted throughout the shift. Pt agreeable to wearing SCDs for part of the shift though then requested to have removed. She was agreeable to wearing TEDs throughout the shift.
[2024-05-11 06:31] LABS: Lactate* 0.5 mmol/L (0.5-1.9)
[2024-05-11 06:44] LABS: Basophils Absolute Auto 0.05 K/uL (0.00-0.30); Basophils Percent Auto 0.7 % (0.0-3.0); Eosinophils Absolute Auto 0.14 K/uL (0.00-0.50); Eosinophils Percent Auto 1.9 % (0.0-7.0); Hematocrit 29.3 % (33.0-51.0); Hemoglobin* 9.3 gm/dL (12.0-16.0); Immature Granulocytes Abs Auto 0.02 K/uL (0.00-0.30); Immature Granulocytes Pct Auto 0.3 %; Lymphocytes Percent Auto 13.9 % (20-44); Mean Corpuscular HGB Conc 32 gm/dL (32-36); Mean Corpuscular Hemoglobin 29 pg (26-34); Mean Corpuscular Volume 92 fL (80-100); Monocytes Percent Auto 11.8 % (0.0-11.0); Neutrophils Absolute Auto 5.39 K/uL (1.7-7.0); Neutrophils Percent Auto 71.4 % (42.0-72.0); Platelet Count* 234 K/uL (140-440); RDW Coefficient of Variation % 13.5 % (11.5-15.5); Red Blood Count 3.17 m/uL (4.00-5.20); White Blood Count* 7.54 K/uL (4.50-11.00)
[2024-05-11 06:47] LABS: Slide Review Reflex No
[2024-05-11 06:54] LABS: Chloride* 109 mmol/L (96-114); Potassium* 3.8 mmol/L (3.6-5.1); Sodium* 136 mmol/L (135-149)
[2024-05-11 06:57] LABS: Anion Gap 7 mEq/L (7-15); Carbon Dioxide* 20 mmol/L (20-32); Creatinine* 0.8 mg/dL (0.5-1.5); Est. Creatinine Clearance* 36.96; Estimated Glomerular Filt Rate 73 ml/min
[2024-05-11 06:58] LABS: Blood Urea Nitrogen* 14 mg/dL (7-30); Glucose* 103 mg/dL (60-115)
[2024-05-11 07:45] VITALS: BP 152/77; PULSE 65; RESP 16; TEMP 36.5; O2SAT 95
[2024-05-11] MEDS: SERTRALINE 50 MG TABLET PO (08:48)
[2024-05-11] MEDS: LACTATED RINGERS 500 ML 500 ML IV (11:22)
[2024-05-11] MEDS: ONDANSETRON 2 MG/ML inj 4 MG IVP (11:28)
--- NOTE | 2024-05-11 11:28 | REH.OT ---
Orders received for OT eval and treat. Patient not feeling well today and asked therapist to return on 05/12/24.
[2024-05-11 11:30] VITALS: BP 156/59; PULSE 68; RESP 16; TEMP 37; O2SAT 94
--- NOTE | 2024-05-11 11:41 | P.GSCN_ITS ---
History of Present Illness Consult details Date Seen: 05/11/24 Consult date: 05/11/24 Narrative: The patient is an 84-year-old female with a complex abdominal history who presents for a recurrent small-bowel obstruction in the setting of a large ventral hernia. This recent episode began approximately 1 month ago. She states that she thought it was related to reflux as she mostly felt full of gas and was started on acid blocking medication and checked for H pylori. After few days she felt better, however the last few days it has gotten worse again. Because of the distension and epigastric pain she decreased her oral intake. Subsequently her stoma output decreased over the last 2 days. She is soon that this was secondary to her decreased oral intake. She has not vomited. She has been trying to manage any feelings of distension or obstruction by massaging the hernia as she was instructed to get it to reduce. This has helped much of the time, however this recent episode she was unable to get her symptoms to resolve. She has a history of endometrial cancer for which she underwent vaginal hysterectomy, bilateral oophorectomy and bilateral pelvic and periaortic lymphadenectomy with radiation in 2003. This was complicated by wound dehiscenc e, requiring multiple abdominal debridements and panniculectomy in 2003. She underwent exploratory laparotomy and adhesiolysis with small-bowel resection for small-bowel obstruction in 2004. 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 In 2007 she underwent an open cholecystectomy. She was hospitalized here in [place] in September of this year with a small- bowel obstruction. An NG tube was placed and a Gastrografin challenge was performed. She resolved and was referred to [facility] as an outpatient to discuss hernia repair. Given her history and the large gap between her fascial edges, she was felt to be a poor candidate for elective surgery. She states she was not sure if there would be a plan to offer repair she had ongoing recurrent obstructions. She was again hospitalized in January of this year with a bowel obstruction. This also resolved after few days of hospitalization and NG decompression. When she was seen in the emergency department she was found to have what appeared to be chronic obstruction related to her hernia. An NG tube was place d. She had 450 mL out. Overnight and this morning she has had stool and gas in her ostomy. [facility] Medical History (Updated 05/10/24 @ 21:54 by Ulises Watts MD) Malnutrition ?E46 - Unspecified protein-calorie malnutrition (ICD-10) Stage 3 chronic kidney disease ?N18.30 - Chronic kidney disease, stage 3 unspecified (ICD-10) Anemia ?D64.9 - Anemia, unspecified (ICD-10) Peripheral edema ?R60.0 - Localized edema (ICD-10) Nausea and vomiting ?R11.2 - Nausea with vomiting, unspecified (ICD-10) Dehydration ?E86.0 - Dehydration (ICD-10) Hepatic steatosis ?K76.0 - Fatty (change of) liver, not elsewhere classified (ICD-10) Superior mesenteric artery stenosis ?K55.1 - Chronic vascular disorders of intestine (ICD-10) Peripheral artery disease ?I73.9 - Peripheral vascular disease, unspecified (ICD-10) History of endometrial cancer ?Z85.42 - Personal history of malignant neoplasm of other parts of uterus (ICD-10) Chronic hyperkalemia ?E87.5 - Hyperkalemia (ICD-10) Thyroid nodule ?E04.1 - Nontoxic single thyroid nodule (ICD-10) Stenosis of left carotid artery ?I65.22 - Occlusion and stenosis of left carotid artery (ICD-10) Primary hyperparathyroidism ?E21.0 - Primary hyperparathyroidism (ICD-10) Osteoporosis ?M81.0 - Age-related osteoporosis without current pathological fracture (ICD- 10) Diverticulosis ?K57.90 - Diverticulosis of intestine, part unspecified, without perforation or abscess without bleeding (ICD-10) Aortic valve sclerosis ?I35.8 - Other nonrheumatic aortic valve disorders (ICD-10) Colostomy in place ?Z93.3 - Colostomy status (ICD-10) Hyperlipidemia ?E78.5 - Hyperlipidemia, unspecified (ICD-10) Chronic GERD ?K21.9 - Gastro-esophageal reflux disease without esophagitis (ICD-10) Hypertension ?I10 - Essential (primary) hypertension (ICD-10) Surgical History 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 ?Z90.710 - Acquired absence of both cervix and uterus (ICD-10) ?Z90.722 - Acquired absence of ovaries, bilateral (ICD-10) ?Z90.79 - Acquired absence of other genital organ(s) (ICD-10) Status post colectomy ?Z90.49 - Acquired absence of other specified parts of digestive tract (ICD- 10) Status post cholecystectomy ?Z90.49 - Acquired absence of other specified parts of digestive tract (ICD- 10) Social History (Updated 05/10/24 @ 21:35 by Ulises Watts MD) Narrative: She lives alone in her home in [place]. She functions independently. She drives. She walks with a cane. She does not smoke. She does not drink alcohol. Full code for witnessed arrest. Three daughters are healthcare power of financial assistance advisor What is your current living situation?: I presently have a place to live Problems where you live: no known problems Problems where you live details: N/A In the past 12 months, utilities in danger of being shut off: no In past 12 months, lack of transportation kept you from medical appts, meetings, work, or getting things needed for daily living: no In the past 12 mos, have been you worried that your food would run out before you had money to buy more?: never true In the past 12 mos, the food you bought just didn't last and you didn't have money to buy more?: never true Highest level of school completed/degree received: Bachelor's degree Smoking Status: Former smoker Do you use any of these nicotine containing products: None Second hand tobacco smoke exposure: No How often do you have a drink containing alcohol: never How often do you have six or more drinks on one occasion: Never AUDIT-C Alcohol total score: 0 Non-prescribed substance use: denies use Caffeine: Yes (Coffee) How often does anyone, including family, friends and others, physically hurt you : never How often does anyone, including family, friends and others, insult or talk down to you: never How often does anyone, including family, friends and others, threaten you with harm: never How often does anyone, including family, friends and others, scream or curse at you: never service: No Meds Home Medications and Allergies Home Medications ?Medication ?Instructions ?Recorded ?Confirmed ?Type amlodipine 2.5 mg tablet 2.5 mg PO DAILY 09/10/23 05/11/24 History aspirin 81 mg chewable tablet 81 mg PO DAILY 09/10/23 05/11/24 History (Aspirin Childrens) atenolol 50 mg tablet 50 mg PO BID 09/10/23 05/11/24 History calcium carbonate 500 mg-vitamin 1 tab PO DAILY 09/10/23 05/11/24 History D3 10 mcg (400 unit) tablet (Calcium 500 + D) cholecalciferol (vitamin D3) 25 2,000 unit PO DAILY 09/10/23 05/11/24 History mcg (1,000 unit) tablet lorazepam 0.5 mg tablet 0.5 mg PO Q6H PRN 09/10/23 05/11/24 History pantoprazole 20 mg tablet,delayed 20 mg PO DAILY 09/10/23 05/11/24 History release simvastatin 10 mg tablet 10 mg PO HS 09/10/23 05/11/24 History sertraline 50 mg tablet 50 mg PO QAM 01/29/24 05/11/24 History valsartan 40 mg tablet 20 mg PO DAILY 05/11/24 05/11/24 History Allergies Allergy/AdvReac Type Severity Reaction Status Date / Time No Known Drug Allergies Allergy Verified 01/28/24 17:22 Exam Narrative: Exam Narrative: General appearance: Alert, cooperative, and in no distress Eyes: PERRLA, eye lids clear, and sclera white HENT: NG in place with brown drainage. Canister with around 650 noted. Cardiovascular Heart: Regular rate Gastrointestinal Abdominal: Soft. Nontender. Right lower quadrant hernia noted. Able to reduce without significant discomfort. Hernia noted around stoma. Unable to reduce with stoma appliance present. Musculoskeletal: Extremities: Upper: Both upper extremities have normal joint range of motion and intact strength. Lower: Both lower extremities have normal joint range of motion and intact strength. Skin: Normal skin color, texture, and turgor. Neurologic: No focal deficits Psychiatric: Alert, oriented, cooperative, normal affect. Const: Vital Signs, click to edit/add: Vital Signs - 24 hr 05/10/24 17:39 05/10/24 19:40 05/10/24 19:57 Temperature 98.6 F 98.7 F Pulse Rate [Right Pulse Oximeter] 71 73 Respiratory Rate 17 18 18 Blood Pressure [Ri ght Arm] 135/66 Blood Pressure [Ri ght Upper Arm] 141/61 H Pulse Oximetry 95 97 97 Oxygen Delivery Me thod Room Air Room Air Room Air 05/10/24 23:00 05/10/24 23:15 05/10/24 23:16 Temperature 98.8 F Pulse Rate [Right Pulse Oximeter] 71 71 Respiratory Rate 16 16 16 Blood Pressure [Ri ght Arm] 147/60 H Blood Pressure [Ri ght Upper Arm] Pulse Oximetry 94 94 Oxygen Delivery Me thod Room Air Room Air 05/11/24 02:15 Temperature 98.4 F Pulse Rate [Right Pulse Oximeter] 68 Respiratory Rate 16 Blood Pressure [Ri ght Arm] 155/59 H Blood Pressure [Ri ght Upper Arm] Pulse Oximetry 95 Oxygen Delivery Me thod Room Air Results Labs Labs: Abnormal lab results 05/10/24 05/11/24 Range/Units 13:10 06:03 RBC 3.75 L 3.17 L (4.00-5.20) m/uL Hgb 11.0 L 9.3 L (12.0-16.0) gm/dL Hct 29.3 L (33.0-51.0) % Neut % (Auto) 80.7 H (42.0-72.0) % Lymph % (Auto) 8.0 L 13.9 L (20-44) % [place] % (Auto) 11.8 H (0.0-11.0) % Neut # (Auto) 8.70 H (1.7-7.0) K/uL [place] # (Auto) 1.10 H (0.00-0.90) K/UL Calcium 8.0 L (8.4-10.6) mg/dL C-Reactive Protein 1.6 H (0.5-1.0) mg/dL Diabetes panel 05/10/24 05/11/24 Range/Units 13:10 06:03 Sodium 136 136 (135-149) mmol/L Potassium 4.1 3.8 (3.6-5.1) mmol/L Chloride 105 109 (96-114) mmol/L Carbon Dioxide 21 20 (20-32) mmol/L BUN 16 14 (7-30) mg/dL Creatinine 1.1 0.8 (0.5-1.5) mg/dL Glucose 96 103 (60-115) mg/dL Calcium 9.1 8.0 L (8.4-10.6) mg/dL AST 28 (12-35) U/L ALT 18 (4-35) U/L Alkaline Phosphatase 78 (40-150) U/L Total Protein 7.6 (6.0-8.3) g/dL Albumin 4.3 (3.3-5.0) g/dL Calcium panel 05/10/24 05/11/24 Range/Units 13:10 06:03 Calcium 9.1 8.0 L (8.4-10.6) mg/dL Albumin 4.3 (3.3-5.0) g/dL Pituitary panel 05/10/24 05/11/24 Range/Units 13:10 06:03 Sodium 136 136 (135-149) mmol/L Potassium 4.1 3.8 (3.6-5.1) mmol/L Chloride 105 109 (96-114) mmol/L Carbon Dioxide 21 20 (20-32) mmol/L BUN 16 14 (7-30) mg/dL Creatinine 1.1 0.8 (0.5-1.5) mg/dL Glucose 96 103 (60-115) mg/dL Calcium 9.1 8.0 L (8.4-10.6) mg/dL Adrenal panel 05/10/24 05/11/24 Range/Units 13:10 06:03 Sodium 136 136 (135-149) mmol/L Potassium 4.1 3.8 (3.6-5.1) mmol/L Chloride 105 109 (96-114) mmol/L Carbon Dioxide 21 20 (20-32) mmol/L BUN 16 14 (7-30) mg/dL Creatinine 1.1 0.8 (0.5-1.5) mg/dL Glucose 96 103 (60-115) mg/dL Calcium 9.1 8.0 L (8.4-10.6) mg/dL Total Bilirubin 0.4 (0.1-1.5) mg/dL AST 28 (12-35) U/L ALT 18 (4-35) U/L Alkaline Phosphatase 78 (40-150) U/L Total Protein 7.6 (6.0-8.3) g/dL Albumin 4.3 (3.3-5.0) g/dL All other labs normal. Imaging Abdomen CT scan report/results: report reviewed and image reviewed Additional studies: CT scan of the abdomen pelvis from yesterday: IMPRESSION: Redemonstration of chronic small-bowel obstruction and with likely transition point within the ventral hernia, similar to prior. No evidence of pneumatosis or bowel hypoenhancement. Moderate to severe atherosclerosis of the aorta and branch vessels with severe stenosis of the SMA with multifocal areas of short-segment occlusion with distal reconstitution, similar to prior. Dictated by Kirsten Fox MD @ 05/10/2024 4:40:36 PM Progress Note:A&P Assessment and plan (1) Malnutrition: Status: Acute (2) Stage 3 chronic kidney disease: Status: Acute (3) SBO (small bowel obstruction): Status: Acute (4) Anemia: Status: Chronic (5) Superior mesenteric artery stenosis: Status: Chronic (6) Abdominal hernia: Status: Chronic Plan The patient is an 84-year-old female with a complex abdominal history with a hernia causing intermittent small-bowel obstructions. She is a high risk candidate for elective repair given the lack of abdominal domain and her prior abdominal surgeries and radiation. This is her 3rd hospitalization in 8 months. Discussed with the patient and her daughter that if we can get this episode to completely resolve and she is able to discharge home she may consider another visit with a surgeon at [facility]. Certainly elective repair would not be easy. She is at risk for wound dehiscence, fistula, and cardiopulmonary complications that would go with a major surgery. She may even consider referral to a different center for a 2nd opinion. If it is felt that she is too high risk for elective repair which I suspect may be the case, then we may need to have a goals of care discussion with the patient and her family if she has escalating symptoms. She is too complicated and high risk for surgical intervention at our hospital. The patient and her family a understand this and also understand the concerns about surgical risk. Currently she is very independent, lives alone and still drives. This is a difficult situation given her overall good quality life, which could be disrupted by complications from elective hernia repair.
[2024-05-11] MEDS: 5 % DEXTROSE IN LAC RINGER'S 1,000 ML 100 ML IV ×2 (13:18→22:54)
--- NOTE | 2024-05-11 14:42 | PM.IMPN1 ---
Progress Note: A&P Assessment and plan (1) SBO (small bowel obstruction): Problem details: - 3rd episode since September. Due to large complex ventral hernia. - poor surgical candidate due to extensive nature of large ventral hernia and high risk of complications. - appreciate Dr. Tran's recommendations, continue conservative management with NG suctioning and IV fluids. Patient remains somewhat nauseous today, will not clamp NG tube or advance diet yet. Status: Acute (2) Abdominal hernia: Problem details: Ventral, chronic, nonsurgical. Followed by [place]. Monitor Patient knows how to massage this when needed Status: Chronic (3) Peripheral edema: Problem details: Compression wraps, elevation Takes furosemide prn at home for LE edema Status: Chronic (4) Superior mesenteric artery stenosis: Problem details: Seen on CT (not CTA) 09/13/23 - Continue Aspirin and statin. Status: Chronic (5) Stage 3 chronic kidney disease: Problem details: Baseline creatinine 0.6. Admission creatinine 1.1. Likely due to dehydration. Today creatinine is 0.8. Patient still appears hypovolemic and I will give her a fluid bolus and increase IV maintenance fluids. Monitor creatinine. Status: Acute (6) Malnutrition: Problem details: She has lost 9 kg from January 2024 until this admission May 10 2024. Suspected cause of this is ongoing but intermittent bowel obstruction symptoms Status: Acute Subjective Time Seen by Provider: 08:53 Date Seen: 05/11/24 Interval history: Lillie feels that she has improved and notes some gas and stool in her bag. She does still have nausea shortly after the NG tube is clamped for oral medications, however. She feels very dry in the mouth and thinks she is getting dehydrated. I spoke with Dr. Caba extensively regarding the patient's surgical abdominal history, risks of undergoing further abdominal surgery, and plan of care. Exam Narrative: Exam Narrative: General: No acute distress. Awake, alert, oriented. No pallor. No jaundice. Oropharynx: Clear. Mucous membranes dry, tacky. Cardiovascular: Regular rate and rhythm. Grade 2/6 systolic murmur loudest at the left sternal border. Respiratory: Clear to auscultation bilaterally. No wheezes or crackles. Abdomen: Left ostomy with light brown pasty stool, I do not appreciate air in the bag at this time. Bowel sounds present. Large abdominal hernia, soft, nontender to palpation.. Extremities: Right ankle and foot have 2+ edema with the right lower extremity otherwise trace edema, left lower extremity 1+ edema. Const: Vital Signs, click to edit/add: Vital Signs - 24 hr 05/10/24 17:39 05/10/24 19:40 05/10/24 19:57 Temperature 98.6 F 98.7 F Pulse Rate [Right Pulse Oximeter] 71 73 Respiratory Rate 17 18 18 Blood Pressure [Ri ght Arm] 135/66 Blood Pressure [Ri ght Upper Arm] 141/61 H Pulse Oximetry 95 97 97 Oxygen Delivery Me thod Room Air Room Air Room Air 05/10/24 23:00 05/10/24 23:15 05/10/24 23:16 Temperature 98.8 F Pulse Rate [Right Pulse Oximeter] 71 71 Respiratory Rate 16 16 16 Blood Pressure [Ri ght Arm] 147/60 H Blood Pressure [Ri ght Upper Arm] Pulse Oximetry 94 94 Oxygen Delivery Ak thod Room Air Room Air 05/11/24 02:15 05/11/24 07:45 05/11/24 07:45 Temperature 98.4 F Pulse Rate [Right Pulse Oximeter] 68 65 Respiratory Rate 16 16 16 Blood Pressure [Ri ght Arm] 155/59 H Blood Pressure [Ri ght Upper Arm] Pulse Oximetry 95 95 Oxygen Delivery Me thod Room Air Room Air 05/11/24 07:45 05/11/24 11:30 Temperature 97.7 F 98.6 F Pulse Rate [Right Pulse Oximeter] 65 68 Respiratory Rate 16 16 Blood Pressure [Ri ght Arm] 152/77 H 156/59 H Blood Pressure [Ri ght Upper Arm] Pulse Oximetry 95 94 Oxygen Delivery Me thod Room Air Room Air Labs Labs: Laboratory Results - last 24 hr 05/11/24 06:03 WBC 7.54 RBC 3.17 L Hgb 9.3 L Hct 29.3 L MCV 92 MCH 29 MCHC 32 RDW Coeff of Sadia 13.5 Plt Count 234 Neut % (Auto) 71.4 Lymph % (Auto) 13.9 L [place] % (Auto) 11.8 H Eos % (Auto) 1.9 Baso % (Auto) 0.7 Neut # (Auto) 5.39 Lymph # (Auto) 1.00 [place] # (Auto) 0.90 Eos # (Auto) 0.14 Baso # (Auto) 0.05 Abs Immat Gran (auto) 0.02 Imm/Tot Granulo (auto) 0.3 Sodium 136 Potassium 3.8 Chloride 109 Carbon Dioxide 20 Anion Gap 7 BUN 14 Creatinine 0.8 Estimated Creat Clear 36.96 Estimated GFR 73 Glucose 103 Lactate 0.5 Calcium 8.0 L
[2024-05-11 15:00] VITALS: BP 158/69; PULSE 66; RESP 16; TEMP 37.1; O2SAT 94
--- NOTE | 2024-05-11 18:53 | PC.NURSE ---
Pt VSS. A & O. NG tube intact and patent and placement is at 55 cm. c/o some tenderness in abdomen. Ambulated the trevino x1. NPO with the exception of ice chips. No c/o nausea. Amb. SBA with cane.
[2024-05-11 20:00] VITALS: BP 155/59; PULSE 64; RESP 16; TEMP 36.5; O2SAT 96
[2024-05-11] MEDS: ENOXAPARIN 40 MG/0.4 ML INJ SUBCUT (20:41)
[2024-05-11] MEDS: PANTOPRAZOLE SODIUM 40 MG INJ IVP (20:41)
[2024-05-11] MEDS: SODIUM CHLORIDE 0.9 % (FLUSH) 10 ML SYRINGE 5 ML IVF (20:41)
[2024-05-11 23:00] VITALS: BP 163/61; PULSE 63; RESP 16; TEMP 36.5; O2SAT 96
[2024-05-12] VITALS (7 sets, daily range): BP systolic 153–177; BP diastolic 70–100; PULSE 62–77; RESP 14–20; TEMP 35.6–37.2; O2SAT 95–97
[2024-05-12] MEDS: METOPROLOL TARTRATE 1 MG/ML inj 5 MG IVP ×4 (02:16→21:05)
[2024-05-12 06:30] LABS: Lactate* 1.4 mmol/L (0.5-1.9)
[2024-05-12 06:32] LABS: Basophils Absolute Auto 0.03 K/uL (0.00-0.30); Basophils Percent Auto 0.6 % (0.0-3.0); Eosinophils Absolute Auto 0.22 K/uL (0.00-0.50); Eosinophils Percent Auto 4.5 % (0.0-7.0); Hematocrit 28.3 % (33.0-51.0); Immature Granulocytes Abs Auto 0.01 K/uL (0.00-0.30); Immature Granulocytes Pct Auto 0.2 %; Lymphocytes Percent Auto 18.8 % (20-44); Mean Corpuscular HGB Conc 32 gm/dL (32-36); Mean Corpuscular Hemoglobin 30 pg (26-34); Mean Corpuscular Volume 93 fL (80-100); Monocytes Percent Auto 13.9 % (0.0-11.0); Neutrophils Absolute Auto 3.04 K/uL (1.7-7.0); Platelet Count* 208 K/uL (140-440); RDW Coefficient of Variation % 13.4 % (11.5-15.5); Red Blood Count 3.03 m/uL (4.00-5.20)
[2024-05-12 06:46] LABS: Chloride* 109 mmol/L (96-114); Sodium* 137 mmol/L (135-149)
[2024-05-12 06:49] LABS: Anion Gap 3 mEq/L (7-15); Blood Urea Nitrogen* 8 mg/dL (7-30); Calcium* 7.7 mg/dL (8.4-10.6); Carbon Dioxide* 25 mmol/L (20-32); Creatinine* 0.6 mg/dL (0.5-1.5); Est. Creatinine Clearance* 37.63; Estimated Glomerular Filt Rate 89 ml/min; Glucose* 268 mg/dL (60-115)
[2024-05-12 07:18] LABS: Slide Review Reflex No
--- NOTE | 2024-05-12 08:21 | PM.GSPN ---
Subjective Subjective Date Seen: 05/12/24 Interval history: Lillie did well overnight. She did feel discomfort yesterday when her NG tube was clamped. Has continued to have stoma output. She thinks her stoma output is returning to normal. She would like to try a small amount of clear liquids. Exam Narrative: Exam Narrative: General: No acute distress NG in place with 1300 out. Abdomen remains soft. Hernia is soft and nontender as well as reducible. Const: Vital Signs, click to edit/add: Vital Signs - 24 hr 05/11/24 11:30 05/11/24 15:00 05/11/24 15:00 Temperature 98.6 F Pulse Rate [Right Pulse Oximeter] 68 66 Respiratory Rate 16 16 16 Blood Pressure [Ri ght Arm] 156/59 H Pulse Oximetry 94 94 Oxygen Delivery Me thod Room Air Room Air 05/11/24 15:00 05/11/24 20:00 05/11/24 23:00 Temperature 98.7 F 97.7 F 97.7 F Pulse Rate [Right Pulse Oximeter] 66 64 63 Respiratory Rate 16 16 16 Blood Pressure [Ri ght Arm] 158/69 H 155/59 H 163/61 H Pulse Oximetry 94 96 96 Oxygen Delivery Me thod Room Air Room Air Room Air 05/11/24 23:00 05/11/24 23:00 05/12/24 03:00 Temperature 97.9 F Pulse Rate [Right Pulse Oximeter] 62 Respiratory Rate 16 16 16 Blood Pressure [Ri ght Arm] 177/100 H Pulse Oximetry 96 96 Oxygen Delivery Me thod Room Air Room Air Progress Note:A&P Assessment and plan (1) Malnutrition: Status: Acute (2) Stage 3 chronic kidney disease: Status: Acute (3) SBO (small bowel obstruction): Status: Acute (4) Anemia: Status: Chronic (5) Superior mesenteric artery stenosis: Status: Chronic Plan The patient is an 84-year-old female with a giant ventral hernia with recurrent small-bowel obstructions secondary to the hernia as well as a complex abdominal history after hysterectomy and pelvic lymphadenectomy for uterine cancer in 2003 followed by radiation, wound complications and need for end colostomy. -She now has return of bowel function, however still had high NG output yesterday. -can try clamping NG again today since she continues to have antegrade bowel function. -she may have sips of clears as well.
[2024-05-12] MEDS: 5 % DEXTROSE IN LAC RINGER'S 1,000 ML 100 ML IV (08:25)
[2024-05-12] MEDS: SERTRALINE 50 MG TABLET PO (08:25)
[2024-05-12] MEDS: AMLODIPINE 5 MG TABLET 2.5 MG PO (09:45)
[2024-05-12] MEDS: VALSARTAN 80 MG TABLET 40 MG PO (09:46)
[2024-05-12] MEDS: LACTATED RINGERS 1000 ML 1,000 ML 100 ML IV ×2 (09:47→20:27)
--- NOTE | 2024-05-12 10:16 | P.IMPN_ITS ---
Progress Note: A&P Assessment and plan (1) SBO (small bowel obstruction): Problem details: - 3rd episode since September. Due to large complex ventral hernia. - poor surgical candidate due to extensive nature of large ventral hernia and high risk of complications. - appreciate Dr. Tran's recommendations - Trial of clamping NGT today Status: Acute (2) Abdominal hernia: Problem details: Ventral, chronic, nonsurgical. Followed by [facility]. Monitor Patient knows how to massage this when needed Status: Chronic (3) Peripheral edema: Problem details: Compression wraps, elevation Takes furosemide prn at home for LE edema - held while getting IVF hydration. Status: Chronic (4) Superior mesenteric artery stenosis: Problem details: Seen on CT (not CTA) 09/13/23 - Continue Aspirin and statin. Status: Chronic (5) Stage 3 chronic kidney disease: Problem details: Baseline creatinine 0.6. Admission creatinine 1.1. Likely due to dehydration. - 05/12 Cr back to baseline today. Continue IVF maintenence. Monitor creatinine. Status: Acute (6) Malnutrition: Problem details: She has lost 9 kg from January 2024 until this admission May 10 2024. Suspected cause of this is ongoing but intermittent bowel obstruction symptoms - Nutrition consult - Obtain nutrition labs for further assessment - Add clear nutritional supplements when able to take clears Status: Acute (7) Hypertension: Problem details: - home amlodipine and atenolol restarted 01/30, extra 2.5 mg po amlodipine give 01/31. - restarting home furosemide 02/01 - elevated BP today, restart home meds. If tolerates clamping, also switch IV metoprolol back to po atenolol. Status: Chronic Plan Pumonary toilet: Start incentive spirometry VTE prophylaxis: TEDs, SCDs, nightly low dose enoxaparin BG elevated with D5LR, so I have transitioned her IVF to LR. Will check HgbA1C. Subjective Time Seen by Provider: 07:43 Date Seen: 05/12/24 Interval history: Lillie had a lot of nausea yesterday while NGT was clamped after getting sertraline. She feels better today. No nausea. +Stool and flatus in bag, which she emptied at 2am. She ambulated in hallway two times yesterday. Exam Narrative: Exam Narrative: General: No acute distress. Awake, alert, oriented. No pallor. No jaundice. Oropharynx: Clear. Mucous membranes moist. Cardiovascular: Regular rate and rhythm. Grade 2/6 systolic murmur loudest at the left sternal border. Respiratory: Clear to auscultation bilaterally. RLL crackle that cleared with cough. Abdomen: Left ostomy with light brown pasty stool with some air in bag. Bowel sounds present. Large abdominal hernia, soft, nontender to palpation. Const: Vital Signs, click to edit/add: Vital Signs - 24 hr 05/11/24 11:30 05/11/24 15:00 05/11/24 15:00 Temperature 98.6 F Pulse Rate [Right Pulse Oximeter] 68 66 Respiratory Rate 16 16 16 Blood Pressure [Ri ght Arm] 156/59 H Pulse Oximetry 94 94 Oxygen Delivery Me thod Room Air Room Air 05/11/24 15:00 05/11/24 20:00 05/11/24 23:00 Temperature 98.7 F 97.7 F 97.7 F Pulse Rate [Right Pulse Oximeter] 66 64 63 Respiratory Rate 16 16 16 Blood Pressure [Ri ght Arm] 158/69 H 155/59 H 163/61 H Pulse Oximetry 94 96 96 Oxygen Delivery Me thod Room Air Room Air Room Air 05/11/24 23:00 05/11/24 23:00 05/12/24 03:00 Temperature 97.9 F Pulse Rate [Right Pulse Oximeter] 62 Respiratory Rate 16 16 16 Blood Pressure [Ri ght Arm] 177/100 H Pulse Oximetry 96 96 Oxygen Delivery Me thod Room Air Room Air 05/12/24 07:50 05/12/24 07:50 05/12/24 07:50 Temperature 97.6 F Pulse Rate [Right Pulse Oximeter] 62 62 Respiratory Rate 14 14 14 Blood Pressure [Ri ght Arm] 169/70 H Pulse Oximetry 96 96 Oxygen Delivery Me thod Room Air Room Air Labs Labs: Laboratory Results - last 24 hr 05/12/24 06:00 WBC 4.90 RBC 3.03 L Hgb 9.0 L Hct 28.3 L MCV 93 MCH 30 MCHC 32 RDW Coeff of Sadia 13.4 Plt Count 208 Neut % (Auto) 62.0 Lymph % (Auto) 18.8 L [place] % (Auto) 13.9 H Eos % (Auto) 4.5 Baso % (Auto) 0.6 Neut # (Auto) 3.04 Lymph # (Auto) 0.90 [place] # (Auto) 0.70 Eos # (Auto) 0.22 Baso # (Auto) 0.03 Abs Immat Gran (auto) 0.01 Imm/Tot Granulo (auto) 0.2 Sodium 137 Potassium 4.0 Chloride 109 Carbon Dioxide 25 Anion Gap 3 L BUN 8 Creatinine 0.6 Estimated Creat Clear 37.63 Estimated GFR 89 Glucose 268 H Lactate 1.4 Calcium 7.7 L
--- NOTE | 2024-05-12 11:29 | REH.OT ---
Orders received for OT eval and treat. Patient screen and has no obvious OT needs. No formal OT evaluation warranted.
--- NOTE | 2024-05-12 20:04 | PC.NURSE ---
Pt pleasant and cooperative. Up independently. NG clamped during morning rounds with Dr. Maldonado. Pt denies nausea entire day. Denies pain. Ostomy with large output after 3rd walk of day. Clears started without complaint.
[2024-05-12] MEDS: PANTOPRAZOLE SODIUM 40 MG INJ IVP (21:04)
[2024-05-12] MEDS: ENOXAPARIN 40 MG/0.4 ML INJ SUBCUT (21:05)
[2024-05-12] MEDS: SODIUM CHLORIDE 0.9 % (FLUSH) 10 ML SYRINGE 5 ML IVF (21:06)
[2024-05-13] VITALS (8 sets, daily range): BP systolic 147–198; BP diastolic 57–85; PULSE 65–76; RESP 16–18; TEMP 36.4–36.9; O2SAT 96–97; BMI 24.9
[2024-05-13] MEDS: METOPROLOL TARTRATE 1 MG/ML inj 5 MG IVP ×2 (01:49→08:12)
[2024-05-13] MEDS: LORazepam 2 MG/ML inj 0.5 MG IVP (03:01)
[2024-05-13 06:31] LABS: Lactate* 0.5 mmol/L (0.5-1.9)
[2024-05-13 06:32] LABS: Basophils Absolute Auto 0.05 K/uL (0.00-0.30); Basophils Percent Auto 0.9 % (0.0-3.0); Eosinophils Absolute Auto 0.35 K/uL (0.00-0.50); Eosinophils Percent Auto 6.6 % (0.0-7.0); Hematocrit 30.7 % (33.0-51.0); Hemoglobin* 9.8 gm/dL (12.0-16.0); Immature Granulocytes Abs Auto 0.01 K/uL (0.00-0.30); Immature Granulocytes Pct Auto 0.2 %; Lymphocytes Absolute Auto 1.31 K/uL (0.90-2.90); Lymphocytes Percent Auto 24.6 % (20-44); Mean Corpuscular HGB Conc 32 gm/dL (32-36); Mean Corpuscular Hemoglobin 30 pg (26-34); Mean Corpuscular Volume 93 fL (80-100); Monocytes Percent Auto 10.7 % (0.0-11.0); Neutrophils Absolute Auto 3.04 K/uL (1.7-7.0); Platelet Count* 240 K/uL (140-440); RDW Coefficient of Variation % 13.6 % (11.5-15.5); Red Blood Count 3.32 m/uL (4.00-5.20); White Blood Count* 5.33 K/uL (4.50-11.00)
[2024-05-13 06:33] LABS: Slide Review Reflex No
[2024-05-13 06:52] LABS: Chloride* 108 mmol/L (96-114); Potassium* 3.5 mmol/L (3.6-5.1); Sodium* 138 mmol/L (135-149)
[2024-05-13 06:55] LABS: Anion Gap 4 mEq/L (7-15); Blood Urea Nitrogen* 5 mg/dL (7-30); Carbon Dioxide* 26 mmol/L (20-32); Creatinine* 0.6 mg/dL (0.5-1.5); Est. Creatinine Clearance* 37.63; Estimated Glomerular Filt Rate 89 ml/min; Glucose* 88 mg/dL (60-115); Triglycerides* 90 mg/dL (40-149)
[2024-05-13 06:56] LABS: Calcium* 7.9 mg/dL (8.4-10.6); Phosphorus* 2.2 mg/dL (2.5-4.5)
[2024-05-13 06:59] LABS: Hemoglobin A1C* 5.6 % (0-5.6)
[2024-05-13 07:01] LABS: INR 1.29 (0.91-1.10); Prothrombin Time 16.9 Seconds
[2024-05-13] MEDS: LACTATED RINGERS 1000 ML 1,000 ML 100 ML IV (07:15)
[2024-05-13] MEDS: VALSARTAN 80 MG TABLET 40 MG PO (08:09)
[2024-05-13] MEDS: AMLODIPINE 5 MG TABLET 2.5 MG PO (08:10)
[2024-05-13] MEDS: SERTRALINE 50 MG TABLET PO (08:11)
[2024-05-13] MEDS: SODIUM CHLORIDE 0.9 % (FLUSH) 10 ML SYRINGE 5 ML IVF ×2 (08:12→21:10)
--- NOTE | 2024-05-13 08:17 | PC.NURSE ---
End of shift [id number] - Pt alert, oriented, cooperative, and pleasant. Up with standby assistance and is observed to ambulate in halls independently. Tolerating RA, clear liquid diet and fluids. Denies pain, SOB, n/v. Pt reports feeling much better today. NG tube remained clamped during entirety of shift with pt denying nausea, vomiting, and pain. Observed to sleep, appears to be resting comfortably in bed with call light in reach at end of shift.
--- NOTE | 2024-05-13 08:57 | P.GSPN_ITS ---
Subjective Subjective Date Seen: 05/13/24 Interval history: Lillie is doing well. She continues to have antegrade bowel function. No abdominal pain. Abdomen is soft. She tolerated clear liquids yesterday without any increase in pain or distension. She would like to try full liquids today if possible. She has been ambulating and states that she has more ?spirit today. Exam Narrative: Exam Narrative: General: No acute distress HEENT: NG in place. This was clamped Abdomen: Soft. Nontender. Knee remains reducible Const: Vital Signs, click to edit/add: Vital Signs - 24 hr 05/12/24 11:45 05/12/24 15:00 05/12/24 15:00 Temperature 97.8 F Pulse Rate [Right Pulse Oximeter] 75 68 Respiratory Rate 18 18 18 Blood Pressure [Ri ght Arm] 161/70 H Pulse Oximetry 97 97 Oxygen Delivery Me thod Room Air Room Air 05/12/24 15:00 05/12/24 22:33 05/12/24 22:37 Temperature 98.8 F 98.9 F Pulse Rate [Right Pulse Oximeter] 68 77 Respiratory Rate 18 20 20 Blood Pressure [Ri ght Arm] 166/80 H 153/78 H Pulse Oximetry 96 95 95 Oxygen Delivery Me thod Room Air Room Air Room Air 05/12/24 23:15 05/13/24 02:14 Temperature 96.1 F L 97.6 F Pulse Rate [Right Pulse Oximeter] 74 70 Respiratory Rate 16 18 Blood Pressure [Ri ght Arm] 170/75 H 193/85 H Pulse Oximetry 95 97 Oxygen Delivery Me thod Room Air Room Air Labs/Imaging Labs Labs: White blood cell count remains normal. Hemoglobin up slightly. 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 She is doing well and has tolerated her NG clamped for the last 24 hours with clear liquids. I recommended advancing to full liquids today. Lillie would like to keep the NG in place just to make sure that she is able to tolerate liquids. -she would benefit from a nutrition consult to discuss high calorie foods that she can take an which may be better tolerated for her, particularly if she is to be considered to be a candidate for surgical repair her nutrition will have to be optimized. -patient plans to follow-up with [facility] surgeon once discharged, will also reach out to other facilities to see if they will see her in consult as an outpatient.
[2024-05-13] MEDS: atenoloL 50 MG TABLET PO ×2 (10:08→21:08)
--- NOTE | 2024-05-13 10:17 | P.DS_ITS ---
DS: Providers Provider Time Seen by Provider: :29 Date Seen: 05/13/24 Date of admission: 05/10/24 19:31 Primary care physician: GIANNA RICHARDSON DO Admitting Clinician: Ulises Watts MD Consults: 05/10/24 19:36 Consult to Occupational Therapy [CONS] Routine Comment: Reason(s) for OT Consult:: Evaluate and Treat Any Restrictions?:: No Restrictions Consult to Physical Therapy [CONS] Routine Comment: Reason(s) for PT Consult:: Evaluate and Treat Any Restrictions?:: No Restrictions 05/13/24 09:00 Consult to Nutrition [CONS] Routine Comment: Reason for consult:: Nutritional Consult Comment: patient with recurrent SBO, malnutrition Attending Physician on discharge: Constance Maldonado MD Date of Discharge: 05/13/24 DS: Diagnosis Discharge Diagnosis (1) SBO (small bowel obstruction): Status: Acute Problem details: - 3rd episode since September. Due to large complex ventral hernia. - poor surgical candidate due to extensive nature of large ventral hernia and high risk of complications. - appreciate Dr. Tran's recommendations - Trial of clamping NGT clamping went well. Advance diet today and d/c NGT. Discharge today if advancing diet goes well. (2) Malnutrition: Status: Acute Problem details: She has lost 9 kg from January 2024 until this admission May 10 2024. Suspected cause of this is ongoing but intermittent bowel obstruction symptoms - Nutrition consult, this may happen as an outpatient. - Obtain nutrition labs for further assessment - Nutritional supplementation TID (3) Stage 3 chronic kidney disease: Status: Acute Problem details: Baseline creatinine 0.6. Admission creatinine 1.1. Likely due to dehydration. - 9/2 Cr back to baseline today. Continue IVF maintenence. Monitor creatinine. - 9/ taking adequate PO, stop IVF. (4) Peripheral edema: Status: Chronic Problem details: Compression wraps, elevation Takes furosemide prn at home for LE edema, resume upon discharge (5) Hypertension: Status: Chronic Problem details: - home amlodipine and atenolol restarted 01/30, extra 2.5 mg po amlodipine give 01/31. - restarting home furosemide 02/01 - resume home meds. f/u with PCP (6) Abdominal hernia: Status: Chronic Problem details: Ventral, chronic, nonsurgical. Followed by [facility]. Monitor Patient knows how to massage this when needed DS: Summary Hospital Course Hospital Course: Per H&P: Lillie Tong is a 84 year old female with history of large complex ventral hernia presents with her 3rd small-bowel obstruction this year. Previous episodes in September and January manage medically with resolution. In November she had consultation with a surgeon at [facility] with summary below. They advised against elective surgery for complex ventral hernia repair.. This episode started about a month ago. After few days it resolved and was better for about a week and then in the past week or so it has gotten much worse. He has had very little oral intake in the last few days. When she does try to drink some liquids it causes increased epigastric pressure and pain. She has had some output from her colostomy until last couple days. She has not had any vomiting. She does have some reflux symptoms. [facility] consult 11/19/2023: The patient has a medical history significant for previous endometrial cancer for which she underwent vaginal hysterectomy, bilateral salpingo-oophorectomy, bilateral pelvic and periaortic lymphadenectomy and radiation in 2003. This was complicated by wound breakdown, and she required multiple abdominal debridements and panniculectomy in 2003. Then in 2004, she underwent exploratory laparotomy and adhesiolysis, small bowel resection with anastomosis for small bowel obstruction in 2004. 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 In 2007, she underwent open cholecystectomy. I reviewed Ms. Tong's CT scans from September 2023 as well as one from 2008. I explained to her that her hernia was even present in 2008 and it was similar size and appearance. It is reassuring that in the several years since then, she has only had one episode of bowel obstruction that resolved uneventfully. Given the wide-mouth appearance of her hernia and how soft and pliable her bowel is, I think there is reasonable chance that if the patient has another bowel obstruction that it would resolve with decompression again. She also feels that she has a better understanding of her abdominal wall now, and is more vigilant with massaging her abdomen or trying to reduce any herniation with manual palpation. Given the above considerations, as well as the patient's age, frailty, anatomical complexity with a >13 cm distance between her small rectus abdominis muscles and colostomy--I think that surgical intervention for the purposes of adhesiolysis or hernia repair would present more risk than benefit. This would pose significant risk and also cause significant risk of worsened debility. Even if she were to require an abdominal exploration for any reason, likely her abdomen would be managed with bridging vicryl mesh, rather than a full hernia repair or abdominal wall reconstruction. Therefore, I would not feel comfortable offering elective surgical intervention for Ms. Tong. She confirmed her understanding and I provided her with my contact information for her to reach out if she has any further questions. Lillie had nausea with NG clamping the second hospital day, but was able to tolerate NG clamping and clears the next day. She is now tolerating advancing diet and will discharge home today if that goes well. Time Spent with Patient Time attestation: Total time spent providing and/or coordinating discharge services: Exam Narrative: Exam Narrative: General: No acute distress. Awake, alert, oriented. No pallor. No jaundice. Oropharynx: Clear. Mucous membranes moist. Cardiovascular: Regular rate and rhythm. Grade 2/6 systolic murmur loudest at the left sternal border. Respiratory: Clear to auscultation bilaterally. No crackles or wheezes. Abdomen: Left ostomy with some light brown pasty stool, was recently . Bowel sounds present. Large abdominal hernia, soft, nontender to palpation. Const: Vital Signs, click to edit/add: Vital Signs - 24 hr 05/12/24 11:45 05/12/24 15:00 05/12/24 15:00 Temperature 97.8 F Pulse Rate [Right Pulse Oximeter] 75 68 Respiratory Rate 18 18 18 Blood Pressure [Ri ght Arm] 161/70 H Pulse Oximetry 97 97 Oxygen Delivery Me thod Room Air Room Air 05/12/24 15:00 05/12/24 22:33 05/12/24 22:37 Temperature 98.8 F 98.9 F Pulse Rate [Right Pulse Oximeter] 68 77 Respiratory Rate 18 20 20 Blood Pressure [Ri ght Arm] 166/80 H 153/78 H Pulse Oximetry 96 95 95 Oxygen Delivery Me thod Room Air Room Air Room Air 05/12/24 23:15 05/13/24 02:14 05/13/24 07:00 Temperature 96.1 F L 97.6 F Pulse Rate [Right Pulse Oximeter] 74 70 70 Respiratory Rate 16 18 Blood Pressure [Ri ght Arm] 170/75 H 193/85 H Pulse Oximetry 95 97 Oxygen Delivery Me thod Room Air Room Air 05/13/24 07:00 05/13/24 07:00 Temperature 98.1 F Pulse Rate [Right Pulse Oximeter] 71 Respiratory Rate 18 Blood Pressure [Ri ght Arm] 198/80 H Pulse Oximetry 96 96 Oxygen Delivery Me thod Room Air Room Air DS: Data Data Completed and Pending Completed studies during hospitalization: Ordering Physician: Bird Leonardo M.D. Date of Service: 05/10/24 Procedure(s): CT abdomen pelvis w con Accession Number(s): [id number] cc: Bird Leonardo M.D.; GIANNA RICHARDSON D.O.~ For Patients: As a result of the Cures Act, medical imaging exams and procedure reports are released immediately into your electronic medical record. You may view this report before your referring provider. If you have questions, please contact your health care provider. INDICATION: Abdominal discomfort, bloating, structural ileus. TECHNIQUE: CT abdomen and pelvis acquired with 66 cc Isovue 370 IV contrast. Water oral prep. COMPARISON: CT chest abdomen pelvis 09/13/2023 FINDINGS: Lower chest: Trivessel coronary artery calcification. Aortic annular and aortic valvular calcification. Liver: Unremarkable. Gallbladder and bile ducts: Gallbladder is absent. Mild prominence of the common bile duct measuring 7 millimeters in herpetic bile ducts, likely reservoir effect. Pancreas: Unremarkable. No mass or inflammation. Spleen: Multiple hypodense lesions throughout the spleen, which may represent small hemangiomas, similar to prior. Adrenal glands: Unremarkable. No nodules. Kidneys: Unremarkable. No suspicious masses, stones, or hydronephrosis. GI tract: Partial small bowel resection with anastomosis in the mid abdomen. Similar prominence of small bowel loops and distended stomach compared to prior. Large ventral hernia containing small and large bowel loops, with possible transition point within the ventral hernia (2/106). Bowel is difficult to trace. Vasculature: Abdominal aorta is normal in caliber. Moderate to severe atherosclerosis of the aorta and branch vessels. 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 Lymph nodes: No lymphadenopathy. Peritoneum/Abdominal Wall: Large ventral hernia as above. Calcifications along the pelvic guzman, which may be related to prior surgery. Mild anasarca. Pelvis: Uterus is absent. Bones: Moderate degenerative disease of the spine. Grade 1 retrolisthesis of L1 on L2. Grade 1 anterolisthesis of L4 on L5. IMPRESSION: Redemonstration of chronic small-bowel obstruction and with likely transition point within the ventral hernia, similar to prior. No evidence of pneumatosis or bowel hypoenhancement. Moderate to severe atherosclerosis of the aorta and branch vessels with severe stenosis of the SMA with multifocal areas of short-segment occlusion with distal reconstitution, similar to prior. Please note that all CT scans at this facility use dose modulation, iterative reconstruction, and/or weight-based dosing when appropriate to reduce radiation dose to as low as reasonably achievable. Dictated by Kirsten Fox MD @ 05/10/2024 4:40:36 PM (Electronically Signed) Ordering Physician: Bird Leonardo M.D. Date of Service: 05/10/24 Procedure(s): XR chest 1V portable Accession Number(s): [id number] cc: Bird Leonardo M.D.; GIANNA RICHARDSON D.O.~ For Patients: As a result of the Century Cures Act, medical imaging exams and procedure reports are released immediately into your electronic medical record. You may view this report before your referring provider. If you have questions, please contact your health care provider. Indication: : Post NG tube TECHNIQUE: Single-view chest. FINDINGS: Enteric tube in the stomach. Additional overlying tubing projecting over the right chest into the left abdomen. Lungs appear clear. No effusion or pneumothorax. Dictated by Tayler Byrne MD @ 05/10/2024 7:51:55 PM (Electronically Signed) Labs on day of discharge: Labs from last 24 hours 05/13/24 06:17 WBC 5.33 RBC 3.32 L Hgb 9.8 L Hct 30.7 L MCV 93 MCH 30 MCHC 32 RDW Coeff of Sadia 13.6 Plt Count 240 Neut % (Auto) 57.0 Lymph % (Auto) 24.6 [place] % (Auto) 10.7 Eos % (Auto) 6.6 Baso % (Auto) 0.9 Neut # (Auto) 3.04 Lymph # (Auto) 1.31 [place] # (Auto) 0.60 Eos # (Auto) 0.35 Baso # (Auto) 0.05 Abs Immat Gran (auto) 0.01 Imm/Tot Granulo (auto) 0.2 INR 1.29 H Sodium 138 Potassium 3.5 L Chloride 108 Carbon Dioxide 26 Anion Gap 4 L BUN 5 L Creatinine 0.6 Estimated Creat Clear 37.63 Estimated GFR 89 Glucose 88 Hemoglobin A1c 5.6 Lactate 0.5 Calcium 7.9 L Phosphorus 2.2 L Prealbumin Pending Triglycerides 90 Discharge Plan Discharge Disposition: Home, Self-Care Date of Admission: 05/10/24 19:31 Attending Provider on Discharge: oCnstance Maldonado Primary Care Provider: GIANNA RICHARDSON Condition: Stable Anticipated Discharge Date/Time: 05/13/24 12:00 Discharge Medications: Continued simvastatin 10 mg tablet 10 mg PO HS amlodipine 2.5 mg tablet 2.5 mg PO DAILY Hold Instructions: Resume on 09/24/23. Hold until seen by PCP pantoprazole 20 mg tablet,delayed release (DR/EC) 20 mg PO DAILY atenolol 50 mg tablet 50 mg PO BID Hold Instructions: Resume on 09/24/23. Hold until seen by PCP Patient Comments: PT SAYS NOW BID lorazepam 0.5 mg tablet 0.5 mg PO Q6H PRN aspirin [Aspirin Childrens] 81 mg tablet,chewable 81 mg PO DAILY cholecalciferol (vitamin D3) 25 mcg (1,000 unit) tablet 2,000 unit PO DAILY calcium carbonate-vitamin D3 [Calcium 500 + D] 500 mg-10 mcg (400 unit) tablet 1 tab PO DAILY sertraline 50 mg tablet 50 mg PO QAM furosemide 20 mg tablet 20 mg PO DAILY Qty: 30 0RF valsartan 40 mg tablet 20 mg PO DAILY Discharge Orders: Discharge Order (Routine); Ordered 05/13/24 Ordered By: Constance Maldonado Additional Instructions: Nutrition 1-2 weeks for weight loss Activity Level: No Restrictions Discharge Diet: Regular Diet Detail: Nutritional supplement TID Follow Up Appointments: GIANNA RICHARDOSN DO [Primary Care Provider] - (1 week) Forms: [facility] Info Instructions
--- NOTE | 2024-05-13 19:06 | PC.NURSE ---
End of shift [id number]- Pt alert, oriented, and pleasant. Up with standby assistance and is observed to ambulate in halls independently. Pt denies N/V/D/CP/SOB. NG tube removed during shift. Pt prepared for discharge and began to have intermittent cramping with eating a regular diet. Pt requested to stay and states not feeling herself. Pt is passing gas. Bowel sounds hyperactive. Pt finds relief with walking, slowly eating, and massaging abdomen. Continuing to monitor. Appears to be resting comfortably in chair watching TV with call light in reach at end of shift.
[2024-05-13] MEDS: ENOXAPARIN 40 MG/0.4 ML INJ SUBCUT (21:08)
[2024-05-14] VITALS (7 sets, daily range): BP systolic 140–193; BP diastolic 61–84; PULSE 61–69; RESP 14–16; TEMP 36.4–37.1; O2SAT 95–97
[2024-05-14] MEDS: LORazepam 0.5 MG TABLET PO (02:48)
--- NOTE | 2024-05-14 06:19 | PC.NURSE ---
End of shift note [id number]: Pt alert & oriented x 4 and able to make needs known. She has been on RA and afebrile throughout the shift. B/Ps remain elevated though pt having no HTN symptoms. She does have cramping after eating per report though has otherwise been denying pain when asked. Pt transfers/ambulates independently in room and with walking stick in hallway. IV to R FA patent and SL. Pt remains continent of bladder and chronic ostomy remains in place with pt emptying into toilet per home routine. She refused SCDs and TEDs this shift when approached. Pt did request one dose of PRN Ativan this shift.
[2024-05-14 06:40] LABS: Basophils Absolute Auto 0.05 K/uL (0.00-0.30); Basophils Percent Auto 0.9 % (0.0-3.0); Eosinophils Absolute Auto 0.28 K/uL (0.00-0.50); Eosinophils Percent Auto 5.2 % (0.0-7.0); Hematocrit 27.5 % (33.0-51.0); Hemoglobin* 8.9 gm/dL (12.0-16.0); Immature Granulocytes Abs Auto 0.02 K/uL (0.00-0.30); Immature Granulocytes Pct Auto 0.4 %; Lymphocytes Absolute Auto 1.18 K/uL (0.90-2.90); Mean Corpuscular HGB Conc 32 gm/dL (32-36); Mean Corpuscular Hemoglobin 30 pg (26-34); Mean Corpuscular Volume 93 fL (80-100); Monocytes Percent Auto 10.6 % (0.0-11.0); Neutrophils Absolute Auto 3.26 K/uL (1.7-7.0); Neutrophils Percent Auto 60.9 % (42.0-72.0); Platelet Count* 211 K/uL (140-440); RDW Coefficient of Variation % 13.3 % (11.5-15.5); Red Blood Count 2.97 m/uL (4.00-5.20); White Blood Count* 5.36 K/uL (4.50-11.00)
[2024-05-14 06:45] LABS: Slide Review Reflex No
[2024-05-14 07:04] LABS: Chloride* 106 mmol/L (96-114); Potassium* 3.2 mmol/L (3.6-5.1); Sodium* 137 mmol/L (135-149)
[2024-05-14 07:07] LABS: Anion Gap 3 mEq/L (7-15); Carbon Dioxide* 28 mmol/L (20-32); Creatinine* 0.6 mg/dL (0.5-1.5); Est. Creatinine Clearance* 38.64; Estimated Glomerular Filt Rate 89 ml/min
[2024-05-14 07:08] LABS: Blood Urea Nitrogen* 7 mg/dL (7-30); Calcium* 7.7 mg/dL (8.4-10.6); Glucose* 88 mg/dL (60-115)
[2024-05-14] MEDS: OMEPRAZOLE 20 MG CAPSULE DR PO (08:59)
[2024-05-14] MEDS: POTASSIUM BICARB 25 MEQ EFFERVESCENT TAB PO ×2 (09:00→10:32)
[2024-05-14] MEDS: AMLODIPINE 5 MG TABLET 2.5 MG PO (09:00)
[2024-05-14] MEDS: SODIUM CHLORIDE 0.9 % (FLUSH) 10 ML SYRINGE 5 ML IVF ×2 (09:00→19:23)
[2024-05-14] MEDS: atenoloL 50 MG TABLET PO ×2 (09:00→20:32)
[2024-05-14] MEDS: SERTRALINE 50 MG TABLET PO (09:00)
[2024-05-14] MEDS: ASPIRIN 81 MG TAB.CHEW PO (09:00)
[2024-05-14] MEDS: VALSARTAN 80 MG TABLET 40 MG PO (10:02)
--- NOTE | 2024-05-14 10:17 | PM.IMPN1 ---
Progress Note: A&P Assessment and plan (1) SBO (small bowel obstruction): Problem details: - 3rd episode since September. Due to large complex ventral hernia. - poor surgical candidate due to extensive nature of large ventral hernia and high risk of complications. - appreciate Dr. Tran's recommendations - 05/13 Trial of clamping NGT clamping went well. Advance diet today and d/c NGT. Discharge today if advancing diet goes well. - 05/14 slight setback yesterday while eating solids, trial of advancing diet again today. Possible discharge tomorrow. Discussed with Dr. Tran. Patient has been referred to [facility] as an outpatient; they will give her a call to set up the appointment. Status: Acute (2) Abdominal hernia: Problem details: Ventral, chronic, nonsurgical. Followed by [facility]. Monitor Patient knows how to massage this when needed Status: Chronic (3) Peripheral edema: Problem details: Compression wraps, elevation Takes furosemide prn at home for LE edema, resume upon discharge Status: Chronic (4) Superior mesenteric artery stenosis: Problem details: Seen on CT (not CTA) 09/13/23 - Continue Aspirin and statin. Status: Chronic (5) Stage 3 chronic kidney disease: Problem details: Baseline creatinine 0.6. Admission creatinine 1.1. Likely due to dehydration. - 05/12 Cr back to baseline today. Continue IVF maintenence. Monitor creatinine. - 05/13 taking adequate PO, stop IVF. Status: Acute (6) Malnutrition: Problem details: She has lost 9 kg from January 2024 until this admission May 10 2024. Suspected cause of this is ongoing but intermittent bowel obstruction symptoms - Nutrition consult, this may happen as an outpatient. - Obtain nutrition labs for further assessment - Nutritional supplementation TID Status: Acute (7) Hypertension: Problem details: - home amlodipine and atenolol restarted 01/30, extra 2.5 mg po amlodipine give 01/31. - restarting home furosemide 02/01 - resume home meds. f/u with PCP Status: Chronic (8) Hypokalemia: Problem details: Likely secondary to recent NG suctioning, GI loss. Replace orally. Recheck in the morning. Status: Acute Plan Pumonary toilet: Continue incentive spirometry VTE prophylaxis: TEDs, SCDs, nightly low dose enoxaparin Hemoglobin A1c upper limits of normal. Subjective Time Seen by Provider: 10:00 Date Seen: 05/14/24 Interval history: Lillie had some cramping after eating yogurt and an egg for lunch yesterday. She noted that she was still having good ostomy output during the cramping episode. She tried full liquid (tomato soup and yogurt) diet for dinner and that went well. She wants to go today and try some toast and cereal for breakfast. I noted that she could discharge on a full liquid diet and just continue to do that since that works well for her, but she wants to try to get to a regular diet. We also talked about the possibility pureeing food as that may also be helpful, but she is hoping to try this 1st. I also spoke with Dr. Tran, who agreed that she could go on a pureed diet, and noted that the surgeon from [facility] would likely be contacting her soon to set up an outpatient appointment. Her daughter, Neeta, came in around 11:30am. I saw her in the room with the patient and gave her an update. Exam Narrative: Exam Narrative: General: No acute distress. Awake, alert, oriented. No pallor. No jaundice. Oropharynx: Clear. Mucous membranes slightly dry. Cardiovascular: Regular rate and rhythm. Grade 2/6 systolic murmur loudest at the left sternal border, unchanged. Respiratory: Clear to auscultation bilaterally. No crackles or wheezes. Abdomen: Bowel sounds present. Large abdominal hernia, soft, nontender to palpation. Const: Vital Signs, click to edit/add: Vital Signs - 24 hr 05/13/24 10:52 05/13/24 15:00 05/13/24 15:00 Temperature 98 F 98.5 F Pulse Rate [Right Pulse Oximeter] 76 69 Respiratory Rate 18 16 Blood Pressure [Ri ght Arm] 147/57 H 163/70 H Pulse Oximetry 96 96 96 Oxygen Delivery Me thod Room Air Room Air Room Air 05/13/24 19:34 05/13/24 23:00 05/13/24 23:00 Temperature 97.7 F Pulse Rate [Right Pulse Oximeter] 65 67 Respiratory Rate 16 16 16 Blood Pressure [Ri ght Arm] 176/75 H Pulse Oximetry 96 97 Oxygen Delivery Me thod Room Air Room Air 05/13/24 23:50 05/14/24 02:54 05/14/24 07:00 Temperature 98.4 F 97.5 F L 98.2 F Pulse Rate [Right Pulse Oximeter] 67 69 69 Respiratory Rate 16 16 14 Blood Pressure [Ri ght Arm] 190/84 H 193/84 H 173/73 H Pulse Oximetry 97 95 96 Oxygen Delivery Me thod Room Air Room Air Room Air 05/14/24 07:00 Temperature Pulse Rate [Right Pulse Oximeter] Respiratory Rate Blood Pressure [Ri ght Arm] Pulse Oximetry Oxygen Delivery Me thod Room Air Labs Labs: Laboratory Results - last 24 hr 05/14/24 06:13 WBC 5.36 RBC 2.97 L Hgb 8.9 L Hct 27.5 L MCV 93 MCH 30 MCHC 32 RDW Coeff of Sadia 13.3 Plt Count 211 Neut % (Auto) 60.9 Lymph % (Auto) 22.0 [place] % (Auto) 10.6 Eos % (Auto) 5.2 Baso % (Auto) 0.9 Neut # (Auto) 3.26 Lymph # (Auto) 1.18 [place] # (Auto) 0.60 Eos # (Auto) 0.28 Baso # (Auto) 0.05 Abs Immat Gran (auto) 0.02 Imm/Tot Granulo (auto) 0.4 Sodium 137 Potassium 3.2 L Chloride 106 Carbon Dioxide 28 Anion Gap 3 L BUN 7 Creatinine 0.6 Estimated Creat Clear 38.64 Estimated GFR 89 Glucose 88 Calcium 7.7 L
--- NOTE | 2024-05-14 12:42 | P.GSPN_ITS ---
Subjective Subjective Date Seen: 05/14/24 Interval history: Lillie advanced to solid food yesterday and noted some cramping so she wished to remain inpatient. Exam Const: Vital Signs, click to edit/add: Vital Signs - 24 hr 05/13/24 15:00 05/13/24 15:00 05/13/24 19:34 Temperature 98.5 F 97.7 F Pulse Rate [Right Pulse Oximeter] 69 65 Respiratory Rate 16 16 Blood Pressure [Ri ght Arm] 163/70 H 176/75 H Pulse Oximetry 96 96 96 Oxygen Delivery Me thod Room Air Room Air Room Air 05/13/24 23:00 05/13/24 23:00 05/13/24 23:50 Temperature 98.4 F Pulse Rate [Right Pulse Oximeter] 67 67 Respiratory Rate 16 16 16 Blood Pressure [Ri ght Arm] 190/84 H Pulse Oximetry 97 97 Oxygen Delivery Me thod Room Air Room Air 05/14/24 02:54 05/14/24 07:00 05/14/24 07:00 Temperature 97.5 F L 98.2 F Pulse Rate [Right Pulse Oximeter] 69 69 Respiratory Rate 16 14 Blood Pressure [Ri ght Arm] 193/84 H 173/73 H Pulse Oximetry 95 96 Oxygen Delivery Me thod Room Air Room Air Room Air 05/14/24 10:56 Temperature 98.7 F Pulse Rate [Right Pulse Oximeter] 64 Respiratory Rate 16 Blood Pressure [Ri ght Arm] 140/63 H Pulse Oximetry 97 Oxygen Delivery Me thod Room Air Progress Note:A&P Assessment and plan (1) Hypokalemia: Status: Acute (2) Malnutrition: Status: Acute (3) Stage 3 chronic kidney disease: Status: Acute (4) SBO (small bowel obstruction): Status: Acute (5) Anemia: Status: Chronic (6) Peripheral edema: Status: Chronic (7) Superior mesenteric artery stenosis: Status: Chronic Plan The patient is an 84-year-old female with recurrent small-bowel obstructions from large ventral hernia. He she has been slowly advancing her diet. Obstruction resolved after NG decompression though she was having discomfort yesterday with solids. Working on continuing dietary advancement. As long as her hernias soft and reducible and she continues to have antegrade bowel fun ction she should be able to advance diet as tolerated. -Have discussed the case with a surgeon at a tertiary care center extensively who is willing to discuss elective hernia repair in the setting of recurrent obstructions. They are going to reach out to her to schedule and will try to do this in the next few weeks. -Nutrition consult ordered. Have stressed increased protein intake to Lillie to optimize nutrition though fortunately her albumin on admission was normal. -she is chronically anemic. This may need to be addressed with her primary care provider prior to consideration of elective surgery.
--- NOTE | 2024-05-14 14:56 | PC.NURSE ---
End of shift note [id number]: Pt alert & oriented x3, calm & pleasant. Pt on RA and afebrile throughout the shift. B/Ps remain elevated, no HTN symptoms present. Pt denies any pain or cramping throughout the shift. No BM during shift. Pt tolerating fluids well. Regular diet is approached lightly and continuing to be assessed and monitored - full liquids are tolerated well. Pt transfers/ambulates independently in room and with walking stick in hallway. IV to R FA patent and SL. Pt remains continent of bladder and chronic ostomy remains in place. Pt appears watching television with call light in reach.
[2024-05-14 15:06] LABS: Prealbumin 9.8 mg/dL (20.0-40.0)
[2024-05-14] MEDS: ONDANSETRON 2 MG/ML inj 4 MG IVP ×2 (19:21→23:51)
[2024-05-14] MEDS: ENOXAPARIN 40 MG/0.4 ML INJ SUBCUT (20:32)
[2024-05-15] VITALS (10 sets, daily range): BP systolic 111–167; BP diastolic 49–94; PULSE 60–72; RESP 16–18; TEMP 36.1–37.1; O2SAT 92–96
[2024-05-15] MEDS: 0.9 % SODIUM CHLORIDE 1000 ml 1,000 ML 75 ML IV ×3 (00:24→22:16)
[2024-05-15] MEDS: LORazepam 0.5 MG TABLET PO (00:24)
[2024-05-15] MEDS: ONDANSETRON 2 MG/ML inj 4 MG IVP (04:56)
--- NOTE | 2024-05-15 05:04 | CRLHL7_ITS ---
For Patients: As a result of the Century Cures Act, medical imaging exams and procedure reports are released immediately into your electronic medical record. You may view this report before your referring provider. If you have questions, please contact your health care provider. Indication: Confirm nasogastric tube location Technique: Single image of the abdomen as an AP supine study Comparison: September 14, 2023 Findings: Demineralized osseous structures. Degenerative changes. Scoliosis. Nasogastric tube ending in the stomach. No specific bowel gas abnormality visible on this single view AP supine study Impression: Nasogastric tube ending in the stomach Dictated by Sekou Dennison MD @ 05/15/2024 5:40:13 AM (Electronically Signed)
[2024-05-15 06:12] LABS: Basophils Absolute Auto 0.04 K/uL (0.00-0.30); Basophils Percent Auto 0.6 % (0.0-3.0); Eosinophils Absolute Auto 0.07 K/uL (0.00-0.50); Eosinophils Percent Auto 1.1 % (0.0-7.0); Hematocrit 31.6 % (33.0-51.0); Immature Granulocytes Abs Auto 0.01 K/uL (0.00-0.30); Immature Granulocytes Pct Auto 0.2 %; Mean Corpuscular HGB Conc 32 gm/dL (32-36); Mean Corpuscular Hemoglobin 29 pg (26-34); Mean Corpuscular Volume 93 fL (80-100); Monocytes Percent Auto 9.7 % (0.0-11.0); Neutrophils Percent Auto 75.4 % (42.0-72.0); Platelet Count* 238 K/uL (140-440); RDW Coefficient of Variation % 13.2 % (11.5-15.5); Red Blood Count 3.41 m/uL (4.00-5.20)
[2024-05-15 06:17] LABS: Slide Review Reflex No
--- NOTE | 2024-05-15 06:24 | PC.NURSE ---
End of shift [id number]: upon initial assessment pt reported nausea. Zofran given w/ stated relief and pt began walking halls. VSS. No output noted in ostomy although pt reports removing gas from bag. Around 0000 pt reported an emesis she had in the bathroom and continued nausea. PRN zofran given and contacted. See orders. Around 0430 pt had 400cc emesis. Surgeon contacted. NG placed at 55cm in right nares. placement confirmed by PH and x-ray. in <1 hour 1050ml drained. Pt denying pain throughout shift. Aromatherapy patch given. BS hyperactive. No tenderness on palpation. Using call light appropriately.
[2024-05-15 06:25] LABS: Chloride* 101 mmol/L (96-114); Sodium* 135 mmol/L (135-149)
[2024-05-15 06:26] LABS: Potassium* 3.9 mmol/L (3.6-5.1)
[2024-05-15 06:28] LABS: Anion Gap 7 mEq/L (7-15); Carbon Dioxide* 27 mmol/L (20-32); Creatinine* 0.7 mg/dL (0.5-1.5); Est. Creatinine Clearance* 39.17; Estimated Glomerular Filt Rate 86 ml/min
[2024-05-15 06:29] LABS: Blood Urea Nitrogen* 9 mg/dL (7-30); Calcium* 7.9 mg/dL (8.4-10.6); Glucose* 97 mg/dL (60-115)
[2024-05-15] MEDS: AMLODIPINE 5 MG TABLET 2.5 MG PO (09:26)
[2024-05-15] MEDS: OMEPRAZOLE 20 MG CAPSULE DR PO (09:26)
[2024-05-15] MEDS: atenoloL 50 MG TABLET PO ×2 (09:27→20:37)
[2024-05-15] MEDS: ASPIRIN 81 MG TAB.CHEW PO (09:27)
[2024-05-15] MEDS: SERTRALINE 50 MG TABLET PO (09:27)
[2024-05-15] MEDS: VALSARTAN 80 MG TABLET 40 MG PO (09:27)
--- NOTE | 2024-05-15 10:36 | CRLHL7_ITS ---
For Patients: As a result of the Century Cures Act, medical imaging exams and procedure reports are released immediately into your electronic medical record. You may view this report before your referring provider. If you have questions, please contact your health care provider. INDICATION: PICC line. TECHNIQUE: Chest 1 views. COMPARISON: None. FINDINGS: Patient is rotated. Cardiovascular and mediastinum: Heart size and vasculature are normal in caliber and appearance. Right PICC with tip at the superior cavoatrial junction. Subdiaphragmatic feeding tube. Lungs and pleural spaces: Lungs are clear. No sign of infiltrate or mass. No sign of pleural effusion. No pneumothorax. Bones and soft tissues: No significant findings. IMPRESSION: Right PICC with tip at the superior cavoatrial junction. Dictated by Han Jonas MD @ 05/15/2024 4:46:29 PM (Electronically Signed)
--- NOTE | 2024-05-15 11:21 | P.GSPN_ITS ---
Subjective Subjective Date Seen: 05/15/24 Interval history: Overnight Lillie began vomiting. She vomited approximately 400. The NG was replaced and she has had over 1500 mL out. Lillie has not had any stoma output since yesterday. There is some gas in the bag today however. She has not had any pain. Exam Narrative: Exam Narrative: General: No acute distress NG with brown output noted. Abdomen is soft. Right-sided hernia is reducible. Bowel sounds noted. Gas in her stoma bag. Const: Vital Signs, click to edit/add: Vital Signs - 24 hr 05/14/24 15:00 05/14/24 15:00 05/14/24 15:00 Temperature 98.7 F Pulse Rate [Right Pulse Oximeter] 69 69 Respiratory Rate 16 16 16 Blood Pressure [Ri ght Arm] 149/61 H Pulse Oximetry 96 96 Oxygen Delivery Me thod Room Air Room Air 05/14/24 19:19 05/14/24 22:53 05/14/24 22:55 Temperature 98.3 F 98.3 F Pulse Rate [Right Pulse Oximeter] 68 61 Respiratory Rate 16 16 16 Blood Pressure [Ri ght Arm] 144/70 H 166/74 H Pulse Oximetry 97 95 95 Oxygen Delivery Me thod Room Air Room Air Room Air 05/15/24 02:57 05/15/24 08:37 05/15/24 09:07 Temperature 98.5 F 98.5 F Pulse Rate [Right Pulse Oximeter] 60 72 Respiratory Rate 18 18 18 Blood Pressure [Ri ght Arm] 167/76 H 164/76 H Pulse Oximetry 94 95 95 Oxygen Delivery Me thod Room Air Room Air Room Air 05/15/24 09:08 Temperature Pulse Rate [Right Pulse Oximeter] 72 Respiratory Rate 18 Blood Pressure [Ri ght Arm] Pulse Oximetry Oxygen Delivery Me thod Labs/Imaging Labs Labs: White blood cell count remains normal. Hemoglobin is 10. Progress Note:A&P Assessment and plan (1) Malnutrition: Status: Acute (2) Stage 3 chronic kidney disease: Status: Acute (3) SBO (small bowel obstruction): Status: Acute (4) Anemia: Status: Chronic (5) Superior mesenteric artery stenosis: Status: Chronic (6) Abdominal hernia: Status: Chronic Plan Lillie is an 84-year-old female with a large ventral hernia in a small-bowel obstruction. She initially resolved with NG decompression, however when she was advanced to regular diet her symptoms recurred. Our plan is to hopefully get her through this episode and have her see a surgeon as an outpatient for consideration of elective repair, however, she may need more urgent intervention if her obstruction continues. Discussions have been had with surgeons at outside facilities, however certainly a definitive plan would not be able to be made until Lillie has been seen by them. -continue NG for now until return of bowel function. -agree with starting TPN -if she does not improve would need transfer to a tertiary care facility. She was evaluated by [facility] as an outpatient. They have said a prior hospitalizations as well as this hospitalization that if she does not improve that she could transfer, however they have yet to accept her for transfer when we have attempted. Fortunately the patient has always improved. -have also had discussions with the surgeon at [facility] to would be amenable to seeing Lillie as an outpatient for elective repair. Hopefully if her symptoms resolve, we will be able to get her in to see him in the next week. If not we may have to discuss possible inpatient transfer.
--- NOTE | 2024-05-15 11:41 | P.IMPN_ITS ---
Progress Note: A&P Assessment and plan (1) Malnutrition: Problem details: She has lost 9 kg from January 2024 until this admission May 10 2024 - admission weight was 54.9 kg. Suspected cause of this is ongoing but intermittent bowel obstruction symptoms. Weight on 05/15/2024 is 58.2 kg. - Nutrition consult, this may happen as an outpatient. - Obtain nutrition labs for further assessment - Nutritional supplementation TID attempted but patient unable to tolerated - discussed parental nutrition with patient and her son-in-law, Stefan, and both are in agreement to proceed with TPN at this time. Will place PICC. Will involve pharmacy and water valve repairer. Status: Acute (2) Stage 3 chronic kidney disease: Problem details: Baseline creatinine 0.6. Admission creatinine 1.1. Likely due to dehydration. - 05/12 Cr back to baseline today. Continue IVF maintenence. Monitor creatinine. - 05/13 taking adequate PO, stop IVF. - 05/15 recurrent small-bowel obstruction. NG tube placed back. Restarted IV fluids. Status: Acute (3) SBO (small bowel obstruction): Problem details: - 3rd episode since September. Due to large complex ventral hernia. - poor surgical candidate due to extensive nature of large ventral hernia and high risk of complications. - appreciate Dr. Tran's recommendations - 05/13 Trial of clamping NGT clamping went well. Advance diet today and d/c NGT. Discharge today if advancing diet goes well. - 05/14 slight setback yesterday while eating solids, trial of advancing diet again today. Possible discharge tomorrow. Discussed with Dr. Tran. Patient has been referred to [facility] as an outpatient; they will give her a call to set up the appointment. - 05/15 recurrent small-bowel obstruction. NG tube replaced. Tentative plan set up by Dr. Tran, Dr. Connor, [facility], is agreeable to see the patient in outpatient consultation this coming week. In the meantime if her condition worsens Dr. Connor is also agreeable to help set up transfer to [facility]. I discussed the same with patient's son-in-law, Stefan, who also spoke with Dr. Connor and is agreeable to the above stated plans. Status: Acute (4) Anemia: Problem details: - stable - hemoglobin 10 on 05/15/2024 with no active bleeding. 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 For now will continue to monitor. Status: Chronic (5) Superior mesenteric artery stenosis: Problem details: Seen on CT (not CTA) 09/13/23 - Continue Aspirin and statin. Status: Chronic (6) Abdominal hernia: Problem details: - Ventral, chronic, nonsurgical per [facility] surgeon. - given recurrent small-bowel obstruction, our general surgeon, Dr. Tran, made arrangements with Dr. Connor, [facility], who is agreeable to see the patient in outpatient setting for consultation an inpatient if need be. Status: Chronic Plan 1. Reviewed impression with patient and her son-in-law. Answered their question s. 2. They are agreeable with above stated plans and recommendations. 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 today she developed nausea with vomiting of a 400 mL emesis. Subsequently NG tube was placed again with 1050 mL output. NG tube has been in place since. Abdominal bloating, nausea, and vomiting have resolved since. Continues to have NG tube output. Patient has had symptoms of recurrent small-bowel obstruction for about 5 weeks. During this time she is often had very little nutritional oral intake. For the past 6 days she has had minimal nutritional intake with recurrent obstruction prompting NG tube placement again this morning. Pre-albumin was low at 9.8 earlier during this hospital stay. Admission weight was 54.9 kg. With rehydration her weight has slowly increased such that today it is up to 58.2 kg. Denies cardiopulmonary symptoms. Gastrointestinal symptoms resolved with replacement of NG tube. On IV fluids. NG tube in place. NPO. No apparent blood loss. Exam Narrative: Exam Narrative: I examine her in her hospital room. Appears comfortable no acute distress. NG tube in place and suctioning. Vision and hearing are adequate. Alert and oriented x4. Friendly, articulate, cooperative. Lungs are clear to auscultation. Heart tones with regular rhythm. Abdomen with occasional bowel sounds. Able to reduce large ventral hernia. Abdomen is soft. Extremities without edema. Independent transfer, station, and gait. No tremor, asterixis, or ataxia. Cranial nerves 3-12 grossly intact. Const: Vital Signs, click to edit/add: Vital Signs - 24 hr 05/14/24 15:00 05/14/24 15:00 05/14/24 15:00 Temperature 98.7 F Pulse Rate [Right Pulse Oximeter] 69 69 Respiratory Rate 16 16 16 Blood Pressure [Ri ght Arm] 149/61 H Pulse Oximetry 96 96 Oxygen Delivery Me thod Room Air Room Air 05/14/24 19:19 05/14/24 22:53 05/14/24 22:55 Temperature 98.3 F 98.3 F Pulse Rate [Right Pulse Oximeter] 68 61 Respiratory Rate 16 16 16 Blood Pressure [Ri ght Arm] 144/70 H 166/74 H Pulse Oximetry 97 95 95 Oxygen Delivery Ak thod Room Air Room Air Room Air 05/15/24 02:57 05/15/24 08:37 05/15/24 09:07 Temperature 98.5 F 98.5 F Pulse Rate [Right Pulse Oximeter] 60 72 Respiratory Rate 18 18 18 Blood Pressure [Ri ght Arm] 167/76 H 164/76 H Pulse Oximetry 94 95 95 Oxygen Delivery Me thod Room Air Room Air Room Air 05/15/24 09:08 05/15/24 11:38 Temperature 98.7 F Pulse Rate [Right Pulse Oximeter] 72 67 Respiratory Rate 18 18 Blood Pressure [Ri ght Arm] 111/94 H Pulse Oximetry 94 Oxygen Delivery Ak thod Room Air Labs Labs: Laboratory Results - last 24 hr 05/13/24 05/15/24 06:17 06:00 WBC 6.40 RBC 3.41 L Hgb 10.0 L Hct 31.6 L MCV 93 MCH 29 MCHC 32 RDW Coeff of Sadia 13.2 Plt Count 238 Neut % (Auto) 75.4 H Lymph % (Auto) 13.0 L [place] % (Auto) 9.7 Eos % (Auto) 1.1 Baso % (Auto) 0.6 Neut # (Auto) 4.80 Lymph # (Auto) 0.80 L [place] # (Auto) 0.60 Eos # (Auto) 0.07 Baso # (Auto) 0.04 Abs Immat Gran (auto) 0.01 Imm/Tot Granulo (auto) 0.2 Sodium 135 Potassium 3.9 Chloride 101 Carbon Dioxide 27 Anion Gap 7 BUN 9 Creatinine 0.7 Estimated Creat Clear 39.17 Estimated GFR 86 Glucose 97 Calcium 7.9 L Prealbumin 9.8 L
[2024-05-15] MEDS: AA 5 %/CALCIUM/LYTES/DEXT 20 % 1,000 ML 25 ML IV (17:13)
--- NOTE | 2024-05-15 19:18 | PC.NURSE ---
End of Shift: Patient pleasant and cooperative, A&O. VSS, afebrile. Patient denies pain this shift. PICC line inserted this shift in right arm, TPN currently running at 25ml/hr. NG at 55cm in right nare. 650ml output from NG this shift. SBA to bathroom and chair. Patient went on multiple walks this shift, tolerated well. NPO.
[2024-05-15] MEDS: ENOXAPARIN 40 MG/0.4 ML INJ SUBCUT (20:37)
[2024-05-16] VITALS (10 sets, daily range): BP systolic 166–182; BP diastolic 66–79; PULSE 55–63; RESP 16–18; TEMP 36.1–37.1; O2SAT 93–97
[2024-05-16] MEDS: AA 5 %/CALCIUM/LYTES/DEXT 20 % 1,000 ML 60 ML IV (00:11)
[2024-05-16] MEDS: LORazepam 2 MG/ML inj 0.5 MG IVP (00:40)
[2024-05-16 06:34] LABS: Hematocrit 29.7 % (33.0-51.0); Hemoglobin* 9.3 gm/dL (12.0-16.0); Mean Corpuscular HGB Conc 31 gm/dL (32-36); Mean Corpuscular Hemoglobin 29 pg (26-34); Mean Corpuscular Volume 94 fL (80-100); Platelet Count* 216 K/uL (140-440); Red Blood Count 3.16 m/uL (4.00-5.20); White Blood Count* 5.38 K/uL (4.50-11.00)
[2024-05-16 06:40] LABS: Chloride* 101 mmol/L (96-114)
[2024-05-16 06:41] LABS: Potassium* 3.8 mmol/L (3.6-5.1); Sodium* 137 mmol/L (135-149)
[2024-05-16 06:43] LABS: Anion Gap 3 mEq/L (7-15); Carbon Dioxide* 33 mmol/L (20-32); Cholesterol* 83 mg/dL (90-199); Creatinine* 0.6 mg/dL (0.5-1.5); Estimated Glomerular Filt Rate 89 ml/min; HDL Cholesterol* 31 mg/dL (>=50); Slide Review Reflex No; Triglycerides* 82 mg/dL (40-149)
[2024-05-16 06:44] LABS: Blood Urea Nitrogen* 12 mg/dL (7-30); Calcium* 7.5 mg/dL (8.4-10.6); Glucose* 142 mg/dL (60-115); Phosphorus* 2.6 mg/dL (2.5-4.5)
[2024-05-16 06:54] LABS: LDL Cholesterol Calculated 36 mg/dL (<100)
--- NOTE | 2024-05-16 06:57 | PC.NURSE ---
End of shift [id number]: ?Pleasant and cooperative with cares. ?Denies any abdominal pain, nausea or vomiting. ?Bowel sounds active x 4 quadrants. ?Ostomy to LLQ, no stool output but patient is passing flatus. ?NG intact to right nare, patent, draining yellow/brown fluid. ?PICC line to right upper arm asymptomatic and patent, currently running TPN which was increased from 25ml/hr to 60ml/hr, patient tolerating well. ?Normal saline order per Dr Callahan, titrate dose of IV fluids and TPN to total 100ml/hr.
[2024-05-16] MEDS: AMLODIPINE 5 MG TABLET 2.5 MG PO (08:44)
[2024-05-16] MEDS: atenoloL 50 MG TABLET PO ×2 (08:45→20:44)
[2024-05-16] MEDS: OMEPRAZOLE 20 MG CAPSULE DR PO (08:45)
[2024-05-16] MEDS: ASPIRIN 81 MG TAB.CHEW PO (08:46)
[2024-05-16] MEDS: VALSARTAN 80 MG TABLET 40 MG PO (08:46)
[2024-05-16] MEDS: SERTRALINE 50 MG TABLET PO (08:46)
[2024-05-16 08:52] LABS: C Reactive Protein* 0.6 mg/dL (0.5-1.0)
--- NOTE | 2024-05-16 14:11 | PM.GSPN ---
Subjective Subjective Date Seen: 05/16/24 Interval history: Lillie is doing well. She denies abdominal pain, her abdomen is less distended. She has some gas in her colostomy bag but no output. She denies nausea vomiting. Her NG tube is still in place on suction. Exam Narrative: Exam Narrative: Abdomen is soft, protuberant, not tender to palpation, left lower quadrant colostomy with small amount of gas in the bag. No stool in the ostomy bag. Const: Vital Signs, click to edit/add: Vital Signs - 24 hr 05/15/24 15:28 05/15/24 15:29 05/15/24 15:31 Temperature 97.9 F Pulse Rate [Right Pulse Oximeter] 62 62 Respiratory Rate 18 18 18 Blood Pressure [Ri ght Arm] 137/74 Blood Pressure [Ri ght Radial Artery] Pulse Oximetry 92 92 Oxygen Delivery Me thod Room Air Room Air 05/15/24 19:00 05/15/24 23:00 05/15/24 23:00 Temperature 97.0 F L Pulse Rate [Right Pulse Oximeter] 64 61 Respiratory Rate 18 16 16 Blood Pressure [Ri ght Arm] Blood Pressure [Ri ght Radial Artery] 133/62 Pulse Oximetry 96 96 Oxygen Delivery Me thod Room Air Room Air 05/15/24 23:00 05/16/24 03:00 05/16/24 08:00 Temperature 97.8 F 96.9 F L 98.0 F Pulse Rate [Right Pulse Oximeter] 61 60 58 L Respiratory Rate 16 16 16 Blood Pressure [Ri ght Arm] Blood Pressure [Ri ght Radial Artery] 137/49 L 179/66 H 179/71 H Pulse Oximetry 96 94 93 Oxygen Delivery Me thod Room Air Room Air Room Air 05/16/24 08:15 05/16/24 10:57 Temperature 98.6 F Pulse Rate [Right Pulse Oximeter] 55 L Respiratory Rate 18 Blood Pressure [Ri ght Arm] Blood Pressure [Ri ght Radial Artery] 171/72 H Pulse Oximetry 93 97 Oxygen Delivery Me thod Room Air Room Air Progress Note:A&P Assessment and plan (1) SBO (small bowel obstruction): Status: Acute Assessment and Plan: 84-year-old female admitted with small-bowel obstruction. I discussed with the patient and her daughters that we can clamp her NG tube and advance her to sips of clears. Will continue keeping NG in place clamped unless patient becomes uncomfortable with abdominal distension or has nausea and vomiting. Will try to go slow and advance her diet with NG in place.
[2024-05-16] MEDS: AA 5 %/CALCIUM/LYTES/DEXT 20 % 2,000 ML 60 ML IV (14:38)
[2024-05-16] MEDS: 0.9 % SODIUM CHLORIDE 1000 ml 1,000 ML 40 ML IV (14:39)
--- NOTE | 2024-05-16 16:11 | PM.IMPN1 ---
Progress Note: A&P Assessment and plan (1) SBO (small bowel obstruction): Problem details: - 3rd episode since September. Due to large complex ventral hernia. - poor surgical candidate due to extensive nature of large ventral hernia and high risk of complications. - appreciate Dr. Tran's recommendations - 05/13 Trial of clamping NGT clamping went well. Advance diet today and d/c NGT. Discharge today if advancing diet goes well. - 05/14 slight setback yesterday while eating solids, trial of advancing diet again today. Possible discharge tomorrow. Discussed with Dr. Tran. Patient has been referred to [facility] as an outpatient; they will give her a call to set up the appointment. - 05/15 recurrent small-bowel obstruction. NG tube replaced. Tentative plan set up by Dr. Tran, Dr. Connor, [facility], is agreeable to see the patient in outpatient consultation this coming week. In the meantime if her condition worsens Dr. Connor is also agreeable to help set up transfer to [facility]. I discussed the same with patient's son-in-law, Stefan, who also spoke with Dr. Connor and is agreeable to the above stated plans. - 05/16 decreased NG tube output. Clamp NG tube and assess once per shift. Will initiate sips of clear fluids only with intent of only very slowly trying to advance diet as tolerated. Continue with TPN. Status: Acute (2) Abdominal hernia: Problem details: - Ventral, chronic, nonsurgical per [facility] surgeon. - given recurrent small-bowel obstruction, our general surgeon, Dr. Tran, made arrangements with Dr. Connor, [facility], who is agreeable to see the patient in outpatient setting for consultation an inpatient if need be. Status: Chronic (3) Superior mesenteric artery stenosis: Problem details: - Seen on CT (not CTA) 09/13/23 - Unclear if patient is symptomatic from this in addition to the recurrent SBO - Continue Aspirin and statin. Status: Chronic (4) Malnutrition: Problem details: She has lost 9 kg from January 2024 until this admission May 10 2024 - admission weight was 54.9 kg. Suspected cause of this is ongoing but intermittent bowel obstruction symptoms, but may have an element of bowel ischemia also. Weight on 05/15/2024 is 58.2 kg. - Nutrition consult assisting with TPN. - Pre-albumin is low at 9 - Nutritional supplementation TID attempted but patient unable to tolerated - discussed parental nutrition with patient and her son-in-law, Stefan, and both are in agreement to proceed with TPN at this time. PICC placed on 05/15/24 and started TPN with support from pharmacy and hospital wellness coordinator. - 05/16/2024 continue with TPN Status: Acute (5) Anemia: Problem details: - stable - hemoglobin 7.4-10 with no active bleeding. 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 For now will continue to monitor. Status: Chronic (6) Hypertension: Problem details: - home amlodipine and atenolol restarted 01/30, extra 2.5 mg po amlodipine give 01/31. - restarting home furosemide 02/01 Status: Chronic (7) Peripheral edema: Problem details: Compression wraps, elevation Takes furosemide prn at home for LE edema, resume upon discharge Status: Chronic (8) Stage 3 chronic kidney disease: Problem details: Baseline creatinine 0.6. Admission creatinine 1.1. Likely due to dehydration. - 05/12 Cr back to baseline today. Continue IVF maintenence. Monitor creatinine. - 05/13 taking adequate PO, stop IVF. - 05/15 recurrent small-bowel obstruction. NG tube placed back. Restarted IV fluids. Status: Acute (9) Hepatic steatosis: Problem details: Seen on CT 09/13/23 Status: Chronic Subjective Date Seen: 05/16/24 Interval history: Interval history: Hospital day 7: Recurrent small-bowel obstruction, large ventral hernia, underlying atherosclerosis obliterans with superior mesenteric artery stenosis (uncertain if patient is symptomatic with this) NG tube still in place with decreasing NG tube output. NPO except moist oral swab. No nausea or vomiting. Tolerating increased activities. Passing flatus but not passing stool. Denies cardiopulmonary symptoms. Gastrointestinal symptoms resolved with replacement of NG tube. On IV fluids. No obvious blood loss. Exam Narrative: Exam Narrative: Examined patient in her hospital room. Appears comfortable. Vision hearing are adequate. Alert and oriented x4. Friendly and cooperative. Lungs are clear to auscultation. Right upper sternal border heart murmur, unchanged. Abdomen with intermittent bowel sounds. Soft. Nontender. Independent with transfers, station, and gait. Const: Vital Signs, click to edit/add: Vital Signs - 24 hr 05/15/24 19:00 05/15/24 23:00 05/15/24 23:00 Temperature 97.0 F L Pulse Rate [Right Pulse Oximeter] 64 61 Respiratory Rate 18 16 16 Blood Pressure [Ri ght Radial Artery] 133/62 Pulse Oximetry 96 96 Oxygen Delivery Me thod Room Air Room Air 05/15/24 23:00 05/16/24 03:00 05/16/24 08:00 Temperature 97.8 F 96.9 F L 98.0 F Pulse Rate [Right Pulse Oximeter] 61 60 58 L Respiratory Rate 16 16 16 Blood Pressure [Ri ght Radial Artery] 137/49 L 179/66 H 179/71 H Pulse Oximetry 96 94 93 Oxygen Delivery Me thod Room Air Room Air Room Air 05/16/24 08:15 05/16/24 10:57 Temperature 98.6 F Pulse Rate [Right Pulse Oximeter] 55 L Respiratory Rate 18 Blood Pressure [Ri ght Radial Artery] 171/72 H Pulse Oximetry 93 97 Oxygen Delivery Me thod Room Air Room Air Labs Labs: Laboratory Results - last 24 hr 05/16/24 06:05 WBC 5.38 RBC 3.16 L Hgb 9.3 L Hct 29.7 L MCV 94 MCH 29 MCHC 31 L Plt Count 216 Sodium 137 Potassium 3.8 Chloride 101 Carbon Dioxide 33 H Anion Gap 3 L BUN 12 Creatinine 0.6 Estimated Creat Clear 38.70 Estimated GFR 89 Glucose 142 H Calcium 7.5 L Phosphorus 2.6 C-Reactive Protein 0.6 Albumin 3.0 L Triglycerides 82 Cholesterol 83 L LDL Cholesterol, Calc 36 HDL Cholesterol 31 L Lab Acknowledgement Test Added
--- NOTE | 2024-05-16 18:10 | PC.NURSE ---
Pt is pleasant, alert, and oriented. She is hypertensive ranging from 171/72 - 179/71, MD aware and managed with medication (see MAR). Otherwise vitally stable. Pt advanced to sips of clear liquid diet, able to take medications PO. NG is patent, clamped and left in per MD. Earlier in the shift it was draining gbvjvy-[id number] fluids, though very minimal. Bowel sounds are active, large BM?output into ostomy. The stoma is pink and beefy. Picc line dressing is clean, dry and intact. Up independently walking halls. Daughters at bed side.
[2024-05-16] MEDS: ENOXAPARIN 40 MG/0.4 ML INJ SUBCUT (20:45)
[2024-05-17] MEDS: LORazepam 2 MG/ML inj 0.5 MG IVP (00:25)
[2024-05-17 04:04] VITALS: BP 185/86; PULSE 63; RESP 18; TEMP 36.9; O2SAT 94
--- NOTE | 2024-05-17 06:14 | PC.NURSE ---
Pt is alert and oriented x3. Afebrile. Pt denies pain, chest pain, SOB, and N/V. Pt continues to tolerate having NG tube clamped, no residual output. NG tube is at ?55?. Pt is up SBA with unplugging IV pole but once set up is IND walking and voiding. Pt is tolerating a clear liquid diet.?
[2024-05-17 07:03] LABS: Hematocrit 29.2 % (33.0-51.0); Hemoglobin* 9.1 gm/dL (12.0-16.0); Mean Corpuscular HGB Conc 31 gm/dL (32-36); Mean Corpuscular Hemoglobin 29 pg (26-34); Mean Corpuscular Volume 95 fL (80-100); Platelet Count* 218 K/uL (140-440); Red Blood Count 3.09 m/uL (4.00-5.20); White Blood Count* 6.23 K/uL (4.50-11.00)
[2024-05-17 07:04] LABS: Slide Review Reflex No
[2024-05-17 07:20] LABS: Chloride* 101 mmol/L (96-114)
[2024-05-17 07:21] LABS: Albumin* 2.8 g/dL (3.3-5.0); Potassium* 3.6 mmol/L (3.6-5.1); Sodium* 136 mmol/L (135-149)
[2024-05-17 07:23] LABS: Anion Gap 1 mEq/L (7-15); Carbon Dioxide* 34 mmol/L (20-32); Creatinine* 0.6 mg/dL (0.5-1.5); Est. Creatinine Clearance* 39.39; Estimated Glomerular Filt Rate 89 ml/min
[2024-05-17 07:24] LABS: Blood Urea Nitrogen* 14 mg/dL (7-30); Calcium* 7.4 mg/dL (8.4-10.6); Glucose* 126 mg/dL (60-115); Phosphorus* 2.6 mg/dL (2.5-4.5)
[2024-05-17 08:00] VITALS: BP 181/78; PULSE 62; RESP 16; TEMP 36.8; O2SAT 94
--- NOTE | 2024-05-17 08:26 | PM.GSPN ---
Subjective Subjective Date Seen: 05/17/24 Interval history: Lillie is doing great today. She denies abdominal pain. She continued to have her NG tube clamped and had sips of clears yesterday. She had gas and stool output in her stoma. Exam Narrative: Exam Narrative: Abdomen is soft, not distended, not tender to palpation, there is small amount of stool in the ostomy bag. Const: Vital Signs, click to edit/add: Vital Signs - 24 hr 05/16/24 10:57 05/16/24 13:50 05/16/24 14:30 Temperature 98.6 F 97.8 F Pulse Rate [Right Pulse Oximeter] 55 L 60 Respiratory Rate 18 16 Blood Pressure [Ri ght Radial Artery] 171/72 H 166/69 H Pulse Oximetry 97 95 95 Oxygen Delivery Me thod Room Air Room Air Room Air 05/16/24 14:30 05/16/24 14:30 05/16/24 15:00 Temperature Pulse Rate [Right Pulse Oximeter] 60 60 60 Respiratory Rate 16 16 16 Blood Pressure [Ri ght Radial Artery] Pulse Oximetry Oxygen Delivery Me thod 05/16/24 20:53 05/16/24 22:40 05/16/24 22:40 Temperature 98.1 F 98.8 F Pulse Rate [Right Pulse Oximeter] 63 60 Respiratory Rate 16 16 16 Blood Pressure [Ri ght Radial Artery] 176/74 H 182/79 H Pulse Oximetry 96 95 95 Oxygen Delivery Me thod Room Air Room Air Room Air 05/16/24 23:00 05/17/24 04:04 Temperature 98.5 F Pulse Rate [Right Pulse Oximeter] 63 63 Respiratory Rate 18 Blood Pressure [Ri ght Radial Artery] 185/86 H Pulse Oximetry 94 Oxygen Delivery Me thod Room Air Progress Note:A&P Assessment and plan (1) SBO (small bowel obstruction): Status: Acute Assessment and Plan: 84-year-old female admitted with small-bowel obstruction due to a large ventral hernia with loss of abdominal domain. Patient did well yesterday. We will continue advance her slowly. Will advance her diet to full liquids but keep her NG clamped. If she continues to have stool output by tomorrow, we will remove her NG tube.
[2024-05-17] MEDS: AMLODIPINE 5 MG TABLET 2.5 MG PO (09:35)
[2024-05-17] MEDS: atenoloL 50 MG TABLET PO ×2 (09:36→21:25)
[2024-05-17] MEDS: ASPIRIN 81 MG TAB.CHEW PO (09:36)
[2024-05-17] MEDS: OMEPRAZOLE 20 MG CAPSULE DR PO (09:37)
[2024-05-17] MEDS: SERTRALINE 50 MG TABLET PO (09:37)
[2024-05-17] MEDS: VALSARTAN 80 MG TABLET PO (09:37)
[2024-05-17 11:31] VITALS: BP 174/78; PULSE 68; RESP 18; TEMP 36.4; O2SAT 97
--- NOTE | 2024-05-17 14:25 | PC.NURSE ---
Pt is pleasant, alert, and oriented. She is hypertensive, MD aware and managed with medication (see MAR). Otherwise vitally stable. Pt advanced to a full liquid diet and is tolerating well. NG is patent, clamped and left in per MD. Bowel sounds are active,?BM output into ostomy. The stoma is pink and beefy. Picc line dressing is clean, dry and intact. Up independently and walking halls. ?
[2024-05-17] MEDS: 0.9 % SODIUM CHLORIDE 1000 ml 1,000 ML 40 ML IV (14:28)
[2024-05-17] MEDS: AA 5 %/CALCIUM/LYTES/DEXT 20 % 2,000 ML 60 ML IV (14:29)
--- NOTE | 2024-05-17 15:46 | PM.IMPN1 ---
Progress Note: A&P Assessment and plan (1) SBO (small bowel obstruction): Problem details: - 3rd episode since September. Due to large complex ventral hernia. - poor surgical candidate due to extensive nature of large ventral hernia and high risk of complications. - appreciate Dr. Tran's recommendations - 05/13 Trial of clamping NGT clamping went well. Advance diet today and d/c NGT. Discharge today if advancing diet goes well. - 05/14 slight setback yesterday while eating solids, trial of advancing diet again today. Possible discharge tomorrow. Discussed with Dr. Tran. Patient has been referred to [facility] as an outpatient; they will give her a call to set up the appointment. - 05/15 recurrent small-bowel obstruction. NG tube replaced. Tentative plan set up by Dr. Tran, Dr. Connor, [facility], is agreeable to see the patient in outpatient consultation this coming week. In the meantime if her condition worsens Dr. Connor is also agreeable to help set up transfer to [facility]. I discussed the same with patient's son-in-law, Stefan, who also spoke with Dr. Connor and is agreeable to the above stated plans. - 05/16 decreased NG tube output. Clamp NG tube and assess once per shift. Will initiate sips of clear fluids only with intent of only very slowly trying to advance diet as tolerated. Continue with TPN. - 05/17 continue with NG tube clamped. Increased clears liquids as tolerated. If tolerates increased clear liquids then consider changing to full liquids as early as tomorrow. Per patient request I called and discussed with her son-in-law, Dr. Stefan Gilbert. Reviewed with our general surgeon, Dr. Laboy. Status: Acute (2) Abdominal hernia: Problem details: - Ventral, chronic, nonsurgical per [facility] surgeon. - given recurrent small-bowel obstruction, our general surgeon, Dr. Tran, made arrangements with Dr. Connor, [facility], who is agreeable to see the patient in outpatient setting for consultation an inpatient if need be. Status: Chronic (3) Superior mesenteric artery stenosis: Problem details: - Seen on CT (not CTA) 09/13/23 - Unclear if patient is symptomatic from this in addition to the recurrent SBO - Continue Aspirin and statin. Status: Chronic (4) Malnutrition: Problem details: She has lost 9 kg from January 2024 until this admission May 10 2024 - admission weight was 54.9 kg. Suspected cause of this is ongoing but intermittent bowel obstruction symptoms, but may have an element of bowel ischemia also. Weight on 05/15/2024 is 58.2 kg. - Nutrition consult assisting with TPN. - Pre-albumin is low at 9 - Nutritional supplementation TID attempted but patient unable to tolerated - discussed parental nutrition with patient and her son-in-law, Stefan, and both are in agreement to proceed with TPN at this time. PICC placed on 05/15/24 and started TPN with support from pharmacy and piano mechanic. - 05/16/2024 continue with TPN - 05/17/2024 continue with TPN and consider decreasing and stopping TPN in the next 1-2 days if she is tolerating oral intake without complications. Status: Acute (5) Hypertension: Problem details: - home amlodipine and atenolol restarted 01/30, extra 2.5 mg po amlodipine give 01/31. - restarting home furosemide 02/01 - increased dose of valsartan from 40 mg daily to 80 mg daily on 05/17/2024 Status: Chronic (6) Peripheral edema: Problem details: Compression wraps, elevation Takes furosemide prn at home for LE edema, resume upon discharge Status: Chronic (7) Anemia: Problem details: - stable - hemoglobin 7.4-10 with no active bleeding. 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 For now will continue to monitor. Status: Chronic (8) Stage 3 chronic kidney disease: Problem details: Baseline creatinine 0.6. Admission creatinine 1.1. Likely due to dehydration. - 05/12 Cr back to baseline today. Continue IVF maintenence. Monitor creatinine. - 05/13 taking adequate PO, stop IVF. - 05/17 continue to monitor. On TPN. Status: Acute (9) Hypokalemia: Problem details: Likely secondary to recent NG suctioning, GI loss. Monitor and replace as warranted. Status: Acute Plan 1. Reviewed with patient and her son-in-law. 2. Answered their questions. 3. Continue as specified above. Time Spent With Patient Total time spent: 45 minutes Subjective Date Seen: 05/17/24 Interval history: Hospital day 8: Recurrent small-bowel obstruction, large ventral hernia due to large defect, underlying atherosclerosis obliterans with superior mesenteric artery stenosis (uncertain if patient is symptomatic with this) Tolerating clamped NG tube. Tolerated sips of clear liquids. No nausea or vomiting. Tolerating increased activities. Now passing soft stools into her ostomy. Denies cardiopulmonary symptoms. Gastrointestinal symptoms resolved with replacement of NG tube. On IV fluids. No obvious blood loss. Exam Narrative: Exam Narrative: I examined patient in her hospital room. NG tube in place and clamped. Moves effortlessly in her chair, transfers from supine to standing with ease. Appears comfortable and in no acute distress. Alert and oriented x4. Friendly, articulate, cooperative. Lungs clear to auscultation. Heart tones with regular rhythm, normal S1-S2. Grade 2/6 systolic murmur right upper sternal border, not new. PMI not laterally displaced. Abdomen with active bowel sounds, soft, nontender. Abdominal binder in place. Extremities without edema. Const: Vital Signs, click to edit/add: Vital Signs - 24 hr 05/16/24 20:53 05/16/24 22:40 05/16/24 22:40 Temperature 98.1 F 98.8 F Pulse Rate [Right Pulse Oximeter] 63 60 Respiratory Rate 16 16 16 Blood Pressure [Ri ght Radial Artery] 176/74 H 182/79 H Pulse Oximetry 96 95 95 Oxygen Delivery Me thod Room Air Room Air Room Air 05/16/24 23:00 05/17/24 04:04 05/17/24 08:00 Temperature 98.5 F 98.3 F Pulse Rate [Right Pulse Oximeter] 63 63 62 Respiratory Rate 18 16 Blood Pressure [Ri ght Radial Artery] 185/86 H 181/78 H Pulse Oximetry 94 94 Oxygen Delivery Me thod Room Air Room Air 05/17/24 08:00 05/17/24 08:00 05/17/24 11:31 Temperature 97.6 F Pulse Rate [Right Pulse Oximeter] 68 Respiratory Rate 16 16 18 Blood Pressure [Ri ght Radial Artery] 174/78 H Pulse Oximetry 94 97 Oxygen Delivery Me thod Room Air Labs Labs: Laboratory Results - last 24 hr 05/17/24 05:40 WBC 6.23 RBC 3.09 L Hgb 9.1 L Hct 29.2 L MCV 95 MCH 29 MCHC 31 L Plt Count 218 Sodium 136 Potassium 3.6 Chloride 101 Carbon Dioxide 34 H Anion Gap 1 L BUN 14 Creatinine 0.6 Estimated Creat Clear 39.39 Estimated GFR 89 Glucose 126 H Calcium 7.4 L Phosphorus 2.6 Albumin 2.8 L
[2024-05-17 15:55] VITALS: BP 126/72; PULSE 75; RESP 18; TEMP 36.4; O2SAT 96
[2024-05-17 20:03] VITALS: BP 145/73; PULSE 71; RESP 18; TEMP 37.3; O2SAT 95
[2024-05-17] MEDS: ENOXAPARIN 40 MG/0.4 ML INJ SUBCUT (21:25)
[2024-05-17] MEDS: SODIUM CHLORIDE 0.9 % (FLUSH) 10 ML SYRINGE 5 ML IVF (21:25)
--- NOTE | 2024-05-17 22:21 | PC.NURSE ---
Shift note: The pt has been pleasant and cooperative. Denied chest pain and short of breath; Spo2 has been in the 90s in RA. The pt has been denying abdominal pain, nausea or vomiting; tolerating full liquid diet without any acute distress. NG to Right nare at 55 cm, clamped. The pt stated that she empted her ostomy bag x2 this shift; she said small soft formed brown stool empted from the bag. The pt ambulated in the trevino x2 tolerated the activity without any distress. TPN has been running at 60 ml/hr continuos without any interruption along with 40 ml /hr of Normal saline. Refused to use SCD throughout the shift. The pt appeared without any acute distress.
[2024-05-17 23:00] VITALS: BP 172/74; PULSE 62; RESP 18; TEMP 36.8; O2SAT 95; O2SAT 96
[2024-05-18] VITALS (9 sets, daily range): BP systolic 128–178; BP diastolic 58–78; PULSE 60–77; RESP 16–18; TEMP 36.4–37.3; O2SAT 94–96
[2024-05-18] MEDS: SODIUM CHLORIDE 0.9 % (FLUSH) 10 ML SYRINGE 5 ML IVF ×2 (00:47→18:43)
[2024-05-18] MEDS: LORazepam 2 MG/ML inj 0.5 MG IVP (00:47)
--- NOTE | 2024-05-18 05:15 | PC.NURSE ---
Shift note: Pt continue on TPN. PICC to the right upper arm is working well, dressing intact. Doing well with the full liquid diet. Ambulated with SBA to bathroom. Pt have full knowledge of managing the ileostomy bag. At 0130, pt complained of having difficulty sleeping, Ativan 0.5mg given and appeared effective. alert and oriented, vitally stable except high systolic Bp. NG tube in place at the right nare at 55cm.
[2024-05-18 07:20] LABS: Hematocrit 29.3 % (33.0-51.0); Hemoglobin* 9.1 gm/dL (12.0-16.0); Mean Corpuscular HGB Conc 31 gm/dL (32-36); Mean Corpuscular Hemoglobin 29 pg (26-34); Mean Corpuscular Volume 94 fL (80-100); Platelet Count* 216 K/uL (140-440); Red Blood Count 3.11 m/uL (4.00-5.20); White Blood Count* 5.45 K/uL (4.50-11.00)
[2024-05-18 07:35] LABS: Slide Review Reflex No
[2024-05-18 07:38] LABS: Chloride* 103 mmol/L (96-114)
[2024-05-18 07:39] LABS: Albumin* 2.7 g/dL (3.3-5.0); Potassium* 3.7 mmol/L (3.6-5.1); Sodium* 136 mmol/L (135-149)
[2024-05-18 07:41] LABS: Creatinine* 0.6 mg/dL (0.5-1.5); Est. Creatinine Clearance* 40.06; Estimated Glomerular Filt Rate 89 ml/min
[2024-05-18 07:42] LABS: Anion Gap 4 mEq/L (7-15); Blood Urea Nitrogen* 19 mg/dL (7-30); Calcium* 7.8 mg/dL (8.4-10.6); Carbon Dioxide* 29 mmol/L (20-32); Glucose* 132 mg/dL (60-115); Phosphorus* 2.7 mg/dL (2.5-4.5)
[2024-05-18] MEDS: AMLODIPINE 5 MG TABLET 2.5 MG PO (08:55)
[2024-05-18] MEDS: SERTRALINE 50 MG TABLET PO (08:56)
[2024-05-18] MEDS: atenoloL 50 MG TABLET PO ×2 (08:56→21:11)
[2024-05-18] MEDS: VALSARTAN 80 MG TABLET PO (08:56)
[2024-05-18] MEDS: OMEPRAZOLE 20 MG CAPSULE DR PO (08:56)
[2024-05-18] MEDS: ASPIRIN 81 MG TAB.CHEW PO (08:56)
[2024-05-18 09:07] LABS: Magnesium* 1.7 mg/dL (1.5-2.6)
--- NOTE | 2024-05-18 09:49 | PM.GSPN ---
Subjective Subjective Date Seen: 05/18/24 Interval history: Patient did well yesterday. She tolerated full liquid diet and clears. Her NG remained clamped. She had output from her stoma. She denies abdominal pain. Exam Narrative: Exam Narrative: Abdomen is soft, not distended, not tender to palpation. There is small amount of stool in the ostomy appliance. Const: Vital Signs, click to edit/add: Vital Signs - 24 hr 05/17/24 11:31 05/17/24 15:55 05/17/24 15:55 Temperature 97.6 F Pulse Rate [Right Pulse Oximeter] 68 75 Respiratory Rate 18 18 18 Blood Pressure [Ri ght Radial Artery] 174/78 H Pulse Oximetry 97 96 Oxygen Delivery Me thod Room Air 05/17/24 15:55 05/17/24 20:03 05/17/24 23:00 Temperature 97.6 F 99.2 F Pulse Rate [Right Pulse Oximeter] 75 71 62 Respiratory Rate 18 18 18 Blood Pressure [Ri ght Radial Artery] 126/72 145/73 H Pulse Oximetry 96 95 Oxygen Delivery Me thod Room Air Room Air 05/17/24 23:00 05/17/24 23:00 05/18/24 03:00 Temperature 98.2 F 98.1 F Pulse Rate [Right Pulse Oximeter] 62 60 Respiratory Rate 18 18 18 Blood Pressure [Ri ght Radial Artery] 172/74 H 170/67 H Pulse Oximetry 96 95 94 Oxygen Delivery Me thod Room Air Room Air Room Air 05/18/24 07:45 05/18/24 08:02 05/18/24 09:08 Temperature 97.8 F Pulse Rate [Right Pulse Oximeter] 60 60 Respiratory Rate 18 18 Blood Pressure [Ri ght Radial Artery] 178/78 H Pulse Oximetry 94 94 Oxygen Delivery Me thod Room Air Room Air Progress Note:A&P Assessment and plan (1) SBO (small bowel obstruction): Status: Acute Assessment and Plan: 84-year-old female admitted to the hospital with recurrent small-bowel obstruction. Patient is doing well. I think it is reasonable to remove her NG tube but patient is very apprehensive. She would like to leave it in until she tolerates regular diet and does not redevelop small-bowel obstruction. I think that is okay. Will advance her diet to regular. Okay to remove her NG tube later today. Possible discharge home tomorrow. We will continue her TPN for today and I will leave it up to the hospitalist to see if we should continue another day tomorrow.
[2024-05-18] MEDS: 0.9 % SODIUM CHLORIDE 1000 ml 1,000 ML 40 ML IV (14:21)
--- NOTE | 2024-05-18 14:47 | PC.NURSE ---
(Shift [id number]) Pt is pleasant, alert, and oriented. She is hypertensive, MD aware and managed with medication (see MAR). Otherwise vitally stable. Pt advanced to a regular?diet, starting slow and is tolerating well. NG is patent, clamped and left in per patient?but can be removed per MD when patient ready. Bowel sounds are active, BM output into ostomy. The stoma is pink and beefy. Picc line dressing is clean, dry and intact. Up independently and walking halls x3.
--- NOTE | 2024-05-18 15:20 | PM.IMPN1 ---
Progress Note: A&P Assessment and plan (1) SBO (small bowel obstruction): Problem details: - 3rd episode since September. Due to large complex ventral hernia. - poor surgical candidate due to extensive nature of large ventral hernia and high risk of complications. - appreciate Dr. Tran's recommendations - 05/13 Trial of clamping NGT clamping went well. Advance diet today and d/c NGT. Discharge today if advancing diet goes well. - 05/14 slight setback yesterday while eating solids, trial of advancing diet again today. Possible discharge tomorrow. Discussed with Dr. Tran. Patient has been referred to [facility] as an outpatient; they will give her a call to set up the appointment. - 05/15 recurrent small-bowel obstruction. NG tube replaced. Tentative plan set up by Dr. Tran, Dr. Connor, [facility], is agreeable to see the patient in outpatient consultation this coming week. In the meantime if her condition worsens Dr. Connor is also agreeable to help set up transfer to [facility]. I discussed the same with patient's son-in-law, Stefan, who also spoke with Dr. Connor and is agreeable to the above stated plans. - 05/16 decreased NG tube output. Clamp NG tube and assess once per shift. Will initiate sips of clear fluids only with intent of only very slowly trying to advance diet as tolerated. Continue with TPN. - 05/17 continue with NG tube clamped. Increased clears liquids as tolerated. If tolerates increased clear liquids then consider changing to full liquids as early as tomorrow. Per patient request I called and discussed with her son-in-law, Dr. Stefan Gilbert. Reviewed with our general surgeon, Dr. Laboy. - 05/18 advancing diet; feeling good. anxious for next steps. decrease TPN by half. NG can be d/c'd anytime. Status: Acute Subjective Date Seen: 05/18/24 Interval history: DAILY PROGRESS NOTE - HOSPITAL #: [id number] CC: SBO; NG in place; ventral hernia,TPN 24 HOUR UPDATE: continues to improve. tolerated a clear diet. up and moving. hesitant about removal of her NG tube. NOTABLE LABS, MICRO, RADS, INTERVENTIONS: CBC stable and unremarkable. Electrolytes are unremarkable. Renal function is normal. OBJECTIVE: super pleasant, excellent history recall, quick witted. VITALS: SEE ABOVE LUNGS: CLEAR. CARDIAC: S1S2. Stoma with stool outpul DISPOSITION/POTENTIAL DISCHARGE - 24 hours TODAY I SPENT 50MINUTES SEEING THE PATIENT, REVIEWING EXPANSE AND EPIC NOTES/DIAGNOSTICS, DISCUSSING THE CARE PLAN WITH OUR CARE TIME THAT INCLUDES SOCIAL WORK, PT/OT, PHARMACY, RT, INTERMEDIATE AND DOCUMENTING MY IMPRESSIONS AND PLAN IN THE MEDICAL RECORD. Exam Const: Vital Signs, click to edit/add: Vital Signs - 24 hr 05/17/24 15:55 05/17/24 15:55 05/17/24 15:55 Temperature 97.6 F Pulse Rate [Right Pulse Oximeter] 75 75 Respiratory Rate 18 18 18 Blood Pressure [Ri ght Radial Artery] 126/72 Pulse Oximetry 96 96 Oxygen Delivery Me thod Room Air Room Air 05/17/24 20:03 05/17/24 23:00 05/17/24 23:00 Temperature 99.2 F Pulse Rate [Right Pulse Oximeter] 71 62 Respiratory Rate 18 18 18 Blood Pressure [Ri ght Radial Artery] 145/73 H Pulse Oximetry 95 96 Oxygen Delivery De thod Room Air Room Air 05/17/24 23:00 05/18/24 03:00 05/18/24 07:45 Temperature 98.2 F 98.1 F Pulse Rate [Right Pulse Oximeter] 62 60 60 Respiratory Rate 18 18 Blood Pressure [Ri ght Radial Artery] 172/74 H 170/67 H Pulse Oximetry 95 94 [facility] 05/18/24 08:02 05/18/24 09:08 05/18/24 10:58 Temperature 97.8 F 97.6 F Pulse Rate [Right Pulse Oximeter] 60 67 Respiratory Rate 18 18 18 Blood Pressure [Ri ght Radial Artery] 178/78 H 158/71 H Pulse Oximetry 94 94 96 Oxygen Delivery De thod Room Air Room Air Room Air 05/18/24 14:32 05/18/24 14:36 Temperature 98.2 F Pulse Rate [Right Pulse Oximeter] 74 Respiratory Rate 16 16 Blood Pressure [Ri ght Radial Artery] 163/68 H Pulse Oximetry 94 94 Oxygen Delivery De thod Room Air Room Air Labs Labs: Laboratory Results - last 24 hr 05/18/24 05/18/24 06:12 08:45 WBC 5.45 RBC 3.11 L Hgb 9.1 L Hct 29.3 L MCV 94 MCH 29 MCHC 31 L Plt Count 216 Sodium 136 Potassium 3.7 Chloride 103 Carbon Dioxide 29 Anion Gap 4 L BUN 19 Creatinine 0.6 Estimated Creat Clear 40.06 Estimated GFR 89 Glucose 132 H Calcium 7.8 L Phosphorus 2.7 Magnesium 1.7 Albumin 2.7 L Lab Acknowledgement Test Added
--- NOTE | 2024-05-18 18:54 | PC.NURSE ---
(Shift 15-1929)- Pt alert and oriented. Pt had no complaints of pain. Pt up waking independently in hallway. Pt advanced to regular diet and tolerated well. No complaints of nausea.Pt?s TPN discontinued. Per surgeon and hospitalist NG can be removed today once the Pt is comfortable; Pt stated prior to bedtime would be ideal for NG removal.?
[2024-05-18] MEDS: ENOXAPARIN 40 MG/0.4 ML INJ SUBCUT (21:11)
[2024-05-19] MEDS: LORazepam 2 MG/ML inj 0.5 MG IVP (00:56)
[2024-05-19 03:00] VITALS: BP 151/65; PULSE 64; RESP 18; TEMP 36.4; O2SAT 95
[2024-05-19 06:51] LABS: Hematocrit 27.4 % (33.0-51.0); Hemoglobin* 8.4 gm/dL (12.0-16.0); Mean Corpuscular HGB Conc 31 gm/dL (32-36); Mean Corpuscular Hemoglobin 29 pg (26-34); Mean Corpuscular Volume 96 fL (80-100); Platelet Count* 203 K/uL (140-440); Red Blood Count 2.87 m/uL (4.00-5.20); White Blood Count* 5.52 K/uL (4.50-11.00)
[2024-05-19 06:52] LABS: Slide Review Reflex No
[2024-05-19 07:32] LABS: Albumin* 2.5 g/dL (3.3-5.0); Chloride* 107 mmol/L (96-114); Sodium* 137 mmol/L (135-149)
[2024-05-19 07:35] LABS: Anion Gap 2 mEq/L (7-15); Blood Urea Nitrogen* 19 mg/dL (7-30); Carbon Dioxide* 28 mmol/L (20-32); Creatinine* 0.6 mg/dL (0.5-1.5); Estimated Glomerular Filt Rate 89 ml/min
[2024-05-19 07:36] LABS: Glucose* 85 mg/dL (60-115); Phosphorus* 2.7 mg/dL (2.5-4.5)
--- NOTE | 2024-05-19 07:38 | PC.NURSE ---
End of shift note ([id number]): Patient pleasant, alert and oriented. Independent in room. NG tube removed at 2100. Patient tolerated well. Tolerating regular diet. Denies any nausea or upset stomach.?
[2024-05-19 08:33] VITALS: BP 174/82; PULSE 63; RESP 12; TEMP 36.9; O2SAT 97
[2024-05-19] MEDS: AMLODIPINE 5 MG TABLET 2.5 MG PO (08:48)
[2024-05-19] MEDS: SERTRALINE 50 MG TABLET PO (08:48)
[2024-05-19] MEDS: OMEPRAZOLE 20 MG CAPSULE DR PO (08:48)
[2024-05-19] MEDS: atenoloL 50 MG TABLET PO (08:49)
[2024-05-19] MEDS: ASPIRIN 81 MG TAB.CHEW PO (08:49)
[2024-05-19] MEDS: SODIUM CHLORIDE 0.9 % (FLUSH) 10 ML SYRINGE 5 ML IVF (08:50)
[2024-05-19] MEDS: VALSARTAN 80 MG TABLET PO (08:50)
--- NOTE | 2024-05-19 08:56 | PM.GSPN ---
Subjective Subjective Date Seen: 05/19/24 Interval history: Lillie states she feels good today. She did not have any stoma output overnight but had lots yesterday. She has not eaten breakfast yet, however she did tolerate a diet yesterday. The NG was removed yesterday. Exam Narrative: Exam Narrative: General: No acute distress Abdomen: Soft. Hernias remain soft and reducible. Nontender. Stoma bag without fresh stool noted within Const: Vital Signs, click to edit/add: Vital Signs - 24 hr 05/18/24 09:08 05/18/24 10:58 05/18/24 14:32 Temperature 97.6 F 98.2 F Pulse Rate [Bilate ral Radial] Pulse Rate [Right Pulse Oximeter] 67 74 Respiratory Rate 18 18 16 Blood Pressure [Ri ght Radial Artery] 158/71 H 163/68 H Pulse Oximetry 94 96 94 Oxygen Delivery Me thod Room Air Room Air Room Air 05/18/24 14:36 05/18/24 19:00 05/18/24 23:00 Temperature 99.1 F 98.4 F Pulse Rate [Bilate ral Radial] 77 Pulse Rate [Right Pulse Oximeter] 63 Respiratory Rate 16 16 18 Blood Pressure [Ri ght Radial Artery] 128/58 L 146/59 H Pulse Oximetry 94 94 95 Oxygen Delivery Me thod Room Air Room Air Room Air 05/18/24 23:00 05/19/24 03:00 05/19/24 08:33 Temperature 97.5 F L 98.5 F Pulse Rate [Bilate ral Radial] Pulse Rate [Right Pulse Oximeter] 64 63 Respiratory Rate 18 18 12 Blood Pressure [Ri ght Radial Artery] 151/65 H 174/82 H Pulse Oximetry 95 95 97 Oxygen Delivery Me thod Room Air Room Air Room Air 05/19/24 08:33 05/19/24 08:33 Temperature Pulse Rate [Bilate ral Radial] Pulse Rate [Right Pulse Oximeter] 63 Respiratory Rate 12 12 Blood Pressure [Ri ght Radial Artery] Pulse Oximetry 97 Oxygen Delivery Me thod Room Air Progress Note:A&P Assessment and plan (1) Malnutrition: Status: Acute (2) Stage 3 chronic kidney disease: Status: Acute (3) SBO (small bowel obstruction): Status: Acute (4) Anemia: Status: Chronic (5) Hypertension: Status: Chronic (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 She appears to have resolved and is tolerating a regular diet without abdominal discomfort. If she does well today with breakfast I think it is safe to discharge her home. She has an appointment to see a surgeon at [facility] to discuss possible elective repair. This will be on .
[2024-05-19 11:38] VITALS: BP 144/57; PULSE 74; RESP 12; TEMP 37.7; O2SAT 95
--- NOTE | 2024-05-19 14:33 | PM.DS1 ---
DS: Providers Provider Date Seen: 05/19/24 Date of admission: 05/10/24 19:31 Primary care physician: GIANNA RICHARDSON DO Admitting Clinician: Ulises Watts MD Consults: 05/10/24 19:36 Consult to Occupational Therapy [CONS] Routine Comment: Reason(s) for OT Consult:: Evaluate and Treat Any Restrictions?:: No Restrictions Consult to Physical Therapy [CONS] Routine Comment: Reason(s) for PT Consult:: Evaluate and Treat Any Restrictions?:: No Restrictions 05/13/24 09:00 Consult to Nutrition [CONS] Routine Comment: Reason for consult:: Nutritional Consult Comment: patient with recurrent SBO, malnutrition 05/15/24 10:37 Consult to Nutrition [CONS] Routine Comment: Reason for consult:: Miscellaneous Comment: temporary parenteral nutrition Attending Physician on discharge: Garima Curry MD [facility] Date of Discharge: 05/19/24 DS: Diagnosis Discharge Diagnosis (1) SBO (small bowel obstruction): Status: Acute Problem details: - 3rd episode since September. Due to large complex ventral hernia. - poor surgical candidate due to extensive nature of large ventral hernia and high risk of complications. - appreciate Dr. Tran's recommendations - 05/13 Trial of clamping NGT clamping went well. Advance diet today and d/c NGT. Discharge today if advancing diet goes well. - 05/14 slight setback yesterday while eating solids, trial of advancing diet again today. Possible discharge tomorrow. Discussed with Dr. Tran. Patient has been referred to [facility] as an outpatient; they will give her a call to set up the appointment. - 05/15 recurrent small-bowel obstruction. NG tube replaced. Tentative plan set up by Dr. Tran, Dr. Connor, [facility], is agreeable to see the patient in outpatient consultation this coming week. In the meantime if her condition worsens Dr. Connor is also agreeable to help set up transfer to [facility]. I discussed the same with patient's son-in-law, Stefan, who also spoke with Dr. Connor and is agreeable to the above stated plans. - 05/16 decreased NG tube output. Clamp NG tube and assess once per shift. Will initiate sips of clear fluids only with intent of only very slowly trying to advance diet as tolerated. Continue with TPN. - 05/17 continue with NG tube clamped. Increased clears liquids as tolerated. If tolerates increased clear liquids then consider changing to full liquids as early as tomorrow. Per patient request I called and discussed with her son-in-law, Purvi Stefan Gilbert. Reviewed with our general surgeon, Dr. Laboy. - 05/18 advancing diet; feeling good. anxious for next steps. decrease TPN by half. NG can be d/c'd anytime. 05/19 - stable - discharged (2) Abdominal hernia: Status: Chronic Problem details: - Ventral, chronic, nonsurgical per [facility] surgeon. - given recurrent small-bowel obstruction, our general surgeon, Dr. Tran, made arrangements with Dr. Connor, [facility], who is agreeable to see the patient in outpatient setting for consultation an inpatient if need be. (3) Superior mesenteric artery stenosis: Status: Chronic Problem details: - Seen on CT (not CTA) 09/13/23 - Unclear if patient is symptomatic from this in addition to the recurrent SBO - Continue Aspirin and statin. (4) Malnutrition: Status: Acute Problem details: She has lost 9 kg from January 2024 until this admission May 10 2024 - admission weight was 54.9 kg. Suspected cause of this is ongoing but intermittent bowel obstruction symptoms, but may have an element of bowel ischemia also. Weight on 05/15/2024 is 58.2 kg. - Nutrition consult assisting with TPN. - Pre-albumin is low at 9 - Nutritional supplementation TID attempted but patient unable to tolerated - discussed parental nutrition with patient and her son-in-law, Stefan, and both are in agreement to proceed with TPN at this time. PICC placed on 05/15/24 and started TPN with support from pharmacy and stroboroma operator. - 05/16/2024 continue with TPN - 05/17/2024 continue with TPN and consider decreasing and stopping TPN in the next 1-2 days if she is tolerating oral intake without complications. (5) Stage 3 chronic kidney disease: Status: Acute Problem details: Baseline creatinine 0.6. Admission creatinine 1.1. Likely due to dehydration. - 05/12 Cr back to baseline today. Continue IVF maintenence. Monitor creatinine. - 05/13 taking adequate PO, stop IVF. - 05/17 continue to monitor. On TPN. (6) Hypokalemia: Status: Acute Problem details: Likely secondary to recent NG suctioning, GI loss. Monitor and replace as warranted. (7) Anemia: Status: Chronic Problem details: - stable - hemoglobin 7.4-10 with no active bleeding. 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 For now will continue to monitor. (8) Peripheral edema: Status: Chronic Problem details: Compression wraps, elevation Takes furosemide prn at home for LE edema, resume upon discharge (9) Hypertension: Status: Chronic Problem details: - home amlodipine and atenolol restarted 01/30, extra 2.5 mg po amlodipine give 01/31. - restarting home furosemide 02/01 - increased dose of valsartan from 40 mg daily to 80 mg daily on 05/17/2024 DS: Summary Hospital Course Hospital Course: FINAL DIAGNOSIS/FOLLOW UP ISSUES: Recurrent SBO-likely related to large ventral hernia. Complicated by chronic kidney disease, longstanding hypertension and advanced age. Patient will seek outpatient surgical consult with [facility]. BRIEF HOSPITAL COURSE: Patient was admitted for 10 days. Synopsis of acute inpatient issues are outlined above. Chronic medical conditions with notable findings outlined above. Patient did not require any surgical intervention. She had an NG tube placed that was eventually clamped and her diet was advanced. Her course was slow but steady improvement was noted. DISCHARGE MEDICATIONS: See Reconciled list - SIGNIFICANT CHANGES: None Specific instructions to the patient and follow-up are outlined below. REVIEW OF SYSTEMS No new chest pain or dyspnea Pain controlled No voiding difficulties Tolerating diet challenge PHYSICAL EXAM: CONSTITUTIONAL: VITAL SIGNS: see record. HEENT: Normocephalic, atraumatic. PERRL, EOMI, conjunctivae pink, no scleral icterus. Ears and nose externally normal. Pharynx normal. NECK: No JVD. No carotid bruit, no thyromegaly, no adenopathy. CHEST: Clear to auscultation bilaterally. HEART: S1 and S2 normal. Edema ABDOMEN: Soft, nontender. Normal bowel sounds. MUSCULOSKELETAL: No gross joint deformity or swelling. NEURO: Cranial nerves intact. Grossly intact. No asymmetric findings. SKIN: No rashes, petechiae, concerning changes PSYCHIATRIC: Mood euthymic. DISPOSITION: Home with family Time spent on discharge 37 minutes. . Time Spent with Patient Time attestation: Total time spent providing and/or coordinating discharge services: Exam Const: Vital Signs, click to edit/add: Vital Signs - 24 hr 05/18/24 14:36 05/18/24 19:00 05/18/24 23:00 Temperature 99.1 F 98.4 F Pulse Rate [Bilate ral Radial] 77 Pulse Rate [Right Pulse Oximeter] 63 Respiratory Rate 16 16 18 Blood Pressure [Ri ght Radial Artery] 128/58 L 146/59 H Pulse Oximetry 94 94 95 Oxygen Delivery Me thod Room Air Room Air Room Air 05/18/24 23:00 05/19/24 03:00 05/19/24 08:33 Temperature 97.5 F L 98.5 F Pulse Rate [Bilate ral Radial] Pulse Rate [Right Pulse Oximeter] 64 63 Respiratory Rate 18 18 12 Blood Pressure [Ri ght Radial Artery] 151/65 H 174/82 H Pulse Oximetry 95 95 97 Oxygen Delivery Me thod Room Air Room Air Room Air 05/19/24 08:33 05/19/24 08:33 05/19/24 11:38 Temperature 99.9 F H Pulse Rate [Bilate ral Radial] Pulse Rate [Right Pulse Oximeter] 63 74 Respiratory Rate 12 12 12 Blood Pressure [Ri ght Radial Artery] 144/57 H Pulse Oximetry 97 95 Oxygen Delivery Me thod Room Air Room Air DS: Data Data Completed and Pending Completed studies during hospitalization: Procedures Drainage of Stomach with Drainage Device, Via Natural or Artificial Opening (01/29/24) Inspection of Upper Intestinal Tract, Via Natural or Artificial Opening Endoscopic (09/12/23) Labs on day of discharge: Labs from last 24 hours 05/19/24 06:15 WBC 5.52 RBC 2.87 L Hgb 8.4 L Hct 27.4 L MCV 96 MCH 29 MCHC 31 L Plt Count 203 Sodium 137 Potassium 4.0 Chloride 107 Carbon Dioxide 28 Anion Gap 2 L BUN 19 Creatinine 0.6 Estimated Creat Clear 40.40 Estimated GFR 89 Glucose 85 Calcium 8.0 L Phosphorus 2.7 Albumin 2.5 L Discharge Plan Discharge Disposition: Home, Self-Care Date of Admission: 05/10/24 19:31 Attending Provider on Discharge: Garima Curry Primary Care Provider: GIANNA RICHARDSON Condition: Stable Anticipated Discharge Date/Time: 05/13/24 12:00 Discharge Medications: Continued amlodipine 2.5 mg tablet 2.5 mg PO DAILY Hold Instructions: Resume on 09/24/23. Hold until seen by PCP pantoprazole 20 mg tablet,delayed release (DR/EC) 20 mg PO DAILY atenolol 50 mg tablet 50 mg PO BID Hold Instructions: Resume on 09/24/23. Hold until seen by PCP Patient Comments: PT SAYS NOW BID lorazepam 0.5 mg tablet 0.5 mg PO Q6H PRN aspirin [Aspirin Childrens] 81 mg tablet,chewable 81 mg PO DAILY cholecalciferol (vitamin D3) 25 mcg (1,000 unit) tablet 2,000 unit PO DAILY calcium carbonate-vitamin D3 [Calcium 500 + D] 500 mg-10 mcg (400 unit) tablet 1 tab PO DAILY sertraline 50 mg tablet 50 mg PO QAM furosemide 20 mg tablet 20 mg PO DAILY Qty: 30 0RF valsartan 40 mg tablet 20 mg PO DAILY Discontinued simvastatin 10 mg tablet 10 mg PO HS Discharge Orders: Discharge Order (Routine); Ordered 05/19/24 Ordered By: Garima Curry Patient Education: Bowel Obstruction (DC) Additional Instructions: Nutrition 1-2 weeks for weight loss Activity Level: No Restrictions Discharge Diet: Regular Diet Detail: Nutritional supplement TID Follow Up Appointments: GIANNA RICHARDSON DO [Primary Care Provider] - 05/22/24 1:15 pm ([facility] for follow-up.) Forms: [employer] Info Instructions Discharge Comments: please send copies of General surgery initial consult note, Discharge summary as well as labs including CBC, Albumin to Dr. Ureña's office (phone is [phone]) for upcoming appointment.
--- NOTE | 2024-05-19 14:44 | PC.NURSE ---
Discharge: Patient pleasant and cooperative. Patient vitally stable, lungs clear, BS WNL, PICC line removed, dressing with vaseline gauze, regular gauze, and tegaderm. Patient denies pain and independent in room. Ostomy emptied x2 today, soft brown stool per patient report. Patient signed belongings sheet and discharge form, patients questions answered. Patient left the floor to home with belongings at 1433.
== END 2024-05-19 14:33 | disposition home or self-care (01) | DRG 393 ==
LOC: ED 18:23 → MEDSURG 19:20
PROVIDERS: Family Medicine; Internal Medicine; Admitting Provider Family Medicine; Emergency Provider Family Medicine; PCP Student in an Organized Health Care Education/Training Program; Visit Provider Family Medicine
DX: K43.6 Other and unspecified ventral hernia with obstruction, without gangrene (principal); E43 Unspecified severe protein-calorie malnutrition; K55.1 Chronic vascular disorders of intestine; E86.0 Dehydration; E87.6 Hypokalemia; I12.9 Hypertensive chronic kidney disease with stage 1 through stage 4 chronic kidney disease, or unspecified chronic kidney disease; N18.30 Chronic kidney disease, stage 3 unspecified; R60.0 Localized edema; K76.0 Fatty (change of) liver, not elsewhere classified; I73.9 Peripheral vascular disease, unspecified; K21.9 Gastro-esophageal reflux disease without esophagitis; I35.0 Nonrheumatic aortic (valve) stenosis; D64.9 Anemia, unspecified; Z85.42 Personal history of malignant neoplasm of other parts of uterus; Z93.3 Colostomy status; Z68.26 Body mass index [BMI] 26.0-26.9, adult
CPT/HCPCS: 36415; 36573; 71045; 74018; 74177; 80048; 80061; 80069; 80076; 82962; 83036; 83605; 83735; 84100; 84134; 84478; 85025; 85027; 85610; 86140; 97116; 97161; 99284; 99285; A4221; A9270; B4185; B4189; C1751; J1650; J2060; J2405; J2470; J7030; J7120; Q9967